=== PATIENT | female | born 1940 | race American Indian/Alaskan Native ===

== ENCOUNTER 2016-11-28 09:32 | Emergency (ER) | payer MEDICAID ==
[2016-11-28 09:58] VITALS: BP 155/63
--- NOTE | 2016-11-28 12:36 | Emergency Department Report ---
ED Recheck HPI - General Chief Complaint: Recheck/Abnormal Lab/Rx Stated Complaint: MED REFILL Time Seen by Provider: 11/28/16 12:18 Source: patient, family Mode of arrival: Ambulatory Limitations: Altered Mental Status - History of Present Illness Initial Comments: Family brought patient emergency room report that patient has a history of dementia and she hasn't brought patient to the [facility] doctor in a while. She said that patient had a attack a couple weeks ago and she had to before somebody else's machine because her nebulizer machine is not working. She says she went to her machine tender this morning but because patient [place] ID is they sent her to the emergency room she said that she is requesting albuterol inhaler and nebulizer along with the nebulizer machine. I discussed with patient that the machine will need to be prescribed by her primary care physician or lung specialist. I instructed her I can refill her medication and she will need to go to [place] [facility] [employer] to get ID updated today and go back to machine tender office for refill on nebulizer machine. Patient denies any shortness of breath or chest pain at present. He has a history of COPD. MD Complaint: medication refill request Returns Today for: other (need medication refill) Context: ran out of medication Associated Symptoms: none Treatments Prior to Arrival: other (none) - Related Data Previous Rx's Medication Instructions Recorded Last Taken Type ALBUTEROL Inhaler [ProAir HFA 2 puff IH QID PRN #1 inhalation 11/28/16 Unknown Rx Inhaler] Albuterol Sulfate [Albuterol 0.63% 0.63 mg IH TID PRN #1 box 11/28/16 Unknown Rx NEBS] Allergies Allergy/AdvReac Type Severity Reaction Status Date / Time No Known Allergies Allergy Unverified 11/28/16 09:50 ED Review of Systems ROS: Stated complaint: SOB Other details as noted in HPI Patient with dementia but able to answer review of system questions. Comment: All other systems reviewed and negative Constitutional: denies: chills, fever Respiratory: no symptoms reported Cardiovascular: denies: chest pain, palpitations Gastrointestinal: denies: abdominal pain, nausea, vomiting, diarrhea Musculoskeletal: denies: back pain, arthralgia Skin: denies: rash Neurological: denies: headache, weakness, numbness, paresthesias ED Past Medical Hx - Past Medical History Previous Medical History?: Yes Hx Diabetes: Yes Hx COPD: Yes Hx Dementia: Yes - Surgical History Past Surgical History?: No - Family History Family history: diabetes, hypertension - Social History Smoking Status: Current Every Day Smoker Substance Use Type: None - Medications Home Medications: Home Medications Medication Instructions Recorded Confirmed Last Taken Type ALBUTEROL Inhaler [ProAir HFA 2 puff IH QID PRN #1 inhalation 11/28/16 Unknown Rx Inhaler] Albuterol Sulfate [Albuterol 0.63% 0.63 mg IH TID PRN #1 box 11/28/16 Unknown Rx NEBS] ED Physical Exam - General Limitations: No Limitations General appearance: alert, in no apparent distress - Head Head exam: Present: atraumatic, normocephalic, normal inspection - Eye Eye exam: Present: normal appearance, PERRL, EOMI Pupils: Present: normal accommodation - ENT ENT exam: Present: normal exam, normal orophraynx, mucous membranes moist, TM's normal bilaterally, normal external ear exam - Neck Neck exam: Present: normal inspection, full ROM. Absent: tenderness, meningismus, lymphadenopathy - Respiratory Respiratory exam: Present: decreased breath sounds. Absent: respiratory distress, wheezes, rales, rhonchi, stridor, chest wall tenderness, accessory muscle use, prolonged expiratory - Cardiovascular Cardiovascular Exam: Present: regular rate, normal rhythm, normal heart sounds - Extremities Exam Extremities exam: Present: normal inspection, full ROM, normal capillary refill. Absent: tenderness, pedal edema, joint swelling, calf tenderness - Neurological Exam Neurological exam: Present: alert, other (oriented to person) - Psychiatric Psychiatric exam: Present: normal affect, normal mood - Skin Skin exam: Present: warm, dry, intact, normal color. Absent: rash ED Course Vital Signs 11/28/16 09:50 Temperature 98.2 F Pulse Rate 78 Respiratory 20 Rate Blood Pressure 155/63 - Reevaluation(s) Reevaluation #1: 11/28/16 12:41 ED course uneventful ED Recheck MDM - Differential Diagnosis Prescription Refill(s) - Medical Decision Making ED course: Patient here with family who is requesting refill on albuterol nebulizer and inhaler. They're also prescription in for replacement of nebulizer m Machine. Patient does have a machine tender but she went this morning and because she does not have a valid [place] ID they sent her to the emergency room. I Discussed with family that They will need to update her IV at the [facility] [employer] [facility] and return to machine tender office for prescription for nebulizer machine in the meantime I'll give prescription for albuterol inhaler and nebulizer. Patient assessment of the lungs was normal. Patient discharged home with family prescription for albuterol nebulizer and inhaler. Critical care attestation.: If time is entered above; I have spent that time in minutes in the direct care of this critically ill patient, excluding procedure time. ED Disposition Clinical Impression: Encounter for medication refill Disposition: DISCHARGED TO HOME OR SELFCARE Is pt being admited?: No Does the pt Need Aspirin: No Condition: Stable Instructions: Chronic Obstructive Pulmonary Disease (ED) Additional Instructions: Please go to the [facility] to get patient [place] ID updated today. return to your machine tender office to get prescription for nebulizer machine today. Prescriptions: Albuterol Sulfate [Albuterol 0.63% NEBS] 0.63 mg IH TID PRN #1 box PRN Reason: Wheezing ALBUTEROL Inhaler [ProAir HFA Inhaler] 2 puff IH QID PRN #1 inhalation PRN Reason: Wheezing Referrals: MICHAEL FERNANDEZ MD [Staff Physician] - 11/29/16 PRIMARY CAREMD [Primary Care Provider] - 11/29/16 Forms: Accompanied Note
== END 2016-11-28 12:57 | disposition home or self-care (01) ==
LOC: ED 09:32
DX: Z76.1 Encounter for health supervision and care of foundling (principal); E11.9 Type 2 diabetes mellitus without complications; J44.9 Chronic obstructive pulmonary disease, unspecified; F03.90 Unspecified dementia, unspecified severity, without behavioral disturbance, psychotic disturbance, mood disturbance, and anxiety; F17.200 Nicotine dependence, unspecified, uncomplicated
CPT/HCPCS: 99282

== ENCOUNTER 2016-12-01 15:52 | Emergency (ER) | payer MEDICARE ==
--- NOTE | 2016-12-01 17:01 | Emergency Department Report ---
Chief Complaint: Fall Stated Complaint: FALL/HEAD LAC Time Seen by Provider: 12/01/16 16:55 - HPI History of Present Illness: 75 y/o female slipped and fell had a laceration to top of head .pt state she was walking to mail box and slip on ice .pt denies any LOC .pt denies any pain at present .daughter state she do give mother any medication even though she was told had diabetes and suppose to take insulin . - ROS Review of Systems: per HPI - Exam Vital Signs: Vital Signs 12/01/16 16:35 Temperature 98.5 F Pulse Rate 108 H Respiratory 16 Rate Blood Pressure 201/84 O2 Sat by Pulse 100 Oximetry Physical Exam: GENERAL: The patient is well-developed and well-nourished. Patient is in NAD. HENT: Normocephalic. Atraumatic. Patient has moist mucous membranes. Throat: No erythema, swelling or exudates. EYES: Extraocular motions are intact, PERRL NECK: Supple. No meningitic signs are noted. There is no adenopathy noted. CHEST/LUNGS: Clear to auscultation bilaterally. No wheezing, rales or rhonchi noted. There is no respiratory distress noted. HEART/CARDIOVASCULAR: Regular rate and rhythm. Normal S1 S2. No murmurs, rubs , clicks, or gallops. ABDOMEN: Abdomen is soft, nontender.. Bowel sounds normoactive. There is no abdominal distention. Negative rebound tenderness. Negative Rovsing. Negative [place] testing. Negative obturator and psoas signs. Negative CVA tenderness B/ L. : Deferred. SKIN: There is no rash. There is no edema. There is no diaphoresis.laceration back of head scalp .abrasion to left hand and left elbow NEURO: The patient is A&Ox3. The patient has no focal neurologic deficits. MUSCULOSKELETAL: There is no tenderness or deformity. There is no limitation range of motion. PSYCH: Pt has appropriate mood and affect. MSE screening note: Focused history and physical exam performed. Due to findings the following was ordered: ED Disposition for MSE Condition: Stable
[2016-12-01 17:52] LABS: Basophils % (Auto) 0.4 % (0.0-1.8); Hematocrit 36.4 % (30.3-42.9); Hemoglobin 11.5 gm/dl (10.1-14.3); Mean Corpuscular HGB Conc 32 % (30-34); Mean Corpuscular Volume 82 fl (79-97); Platelet Count 275 K/mm3 (140-440); Red Blood Count 4.44 M/mm3 (3.65-5.03); Red Cell Distribution Width 15.4 % (13.2-15.2); White Blood Count 13.1 K/mm3 (4.5-11.0)
[2016-12-01 17:57] LABS: Mean Corpuscular Hemoglobin 26 pg (28-32)
[2016-12-01 18:07] LABS: INR 0.95 (0.87-1.13)
[2016-12-01 18:08] LABS: Partial Thromboplastin Time 34.3 Sec. (24.2-36.6)
[2016-12-01 18:18] LABS: Blood Urea Nitrogen 15 mg/dL (7-17); Calcium 10.1 mg/dL (8.4-10.2); Carbon Dioxide 25 mmol/L (22-30); Glucose 196 mg/dL (65-100); Potassium 4.5 mmol/L (3.6-5.0); Sodium 139 mmol/L (137-145)
[2016-12-01 18:20] LABS: Anion Gap 15 mmol/L
[2016-12-01 18:34] LABS: Creatine Kinase MB 3.8 ng/mL (0.0-4.0)
[2016-12-01 18:36] LABS: Creatine Kinase 136 units/L (30-135)
--- NOTE | 2016-12-02 00:22 | Emergency Department Report ---
HPI - General Chief Complaint: Fall Time Seen by Provider: 12/02/16 00:07 - HPI HPI: 75-year-old female with history of dementia presents today with laceration to the back of her head and abrasions on right arm post fall. Daughter states patient fell while walking to the mailbox backwards. Loss of consciousness unknown. Patient denies visual changes, dizziness, confusion, fever, chills, nausea, vomiting, chest pain, shortness of breath, abdominal pain. Denies neck and back pain. Denies numbness, weakness, paresthesias. She rates her pain as a 4 out of 10. Daughter denies change in behavior. ED Past Medical Hx - Past Medical History Hx Diabetes: Yes Hx COPD: Yes Hx Dementia: Yes - Social History Smoking Status: Current Every Day Smoker Substance Use Type: None - Medications Home Medications: Home Medications Medication Instructions Recorded Confirmed Last Taken Type ALBUTEROL Inhaler [ProAir HFA 2 puff IH QID PRN #1 inhalation 11/28/16 Unknown Rx Inhaler] Albuterol Sulfate [Albuterol 0.63% 0.63 mg IH TID PRN #1 box 11/28/16 Unknown Rx NEBS] ED Review of Systems ROS: Stated complaint: FALL/HEAD LAC Other details as noted in HPI Constitutional: denies: chills, fever, malaise Eyes: denies: eye pain, vision change ENT: denies: ear pain, throat pain, congestion Respiratory: denies: cough, shortness of breath, wheezing Cardiovascular: denies: chest pain, palpitations Endocrine: no symptoms reported Gastrointestinal: denies: abdominal pain, nausea, vomiting Musculoskeletal: denies: back pain Neurological: headache. denies: weakness, numbness, paresthesias Physical Exam - Physical Exam Vital Signs: Vital Signs 12/01/16 12/01/16 16:35 22:58 Temperature 98.5 F 99.5 F Pulse Rate 108 H 104 H Respiratory 16 18 Rate Blood Pressure 201/84 Blood Pressure 156/80 [Right] O2 Sat by Pulse 100 96 Oximetry Physical Exam: GENERAL: The patient is well-developed and well-nourished. Patient is in NAD. HEAD: Normocephalic. A 2.5 cm irregular shaped superficial laceration noted over the right temporal region. No active bleeding. EYES: Extraocular motions are intact, PERRL. EARS: External auditory canals and tympanic membranes clear; hearing grossly intact. NOSE: Normal nasal mucosa with no nasal discharge. THROAT: No erythema, swelling or exudates. NECK: No midline or paraspinal tenderness to palpation. BACK: Full ROM. No midline or paraspinal tenderness to palpation. Negative straight leg raise bilaterally. CHEST/LUNGS: Clear to auscultation throughout. HEART/CARDIOVASCULAR: Regular rate and rhythm. No murmurs, rubs or gallops. ABDOMEN: Abdomen is soft, nontender. Bowel sounds normoactive. No guarding or rebound tenderness. RIGHT UPPER EXTREMITY: Full range of motion. Abrasions noted over right elbow and ulnar aspect of right hand. No active bleeding. Normal sensation. 2 point discrimination intact. Peripheral pulses intact. Capillary refill less than 2 seconds. NEURO: Alert and oriented x 3. Normal gait. Symmetrical strength and sensation. No focal neurological deficits noted. GCS score of 15. ED Course Vital Signs 12/01/16 12/01/16 16:35 22:58 Temperature 98.5 F 99.5 F Pulse Rate 108 H 104 H Respiratory 16 18 Rate Blood Pressure 201/84 Blood Pressure 156/80 [Right] O2 Sat by Pulse 100 96 Oximetry ED Medical Decision Making - Lab Data Result diagrams: 12/01/16 17:41 12/01/16 17:41 Vital Signs 12/01/16 12/01/16 12/02/16 16:35 22:58 01:30 Temperature 98.5 F 99.5 F 99.6 F Pulse Rate 108 H 104 H 105 H Respiratory 16 18 22 Rate Blood Pressure 201/84 Blood Pressure 156/80 130/67 [Right] O2 Sat by Pulse 100 96 100 Oximetry Lab Results 12/01/16 12/01/16 12/01/16 Range/Units 17:41 17:41 17:41 WBC 13.1 H (4.5-11.0) K/mm3 RBC 4.44 (3.65-5.03) M/mm3 Hgb 11.5 (10.1-14.3) gm/dl Hct 36.4 (30.3-42.9) % MCV 82 (79-97) fl MCH 26 L (28-32) pg MCHC 32 (30-34) % RDW 15.4 H (13.2-15.2) % Plt Count 275 (140-440) K/mm3 Lymph % (Auto) 10.2 L (13.4-35.0) % Wilkin % (Auto) 3.7 (0.0-7.3) % Eos % (Auto) 1.0 (0.0-4.3) % Baso % (Auto) 0.4 (0.0-1.8) % Lymph # 1.3 (1.2-5.4) K/mm3 Wilkin # 0.5 (0.0-0.8) K/mm3 Eos # 0.1 (0.0-0.4) K/mm3 Baso # 0.1 (0.0-0.1) K/mm3 Seg Neutrophils % 84.7 H (40.0-70.0) % Seg Neutrophils # 11.0 H (1.8-7.7) K/mm3 PT 12.6 (12.2-14.9) Sec. INR 0.95 (0.87-1.13) APTT 34.3 (24.2-36.6) Sec. Sodium 139 (137-145) mmol/L Potassium 4.5 (3.6-5.0) mmol/L Chloride 104.0 (98-107) mmol/L Carbon Dioxide 25 (22-30) mmol/L Anion Gap 15 mmol/L BUN 15 (7-17) mg/dL Creatinine 1.0 (0.7-1.2) mg/dL Estimated GFR > 60 ml/min BUN/Creatinine Ratio 15.00 % Glucose 196 H (65-100) mg/dL Calcium 10.1 (8.4-10.2) mg/dL Total Creatine Kinase (30-135) units/L CK-MB (CK-2) (0.0-4.0) ng/mL CK-MB (CK-2) Rel Index (0-4) Troponin T (0.00-0.029) ng/mL 12/01/16 Range/Units 17:41 WBC (4.5-11.0) K/mm3 RBC (3.65-5.03) M/mm3 Hgb (10.1-14.3) gm/dl Hct (30.3-42.9) % MCV (79-97) fl MCH (28-32) pg MCHC (30-34) % RDW (13.2-15.2) % Plt Count (140-440) K/mm3 Lymph % (Auto) (13.4-35.0) % Wilkin % (Auto) (0.0-7.3) % Eos % (Auto) (0.0-4.3) % Baso % (Auto) (0.0-1.8) % Lymph # (1.2-5.4) K/mm3 Wilkin # (0.0-0.8) K/mm3 Eos # (0.0-0.4) K/mm3 Baso # (0.0-0.1) K/mm3 Seg Neutrophils % (40.0-70.0) % Seg Neutrophils # (1.8-7.7) K/mm3 PT (12.2-14.9) Sec. INR (0.87-1.13) APTT (24.2-36.6) Sec. Sodium (137-145) mmol/L Potassium (3.6-5.0) mmol/L Chloride (98-107) mmol/L Carbon Dioxide (22-30) mmol/L Anion Gap mmol/L BUN (7-17) mg/dL Creatinine (0.7-1.2) mg/dL Estimated GFR ml/min BUN/Creatinine Ratio % Glucose (65-100) mg/dL Calcium (8.4-10.2) mg/dL Total Creatine Kinase 136 H (30-135) units/L CK-MB (CK-2) 3.8 (0.0-4.0) ng/mL CK-MB (CK-2) Rel Index 2.7 (0-4) Troponin T < 0.010 (0.00-0.029) ng/mL - Radiology Data Radiology results: report reviewed PROCEDURE: CT HEAD/BRAIN WO CON TECHNIQUE: Computerized tomography of the head was performed without contrast material. HISTORY: Fall - head injury COMPARISON: No prior studies are available for comparison. FINDINGS: Skull and scalp: There is posterior scalp swelling on the right. There is no skull fracture.. Paranasal sinuses: Normal. Ventricles and subarachnoid spaces: There is mild central and cortical atrophy. There is no hydrocephalus or asymmetry.. Cerebrum: No evidence of hemorrhage, acute infarction or mass . Cerebellum and brainstem: No evidence of hemorrhage, acute infarction or mass. Vasculature: Normal. Comments: There is chronic deep white matter ischemic gliosis.. IMPRESSION: There is right posterior scalp swelling. There is no skull fracture. There is no hemorrhage. - Medical Decision Making 75-year-old female presents today with a laceration to her right temporal scalp region post fall. Her CT of head and brain reveals right posterior scalp swelling. There is no skull fracture or hemorrhage. The wound was copiously irrigated and closed using 5 kristen. Patient tolerated the procedure. Wound care instructions are provided. Patient is in no acute distress at this time. She will be discharged home and is encouraged to follow up with a primary care provider. She will be sent home on naproxen and is encouraged to return to the emergency room for any worsening symptoms. Critical care attestation.: If time is entered above; I have spent that time in minutes in the direct care of this critically ill patient, excluding procedure time. ED Disposition Clinical Impression: Minor head injury Qualifiers: Encounter type: initial encounter Qualified Code(s): S00.90XA - Unspecified superficial injury of unspecified part of head, initial encounter Laceration of head Qualifiers: Encounter type: initial encounter Location of open wound of head: scalp Foreign body presence: without foreign body Qualified Code(s): S01.01XA - Laceration without foreign body of scalp, initial encounter Disposition: LEFT AGAINST MEDICAL ADVICE Is pt being admited?: No Condition: Stable Referrals: PRIMARY CARE, [Primary Care Provider] - 3-5 Days
--- NOTE | 2016-12-02 00:53 | Cat Scan Report ---
FINAL REPORT PROCEDURE: CT HEAD/BRAIN WO CON TECHNIQUE: Computerized tomography of the head was performed without contrast material. HISTORY: Fall - head injury COMPARISON: No prior studies are available for comparison. FINDINGS: Skull and scalp: There is posterior scalp swelling on the right. There is no skull fracture.. Paranasal sinuses: Normal. Ventricles and subarachnoid spaces: There is mild central and cortical atrophy. There is no hydrocephalus or asymmetry.. Cerebrum: No evidence of hemorrhage, acute infarction or mass . Cerebellum and brainstem: No evidence of hemorrhage, acute infarction or mass. Vasculature: Normal. Comments: There is chronic deep white matter ischemic gliosis.. IMPRESSION: There is right posterior scalp swelling. There is no skull fracture. There is no hemorrhage.
[2016-12-02 01:30] VITALS: BP 130/67
[2016-12-02] MEDS ORDERED: TRIPLE ANTIBIOTIC TP ONE ×2 (01:34→02:03)
== END 2016-12-02 01:45 | disposition left against medical advice (07) ==
LOC: ED 15:52
DX: S01.01XA Laceration without foreign body of scalp, initial encounter (principal); S00.90XA Unspecified superficial injury of unspecified part of head, initial encounter; E11.9 Type 2 diabetes mellitus without complications; J44.9 Chronic obstructive pulmonary disease, unspecified; F17.200 Nicotine dependence, unspecified, uncomplicated; W19.XXXA Unspecified fall, initial encounter; Y93.01 Activity, walking, marching and hiking; Y99.9 Unspecified external cause status; Y92.89 Other specified places as the place of occurrence of the external cause
CPT/HCPCS: 36415; 70450; 80048; 82550; 82553; 84484; 85025; 85610; 85730; A6250

== ENCOUNTER 2017-01-02 07:55 | Emergency (ER) | payer MEDICARE ==
[2017-01-02 08:05] VITALS: BP 157/79
--- NOTE | 2017-01-02 09:06 | Emergency Department Report ---
Suture/Staple Removal - [facility] Chief Complaint: Laceration/Recheck/Suture Stated Complaint: SOB/BRISSA REMOVED/MED REFILL Time Seen by Provider: 01/02/17 09:02 When Sutures or [place] Placed: >14 Days Ago (76-year-old female presents brought in by her daughter for staple removal back of scalp occipital region. Patient has no complaints, was supposed, last week but could not. Denies any pus drainage and no bleeding. Is here with her daughter who is her balance clerk. Daughter is requesting refills on her albuterol medications. Patient is awake and alert not in acute distress) ED Review of Systems ROS: Stated complaint: SOB/BRISSA REMOVED/MED REFILL Other details as noted in HPI Constitutional: denies: chills, fever Eyes: denies: eye pain, eye discharge, vision change ENT: denies: ear pain, throat pain Respiratory: denies: cough, shortness of breath, wheezing Cardiovascular: denies: chest pain, palpitations Endocrine: no symptoms reported Gastrointestinal: denies: abdominal pain, nausea, diarrhea Genitourinary: denies: urgency, dysuria, discharge Musculoskeletal: denies: back pain, joint swelling, arthralgia Skin: as per HPI (5 Brissa to back of scalp). denies: rash, lesions Neurological: denies: headache, weakness, paresthesias Psychiatric: denies: anxiety, depression Hematological/Lymphatic: denies: easy bleeding, easy bruising ED Past Medical Hx - Past Medical History Previous Medical History?: Yes Hx Diabetes: Yes Hx COPD: Yes Hx Dementia: Yes - Surgical History Past Surgical History?: No - Social History Smoking Status: Current Every Day Smoker Substance Use Type: Prescribed - Medications Home Medications: Home Medications Medication Instructions Recorded Confirmed Last Taken Type ALBUTEROL Inhaler [ProAir HFA 2 puff IH QID PRN #1 inhalation 01/02/17 Unknown Rx Inhaler] Albuterol Sulfate [Albuterol 0.63% 0.63 mg IH TID PRN #1 box 01/02/17 Unknown Rx NEBS] Suture Removal Exam - Exam General: Vital signs noted. No distress. Alert and acting appropriately. Wound: No Pathologic Erythema, No Tenderness, No Drainage, No Pus, No Wound Dehiscence Other Systems: All other systems reviewed and are unremarkable. ED Course Vital Signs 02/08/17 08:01 Temperature 98 F Pulse Rate 67 Respiratory 18 Rate Blood Pressure 157/79 O2 Sat by Pulse 100 Oximetry ED Recheck MDM - Differential Diagnosis Suture/Staple Removal - Medical Decision Making A/P: Staple removal 1-5 brissa removed with ease from back of scalp, no wound dehiscence no signs of cellulitis or purulence 2-refill on albuterol inhaler and albuterol nebulizers 3-follow-up with primary care doctor Critical care attestation.: If time is entered above; I have spent that time in minutes in the direct care of this critically ill patient, excluding procedure time. ED Disposition Clinical Impression: Encounter for staple removal Disposition: DISCHARGED TO HOME OR SELFCARE Is pt being admited?: No Does the pt Need Aspirin: No Condition: Stable Instructions: Suture Removal (ED) Prescriptions: ALBUTEROL Inhaler [ProAir HFA Inhaler] 2 puff IH QID PRN #1 inhalation PRN Reason: Wheezing Albuterol Sulfate [Albuterol 0.63% NEBS] 0.63 mg IH TID PRN #1 box PRN Reason: Wheezing Referrals: PRIMARY MD LUDIVINA [Primary Care Provider] - 3-5 Days KYLAH PABLO MD [Staff Physician] - 3-[address] [facility] [Outside] - 3-5 Days Forms: Accompanied Note Time of Disposition: 09:05
== END 2017-01-02 09:17 | disposition home or self-care (01) ==
LOC: ED 07:55
DX: S01.01XD Laceration without foreign body of scalp, subsequent encounter (principal); Z48.02 Encounter for removal of sutures; E11.9 Type 2 diabetes mellitus without complications; J44.9 Chronic obstructive pulmonary disease, unspecified; F03.90 Unspecified dementia, unspecified severity, without behavioral disturbance, psychotic disturbance, mood disturbance, and anxiety; F17.200 Nicotine dependence, unspecified, uncomplicated

== ENCOUNTER 2017-02-18 08:50 | Emergency (ER) | payer MEDICARE ==
[2017-02-18 09:12] VITALS: BP 151/65
--- NOTE | 2017-02-18 11:56 | Emergency Department Report ---
ED General Adult HPI - General Chief complaint: Dyspnea/Respdistress Stated complaint: SOB Time Seen by Provider: 02/18/17 10:42 Source: patient Mode of arrival: Ambulatory Limitations: No Limitations - History of Present Illness Initial comments: Patient has no chief complaint. Patient denies chest pain, shortness of breath , dyspnea on exertion, nausea vomiting, or swelling of lower extremities. Patient's daughter who is her caregiver states they're here for medication refills alone. Severity scale (0 -10): 0 - Related Data Previous Rx's Medication Instructions Recorded Last Taken Type ALBUTEROL NEB's [Proventil 0.083% 2.5 mg IH QID PRN #25 neb 01/30/17 Unknown Rx NEBS] Albuterol Sulfate [Ventolin HFA] 2 puff IH Q4H PRN #1 [email or web address] 01/30/17 Unknown Rx ALBUTEROL Inhaler [ProAir HFA 2 puff IH QID PRN #1 inhalation 02/18/17 Unknown Rx Inhaler] Allergies Allergy/AdvReac Type Severity Reaction Status Date / Time No Known Allergies Allergy Verified 01/30/17 08:52 ED Review of Systems ROS: Stated complaint: SOB Other details as noted in HPI Constitutional: denies: chills, fever Eyes: denies: eye pain, eye discharge, vision change ENT: denies: ear pain, throat pain Cardiovascular: denies: chest pain, palpitations Gastrointestinal: denies: abdominal pain, nausea, vomiting, diarrhea Musculoskeletal: denies: back pain, joint swelling, arthralgia Skin: denies: rash, lesions Neurological: denies: headache, weakness, paresthesias ED Past Medical Hx - Past Medical History Previous Medical History?: Yes Hx Diabetes: Yes Hx COPD: Yes Hx Dementia: Yes - Surgical History Past Surgical History?: No - Social History Smoking Status: Current Every Day Smoker Substance Use Type: Prescribed - Medications Home Medications: Home Medications Medication Instructions Recorded Confirmed Last Taken Type ALBUTEROL NEB's [Proventil 0.083% 2.5 mg IH QID PRN #25 neb 01/30/17 Unknown Rx NEBS] Albuterol Sulfate [Ventolin HFA] 2 puff IH Q4H PRN #1 [email or web address] 01/30/17 Unknown Rx ALBUTEROL Inhaler [ProAir HFA 2 puff IH QID PRN #1 inhalation 02/18/17 Unknown Rx Inhaler] ED Physical Exam - General Limitations: No Limitations General appearance: alert, in no apparent distress - Head Head exam: Present: atraumatic, normocephalic - Eye Eye exam: Present: normal appearance - ENT ENT exam: Present: mucous membranes moist - Neck Neck exam: Present: normal inspection - Respiratory Respiratory exam: Present: normal lung sounds bilaterally. Absent: respiratory distress, wheezes, rales, rhonchi, stridor, chest wall tenderness, accessory muscle use, decreased breath sounds, prolonged expiratory - Cardiovascular Cardiovascular Exam: Present: regular rate - GI/Abdominal GI/Abdominal exam: Present: soft. Absent: distended, tenderness - Extremities Exam Extremities exam: Absent: pedal edema, calf tenderness - Neurological Exam Neurological exam: Present: alert ED Course Vital Signs 02/18/17 09:06 Temperature 98.4 F Pulse Rate 71 Respiratory 20 Rate Blood Pressure 151/65 O2 Sat by Pulse 100 Oximetry Critical care attestation.: If time is entered above; I have spent that time in minutes in the direct care of this critically ill patient, excluding procedure time. ED Disposition Clinical Impression: Medication refill Disposition: DISCHARGED TO HOME OR SELFCARE Is pt being admited?: No Does the pt Need Aspirin: No Condition: Stable Prescriptions: ALBUTEROL Inhaler [ProAir HFA Inhaler] 2 puff IH QID PRN #1 inhalation PRN Reason: Shortness Of Breath Referrals: PRIMARY CARE, [Primary Care Provider] - 3-5 Days
== END 2017-02-18 12:12 | disposition home or self-care (01) ==
LOC: ED 08:50
DX: Z76.0 Encounter for issue of repeat prescription (principal); R06.02 Shortness of breath; E11.9 Type 2 diabetes mellitus without complications; J44.9 Chronic obstructive pulmonary disease, unspecified; F17.200 Nicotine dependence, unspecified, uncomplicated
CPT/HCPCS: 99282

== ENCOUNTER 2018-07-01 09:58 | Outpatient (CLI) | payer MEDICARE ==
[2018-07-01 10:56] LABS: Hematocrit 34.9 % (30.3-42.9); Hemoglobin 11.1 gm/dl (10.1-14.3); Mean Corpuscular HGB Conc 32 % (30-34); Mean Corpuscular Hemoglobin 26 pg (28-32); Mean Corpuscular Volume 83 fl (79-97); Platelet Count 289 K/mm3 (140-440); Red Blood Count 4.23 M/mm3 (3.65-5.03); Red Cell Distribution Width 16.4 % (13.2-15.2)
[2018-07-01 11:17] LABS: Alanine Aminotransferase 15 units/L (7-56); Albumin 3.7 g/dL (3.9-5); BUN/Creatinine Ratio 23; Blood Urea Nitrogen 18 mg/dL (7-17); Hemolysis Index 2
== END 2018-07-01 09:59 | disposition home or self-care (01) ==
LOC: LAB 09:58
DX: I10 Essential (primary) hypertension (principal); E11.9 Type 2 diabetes mellitus without complications; G30.9 Alzheimer's disease, unspecified; J44.9 Chronic obstructive pulmonary disease, unspecified; M62.81 Muscle weakness (generalized)
CPT/HCPCS: 36415; 80053; 82306; 82607; 83036; 84443; 85027

== ENCOUNTER 2019-10-02 16:24 | Emergency (ER) | payer MEDICARE ==
[2019-10-02 16:51] VITALS: BP 160/58
--- NOTE | 2019-10-02 16:52 | Event Note ---
ED Screening Note Date of service: 10/02/19 Time: 16:48 ED Screening Note: This is a 78 y.o. F. that presents to the ER with bruising and pain to right shoulder and right upper arm. Patient daughter states she fell 2 days ago while coming up 2 steps on front porch at home. This initial assessment/diagnostic orders/clinical plan/treatment(s) is/are subject to change based on patients health status, clinical progression and re- assessment by fellow clinical providers in the ED. Further treatment and workup at subsequent clinical providers discretion. Patient/guardian urged not to elope from the ED as their condition may be serious if not clinically assessed and managed. Initial orders include: XR of right shoulder and humerus
--- NOTE | 2019-10-02 17:41 | XRay Report ---
XR humerus 2+V RT INDICATION / CLINICAL INFORMATION: pain and ecchymosis. COMPARISON: None available. FINDINGS: BONES/JOINT(S): No acute fracture or subluxation. Mild diffuse subjective osteopenia. Mild DJD in the glenohumeral joint and acromioclavicular joint in the right shoulder. No aggressive appearing bone l esions. SOFT TISSUES: No significant abnormality. ADDITIONAL FINDINGS: None. Signer Name: Darshan Pineda MD Signed: 10/02/2019 5:37 PM Workstation Name: [id number]
--- NOTE | 2019-10-02 17:43 | XRay Report ---
XR shoulder 2+V RT INDICATION / CLINICAL INFORMATION: ac joint pain, r/o fx. COMPARISON: None available. FINDINGS: BONES/JOINT(S): Nondisplaced lucency in the base of the greater tuberosity suggesting a nondisplaced fracture (flores image saved in PACS). Mild diffuse subjective osteopenia. Mild DJD in the glenohumeral joint and acromioclavicular joint in the right shoulder. No aggressive appearing bone lesions. Chronic healed mid right clavicular fractu re. SOFT TISSUES: No significant abnormality. ADDITIONAL FINDINGS: None. Signer Name: Darshan Pineda MD Signed: 10/02/2019 5:38 PM Workstation Name: [id number]
== END 2019-10-02 20:00 | disposition left against medical advice (07) ==
LOC: ED 16:24
DX: M79.601 Pain in right arm (principal); Z53.21 Procedure and treatment not carried out due to patient leaving prior to being seen by health care provider

== ENCOUNTER 2019-10-03 11:04 | Emergency (ER) | payer MEDICARE ==
--- NOTE | 2019-10-03 12:08 | Emergency Department Report ---
ED Fall HPI - General Chief Complaint: Fall Stated Complaint: FALL Time Seen by Provider: 10/03/19 11:55 Source: patient Mode of arrival: Ambulatory - History of Present Illness Initial Comments: 78-year-old Afro-Iranian female presents to the emergency department with her daughter for evaluation of a right arm bruising which was sustained secondary to a trip and fall about 3 days ago. While walking up the [employer] she had had a mechanical fall resulting in pain to her right arm and shoulder. She reported no chest pain or presyncope that preceded the fall no change in vision. No numbness or tingling. But does continue to have a dull throbbing pain. MD Complaint: fall - Related Data Previous Rx's Medication Instructions Recorded Last Taken Type ALBUTEROL NEB's [Proventil 0.083% 2.5 mg IH QID PRN #25 neb 01/30/17 Unknown Rx NEBS] Albuterol Sulfate [Ventolin HFA] 2 puff IH Q4H PRN #1 hfa.aer.ad 01/30/17 Unknown Rx ALBUTEROL Inhaler (OR & NICU) 2 puff IH QID PRN #1 inhalation 02/18/17 Unknown Rx [ProAir HFA Inhaler] Acetaminophen/Codeine [Tylenol #3] 1 tab PO Q6H PRN #10 tab 10/03/19 Unknown Rx Allergies Allergy/AdvReac Type Severity Reaction Status Date / Time No Known Allergies Allergy Verified 01/30/17 08:52 ED Review of Systems ROS: Stated complaint: FALL Other details as noted in HPI Comment: All other systems reviewed and negative ED Past Medical Hx - Past Medical History Hx Diabetes: Yes Hx COPD: Yes Hx Dementia: Yes - Surgical History Past Surgical History?: No - Social History Smoking Status: Current Every Day Smoker Substance Use Type: None - Medications Home Medications: Home Medications Medication Instructions Recorded Confirmed Last Taken Type ALBUTEROL NEB's [Proventil 0.083% 2.5 mg IH QID PRN #25 neb 01/30/17 Unknown Rx NEBS] Albuterol Sulfate [Ventolin HFA] 2 puff IH Q4H PRN #1 hfa.aer.ad 01/30/17 Unknown Rx ALBUTEROL Inhaler (OR & NICU) 2 puff IH QID PRN #1 inhalation 02/18/17 Unknown Rx [ProAir HFA Inhaler] Acetaminophen/Codeine [Tylenol #3] 1 tab PO Q6H PRN #10 tab 10/03/19 Unknown Rx ED Physical Exam - General Limitations: No Limitations General appearance: alert, in no apparent distress - Head Head exam: Present: atraumatic, normocephalic - Eye Eye exam: Present: normal appearance, PERRL, EOMI Pupils: Present: normal accommodation - ENT ENT exam: Present: normal exam, mucous membranes moist - Neck Neck exam: Present: normal inspection - Respiratory Respiratory exam: Present: normal lung sounds bilaterally. Absent: respiratory distress - Cardiovascular Cardiovascular Exam: Present: regular rate, normal rhythm. Absent: systolic murmur, diastolic murmur, rubs, gallop - GI/Abdominal GI/Abdominal exam: Present: soft, normal bowel sounds - Extremities Exam Extremities exam: Present: normal inspection, tenderness (disposition and is noted to the right humerus with palpation and some bruising noted as well appears to be starting the healing phase. Minimal swelling. Pain with range of motion noted. No sulcus sign. Pulses are 2+ capillary refills are brisk.) - Back Exam Back exam: Present: normal inspection - Neurological Exam Neurological exam: Present: alert, oriented X3 - Psychiatric Psychiatric exam: Present: normal affect, normal mood - Skin Skin exam: Present: warm, dry, intact, normal color. Absent: rash ED Course Vital Signs 10/03/19 11:17 Temperature 97.7 F Pulse Rate 93 H Respiratory 16 Rate Blood Pressure 136/66 O2 Sat by Pulse 100 Oximetry - Procedure Description Procedures done: Right arm placed in a sling and swath for comfort. Neurovascularly intact ED Medical Decision Making - Radiology Data Radiology results: report reviewed [address] [address] XRay Report Signed Patient: GRGE RIVAS MR#: [id number] : 1940 Acct:[id number] Age/Sex: 78 / F ADM Date: 10/02/19 Loc: ED Attending Dr: Ordering Physician: JULISA BARBER Date of Service: 10/02/19 Procedure(s): XR humerus 2+V RT Accession Number(s): [id number] cc: JULISA BARBER Fluoro Time In Minutes: XR humerus 2+V RT INDICATION / CLINICAL INFORMATION: pain and ecchymosis. COMPARISON: None available. FINDINGS: BONES/JOINT(S): No acute fracture or subluxation. Mild diffuse subjective osteopenia. Mild DJD in the glenohumeral joint and acromioclavicular joint in the right shoulder. No aggressive appearing bone lesions. SOFT TISSUES: No significant abnormality. ADDITIONAL FINDINGS: None. Signer Name: Darshan Pineda MD Signed: 10/02/2019 5:37 PM Workstation Name: [email or web address] Transcribed By: RHETT Dictated By: Darshan Pineda MD Electronically Authenticated By: Darshan Pineda MD Signed Date/Time: 10/02/191736 DD/ 35 TD/TT: - Medical Decision Making 78-year-old Iranian female 3 days status post trip and fall was here on yesterday received an x-ray of the shoulder was dislocated right greater tuberosity fracture suspicion. She left the emergency department with her daughter due to the wait time. Today for reevaluation of the same shoulder. Pain is present in mild to moderate in nature was placed in a sling for comfort and she is instructed to follow-up with her orthopedic physician - Differential Diagnosis contusion, fracture, sprain, Critical care attestation.: If time is entered above; I have spent that time in minutes in the direct care of this critically ill patient, excluding procedure time. ED Disposition Clinical Impression: Fracture of greater tuberosity of humerus Disposition: DC-01 TO HOME OR SELFCARE Is pt being admited?: No Does the pt Need Aspirin: No Condition: Stable Instructions: Arm Fracture in Adults (ED) Additional Instructions: Please keep arm in sling and swath until cleared by the orthopedic physician for removal. He can manage the pain with anti-inflammatories and ice minimal movement. Referrals: DANIEL STRICKLAND MD [Staff Physician] - 2-3 Days
[2019-10-03 12:12] VITALS: BP 153/60
== END 2019-10-03 12:45 | disposition home or self-care (01) ==
LOC: ED 11:04
DX: S42.251A Displaced fracture of greater tuberosity of right humerus, initial encounter for closed fracture (principal); E11.9 Type 2 diabetes mellitus without complications; J44.9 Chronic obstructive pulmonary disease, unspecified; F03.90 Unspecified dementia, unspecified severity, without behavioral disturbance, psychotic disturbance, mood disturbance, and anxiety; F17.200 Nicotine dependence, unspecified, uncomplicated; W19.XXXA Unspecified fall, initial encounter; Y93.89 Activity, other specified; Y92.89 Other specified places as the place of occurrence of the external cause; Y99.8 Other external cause status

== ENCOUNTER 2021-06-21 19:49 | Inpatient (IN) | payer MEDICARE, MEDICAID ==
[2021-06-21] MEDS ORDERED: PIPERACILLIN/TAZOBACTAM 3.375 3.375 GM/50 ML BAG IV ONE (20:25)
[2021-06-21] MEDS ORDERED: ACETAMINOPHEN 650 MG RECT SUPP PR ONE (20:25)
[2021-06-21] MEDS ORDERED: SODIUM CHLORIDE 0.9% 1000 ML 1,000 ML IV ONE ×2 (20:25→23:14)
--- NOTE | 2021-06-21 20:32 | Emergency Department Report ---
ED General Adult HPI - General Stated complaint: SEPSIS Time Seen by Provider: 06/21/21 20:23 Source: EMS - History of Present Illness Initial comments: Patient is 80 years old female with history of dementia, COPD and diabetes. Patient brought to the emergency room via EMS from home for evaluation of decreased responsiveness and decreased p.o. intake for the last few days. Patient also found to be febrile with a temperature of 101.2, tachycardic with a pulse of 133 and a blood pressure of 100/60. Sepsis protocol immediately initiated and patient started on IV fluids, Zosyn and given Tylenol. EMS stated that several members of the house tested positive for COVID-19 few days ago. - Related Data Previous Rx's Medication Instructions Recorded Last Taken Type ALBUTEROL NEB's [Proventil 0.083% 2.5 mg IH QID PRN #25 neb 01/30/17 Unknown Rx NEBS] Albuterol Sulfate [Ventolin HFA] 2 puff IH Q4H PRN #1 hfa.aer.ad 01/30/17 Unknown Rx Albuterol Mdi (or & Nicu Only) 2 puff IH QID PRN #1 inhalation 02/18/17 Unknown Rx [ProAir HFA Inhaler] Acetaminophen/Codeine [Tylenol #3] 1 tab PO Q6H PRN #10 tab 10/03/19 Unknown Rx Allergies Allergy/AdvReac Type Severity Reaction Status Date / Time No Known Allergies Allergy Verified 01/30/17 08:52 ED Review of Systems ROS: Stated complaint: SEPSIS Other details as noted in HPI Constitutional: chills, fever Respiratory: cough Gastrointestinal: nausea Neurological: weakness ED Past Medical Hx - Past Medical History Hx Diabetes: Yes Hx COPD: Yes Hx Dementia: Yes - Social History Smoking Status: Current Every Day Smoker Substance Use Type: None - Medications Home Medications: Home Medications Medication Instructions Recorded Confirmed Last Taken Type ALBUTEROL NEB's [Proventil 0.083% 2.5 mg IH QID PRN #25 neb 01/30/17 Unknown Rx NEBS] Albuterol Sulfate [Ventolin HFA] 2 puff IH Q4H PRN #1 hfa.aer.ad 01/30/17 Unknown Rx Albuterol Mdi (or & Nicu Only) 2 puff IH QID PRN #1 inhalation 02/18/17 Unknown Rx [ProAir HFA Inhaler] Acetaminophen/Codeine [Tylenol #3] 1 tab PO Q6H PRN #10 tab 10/03/19 Unknown Rx ED Physical Exam - General General appearance: obtunded - Head Head exam: Present: atraumatic, normocephalic, normal inspection - Eye Eye exam: Present: normal appearance - ENT ENT exam: Present: mucous membranes dry - Neck Neck exam: Present: normal inspection, full ROM. Absent: tenderness, meningismus - Respiratory Respiratory exam: Present: rales, decreased breath sounds. Absent: wheezes - Cardiovascular Cardiovascular Exam: Present: tachycardia - GI/Abdominal GI/Abdominal exam: Present: soft, normal bowel sounds. Absent: distended, tenderness, guarding - Extremities Exam Extremities exam: Present: normal inspection - Neurological Exam Neurological exam: Present: altered - Skin Skin exam: Present: warm, dry ED Course Vital Signs 06/21/21 06/21/21 06/21/21 21:32 21:40 23:23 Temperature 100.2 F H 98.6 F Pulse Rate 114 H 94 H Respiratory 37 H 24 Rate Blood Pressure 145/76 168/87 [Left] O2 Sat by Pulse 100 98 Oximetry - Consultations Consultation #1: 06/22/21 00:21 I discussed the patient with Dr. Melchor, head automatic sawyer on-call, he stated that he will follow up with the patient. ED Medical Decision Making - Lab Data Result diagrams: 06/21/21 20:39 06/21/21 20:39 - Radiology Data Radiology results: report reviewed - Medical Decision Making Patient is 80 years old female with history of dementia, COPD and diabetes. Patient brought to the emergency room via EMS from home for evaluation of decreased responsiveness and decreased p.o. intake for the last few days. Patient also found to be febrile with a temperature of 101.2, tachycardic with a pulse of 133 and a blood pressure of 100/60. Sepsis protocol immediately initiated and patient started on IV fluids, Zosyn and given Tylenol. EMS stated that several members of the house tested positive for COVID-19 few days ago. Labs showed leukocytosis. Chest x-ray is negative however CT abdomen and pelvis showed bilateral lower lobe infiltrate. This is suggesting for pneumonia. Patient also has an acute renal failure with a creatinine of 2.2 patient baseline is 0.8. Lactic acid is 4. I discussed the patient with Dr. Malik, he agreed to admit the patient to medical service for further management. Critical Care Time: Yes Critical care time in (mins) excluding proc time.: 30 Critical care attestation.: If time is entered above; I have spent that time in minutes in the direct care of this critically ill patient, excluding procedure time. ED Disposition Clinical Impression: Sepsis, Pneumonia of both lower lobes, Acute renal failure Disposition: OP ADMIT IP TO THIS HOSP Is pt being admited?: Yes Condition: Stable Instructions: Bacterial Pneumonia (ED) Referrals: PRIMARY CARE, [Primary Care Provider] - 3-5 Days
[2021-06-21 21:17] LABS: Bilirubin,Direct 0.7 mg/dL (0-0.2); Calcium 10.4 mg/dL (8.4-10.2)
[2021-06-21 21:40] LABS: Basophils % (Auto) 0.2 % (0.0-1.8); Eosinophils % (Auto) 0.3 % (0.0-4.3); Hematocrit 42.4 % (30.3-42.9); Hemoglobin 13.3 gm/dl (10.1-14.3); Lymphocytes # (Auto) 0.6 K/mm3 (1.2-5.4); Lymphocytes % (Auto) 3.5 % (13.4-35.0); Mean Corpuscular HGB Conc 31 % (30-34); Mean Corpuscular Volume 84 fl (79-97); Monocytes # (Auto) 1.1 K/mm3 (0.0-0.8); Platelet Count 219 K/mm3 (140-440); Red Blood Count 5.03 M/mm3 (3.65-5.03); Red Cell Distribution Width 16.1 % (13.2-15.2)
[2021-06-21 21:41] LABS: Eosinophils # (Auto) 0.1 K/mm3 (0.0-0.4)
--- NOTE | 2021-06-21 22:23 | XRay Report ---
CHEST 1 VIEW 06/21/2021 9:15 PM INDICATION / CLINICAL INFORMATION: sepsis,cough. COMPARISON: None available. FINDINGS: SUPPORT DEVICES: None. HEART / MEDIASTINUM: No significant abnormality. LUNGS / PLEURA: No significant pulmonary or pleural abnormality. No pneumothorax. ADDITIONAL FINDINGS: No significant additional findings. IMPRESSION: 1. No acute findings. Signer Name: Ramiro Mcclain MD Signed: 06/21/2021 10:19 PM Workstation Name: [id number]
--- NOTE | 2021-06-21 23:29 | Cat Scan Report ---
CT HEAD WITHOUT CONTRAST INDICATION : AMS. TECHNIQUE: Axial, coronal and sagittal CT imaging was performed from the skull apex through the skul l base without contrast. All CT scans at this location are performed using CT dose reduction for ALA RA by means of automated exposure control. COMPARISON: CT head without contrast from 12/02/2016 FINDINGS: PARENCHYMA: No mass, midline shift, hemorrhage, extraaxial collection or acute territorial infarctio n. Generalized atrophy is noted with areas of encephalomalacia noted along the superior left parieta l lobe and the paramedian left occipital lobe. VENTRICLES: Enlarged secondary to atrophy. No acute abnormality. SOFT TISSUES: No significant abnormality of the included soft tissues/orbits. BONES: No acute osseous abnormality. SINUSES: A small air-fluid level is seen along the left maxillary sinus. No other significant abnorma lity. ADDITIONAL FINDINGS: None. IMPRESSION: 1. No acute intracranial abnormality. 2. Additional findings as above. Signer Name: Eusebio Purcell MD Signed: 06/21/2021 11:25 PM Workstation Name: [id number]
--- NOTE | 2021-06-21 23:35 | Cat Scan Report ---
CT ABDOMEN AND PELVIS WITHOUT CONTRAST INDICATION / CLINICAL INFORMATION: Unspecified abdominal pain, altered mental status, COVID 19. TECHNIQUE: Axial CT images were obtained through the abdomen and pelvis without IV contrast. All CT scans at [facility] location are performed using CT dose reduction for ALARA by means of automated exposure control. COMPARISON: One view of the chest performed today. FINDINGS: LOWER CHEST: Generalized bibasilar opacities are noted with mild emphysema. There is severe generaliz ed coronary atherosclerosis and moderate thoracic aortic atherosclerosis. No other significant abnorm ality. LIVER: No significant abnormality. GALLBLADDER: Cholelithiasis without evidence of acute cholecystitis. BILE DUCTS: No significant abnormality. PANCREAS: Generalized atrophy without other significant abnormalities. SPLEEN: No significant abnormality. ADRENALS: No significant abnormality of the right adrenal gland. A left adrenal myelolipoma measures 2.4 x 1.9 cm on image 54 of series 2. RIGHT KIDNEY / URETER: There is marked right renal atrophy without other significant abnormalities. LEFT KIDNEY / URETER: A mid pole left renal cyst measures up to 1.6 cm on image 62 of series 2. No ot her significant abnormality. STOMACH / SMALL BOWEL: No significant abnormality. COLON: There is generalized diverticulosis without evidence of diverticulitis or other acute findings . APPENDIX: No significant abnormality. PERITONEUM: No free fluid. No free air. No fluid collection. LYMPH NODES: No significant adenopathy. AORTA / ARTERIES: The aorta is normal in caliber with diffuse atherosclerosis. IVC / VEINS: No significant abnormality. URINARY BLADDER: No significant abnormality. REPRODUCTIVE ORGANS: A tube is seen along the vagina without identification of significant abnormalit ies. ADDITIONAL FINDINGS: None. SKELETAL SYSTEM: No acute findings. The bones are demineralized with severe degenerative changes note d along the spine and pelvis. IMPRESSION: 1. No acute abnormality of the abdomen or pelvis. 2. Partially visualized bibasilar opacities are favored to represent atelectasis/other chronic change s given the lack of a concerning acute radiographic abnormality on the chest radiograph performed ear lier today. Close clinical and imaging follow-up is recommended. Signer Name: Eusebio Purcell MD Signed: 06/21/2021 11:31 PM Workstation Name: [id number]
[2021-06-22] MEDS ORDERED: ALBUTEROL 2.5 MG/3 ML NEBU IH PRN ×2 (01:32→01:37)
[2021-06-22] MEDS ORDERED: ACETAMINOPHEN 325 MG TAB PO PRN ×2 (01:32)
[2021-06-22] MEDS ORDERED: HYDROmorphone 1 MG/1 ML INJ IV PRN ×2 (01:32)
[2021-06-22] MEDS ORDERED: ONDANSETRON 4 MG/2 ML INJ IV PRN (01:32)
[2021-06-22] MEDS ORDERED: oxyCODONE /ACETAMINOPHEN 5-325MG TAB PO PRN (01:32)
[2021-06-22] MEDS ORDERED: ALBUTEROL 8.5 GM MDI INHALATION IH PRN ×2 (01:37)
--- NOTE | 2021-06-22 01:43 | History and Physical Report ---
History of Present Illness Date of examination: 06/22/21 Date of admission: 06/22/21 00:05 Chief complaint: Decreased responsiveness Sepsis History of present illness: 80 years old female with history of dementia, COPD and diabetes was brought to the emergency room because of decreased responsiveness and decreased p.o. intake for the last few days. Patient also found to be febrile with a temperature of 101.2, tachycardic with a pulse of 133 and a blood pressure of 100/60. Sepsis protocol immediately initiated and patient started on IV fluids, Zosyn and given Tylenol. EMS stated that several members of the house tested positive for COVID-19 few days ago. In the emergency room patient is found to have WBC of 17.7 lactic acid of 4.00, BUN is 48 creatinine 2.2, chest x-ray compatible with pneumonia as per the ER physician Past History Past Medical History: COPD, diabetes, other (Dementia) Medications and Allergies Allergies Allergy/AdvReac Type Severity Reaction Status Date / Time No Known Allergies Allergy Verified 01/30/17 08:52 Home Medications Medication Instructions Recorded Confirmed Last Taken Type ALBUTEROL NEB's [Proventil 0.083% 2.5 mg IH QID PRN #25 neb 01/30/17 Unknown Rx NEBS] Albuterol Sulfate [Ventolin HFA] 2 puff IH Q4H PRN #1 hfa.aer.ad 01/30/17 Unknown Rx Albuterol Mdi (or & Nicu Only) 2 puff IH QID PRN #1 inhalation 02/18/17 Unknown Rx [ProAir HFA Inhaler] Acetaminophen/Codeine [Tylenol #3] 1 tab PO Q6H PRN #10 tab 10/03/19 Unknown Rx Active Meds: Active Medications Acetaminophen (Acetaminophen 325 Mg Tab) 650 mg PO Q4H PRN PRN Reason: Pain MILD(1-3)/Fever >100.5/MCGRAW Acetaminophen (Acetaminophen 325 Mg Tab) 650 mg PO Q6H PRN PRN Reason: Pain, Mild (1-3) Albuterol (Albuterol 2.5 Mg/3 Ml Nebu) 2.5 mg IH Q4HRT PRN PRN Reason: Shortness Of Breath Albuterol (Albuterol 8.5 Gm Mdi Inhalation) 2 puff IH QID PRN PRN Reason: Shortness Of Breath Albuterol (Albuterol 2.5 Mg/3 Ml Nebu) 2.5 mg IH QID PRN PRN Reason: Wheezing Albuterol (Albuterol 8.5 Gm Mdi Inhalation) 2 puff IH Q4H PRN PRN Reason: Shortness Of Breath Albuterol/Ipratropium (Ipratropium/Albuterol Sulfate 3 Ml Ampul.Neb) 1 ampul IH Q6HRT [place] Famotidine (Famotidine 20 Mg/2 Ml Inj) 20 mg IV BID [place] Heparin Sodium (Porcine) (Heparin 5,000 Unit/1 Ml Vial) 5,000 unit SUB-Q Q12HR [place] Hydromorphone HCl (Hydromorphone 1 Mg/1 Ml Inj) 0.25 mg IV Q4H PRN PRN Reason: Pain, Moderate (4-6) Hydromorphone HCl (Hydromorphone 1 Mg/1 Ml Inj) 0.5 mg IV Q3H PRN PRN Reason: Pain , Severe (7-10) Sodium Chloride (Nacl 0.9% 1000 Ml) 1,000 mls @ 100 mls/hr IV DIRECT [facility] Ceftriaxone Sodium (Rocephin/Ns 2 Gm/100 Ml) 2 gm in 100 mls @ 200 mls/hr IV Q24H [facility]; Protocol Azithromycin (Zithromax/Ns) 500 mg in 250 mls @ 250 mls/hr IV Q24H [facility]; Protocol Ondansetron HCl (Ondansetron 4 Mg/2 Ml Inj) 4 mg IV Q8H PRN PRN Reason: Nausea And Vomiting Oxycodone/Acetaminophen (Oxycodone /Acetaminophen 5-325mg Tab) 1 tab PO Q6H PRN PRN Reason: Pain, Moderate (4-6) Sodium Chloride (Sodium Chloride 0.9% 10 Ml Flush Syringe) 10 ml IV BID [facility] Sodium Chloride (Sodium Chloride 0.9% 10 Ml Flush Syringe) 10 ml IV PRN PRN PRN Reason: LINE FLUSH Review of Systems Constitutional: lethargy, other (Decreased responsiveness, decreased p.o. int brittanie) Exam - Constitutional Vitals: Temp Pulse Resp BP Pulse Ox 98.6 F 94 H 24 168/87 98 06/21/21 23:23 06/21/21 23:23 06/21/21 23:23 06/21/21 23:23 06/21/21 23:23 General appearance: Present: mild distress, well-nourished - EENT Eyes: Present: PERRL ENT: hearing intact, clear oral mucosa - Neck Neck: Present: supple, normal ROM - Respiratory Respiratory effort: normal Respiratory: bilateral: CTA - Cardiovascular Heart Sounds: Present: S1 & S2. Absent: rub, click - Extremities Extremities: pulses symmetrical, No edema Peripheral Pulses: within normal limits - Abdominal General gastrointestinal: Present: soft, non-tender, non-distended, normal bowel sounds Female genitourinary: Present: normal - Integumentary Integumentary: Present: clear, warm, dry - Musculoskeletal Musculoskeletal: gait normal, strength equal bilaterally - Psychiatric Psychiatric: intact judgment & insight, other (Altered) - Neurologic Neurologic: CNII-XII intact, other (Altered mental status) Results - Labs CBC & Chem 7: 06/21/21 20:39 06/21/21 20:39 Labs: Laboratory Last Values WBC 17.7 K/mm3 (4.5-11.0) H 06/21/21 20:39 RBC 5.03 M/mm3 (3.65-5.03) 06/21/21 20:39 Hgb 13.3 gm/dl (10.1-14.3) 06/21/21 20:39 Hct 42.4 % (30.3-42.9) 06/21/21 20:39 MCV 84 fl (79-97) 06/21/21 20:39 MCH 26 pg (28-32) L 06/21/21 20:39 MCHC 31 % (30-34) 06/21/21 20:39 RDW 16.1 % (13.2-15.2) H 06/21/21 20:39 Plt Count 219 K/mm3 (140-440) 06/21/21 20:39 Lymph % (Auto) 3.5 % (13.4-35.0) L 06/21/21 20:39 [place] % (Auto) 6.0 % (0.0-7.3) 06/21/21 20:39 Eos % (Auto) 0.3 % (0.0-4.3) 06/21/21 20:39 Baso % (Auto) 0.2 % (0.0-1.8) 06/21/21 20:39 Lymph # (Auto) 0.6 K/mm3 (1.2-5.4) L 06/21/21 20:39 [place] # (Auto) 1.1 K/mm3 (0.0-0.8) H 06/21/21 20:39 Eos # (Auto) 0.1 K/mm3 (0.0-0.4) 06/21/21 20:39 Baso # (Auto) 0.0 K/mm3 (0.0-0.1) 06/21/21 20:39 Add Manual Diff Complete 06/21/21 20:39 Seg Neutrophils % 90.0 % (40.0-70.0) H 06/21/21 20:39 Seg Neutrophils # 15.9 K/mm3 (1.8-7.7) H 06/21/21 20:39 Sodium 141 mmol/L (137-145) 06/21/21 20:39 Potassium 4.5 mmol/L (3.6-5.0) 06/21/21 20:39 Chloride 107.3 mmol/L (98-107) H 06/21/21 20:39 Carbon Dioxide 15 mmol/L (22-30) L 06/21/21 20:39 Anion Gap 23 mmol/L 06/21/21 20:39 BUN 48 mg/dL (7-17) H 06/21/21 20:39 Creatinine 2.2 mg/dL (0.6-1.2) H 06/21/21 20:39 Estimated GFR 26 ml/min 06/21/21 20:39 BUN/Creatinine Ratio 22 % 06/21/21 20:39 Glucose 242 mg/dL (65-100) H 06/21/21 20:39 Lactic Acid 2.90 mmol/L (0.7-2.0) H* 06/22/21 00:07 Calcium 10.4 mg/dL (8.4-10.2) H 06/21/21 20:39 Total Bilirubin 1.00 mg/dL (0.1-1.2) 06/21/21 20:39 Direct Bilirubin 0.7 mg/dL (0-0.2) H 06/21/21 20:39 Indirect Bilirubin 0.3 mg/dL 06/21/21 20:39 AST 68 units/L (5-40) H 06/21/21 20:39 ALT 32 units/L (7-56) 06/21/21 20:39 Alkaline Phosphatase 92 units/L (35-129) 06/21/21 20:39 Total Protein 7.5 g/dL (6.3-8.2) 06/21/21 20:39 Albumin 3.0 g/dL (3.9-5) L 06/21/21 20:39 Albumin/Globulin Ratio 0.7 % 06/21/21 20:39 Microbiology: Microbiology 06/21/21 20:55 Peripheral/Venous Blood Culture - Preliminary Culture in Progress 06/21/21 20:39 Peripheral/Venous Blood Culture - Preliminary Culture in Progress - Imaging and Cardiology Chest x-ray: report reviewed CT scan - abdomen: report reviewed CT Scan - head: report reviewed Assessment and Plan VTE prophylaxis?: Chemical Plan of care discussed with patient/family: Yes - Patient Problems (1) Sepsis Current Visit: Yes Status: Acute Plan to address problem: Admit the patient to the medical telemetry. Put the patient on sepsis pathway. Normal saline at the rate of 100 cc/h. Rocephin 2 g IV daily. Zithromax 500 mg IV daily. We do the blood cultures and urine culture. Will consult infectious disease for evaluation for PUI. Recheck CBC BMP in the morning. Follow Covid PCR (2) Acute metabolic encephalopathy Current Visit: Yes Status: Acute Plan to address problem: Most likely secondary to sepsis and IRINA. We will continue the IV antibiotic and IV fluid. We will monitor the patient closely (3) Acute renal failure Current Visit: Yes Status: Acute Plan to address problem: Normal saline at the rate of 100 cc/h. Avoid nephrotoxic drug. Renally dose medication. Reconsult and notified psychiatric np for evaluation. Recheck BMP in the morning (4) Diabetes Current Visit: Yes Status: Acute Plan to address problem: We put the patient on 1800 kcal ADA diet. Humalog sliding scale with Accu-Chek before meals and at bedtime with moderate dose coverage. Diabetic education (5) COPD (chronic obstructive pulmonary disease) Current Visit: Yes Status: Acute Plan to address problem: Oxygen via nasal cannula 3 L/min. DuoNeb by nebulizer every 4 hours. Albuterol via nebulizer every 4 hours as needed (6) Pneumonia of both lower lobes Current Visit: Yes Status: Acute Plan to address problem: Oxygen by nasal cannula 3 L/min DuoNeb by nebulizer every 4 hours. Rocephin 2 g IV daily. Zithromax 500 mg IV daily. We do the blood culture urine culture. Will consult infectious disease for evaluation (7) DVT prophylaxis Current Visit: Yes Status: Acute Plan to address problem: Heparin 5000 units subcu every 8 hours for DVT prophylaxis. Pepcid 20 mg p.o. twice daily for GI prophylaxis. Patient is a full code
[2021-06-22] MEDS ORDERED: DEXTROSE 50% IN WATER (25GM) 50 ML SYRINGE IV PRN ×2 (01:49→17:15)
[2021-06-22] MEDS: IPRATROPIUM/ALBUTEROL SULFATE 3 ML AMPUL.NEB IH SCH ×4 (02:00→21:04)
[2021-06-22] MEDS: AZITHROMYCIN/NS 500 MG/250 ML 500 MG/250 ML BAG IV SCH ×2 (02:42→10:47)
[2021-06-22] MEDS: SODIUM CHLORIDE 0.9% 1000 ML 1,000 ML IV SCH ×3 (05:16→23:04)
[2021-06-22 05:20] LABS: Bacteria,Urine 4+ /HPF (Negative); Bilirubin,Urine NEG (Negative); Blood,Urine LG (Negative); Color,Urine Yellow (Yellow); Mucus,Urine FEW /HPF; Urobilinogen,Urine < 2.0 mg/dL (<2.0)
[2021-06-22] MEDS: INSULIN LISPRO 100 UNIT/ML SUB-Q SCH ×4 (08:47→21:02)
--- NOTE | 2021-06-22 09:40 | Consultation ---
History of Present Illness - Reason for Consult Consult date: 06/22/21 acute renal failure - History of Present Illness patient was admitted last night for worsening mental status and decreased UOP, on admission she was found febrile, tachycardic with elevated WBC and was admitted for sepsis and started on IVF and abx. she was also found to have elevated Cr and renal consult was requested. CT head was negative for acute intracranial abnormalities. CT AP did not show obstructive uropathy. CXR was normal. Past History Past Medical History: COPD, diabetes, other (Dementia) Medications and Allergies Allergies Allergy/AdvReac Type Severity Reaction Status Date / Time No Known Allergies Allergy Verified 01/30/17 08:52 Home Medications Medication Instructions Recorded Confirmed Last Taken Type ALBUTEROL NEB's [Proventil 0.083% 2.5 mg IH QID PRN #25 neb 01/30/17 Unknown Rx NEBS] Albuterol Sulfate [Ventolin HFA] 2 puff IH Q4H PRN #1 hfa.aer.ad 01/30/17 Unknown Rx Albuterol Mdi (or & Nicu Only) 2 puff IH QID PRN #1 inhalation 02/18/17 Unknown Rx [ProAir HFA Inhaler] Acetaminophen/Codeine [Tylenol #3] 1 tab PO Q6H PRN #10 tab 10/03/19 Unknown Rx Active Meds: Active Medications Acetaminophen (Acetaminophen 325 Mg Tab) 650 mg PO Q4H PRN PRN Reason: Pain MILD(1-3)/Fever >100.5/MCGRAW Albuterol (Albuterol 2.5 Mg/3 Ml Nebu) 2.5 mg IH Q4HRT PRN PRN Reason: Shortness Of Breath Albuterol/Ipratropium (Ipratropium/Albuterol Sulfate 3 Ml Ampul.Neb) 1 ampul IH Q6HRT [place] Last Admin: 06/22/21 07:52 Dose: 1 ampul Documented by: Dextrose (Dextrose 50% In Water (25gm) 50 Ml Syringe) 0 ml IV Q30MIN PRN; Protocol PRN Reason: Hypoglycemia Famotidine (Famotidine 20 Mg/2 Ml Inj) 20 mg IV QAM [place] Heparin Sodium (Porcine) (Heparin 5,000 Unit/1 Ml Vial) 5,000 unit SUB-Q Q12HR [place] Hydromorphone HCl (Hydromorphone 1 Mg/1 Ml Inj) 0.25 mg IV Q4H PRN PRN Reason: Pain, Moderate (4-6) Hydromorphone HCl (Hydromorphone 1 Mg/1 Ml Inj) 0.5 mg IV Q3H PRN PRN Reason: Pain , Severe (7-10) Sodium Chloride (Nacl 0.9% 1000 Ml) 1,000 mls @ 100 mls/hr IV DIRECT [place] Last Admin: 06/22/21 05:16 Dose: 100 mls/hr Documented by: Ceftriaxone Sodium (Rocephin/Ns 2 Gm/100 Ml) 2 gm in 100 mls @ 200 mls/hr IV Q24HR [place]; Protocol Azithromycin (Zithromax/Ns) 500 mg in 250 mls @ 250 mls/hr IV Q24HR [facility]; Protocol Last Admin: 06/22/21 02:42 Dose: 250 mls/hr Documented by: Insulin Human Lispro (Insulin Lispro 100 Unit/Ml) 0 unit SUB-Q ACHS [place]; Protocol Last Admin: 06/22/21 08:47 Dose: Not Given Documented by: Ondansetron HCl (Ondansetron 4 Mg/2 Ml Inj) 4 mg IV Q8H PRN PRN Reason: Nausea And Vomiting Oxycodone/Acetaminophen (Oxycodone /Acetaminophen 5-325mg Tab) 1 tab PO Q6H PRN PRN Reason: Pain, Moderate (4-6) Pneumococcal Polyvalent Vaccine (Pneumococcal 23 Valent 0.5 Ml Vial) 0.5 ml IM .ONCE ONE Stop: 06/22/21 12:01 Sodium Chloride (Sodium Chloride 0.9% 10 Ml Flush Syringe) 10 ml IV BID [place] Sodium Chloride (Sodium Chloride 0.9% 10 Ml Flush Syringe) 10 ml IV PRN PRN PRN Reason: LINE FLUSH Review of Systems ROS unobtainable: due to mental status Exam - Vital Signs Vital signs: Vital Signs Pulse Resp Pulse Ox 114 H 37 H 100 06/21/21 21:32 06/21/21 21:32 06/21/21 21:32 - General Appearance General appearance: well-developed, well-nourished EENT: ATNC, PERRL, mucous membranes dry Neck: Present: neck supple Respiratory: Decreased Breath Sounds Heart: tachycardia Gastrointestinal: Present: normoactive bowel sounds. Absent: absent bowel sounds, tenderness, distended Integumentary: no rash, warm and dry Neurologic: no focal deficit Musculoskeletal: Present: other (no edema in BLE) Results - Lab Results 06/21/21 20:39 06/21/21 20:39 Most recent lab results Calcium 10.4 mg/dL (8.4-10.2) H 06/21/21 20:39 Assessment and Plan (1) Sepsis (2) Acute metabolic encephalopathy (3) Acute renal failure (4) Diabetes (5) COPD (chronic obstructive pulmonary disease) (6) Pneumonia of both lower lobes Cr baseline was normal,IRINA likely prerenal azoetmia bs. ischemic ATN from sepsis CT AP -ve for hydro will check urine lytes cont NS 100 cc/h no indication for ICT [employer] renally dose meds strict I&O daily weight David anderson MD [phone]
[2021-06-22] MEDS: HEPARIN 5,000 UNIT/1 ML VIAL SUB-Q SCH ×2 (10:47→22:21)
[2021-06-22] MEDS: FAMOTIDINE 20 MG/2 ML INJ IV SCH (10:48)
[2021-06-22] MEDS: cefTRIAXone/NS 2 GM/100 ML 2 GM/100 ML BAG IV SCH (10:51)
--- NOTE | 2021-06-22 11:44 | Consultation ---
History of Present Illness - Reason for Consult Consult date: 06/22/21 COVID PUI Requesting physician: SAMM BOGGS - History of Present Illness The patient is a 80-year-old female with dementia, COPD, diabetes admitted to the hospital due to altered mental status and reduced oral intake for the last few days. She was found to be febrile and tachycardic and hence brought to the ER. Reportedly, several members of the family are positive for COVID-19. T-max was 100.2 F on admission, patient not hypoxic. Labs revealed WBC 17.7, creatinine 2.2, lactic acid 4.0, AST 68, ALT 32, total CK 1212. CT abdomen and pelvis without any acute abnormality but showed bibasilar opacities suggestive of atelectasis. Chest x-ray did not reveal any obvious pneumonia. Review of Systems: reviewed in the chart, unable to obtain, minimize risk of transmission Past History Past Medical History: COPD, diabetes, other (Dementia) Medications and Allergies Allergies Allergy/AdvReac Type Severity Reaction Status Date / Time No Known Allergies Allergy Verified 01/30/17 08:52 Home Medications Medication Instructions Recorded Confirmed Last Taken Type ALBUTEROL NEB's [Proventil 0.083% 2.5 mg IH QID PRN #25 neb 01/30/17 Unknown Rx NEBS] Albuterol Sulfate [Ventolin HFA] 2 puff IH Q4H PRN #1 hfa.aer.ad 01/30/17 Unknown Rx Albuterol Mdi (or & Nicu Only) 2 puff IH QID PRN #1 inhalation 02/18/17 Unknown Rx [ProAir HFA Inhaler] Acetaminophen/Codeine [Tylenol #3] 1 tab PO Q6H PRN #10 tab 10/03/19 Unknown Rx Active Meds: Active Medications Acetaminophen (Acetaminophen 325 Mg Tab) 650 mg PO Q4H PRN PRN Reason: Pain MILD(1-3)/Fever >100.5/MCGRAW Albuterol (Albuterol 2.5 Mg/3 Ml Nebu) 2.5 mg IH Q4HRT PRN PRN Reason: Shortness Of Breath Albuterol/Ipratropium (Ipratropium/Albuterol Sulfate 3 Ml Ampul.Neb) 1 ampul IH Q6HRT [facility] Last Admin: 06/22/21 07:52 Dose: 1 ampul Documented by: Dextrose (Dextrose 50% In Water (25gm) 50 Ml Syringe) 0 ml IV Q30MIN PRN; Protocol PRN Reason: Hypoglycemia Famotidine (Famotidine 20 Mg/2 Ml Inj) 20 mg IV QAM [facility] Last Admin: 06/22/21 10:48 Dose: 20 mg Documented by: Heparin Sodium (Porcine) (Heparin 5,000 Unit/1 Ml Vial) 5,000 unit SUB-Q Q12HR [facility] Last Admin: 06/22/21 10:47 Dose: 5,000 unit Documented by: Hydromorphone HCl (Hydromorphone 1 Mg/1 Ml Inj) 0.25 mg IV Q4H PRN PRN Reason: Pain, Moderate (4-6) Hydromorphone HCl (Hydromorphone 1 Mg/1 Ml Inj) 0.5 mg IV Q3H PRN PRN Reason: Pain , Severe (7-10) Sodium Chloride (Nacl 0.9% 1000 Ml) 1,000 mls @ 100 mls/hr IV DIRECT [facility] Last Admin: 06/22/21 05:16 Dose: 100 mls/hr Documented by: Ceftriaxone Sodium (Rocephin/Ns 2 Gm/100 Ml) 2 gm in 100 mls @ 200 mls/hr IV Q24HR [facility]; Protocol Last Admin: 06/22/21 10:51 Dose: 200 mls/hr Documented by: Azithromycin (Zithromax/Ns) 500 mg in 250 mls @ 250 mls/hr IV Q24HR [facility]; Protocol Last Admin: 06/22/21 10:47 Dose: 250 mls/hr Documented by: Insulin Human Lispro (Insulin Lispro 100 Unit/Ml) 0 unit SUB-Q ACHS [facility]; Protocol Last Admin: 06/22/21 08:47 Dose: Not Given Documented by: Ondansetron HCl (Ondansetron 4 Mg/2 Ml Inj) 4 mg IV Q8H PRN PRN Reason: Nausea And Vomiting Oxycodone/Acetaminophen (Oxycodone /Acetaminophen 5-325mg Tab) 1 tab PO Q6H PRN PRN Reason: Pain, Moderate (4-6) Pneumococcal Polyvalent Vaccine (Pneumococcal 23 Valent 0.5 Ml Vial) 0.5 ml IM .ONCE ONE Stop: 06/22/21 12:01 Sodium Chloride (Sodium Chloride 0.9% 10 Ml Flush Syringe) 10 ml IV BID [place] Last Admin: 06/22/21 10:48 Dose: 10 ml Documented by: Sodium Chloride (Sodium Chloride 0.9% 10 Ml Flush Syringe) 10 ml IV PRN PRN PRN Reason: LINE FLUSH Physical Examination - Physical Exam Narrative exam: Physical Exam (reviewed in chart to minimize risk of transmission) Constitutional: deferred Head, Ears, Nose: deferred Eyes: deferred Neck: deferred Oral: deferred Cardiovascular: deferred Respiratory: deferred GI: deferred Musculoskeletal: deferred Skin: deferred Hem/Lymphatic: deferred Psych: deferred Neurological: deferred - Constitutional Vitals: Vital Signs Temp Pulse Resp BP Pulse Ox 98.3 F 119 H 28 H 155/66 100 06/22/21 08:00 06/22/21 10:40 06/22/21 10:40 06/22/21 10:40 06/22/21 10:40 Temperature -Last 24 Hours Temperature 98.3 F Temperature 97.2 F Temperature 98.6 F Temperature 100.2 F Results - Labs CBC & Chem 7: 06/21/21 20:39 06/21/21 20:39 Labs: Abnormal lab results 06/21/21 06/21/21 06/21/21 Range/Units 20:39 20:39 20:39 WBC 17.7 H (4.5-11.0) K/mm3 MCH 26 L (28-32) pg RDW 16.1 H (13.2-15.2) % Lymph % (Auto) 3.5 L (13.4-35.0) % Lymph # (Auto) 0.6 L (1.2-5.4) K/mm3 [place] # (Auto) 1.1 H (0.0-0.8) K/mm3 Seg Neutrophils % 90.0 H (40.0-70.0) % Seg Neutrophils # 15.9 H (1.8-7.7) K/mm3 Chloride 107.3 H (98-107) mmol/L Carbon Dioxide 15 L (22-30) mmol/L BUN 48 H (7-17) mg/dL Creatinine 2.2 H (0.6-1.2) mg/dL Glucose 242 H (65-100) mg/dL POC Glucose (70-105) mg/dL Lactic Acid 4.00 H* (0.7-2.0) mmol/L Calcium 10.4 H (8.4-10.2) mg/dL Direct Bilirubin 0.7 H (0-0.2) mg/dL AST 68 H (5-40) units/L Total Creatine Kinase (30-135) units/L Albumin 3.0 L (3.9-5) g/dL 06/22/21 06/22/21 06/22/21 Range/Units 00:07 08:41 10:10 WBC (4.5-11.0) K/mm3 MCH (28-32) pg RDW (13.2-15.2) % Lymph % (Auto) (13.4-35.0) % Lymph # (Auto) (1.2-5.4) K/mm3 [place] # (Auto) (0.0-0.8) K/mm3 Seg Neutrophils % (40.0-70.0) % Seg Neutrophils # (1.8-7.7) K/mm3 Chloride (98-107) mmol/L Carbon Dioxide (22-30) mmol/L BUN (7-17) mg/dL Creatinine (0.6-1.2) mg/dL Glucose (65-100) mg/dL POC Glucose 142 H (70-105) mg/dL Lactic Acid 2.90 H* (0.7-2.0) mmol/L Calcium (8.4-10.2) mg/dL Direct Bilirubin (0-0.2) mg/dL AST (5-40) units/L Total Creatine Kinase 1212 H (30-135) units/L Albumin (3.9-5) g/dL - Imaging and Cardiology Chest x-ray: report reviewed, image reviewed (no pneumonia seen) Assessment and Plan Cultures: SARS CoV2 PCR: Pending 06/21/2021 blood culture: In process A/P: 80-year-old female with dementia, COPD, diabetes admitted to the hospital due to altered mental status and reduced oral intake for the last few days: #COVID-19 PUI: No pneumonia seen on chest x-ray, not hypoxic. Follow-up PCR. #Sepsis: Source is unclear. No clear evidence of pneumonia, UA without significant pyuria. #Lactic acidosis #Acute kidney injury #Dementia Recs: -Follow-up cultures, COVID-19 PCR -Continue empiric ceftriaxone for now -Azithromycin discontinued Dali Canela MD, FACP [facility] ([facility] O: [phone] F: [phone]
[2021-06-22] MEDS ORDERED: PNEUMOCOCCAL 23 Valent 0.5 ML VIAL IM ONE (12:00)
[2021-06-22 14:23] LABS: Bacteria,Urine 3+ /HPF (Negative); Bilirubin,Urine NEG (Negative); Blood,Urine LG (Negative); Color,Urine Yellow (Yellow); Mucus,Urine FEW /HPF; Urobilinogen,Urine < 2.0 mg/dL (<2.0)
[2021-06-22 15:17] LABS: Creatinine,Urine 52.2 mg/dL (0.1-20.0)
[2021-06-22 15:22] LABS: Creatinine,Urine 52.9 mg/dL (0.1-20.0); Protein/Creatinine Ratio,Urine 1.15
--- NOTE | 2021-06-22 16:56 | Progress Note ---
Assessment and Plan #1 severe sepsis secondary to bilateral [id number] pneumonia. Multiple sick contacts in the home environment. Seems to have improved with IV volume therapy. Patient stable with 3 L of O2. Resting comfortably. No longer tachypneic hypotensive or tachycardic. Will place patient on steroids dexamethasone. Questionable remdesivir until renal function has improved. Continue empiric antibiotics. ID consult. Follow inflammatory markers. Contact Ana Rosa Arizmendi [phone] #2 acute renal failure. Secondary to prerenal azotemia not eating not drinking dehydration. Follow-up chemistry #3 acute respiratory failure secondary to sepsis bilateral pneumonia Treat underlying etiology with antibiotics, supportive care. Steroids #4 diabetes mellitus will be more difficult control with addition of steroids placed patient sliding scale insulin advance as tolerated. #5 rhabdomyolysis should respond to IV volume replacement. Would not be too aggressive since patient has Covid and would like to keep a little on dry side #6 hypertensive urgency. Will need to address patient's hypertension and tachycardia. Overall patient remains dry as evidenced by increased BUN/creatinine prerenal azotemia increase CPK. At present we will not increase fluids above 100 to 125 cc an hour in order not to worsen acute respiratory failure. Will be a very difficult balance but the risk outweigh the benefits of increasing fluids at this time. This can be fixed slowly. We will add Lopressor IV patient remains lethargic. #7 acute metabolic encephalopathy-patient not eating or drinking. Highly suspect Covid encephalopathy. Spoke with nurse not comfortable with patient eating at this particular time because she has been so lethargic. CT scan head unremarkable. #8 Covid pneumonia. ID following. Add dexamethasone. Subjective Date of service: 06/22/21 Principal diagnosis: Sepsis Interval history: Patient 80 years old with a history of dementia COPD presented to the ED with decreased responsiveness decreased p.o. intake x2 days fever 102. Patient also presented with tachycardia, tachypnea, hypoxemia. Patient had contact with [facility] with COVID-19. Patient presentation on radiograph consistent with bilateral pneumonia. Today subsequently patient positive for COVID-19. Currently stable with only 3 L nasal cannula. Patient encephalopathy has not improved much since baseline. Objective - Constitutional Vitals: Vital Signs - 12hr 06/22/21 06/22/21 06/22/21 05:00 05:05 06:00 Temperature 97.2 F L Pulse Rate 93 H 87 93 H Pulse Rate [ Anterior Bilateral Throughout] Respiratory 24 26 H Rate Respiratory Rate [Anterior Bilateral Throughout] Blood Pressure 163/69 179/77 O2 Sat by Pulse 100 100 Oximetry 06/22/21 06/22/21 06/22/21 07:00 07:20 07:30 Temperature Pulse Rate 90 87 94 H Pulse Rate [ Anterior Bilateral Throughout] Respiratory 20 20 22 Rate Respiratory Rate [Anterior Bilateral Throughout] Blood Pressure 137/49 137/49 O2 Sat by Pulse 100 100 100 Oximetry 06/22/21 06/22/21 06/22/21 07:40 07:50 07:52 Temperature Pulse Rate 82 86 Pulse Rate [ Anterior Bilateral Throughout] Respiratory 20 19 Rate Respiratory Rate [Anterior Bilateral Throughout] Blood Pressure 137/49 137/49 O2 Sat by Pulse 100 100 100 Oximetry 06/22/21 06/22/21 06/22/21 08:00 08:02 08:05 Temperature 98.3 F Pulse Rate 94 H Pulse Rate [ 98 H Anterior Bilateral Throughout] Respiratory 26 H 22 Rate Respiratory 20 Rate [Anterior Bilateral Throughout] Blood Pressure 152/68 O2 Sat by Pulse 100 100 Oximetry 06/22/21 06/22/21 06/22/21 08:10 08:20 08:30 Temperature Pulse Rate 96 H 96 H 88 Pulse Rate [ Anterior Bilateral Throughout] Respiratory 25 H 20 21 Rate Respiratory Rate [Anterior Bilateral Throughout] Blood Pressure 152/68 152/68 152/68 O2 Sat by Pulse 100 100 100 Oximetry 06/22/21 06/22/21 06/22/21 08:40 08:50 09:00 Temperature Pulse Rate 99 H 94 H 93 H Pulse Rate [ Anterior Bilateral Throughout] Respiratory 26 H 20 22 Rate Respiratory Rate [Anterior Bilateral Throughout] Blood Pressure 152/68 152/68 152/69 O2 Sat by Pulse 100 100 100 Oximetry 06/22/21 06/22/21 06/22/21 09:10 09:20 09:30 Temperature Pulse Rate 92 H 95 H 93 H Pulse Rate [ Anterior Bilateral Throughout] Respiratory 23 23 21 Rate Respiratory Rate [Anterior Bilateral Throughout] Blood Pressure 152/69 152/69 152/69 O2 Sat by Pulse 100 100 100 Oximetry 06/22/21 06/22/21 06/22/21 09:40 09:50 10:00 Temperature Pulse Rate 94 H 89 95 H Pulse Rate [ Anterior Bilateral Throughout] Respiratory 19 25 H 26 H Rate Respiratory Rate [Anterior Bilateral Throughout] Blood Pressure 152/69 152/69 155/66 O2 Sat by Pulse 100 100 100 Oximetry 06/22/21 06/22/21 06/22/21 10:10 10:20 10:30 Temperature Pulse Rate 95 H 99 H 99 H Pulse Rate [ Anterior Bilateral Throughout] Respiratory 24 26 H 26 H Rate Respiratory Rate [Anterior Bilateral Throughout] Blood Pressure 152/69 152/69 152/69 O2 Sat by Pulse 100 100 100 Oximetry 06/22/21 06/22/21 06/22/21 10:40 10:50 11:00 Temperature Pulse Rate 119 H 98 H 99 H Pulse Rate [ Anterior Bilateral Throughout] Respiratory 28 H 24 24 Rate Respiratory Rate [Anterior Bilateral Throughout] Blood Pressure 155/66 155/66 157/58 O2 Sat by Pulse 100 100 100 Oximetry 06/22/21 06/22/21 06/22/21 11:10 11:20 11:30 Temperature Pulse Rate 98 H 103 H 106 H Pulse Rate [ Anterior Bilateral Throughout] Respiratory 28 H 30 H 27 H Rate Respiratory Rate [Anterior Bilateral Throughout] Blood Pressure 157/58 157/58 157/58 O2 Sat by Pulse 100 100 100 Oximetry 06/22/21 06/22/21 06/22/21 11:40 11:50 12:00 Temperature 98.8 F Pulse Rate 102 H 100 H 101 H Pulse Rate [ Anterior Bilateral Throughout] Respiratory 26 H 18 30 H Rate Respiratory Rate [Anterior Bilateral Throughout] Blood Pressure 157/58 157/58 160/81 O2 Sat by Pulse 100 100 100 Oximetry 06/22/21 06/22/21 06/22/21 12:10 12:20 12:30 Temperature Pulse Rate 103 H 101 H 100 H Pulse Rate [ Anterior Bilateral Throughout] Respiratory 29 H 13 18 Rate Respiratory Rate [Anterior Bilateral Throughout] Blood Pressure 160/81 160/81 160/81 O2 Sat by Pulse 100 100 100 Oximetry 06/22/21 06/22/21 06/22/21 12:40 12:50 13:00 Temperature Pulse Rate 102 H 104 H 102 H Pulse Rate [ Anterior Bilateral Throughout] Respiratory 24 25 H 24 Rate Respiratory Rate [Anterior Bilateral Throughout] Blood Pressure 160/81 160/81 170/80 O2 Sat by Pulse 100 100 100 Oximetry 06/22/21 06/22/21 06/22/21 13:10 13:20 13:30 Temperature Pulse Rate 107 H 106 H 104 H Pulse Rate [ Anterior Bilateral Throughout] Respiratory 28 H 19 20 Rate Respiratory Rate [Anterior Bilateral Throughout] Blood Pressure 160/81 160/81 160/81 O2 Sat by Pulse 100 100 100 Oximetry 06/22/21 06/22/21 06/22/21 13:40 13:50 14:00 Temperature Pulse Rate 108 H 107 H 109 H Pulse Rate [ Anterior Bilateral Throughout] Respiratory 25 H 31 H 30 H Rate Respiratory Rate [Anterior Bilateral Throughout] Blood Pressure 160/81 160/81 162/84 O2 Sat by Pulse 100 100 100 Oximetry 06/22/21 06/22/21 06/22/21 14:10 14:14 14:20 Temperature Pulse Rate 112 H 111 H Pulse Rate [ 113 H Anterior Bilateral Throughout] Respiratory 22 31 H Rate Respiratory 20 Rate [Anterior Bilateral Throughout] Blood Pressure 162/84 170/80 O2 Sat by Pulse 98 100 Oximetry 06/22/21 06/22/21 06/22/21 14:30 14:40 14:50 Temperature Pulse Rate 113 H 114 H 116 H Pulse Rate [ Anterior Bilateral Throughout] Respiratory 23 22 25 H Rate Respiratory Rate [Anterior Bilateral Throughout] Blood Pressure 170/80 170/80 170/80 O2 Sat by Pulse 100 100 100 Oximetry 06/22/21 06/22/21 06/22/21 15:00 15:10 15:20 Temperature Pulse Rate 117 H 118 H 121 H Pulse Rate [ Anterior Bilateral Throughout] Respiratory 26 H 19 32 H Rate Respiratory Rate [Anterior Bilateral Throughout] Blood Pressure 170/78 170/78 162/84 O2 Sat by Pulse 100 100 97 Oximetry 06/22/21 06/22/21 06/22/21 15:30 15:40 15:50 Temperature Pulse Rate 115 H 115 H 116 H Pulse Rate [ Anterior Bilateral Throughout] Respiratory 19 27 H 24 Rate Respiratory Rate [Anterior Bilateral Throughout] Blood Pressure 162/84 162/84 170/78 O2 Sat by Pulse 100 100 98 Oximetry 06/22/21 06/22/21 06/22/21 16:00 16:10 16:20 Temperature Pulse Rate 123 H 115 H 115 H Pulse Rate [ Anterior Bilateral Throughout] Respiratory 28 H 30 H 28 H Rate Respiratory Rate [Anterior Bilateral Throughout] Blood Pressure 183/75 183/75 183/75 O2 Sat by Pulse 100 100 100 Oximetry 06/22/21 06/22/21 06/22/21 16:30 16:40 16:50 Temperature Pulse Rate 115 H 124 H 116 H Pulse Rate [ Anterior Bilateral Throughout] Respiratory 27 H 29 H 28 H Rate Respiratory Rate [Anterior Bilateral Throughout] Blood Pressure 183/75 183/75 183/75 O2 Sat by Pulse 100 100 100 Oximetry General appearance: Present: no acute distress, well-nourished, other (Encephalopathic lethargic) - EENT Eyes: PERRL, EOM intact ENT: hearing intact, clear oral mucosa Ears: bilateral: normal - Neck Neck: supple, normal ROM - Respiratory Respiratory effort: normal Respiratory: bilateral: CTA - Breasts Breasts: normal - Cardiovascular Rhythm: other (Tachycardia) Heart Sounds: Present: S1 & S2. Absent: gallop, rub Extremities: pulses intact, No edema, normal color, Full ROM - Gastrointestinal General gastrointestinal: Present: soft, non-tender, non-distended, normal bowel sounds - Genitourinary Female genitourinary: normal - Integumentary Integumentary: clear, warm, dry - Musculoskeletal Musculoskeletal: 1, strength equal bilaterally - Neurologic Neurologic: moves all extremities - Psychiatric Psychiatric: memory intact, appropriate mood/affect, intact judgment & insight - Labs CBC & Chem 7: 06/21/21 20:39 06/21/21 20:39 Labs: Abnormal lab results 06/21/21 06/21/21 06/21/21 Range/Units 20:39 20:39 20:39 WBC 17.7 H (4.5-11.0) K/mm3 MCH 26 L (28-32) pg RDW 16.1 H (13.2-15.2) % Lymph % (Auto) 3.5 L (13.4-35.0) % Lymph # (Auto) 0.6 L (1.2-5.4) K/mm3 [place] # (Auto) 1.1 H (0.0-0.8) K/mm3 Seg Neutrophils % 90.0 H (40.0-70.0) % Seg Neutrophils # 15.9 H (1.8-7.7) K/mm3 Chloride 107.3 H (98-107) mmol/L Carbon Dioxide 15 L (22-30) mmol/L BUN 48 H (7-17) mg/dL Creatinine 2.2 H (0.6-1.2) mg/dL Glucose 242 H (65-100) mg/dL POC Glucose (70-105) mg/dL Lactic Acid 4.00 H* (0.7-2.0) mmol/L Calcium 10.4 H (8.4-10.2) mg/dL Direct Bilirubin 0.7 H (0-0.2) mg/dL AST 68 H (5-40) units/L Total Creatine Kinase (30-135) units/L Albumin 3.0 L (3.9-5) g/dL Urine Creatinine (0.1-20.0) mg/dL Urine Total Protein (5-11.8) mg/dL Coronavirus (PCR) (Negative) 06/22/21 06/22/21 06/22/21 Range/Units 00:07 08:41 10:10 WBC (4.5-11.0) K/mm3 MCH (28-32) pg RDW (13.2-15.2) % Lymph % (Auto) (13.4-35.0) % Lymph # (Auto) (1.2-5.4) K/mm3 [place] # (Auto) (0.0-0.8) K/mm3 Seg Neutrophils % (40.0-70.0) % Seg Neutrophils # (1.8-7.7) K/mm3 Chloride (98-107) mmol/L Carbon Dioxide (22-30) mmol/L BUN (7-17) mg/dL Creatinine (0.6-1.2) mg/dL Glucose (65-100) mg/dL POC Glucose 142 H (70-105) mg/dL Lactic Acid 2.90 H* (0.7-2.0) mmol/L Calcium (8.4-10.2) mg/dL Direct Bilirubin (0-0.2) mg/dL AST (5-40) units/L Total Creatine Kinase 1212 H (30-135) units/L Albumin (3.9-5) g/dL Urine Creatinine (0.1-20.0) mg/dL Urine Total Protein (5-11.8) mg/dL Coronavirus (PCR) (Negative) 06/22/21 06/22/21 06/22/21 Range/Units 11:35 13:45 13:45 WBC (4.5-11.0) K/mm3 MCH (28-32) pg RDW (13.2-15.2) % Lymph % (Auto) (13.4-35.0) % Lymph # (Auto) (1.2-5.4) K/mm3 [place] # (Auto) (0.0-0.8) K/mm3 Seg Neutrophils % (40.0-70.0) % Seg Neutrophils # (1.8-7.7) K/mm3 Chloride (98-107) mmol/L Carbon Dioxide (22-30) mmol/L BUN (7-17) mg/dL Creatinine (0.6-1.2) mg/dL Glucose (65-100) mg/dL POC Glucose 136 H (70-105) mg/dL Lactic Acid (0.7-2.0) mmol/L Calcium (8.4-10.2) mg/dL Direct Bilirubin (0-0.2) mg/dL AST (5-40) units/L Total Creatine Kinase (30-135) units/L Albumin (3.9-5) g/dL Urine Creatinine 52.2 H 52.9 H (0.1-20.0) mg/dL Urine Total Protein 61 H (5-11.8) mg/dL Coronavirus (PCR) (Negative) 06/22/21 06/22/21 Range/Units 16:05 Unknown WBC (4.5-11.0) K/mm3 MCH (28-32) pg RDW (13.2-15.2) % Lymph % (Auto) (13.4-35.0) % Lymph # (Auto) (1.2-5.4) K/mm3 [place] # (Auto) (0.0-0.8) K/mm3 Seg Neutrophils % (40.0-70.0) % Seg Neutrophils # (1.8-7.7) K/mm3 Chloride (98-107) mmol/L Carbon Dioxide (22-30) mmol/L BUN (7-17) mg/dL Creatinine (0.6-1.2) mg/dL Glucose (65-100) mg/dL POC Glucose 115 H (70-105) mg/dL Lactic Acid (0.7-2.0) mmol/L Calcium (8.4-10.2) mg/dL Direct Bilirubin (0-0.2) mg/dL AST (5-40) units/L Total Creatine Kinase (30-135) units/L Albumin (3.9-5) g/dL Urine Creatinine (0.1-20.0) mg/dL Urine Total Protein (5-11.8) mg/dL Coronavirus (PCR) Positive A (Negative) - Imaging and cardiology Chest x-ray: report reviewed, image reviewed CT scan - abdomen: report reviewed, image reviewed CT scan - chest: report reviewed, image reviewed
[2021-06-22] MEDS ORDERED: ADENOSINE 6 MG/2 ML INJ ONE (16:57)
[2021-06-22] MEDS ORDERED: ADENOSINE 6 MG/2 ML INJ IV ONE (17:00)
[2021-06-22] MEDS ORDERED: METOPROLOL TARTRATE 5 MG/5 ML INJ IV ONE (17:05)
[2021-06-22] MEDS ORDERED: hydrALAZINE 20 MG/1 ML INJ IV ONE (17:16)
[2021-06-22] MEDS ORDERED: SODIUM CHLORIDE 0.9% 1000 ML 1,000 ML IV ONE (17:20)
[2021-06-22] MEDS ORDERED: dexAMETHasone 4 MG/ML VIAL IV ONE (17:30)
[2021-06-22] MEDS: METOPROLOL TARTRATE 5 MG/5 ML INJ IV SCH ×3 (17:37→23:07)
[2021-06-22] MEDS ORDERED: dilTIAZem 25 MG/5 ML INJ IV ONE (21:49)
[2021-06-23] MEDS: IPRATROPIUM/ALBUTEROL SULFATE 3 ML AMPUL.NEB IH SCH ×4 (04:31→21:26)
[2021-06-23] MEDS: METOPROLOL TARTRATE 5 MG/5 ML INJ IV SCH ×3 (06:34→18:42)
[2021-06-23] MEDS: INSULIN LISPRO 100 UNIT/ML SUB-Q SCH ×4 (06:35→18:42)
[2021-06-23] MEDS: cefTRIAXone/NS 2 GM/100 ML 2 GM/100 ML BAG IV SCH (10:22)
[2021-06-23] MEDS: FAMOTIDINE 20 MG/2 ML INJ IV SCH (10:22)
[2021-06-23] MEDS: HEPARIN 5,000 UNIT/1 ML VIAL SUB-Q SCH ×2 (10:22→21:50)
[2021-06-23] MEDS: SODIUM CHLORIDE 0.9% 1000 ML 1,000 ML IV SCH ×2 (10:24→21:49)
--- NOTE | 2021-06-23 11:25 | Progress Note ---
Assessment and Plan (1) Sepsis (2) Acute metabolic encephalopathy (3) Acute renal failure (4) Diabetes (5) COPD (chronic obstructive pulmonary disease) (6) Pneumonia of both lower lobes Cr baseline was normal,IRINA likely prerenal azoetmia bs. ischemic ATN from sepsis no labs today, STAT BMP ordered CT AP -ve for hydro will check urine lytes cont NS 100 cc/h no indication for [employer] renally dose meds strict I&O daily weight David anderson MD [phone] Subjective Date of service: 06/23/21 Principal diagnosis: Sepsis Interval history: patient is currently on isolation for COVID, had tachycardia episode last night Objective - Vital Signs Vital signs: Vital Signs - 12hr 06/22/21 06/22/21 06/23/21 23:26 23:30 00:00 Temperature 101.8 F H Pulse Rate 99 H 97 H 97 H Respiratory 36 H 37 H 36 H Rate Respiratory Rate [ Generalized] Blood Pressure 103/53 99/56 116/57 O2 Sat by Pulse 100 100 100 Oximetry 06/23/21 06/23/21 06/23/21 00:30 01:00 01:30 Temperature Pulse Rate 89 90 87 Respiratory 30 H 32 H 28 H Rate Respiratory Rate [ Generalized] Blood Pressure 121/57 111/60 113/59 O2 Sat by Pulse 100 100 100 Oximetry 06/23/21 06/23/21 06/23/21 02:00 02:30 03:00 Temperature Pulse Rate 79 77 76 Respiratory 23 22 21 Rate Respiratory 23 Rate [ Generalized] Blood Pressure 117/56 116/54 99/54 O2 Sat by Pulse 100 100 100 Oximetry 06/23/21 06/23/21 06/23/21 03:30 04:00 04:25 Temperature 99.2 F Pulse Rate 77 76 90 Respiratory 21 21 Rate Respiratory Rate [ Generalized] Blood Pressure 105/47 126/57 O2 Sat by Pulse 100 100 Oximetry 06/23/21 06/23/21 06/23/21 04:30 05:00 05:30 Temperature Pulse Rate 88 85 86 Respiratory 23 20 21 Rate Respiratory Rate [ Generalized] Blood Pressure 128/66 139/60 145/70 O2 Sat by Pulse 100 100 100 Oximetry 06/23/21 06/23/21 06/23/21 06:00 06:30 06:34 Temperature Pulse Rate 81 86 84 Respiratory 21 23 Rate Respiratory 21 Rate [ Generalized] Blood Pressure 155/65 127/68 127/68 O2 Sat by Pulse 100 100 Oximetry 06/23/21 06/23/21 07:00 07:30 Temperature 99.1 F Pulse Rate 62 62 Respiratory 19 20 Rate Respiratory Rate [ Generalized] Blood Pressure 131/59 131/60 O2 Sat by Pulse 100 100 Oximetry - Lab 06/23/21 11:02 06/21/21 20:39 Most recent lab results Calcium 10.4 mg/dL (8.4-10.2) H 06/21/21 20:39 Urine Creatinine 52.2 mg/dL (0.1-20.0) H 06/22/21 13:45 Urine Creatinine 52.9 mg/dL (0.1-20.0) H 06/22/21 13:45 Urine Sodium 122 mmol/L 06/22/21 13:45 Urine Total Protein 61 mg/dL (5-11.8) H 06/22/21 13:45 Medications & Allergies - Medications Allergies/Adverse Reactions: Allergies No Known Allergies Allergy (Verified 01/30/17 08:52) Home Medications: Home Medications Medication Instructions Recorded Confirmed Last Taken Type Albuterol Sulfate [Ventolin HFA] 2 puff IH Q4H PRN #1 hfa.aer.[email or web address] 01/30/17 06/22/21 Unknown Rx Active Medications: Generic Name Dose Route Start Last Admin Trade Name Freq PRN Reason Stop Dose Admin Acetaminophen 650 mg 06/22/21 01:32 Acetaminophen 325 Mg Tab PO Q4H PRN Pain MILD(1-3)/Fever >100.5/MCGRAW Albuterol 2.5 mg 06/22/21 01:32 Albuterol 2.5 Mg/3 Ml Nebu IH Q4HRT PRN Shortness Of Breath Albuterol/Ipratropium 1 ampul 06/22/21 02:00 06/23/21 04:31 Ipratropium/Albuterol Sulfate 3 Ml Ampul.Neb IH Not Given Q6HRT FEDER[place] Dextrose 0 ml 06/22/21 01:49 Dextrose 50% In Water (25gm) 50 Ml Syringe IV Q30MIN PRN Hypoglycemia Protocol Dextrose 50 ml 06/22/21 17:15 Dextrose 50% In Water (25gm) 50 Ml Syringe IV Q30MIN PRN Hypoglycemia Protocol Famotidine 20 mg 06/22/21 10:00 06/23/21 10:22 Famotidine 20 Mg/2 Ml Inj IV 20 mg QAM FEDERICO Administration Heparin Sodium (Porcine) 5,000 unit 06/22/21 10:00 06/23/21 10:22 Heparin 5,000 Unit/1 Ml Vial SUB-Q 5,000 unit Q12HR [place] Administration Hydromorphone HCl 0.25 mg 06/22/21 01:32 Hydromorphone 1 Mg/1 Ml Inj IV Q4H PRN Pain, Moderate (4-6) Hydromorphone HCl 0.5 mg 06/22/21 01:32 Hydromorphone 1 Mg/1 Ml Inj IV Q3H PRN Pain , Severe (7-10) Sodium Chloride 1,000 mls @ 100 mls/hr 06/22/21 01:45 06/23/21 10:24 Nacl 0.9% 1000 Ml IV 100 mls/hr DIRECT [place] Administration Ceftriaxone Sodium 2 gm in 100 mls @ 200 mls/hr 06/22/21 10:00 06/23/21 10:22 Rocephin/Ns 2 Gm/100 Ml IV 200 mls/hr Q24HR [place] Administration Protocol Insulin Human Lispro 0 unit 06/22/21 18:00 06/23/21 06:35 Insulin Lispro 100 Unit/Ml SUB-Q 3 unit Q6HR [place] Administration Protocol Metoprolol Tartrate 5 mg 06/22/21 18:00 06/23/21 06:34 Metoprolol Tartrate 5 Mg/5 Ml Inj IV 5 mg Q6HR [place] Administration Ondansetron HCl 4 mg 06/22/21 01:32 Ondansetron 4 Mg/2 Ml Inj IV Q8H PRN Nausea And Vomiting Oxycodone/Acetaminophen 1 tab 06/22/21 01:32 Oxycodone /Acetaminophen 5-325mg Tab PO Q6H PRN Pain, Moderate (4-6) Sodium Chloride 10 ml 06/22/21 10:00 06/23/21 10:22 Sodium Chloride 0.9% 10 Ml Flush Syringe IV 10 ml BID [place] Administration Sodium Chloride 10 ml 06/22/21 01:32 Sodium Chloride 0.9% 10 Ml Flush Syringe IV PRN PRN LINE FLUSH
[2021-06-23 11:38] LABS: Hematocrit 33.5 % (30.3-42.9); Hemoglobin 10.8 gm/dl (10.1-14.3); Mean Corpuscular HGB Conc 32 % (30-34); Mean Corpuscular Volume 82 fl (79-97); Platelet Count 248 K/mm3 (140-440); Red Blood Count 4.09 M/mm3 (3.65-5.03); Red Cell Distribution Width 15.6 % (13.2-15.2)
--- NOTE | 2021-06-23 12:16 | Progress Note ---
Assessment and Plan Cultures: SARS CoV2 PCR: Positive 06/21/2021 blood culture: no growth MRSA nasal PCR: Negative 06/22/2021 urine culture: Mixed ferny A/P: 80-year-old female with dementia, COPD, diabetes admitted to the hospital due to altered mental status and reduced oral intake for the last few days: #COVID-19 pneumonia: No pneumonia seen on chest x-ray, mild hypoxia. #Sepsis: Source is unclear. No clear evidence of pneumonia, UA without significant pyuria. #Lactic acidosis #Acute kidney injury #Elevated CK #Dementia Recs: -Remdesivir not ordered due to elevated creatinine -Decadron 6 mg daily for 10 days -Continue empiric ceftriaxone for now -procalcitonin, CRP, d-dimer in AM Dali Canela MD, FACP [facility] ([facility] O: [phone] F: [phone] Subjective Date of service: 06/23/21 Principal diagnosis: Sepsis Interval history: Fever of 101.8 F. COVID-19 came back positive. Labs showed persistent leukoc ytosis of 17.0. Patient is on nasal cannula. Objective - Exam Narrative Exam: Physical Exam (reviewed in chart to minimize risk of transmission) Constitutional: deferred Head, Ears, Nose: deferred Eyes: deferred Neck: deferred Oral: deferred Cardiovascular: deferred Respiratory: deferred GI: deferred Musculoskeletal: deferred Skin: deferred Hem/Lymphatic: deferred Psych: deferred Neurological: deferred - Constitutional Vitals: Vital Signs Temp Pulse Resp BP Pulse Ox 99.1 F 62 20 131/60 100 06/23/21 07:00 06/23/21 07:30 06/23/21 07:30 06/23/21 07:30 06/23/21 07:30 Temperature -Last 24 Hours Temperature 99.1 F Temperature 99.2 F Temperature 101.8 F Temperature 98.2 F - Labs CBC & Chem 7: 06/23/21 11:02 06/21/21 20:39 Labs: Abnormal lab results 06/22/21 06/22/21 06/22/21 Range/Units 13:45 13:45 16:05 WBC (4.5-11.0) K/mm3 MCH (28-32) pg RDW (13.2-15.2) % POC Glucose 115 H (70-105) mg/dL Urine Creatinine 52.2 H 52.9 H (0.1-20.0) mg/dL Urine Total Protein 61 H (5-11.8) mg/dL Coronavirus (PCR) (Negative) 06/22/21 06/22/21 06/23/21 Range/Units 22:09 Unknown 05:50 WBC (4.5-11.0) K/mm3 MCH (28-32) pg RDW (13.2-15.2) % POC Glucose 182 H 245 H (70-105) mg/dL Urine Creatinine (0.1-20.0) mg/dL Urine Total Protein (5-11.8) mg/dL Coronavirus (PCR) Positive A (Negative) 06/23/21 Range/Units 11:02 WBC 17.0 H (4.5-11.0) K/mm3 MCH 26 L (28-32) pg RDW 15.6 H (13.2-15.2) % POC Glucose (70-105) mg/dL Urine Creatinine (0.1-20.0) mg/dL Urine Total Protein (5-11.8) mg/dL Coronavirus (PCR) (Negative)
[2021-06-23] MEDS: dexAMETHasone 4 MG/ML VIAL IV SCH (12:45)
--- NOTE | 2021-06-23 14:45 | Progress Note ---
Assessment and Plan #1 severe sepsis secondary to bilateral [id number] pneumonia. Multiple sick contacts in the home environment. Seems to have improved with IV volume therapy. Patient stable with 3 L of O2. Resting comfortably. No longer tachypneic hypotensive or tachycardic. Will place patient on steroids dexamethasone. Questionable remdesivir until renal function has improved. Continue empiric antibiotics. ID consult. Follow inflammatory markers. No remdesivir secondary to renal function. Continue dexamethasone Contact Ana Rosa Arizmendi [phone] #2 acute renal failure. Secondary to prerenal azotemia not eating not drinking dehydration. Improving with follow-up chemistry obtain BMP a.m. #3 acute respiratory failure secondary to sepsis bilateral pneumonia Patient still maintained well with 3 L of oxygen. No change in O2. This is a good sign. Treat underlying etiology with antibiotics, supportive care. Steroids #4 diabetes mellitus will be more difficult control with addition of steroids placed patient sliding scale insulin advance as tolerated. We will add long-acting insulin. Especially since patient on steroids. #5 rhabdomyolysis should respond to IV volume replacement. Would not be too aggressive since patient has Covid and would like to keep a little on dry side #6 hypertensive urgency. Will need to address patient's hypertension and tachycardia. Overall patient remains dry as evidenced by increased BU N/creatinine prerenal azotemia increase CPK. Much better since the addition of Lopressor. At present we will not increase fluids above 100 to 125 cc an hour in order not to worsen acute respiratory failure. Will be a very difficult balance but the risk outweigh the benefits of increasing fluids at this time. This can be fixed slowly. We will add Lopressor IV patient remains lethargic. #7 acute metabolic encephalopathy-patient not eating or drinking. Highly suspect Covid encephalopathy. Spoke with nurse not comfortable with patient eating at this particular time because she has been so lethargic. CT scan head unremarkable. #8 Covid pneumonia. ID following. Add dexamethasone. Subjective Date of service: 06/23/21 Principal diagnosis: Sepsis Interval history: Patient 80 years old with a history of dementia COPD presented to the ED with decreased responsiveness decreased p.o. intake x2 days fever 102. Patient also presented with tachycardia, tachypnea, hypoxemia. Patient had contact with family members with COVID-19. Patient presentation on radiograph consistent with bilateral pneumonia. Today subsequently patient positive for COVID-19. Currently stable with only 3 L nasal cannula. Patient encephalopathy has not improved much since baseline. 06/23/2021 patient remains altered today. A little more alert however remains encephalopathic. Patient SVT much improved since yesterday since suggesting gentle IV hydration plus amiodarone in addition to AV j carlos blocking agent. Objective - Constitutional Vitals: Vital Signs - 12hr 06/23/21 06/23/21 06/23/21 03:00 03:30 04:00 Temperature 99.2 F Pulse Rate 76 77 76 Pulse Rate [ Anterior Bilateral Throughout] Respiratory 21 Rate Respiratory Rate [Anterior Bilateral Throughout] Respiratory Rate [ Generalized] Blood Pressure 99/54 105/47 126/57 O2 Sat by Pulse 100 100 100 Oximetry 06/23/21 06/23/21 06/23/21 04:25 04:30 05:00 Temperature Pulse Rate 90 88 85 Pulse Rate [ Anterior Bilateral Throughout] Respiratory 23 20 Rate Respiratory Rate [Anterior Bilateral Throughout] Respiratory Rate [ Generalized] Blood Pressure 128/66 139/60 O2 Sat by Pulse 100 100 Oximetry 06/23/21 06/23/21 06/23/21 05:30 06:00 06:30 Temperature Pulse Rate 86 81 86 Pulse Rate [ Anterior Bilateral Throughout] Respiratory 21 21 23 Rate Respiratory Rate [Anterior Bilateral Throughout] Respiratory 21 Rate [ Generalized] Blood Pressure 145/70 155/65 127/68 O2 Sat by Pulse 100 100 100 Oximetry 06/23/21 06/23/21 06/23/21 06:34 07:00 07:30 Temperature 99.1 F Pulse Rate 84 62 62 Pulse Rate [ Anterior Bilateral Throughout] Respiratory 19 20 Rate Respiratory Rate [Anterior Bilateral Throughout] Respiratory Rate [ Generalized] Blood Pressure 127/68 131/59 131/60 O2 Sat by Pulse 100 100 Oximetry 06/23/21 06/23/21 06/23/21 09:00 12:46 14:17 Temperature Pulse Rate 92 H Pulse Rate [ 71 69 Anterior Bilateral Throughout] Respiratory Rate Respiratory 20 20 Rate [Anterior Bilateral Throughout] Respiratory Rate [ Generalized] Blood Pressure 165/72 O2 Sat by Pulse 100 Oximetry General appearance: Present: no acute distress, well-nourished - EENT Eyes: PERRL, EOM intact ENT: hearing intact, clear oral mucosa Ears: bilateral: normal - Neck Neck: supple, normal ROM - Respiratory Respiratory effort: normal Respiratory: bilateral: CTA - Breasts Breasts: normal - Cardiovascular Rhythm: regular Heart Sounds: Present: S1 & S2. Absent: gallop, rub Extremities: pulses intact, No edema, normal color, Full ROM - Gastrointestinal General gastrointestinal: Present: soft, non-tender, non-distended, normal bowel sounds - Genitourinary Female genitourinary: normal - Integumentary Integumentary: clear, warm, dry - Musculoskeletal Musculoskeletal: 1, strength equal bilaterally - Neurologic Neurologic: moves all extremities - Psychiatric Psychiatric: memory intact, appropriate mood/affect, intact judgment & insight - Labs CBC & Chem 7: 06/23/21 11:02 06/21/21 20:39 Labs: Abnormal lab results 06/22/21 06/22/21 06/22/21 Range/Units 13:45 13:45 16:05 WBC (4.5-11.0) K/mm3 MCH (28-32) pg RDW (13.2-15.2) % POC Glucose 115 H (70-105) mg/dL Phosphorus (2.5-4.5) mg/dL Urine Creatinine 52.2 H 52.9 H (0.1-20.0) mg/dL Urine Total Protein 61 H (5-11.8) mg/dL Coronavirus (PCR) (Negative) 06/22/21 06/22/21 06/23/21 Range/Units 22:09 Unknown 05:50 WBC (4.5-11.0) K/mm3 MCH (28-32) pg RDW (13.2-15.2) % POC Glucose 182 H 245 H (70-105) mg/dL Phosphorus (2.5-4.5) mg/dL Urine Creatinine (0.1-20.0) mg/dL Urine Total Protein (5-11.8) mg/dL Coronavirus (PCR) Positive A (Negative) 06/23/21 06/23/21 06/23/21 Range/Units 11:02 11:02 12:44 WBC 17.0 H (4.5-11.0) K/mm3 MCH 26 L (28-32) pg RDW 15.6 H (13.2-15.2) % POC Glucose 216 H (70-105) mg/dL Phosphorus 2.30 L (2.5-4.5) mg/dL Urine Creatinine (0.1-20.0) mg/dL Urine Total Protein (5-11.8) mg/dL Coronavirus (PCR) (Negative)
[2021-06-23 14:58] LABS: Band Neutrophils # (Manual) 0.2 K/mm3; Burr Cells 3+; Ovalocytes 1+; Promyelocytes # (Manual) 56.4 K/mm3; Total Cells Counted 100
[2021-06-23 14:59] LABS: Platelet Estimate Consistent w Auto
[2021-06-23 19:12] LABS: Alanine Aminotransferase 32 units/L (7-56); Albumin 2.4 g/dL (3.9-5); BUN/Creatinine Ratio 30; Blood Urea Nitrogen 30 mg/dL (7-17); Calcium 9.7 mg/dL (8.4-10.2); Hemolysis Index 242
[2021-06-23] MEDS ORDERED: INSULIN GLARGINE 100 UNITS/ML SUB-Q SCH (22:00)
[2021-06-24] MEDS: INSULIN LISPRO 100 UNIT/ML SUB-Q SCH ×4 (00:09→17:39)
[2021-06-24] MEDS: METOPROLOL TARTRATE 5 MG/5 ML INJ IV SCH ×4 (00:14→17:39)
[2021-06-24] MEDS ORDERED: ALBUTEROL 8.5 GM MDI INHALATION IH PRN (02:07)
[2021-06-24] MEDS: IPRATROPIUM/ALBUTEROL SULFATE 3 ML AMPUL.NEB IH SCH ×4 (05:24→21:31)
[2021-06-24] MEDS: SODIUM CHLORIDE 0.9% 1000 ML 1,000 ML IV SCH (07:10)
[2021-06-24 08:26] LABS: Hemoglobin 9.5 gm/dl (10.1-14.3); Mean Corpuscular HGB Conc 32 % (30-34); Mean Corpuscular Volume 82 fl (79-97); Platelet Count 261 K/mm3 (140-440); Red Blood Count 3.68 M/mm3 (3.65-5.03); Red Cell Distribution Width 15.4 % (13.2-15.2)
[2021-06-24 08:42] LABS: BUN/Creatinine Ratio 27; Blood Urea Nitrogen 24 mg/dL (7-17); Calcium 9.6 mg/dL (8.4-10.2); Hemolysis Index 1
--- NOTE | 2021-06-24 08:49 | Progress Note ---
Assessment and Plan (1) Sepsis (2) Acute metabolic encephalopathy (3) Acute renal failure (4) Diabetes (5) COPD (chronic obstructive pulmonary disease) (6) Pneumonia of both lower lobes Cr is trending down, BMP is pending from today switching IVF to D5W with sodium bicarb 75 meq for hypernatremia and metabolic acidosis CT AP -ve for hydro renally dose meds strict I&O daily weight David anderson MD [phone] Subjective Date of service: 06/24/21 Principal diagnosis: Sepsis Interval history: patient is currently on isolation for COVID, no overnight events Objective - Vital Signs Vital signs: Vital Signs - 12hr 06/23/21 06/23/21 06/23/21 21:00 21:26 21:27 Temperature Pulse Rate 81 Pulse Rate [ 88 Anterior Bilateral Throughout] Pulse Rate [ From Monitor] Respiratory 18 Rate Respiratory 18 Rate [Anterior Bilateral Throughout] Blood Pressure 165/59 O2 Sat by Pulse 99 100 Oximetry 06/23/21 06/23/21 06/23/21 21:30 21:44 22:00 Temperature Pulse Rate 93 H 94 H 100 H Pulse Rate [ Anterior Bilateral Throughout] Pulse Rate [ 81 From Monitor] Respiratory 19 22 25 H Rate Respiratory Rate [Anterior Bilateral Throughout] Blood Pressure 144/85 144/85 140/73 O2 Sat by Pulse 100 100 100 Oximetry 06/23/21 06/23/21 06/23/21 22:30 23:00 23:30 Temperature Pulse Rate 96 H 98 H 97 H Pulse Rate [ Anterior Bilateral Throughout] Pulse Rate [ From Monitor] Respiratory 25 H 25 H 22 Rate Respiratory Rate [Anterior Bilateral Throughout] Blood Pressure 154/79 153/71 152/67 O2 Sat by Pulse 100 100 100 Oximetry 06/23/21 06/24/21 06/24/21 23:41 00:00 00:14 Temperature 99.1 F Pulse Rate 93 H 97 H Pulse Rate [ Anterior Bilateral Throughout] Pulse Rate [ From Monitor] Respiratory 25 H Rate Respiratory Rate [Anterior Bilateral Throughout] Blood Pressure 161/73 161/73 O2 Sat by Pulse 100 Oximetry 06/24/21 06/24/21 06/24/21 00:30 01:00 01:30 Temperature Pulse Rate 76 77 83 Pulse Rate [ Anterior Bilateral Throughout] Pulse Rate [ From Monitor] Respiratory 26 H 20 28 H Rate Respiratory Rate [Anterior Bilateral Throughout] Blood Pressure 171/72 152/70 157/77 O2 Sat by Pulse 100 100 100 Oximetry 06/24/21 06/24/21 06/24/21 02:00 02:30 03:00 Temperature Pulse Rate 86 86 91 H Pulse Rate [ 92 H Anterior Bilateral Throughout] Pulse Rate [ 96 H From Monitor] Respiratory 27 H 27 H 25 H Rate Respiratory 16 Rate [Anterior Bilateral Throughout] Blood Pressure 154/72 147/72 153/66 O2 Sat by Pulse 100 100 100 Oximetry 06/24/21 06/24/21 06/24/21 03:30 03:47 04:00 Temperature 100.3 F H Pulse Rate 91 H 90 Pulse Rate [ Anterior Bilateral Throughout] Pulse Rate [ From Monitor] Respiratory 27 H 23 Rate Respiratory Rate [Anterior Bilateral Throughout] Blood Pressure 142/63 150/61 O2 Sat by Pulse 100 100 Oximetry 06/24/21 06/24/21 06/24/21 04:30 05:00 05:30 Temperature Pulse Rate 92 H 92 H 92 H Pulse Rate [ Anterior Bilateral Throughout] Pulse Rate [ From Monitor] Respiratory 24 19 27 H Rate Respiratory Rate [Anterior Bilateral Throughout] Blood Pressure 143/69 141/73 151/66 O2 Sat by Pulse 100 100 100 Oximetry 06/24/21 06/24/21 06/24/21 06:00 06:30 07:00 Temperature Pulse Rate 105 H 101 H 102 H Pulse Rate [ Anterior Bilateral Throughout] Pulse Rate [ 91 H From Monitor] Respiratory 29 H 26 H 19 Rate Respiratory Rate [Anterior Bilateral Throughout] Blood Pressure 135/64 135/65 154/90 O2 Sat by Pulse 100 100 98 Oximetry 06/24/21 06/24/21 06/24/21 07:05 07:30 08:32 Temperature Pulse Rate 102 H 78 Pulse Rate [ Anterior Bilateral Throughout] Pulse Rate [ From Monitor] Respiratory 25 H Rate Respiratory Rate [Anterior Bilateral Throughout] Blood Pressure 154/90 147/82 O2 Sat by Pulse 100 985 H Oximetry - Lab 06/24/21 07:58 06/24/21 07:58 Most recent lab results Calcium 9.6 mg/dL (8.4-10.2) 06/24/21 07:58 Phosphorus 2.30 mg/dL (2.5-4.5) L 06/23/21 11:02 Urine Creatinine 52.2 mg/dL (0.1-20.0) H 06/22/21 13:45 Urine Creatinine 52.9 mg/dL (0.1-20.0) H 06/22/21 13:45 Urine Sodium 122 mmol/L 06/22/21 13:45 Urine Total Protein 61 mg/dL (5-11.8) H 06/22/21 13:45 Medications & Allergies - Medications Allergies/Adverse Reactions: Allergies No Known Allergies Allergy (Verified 01/30/17 08:52) Home Medications: Home Medications Medication Instructions Recorded Confirmed Last Taken Type Albuterol Sulfate [Ventolin HFA] 2 puff IH Q4H PRN #1 hfa.aer.[email or web address] 01/30/17 06/22/21 Unknown Rx Active Medications: Generic Name Dose Route Start Last Admin Trade Name Freq PRN Reason Stop Dose Admin Acetaminophen 650 mg 06/22/21 01:32 Acetaminophen 325 Mg Tab PO Q4H PRN Pain MILD(1-3)/Fever >100.5/MCGRAW Albuterol 2 puff 06/24/21 02:07 Albuterol 8.5 Gm Mdi Inhalation IH Q4HRT PRN Shortness Of Breath Albuterol/Ipratropium 1 ampul 06/22/21 02:00 06/24/21 08:29 Ipratropium/Albuterol Sulfate 3 Ml Ampul.Neb IH 1 ampul Q6HRT FEDERICO Administration Dexamethasone 6 mg 06/23/21 13:00 06/23/21 12:45 Dexamethasone 4 Mg/Ml Vial IV 07/03/21 12:59 6 mg DAILY FEDERICO Administration Dextrose 0 ml 06/22/21 01:49 Dextrose 50% In Water (25gm) 50 Ml Syringe IV Q30MIN PRN Hypoglycemia Protocol Dextrose 50 ml 06/22/21 17:15 Dextrose 50% In Water (25gm) 50 Ml Syringe IV Q30MIN PRN Hypoglycemia Protocol Famotidine 20 mg 06/22/21 10:00 06/23/21 10:22 Famotidine 20 Mg/2 Ml Inj IV 20 mg QAM FEDERICO Administration Heparin Sodium (Porcine) 5,000 unit 06/22/21 10:00 06/23/21 21:50 Heparin 5,000 Unit/1 Ml Vial SUB-Q 5,000 unit Q12HR FEDERICO Administration Hydromorphone HCl 0.25 mg 06/22/21 01:32 Hydromorphone 1 Mg/1 Ml Inj IV Q4H PRN Pain, Moderate (4-6) Hydromorphone HCl 0.5 mg 06/22/21 01:32 Hydromorphone 1 Mg/1 Ml Inj IV Q3H PRN Pain , Severe (7-10) Sodium Chloride 1,000 mls @ 100 mls/hr 06/22/21 01:45 06/24/21 07:10 Nacl 0.9% 1000 Ml IV 100 mls/hr DIRECT FEDERICO Administration Ceftriaxone Sodium 2 gm in 100 mls @ 200 mls/hr 06/22/21 10:00 06/23/21 10:22 Rocephin/Ns 2 Gm/100 Ml IV 200 mls/hr Q24HR FEDERICO Administration Protocol Insulin Human Lispro 0 unit 06/22/21 18:00 06/24/21 07:03 Insulin Lispro 100 Unit/Ml SUB-Q 4 unit Q6HR FEDERICO Administration Protocol Metoprolol Tartrate 5 mg 06/22/21 18:00 06/24/21 07:05 Metoprolol Tartrate 5 Mg/5 Ml Inj IV 5 mg Q6HR FEDERICO Administration Ondansetron HCl 4 mg 06/22/21 01:32 Ondansetron 4 Mg/2 Ml Inj IV Q8H PRN Nausea And Vomiting Oxycodone/Acetaminophen 1 tab 06/22/21 01:32 Oxycodone /Acetaminophen 5-325mg Tab PO Q6H PRN Pain, Moderate (4-6) Sodium Chloride 10 ml 06/22/21 10:00 06/23/21 21:51 Sodium Chloride 0.9% 10 Ml Flush Syringe IV 10 ml BID FEDERICO Administration Sodium Chloride 10 ml 06/22/21 01:32 Sodium Chloride 0.9% 10 Ml Flush Syringe IV PRN PRN LINE FLUSH
[2021-06-24] MEDS: SODIUM BICARBONATE 75 MEQ in DEXTROSE 5% IN WATER 1,000 ML IV SCH (10:13)
[2021-06-24] MEDS: cefTRIAXone/NS 2 GM/100 ML 2 GM/100 ML BAG IV SCH (10:13)
[2021-06-24] MEDS: FAMOTIDINE 20 MG/2 ML INJ IV SCH (10:14)
[2021-06-24] MEDS: HEPARIN 5,000 UNIT/1 ML VIAL SUB-Q SCH ×2 (10:14→22:25)
[2021-06-24] MEDS: dexAMETHasone 4 MG/ML VIAL IV SCH (10:14)
--- NOTE | 2021-06-24 10:38 | Progress Note ---
Assessment and Plan Cultures: SARS CoV2 PCR: Positive 06/21/2021 blood culture: no growth MRSA nasal PCR: Negative 06/22/2021 urine culture: Mixed ferny A/P: 80-year-old female with dementia, COPD, diabetes admitted to the hospital due to altered mental status and reduced oral intake for the last few days: #COVID-19 pneumonia: No pneumonia seen on chest x-ray, mild hypoxia. #Sepsis: Source is unclear. No clear evidence of pneumonia, UA without significant pyuria. #Lactic acidosis #Acute kidney injury: improved #Elevated CK #Dementia Recs: -Renal function has improved, remdesivir ordered -D-dimer is elevated, consider VTE evaluation, anticoagulation per protocol -ceftriaxone discontinued -Decadron 6 mg daily for 10 days -monitor procalcitonin, CRP Dali Canela MD, FACP [facility] ([facility]) O: [phone] F: [phone] Subjective Date of service: 06/24/21 Principal diagnosis: Sepsis Interval history: Low-grade fever. Remains stable on nasal cannula by 2 L. Discussed with RN. Objective - Exam Narrative Exam: Physical Exam (reviewed in chart to minimize risk of transmission) Constitutional: deferred Head, Ears, Nose: deferred Eyes: deferred Neck: deferred Oral: deferred Cardiovascular: deferred Respiratory: deferred GI: deferred Musculoskeletal: deferred Skin: deferred Hem/Lymphatic: deferred Psych: deferred Neurological: deferred - Constitutional Vitals: Vital Signs Temp Pulse Resp BP Pulse Ox 100.0 F H 103 H 26 H 166/80 94 06/24/21 08:00 06/24/21 10:00 06/24/21 10:00 06/24/21 10:00 06/24/21 10:00 Temperature -Last 24 Hours Temperature 100.0 F Temperature 100.3 F Temperature 99.1 F Temperature 98.1 F Temperature 97.9 F - Labs CBC & Chem 7: 06/24/21 07:58 06/24/21 07:58 Labs: Abnormal lab results 06/23/21 06/23/21 06/23/21 Range/Units 11:02 11:02 12:44 WBC 17.0 H (4.5-11.0) K/mm3 Hgb (10.1-14.3) gm/dl Hct (30.3-42.9) % MCH 26 L (28-32) pg RDW 15.6 H (13.2-15.2) % Seg Neuts % (Manual) 93.0 H (40.0-70.0) % Lymphocytes % (Manual) 6.0 L (13.4-35.0) % Seg Neutrophils # Man 15.8 H (1.8-7.7) K/mm3 Lymphocytes # (Manual) 1.0 L (1.2-5.4) K/mm3 D-Dimer (0-234) ng/mlDDU Sodium (137-145) mmol/L Chloride (98-107) mmol/L Carbon Dioxide (22-30) mmol/L BUN (7-17) mg/dL Glucose (65-100) mg/dL POC Glucose 216 H (70-105) mg/dL Phosphorus 2.30 L (2.5-4.5) mg/dL Ferritin (10.0-200.0) ng/mL AST (5-40) units/L Total Creatine Kinase (30-135) units/L C-Reactive Protein (0.00-1.30) mg/dL Albumin (3.9-5) g/dL 06/23/21 06/23/21 06/23/21 Range/Units 17:57 18:05 23:27 WBC (4.5-11.0) K/mm3 Hgb (10.1-14.3) gm/dl Hct (30.3-42.9) % MCH (28-32) pg RDW (13.2-15.2) % Seg Neuts % (Manual) (40.0-70.0) % Lymphocytes % (Manual) (13.4-35.0) % Seg Neutrophils # Man (1.8-7.7) K/mm3 Lymphocytes # (Manual) (1.2-5.4) K/mm3 D-Dimer (0-234) ng/mlDDU Sodium 148 H (137-145) mmol/L Chloride 120.2 H (98-107) mmol/L Carbon Dioxide 16 L (22-30) mmol/L BUN 30 H (7-17) mg/dL Glucose 302 H (65-100) mg/dL POC Glucose 297 H 330 H (70-105) mg/dL Phosphorus (2.5-4.5) mg/dL Ferritin (10.0-200.0) ng/mL AST 60 H (5-40) units/L Total Creatine Kinase 1066 H (30-135) units/L C-Reactive Protein (0.00-1.30) mg/dL Albumin 2.4 L (3.9-5) g/dL 06/24/21 06/24/21 06/24/21 Range/Units 05:32 07:58 07:58 WBC 19.5 H (4.5-11.0) K/mm3 Hgb 9.5 L (10.1-14.3) gm/dl Hct 30.0 L (30.3-42.9) % MCH 26 L (28-32) pg RDW 15.4 H (13.2-15.2) % Seg Neuts % (Manual) (40.0-70.0) % Lymphocytes % (Manual) (13.4-35.0) % Seg Neutrophils # Man (1.8-7.7) K/mm3 Lymphocytes # (Manual) (1.2-5.4) K/mm3 D-Dimer (0-234) ng/mlDDU Sodium 154 H (137-145) mmol/L Chloride 125.3 H (98-107) mmol/L Carbon Dioxide 20 L (22-30) mmol/L BUN 24 H (7-17) mg/dL Glucose 267 H (65-100) mg/dL POC Glucose 265 H (70-105) mg/dL Phosphorus (2.5-4.5) mg/dL Ferritin (10.0-200.0) ng/mL AST (5-40) units/L Total Creatine Kinase (30-135) units/L C-Reactive Protein (0.00-1.30) mg/dL Albumin (3.9-5) g/dL 06/24/21 06/24/21 06/24/21 Range/Units 07:58 07:58 07:58 WBC (4.5-11.0) K/mm3 Hgb (10.1-14.3) gm/dl Hct (30.3-42.9) % MCH (28-32) pg RDW (13.2-15.2) % Seg Neuts % (Manual) (40.0-70.0) % Lymphocytes % (Manual) (13.4-35.0) % Seg Neutrophils # Man (1.8-7.7) K/mm3 Lymphocytes # (Manual) (1.2-5.4) K/mm3 D-Dimer 5629.75 H (0-234) ng/mlDDU Sodium (137-145) mmol/L Chloride (98-107) mmol/L Carbon Dioxide (22-30) mmol/L BUN (7-17) mg/dL Glucose (65-100) mg/dL POC Glucose (70-105) mg/dL Phosphorus (2.5-4.5) mg/dL Ferritin 239.0 H (10.0-200.0) ng/mL AST (5-40) units/L Total Creatine Kinase (30-135) units/L C-Reactive Protein 5.30 H (0.00-1.30) mg/dL Albumin (3.9-5) g/dL
[2021-06-24] MEDS ORDERED: REMDESIVIR 200 MG in SODIUM CHLORIDE 0.9% 250ML 250 ML IV ONE (12:30)
--- NOTE | 2021-06-24 12:32 | Progress Note ---
Assessment and Plan #1 severe sepsis secondary to bilateral [id number] pneumonia. Multiple sick contacts in the home environment. Seems to have improved with IV volume therapy. Patient stable with 3 L of O2. Resting comfortably. No longer tachypneic hypotensive or tachycardic. Will place patient on steroids dexamethasone. Questionable remdesivir until renal function has improved. Continue empiric antibiotics. ID consult. Follow inflammatory markers. No remdesivir secondary to renal function. Continue dexamethasone for 10 days. Contact Ana Rosa Arizmendi [phone] #2 acute renal failure. Secondary to prerenal azotemia not eating not drinking dehydration. Improving with follow-up chemistry obtain BMP a.m. #3 acute respiratory failure secondary to sepsis bilateral pneumonia Patient still maintained well with 3 L of oxygen. No change in O2. This is a good sign. Treat underlying etiology with antibiotics, supportive care. Steroids #4 diabetes mellitus will be more difficult control with addition of steroids placed patient sliding scale insulin advance as tolerated. We will add long-acting insulin. Especially since patient on steroids. Will increase long-acting insulin today. #5 rhabdomyolysis should respond to IV volume replacement. Would not be too aggressive since patient has Covid and would like to keep a little on dry side #6 hypertensive urgency. Will need to address patient's hypertension and tachycardia. Overall patient remains dry as evidenced by increased BUN/creatinine prerenal azotemia increase CPK. Much better since the addition of Lopressor. At present we will not increase fluids above 100 to 125 cc an hour in order not to worsen acute respiratory failure. Will be a very difficult balance but the risk outweigh the benefits of increasing fluids at this time. This can be fixed slowly. We will add Lopressor IV patient remains lethargic. #7 acute metabolic encephalopathy-patient not eating or drinking. Highly suspect Covid encephalopathy. Which would have caused underlying dementia to g et worse. Patient should be able to eat today. CT scan head unremarkable. #8 hyponatremia patient started on D5 water. #8 Covid pneumonia. ID following. Add dexamethasone. Subjective Date of service: 06/24/21 Principal diagnosis: Sepsis Interval history: Patient 80 years old with a history of dementia COPD presented to the ED with decreased responsiveness decreased p.o. intake x2 days fever 102. Patient also presented with tachycardia, tachypnea, hypoxemia. Patient had contact with family members with COVID-19. Patient presentation on radiograph consistent with bilateral pneumonia. Today subsequently patient positive for COVID-19. Currently stable with only 3 L nasal cannula. Patient encephalopathy has not improved much since baseline. 06/23/2021 patient remains altered today. A little more alert however remains encephalopathic. Patient SVT much improved since yesterday since suggesting gentle IV hydration plus amiodarone in addition to AV j carlos blocking agent. 06/24/2021. This is the first day patient much more responsive today. Will attempt to talk to you we will follow you with gaze. This is better than the previous 2 days. Tachycardia is also resolved. Requiring less oxygen wean as tolerated. Objective - Constitutional Vitals: Vital Signs - 12hr 06/24/21 06/24/21 06/24/21 00:30 01:00 01:30 Temperature Pulse Rate 76 77 83 Pulse Rate [ Anterior Bilateral Throughout] Pulse Rate [ From Monitor] Respiratory 26 H 20 28 H Rate Respiratory Rate [Anterior Bilateral Throughout] Blood Pressure 171/72 152/70 157/77 O2 Sat by Pulse 100 100 100 Oximetry 06/24/21 06/24/21 06/24/21 02:00 02:30 03:00 Temperature Pulse Rate 86 86 91 H Pulse Rate [ 92 H Anterior Bilateral Throughout] Pulse Rate [ 96 H From Monitor] Respiratory 27 H 27 H 25 H Rate Respiratory 16 Rate [Anterior Bilateral Throughout] Blood Pressure 154/72 147/72 153/66 O2 Sat by Pulse 100 100 100 Oximetry 06/24/21 06/24/21 06/24/21 03:30 03:47 04:00 Temperature 100.3 F H Pulse Rate 91 H 90 Pulse Rate [ Anterior Bilateral Throughout] Pulse Rate [ From Monitor] Respiratory 27 H 23 Rate Respiratory Rate [Anterior Bilateral Throughout] Blood Pressure 142/63 150/61 O2 Sat by Pulse 100 100 Oximetry 06/24/21 06/24/21 06/24/21 04:30 05:00 05:30 Temperature Pulse Rate 92 H 92 H 92 H Pulse Rate [ Anterior Bilateral Throughout] Pulse Rate [ From Monitor] Respiratory 24 19 27 H Rate Respiratory Rate [Anterior Bilateral Throughout] Blood Pressure 143/69 141/73 151/66 O2 Sat by Pulse 100 100 100 Oximetry 06/24/21 06/24/21 06/24/21 06:00 06:30 07:00 Temperature Pulse Rate 105 H 101 H 102 H Pulse Rate [ Anterior Bilateral Throughout] Pulse Rate [ 91 H From Monitor] Respiratory 29 H 26 H 19 Rate Respiratory Rate [Anterior Bilateral Throughout] Blood Pressure 135/64 135/65 154/90 O2 Sat by Pulse 100 100 98 Oximetry 06/24/21 06/24/21 06/24/21 07:05 07:30 08:00 Temperature 100.0 F H Pulse Rate 102 H 78 85 Pulse Rate [ Anterior Bilateral Throughout] Pulse Rate [ From Monitor] Respiratory 25 H 21 Rate Respiratory Rate [Anterior Bilateral Throughout] Blood Pressure 154/90 147/82 155/72 O2 Sat by Pulse 100 Oximetry 06/24/21 06/24/21 06/24/21 08:30 08:32 09:00 Temperature Pulse Rate 91 H 102 H Pulse Rate [ Anterior Bilateral Throughout] Pulse Rate [ From Monitor] Respiratory 19 28 H Rate Respiratory Rate [Anterior Bilateral Throughout] Blood Pressure 188/86 170/84 O2 Sat by Pulse 985 H 96 Oximetry 06/24/21 06/24/21 06/24/21 09:30 10:00 10:30 Temperature Pulse Rate 101 H 103 H 106 H Pulse Rate [ Anterior Bilateral Throughout] Pulse Rate [ From Monitor] Respiratory 28 H 26 H 21 Rate Respiratory Rate [Anterior Bilateral Throughout] Blood Pressure 173/83 166/80 150/83 O2 Sat by Pulse 94 94 93 Oximetry 06/24/21 06/24/21 11:00 11:30 Temperature Pulse Rate 110 H 101 H Pulse Rate [ Anterior Bilateral Throughout] Pulse Rate [ From Monitor] Respiratory 22 35 H Rate Respiratory Rate [Anterior Bilateral Throughout] Blood Pressure 168/76 164/77 O2 Sat by Pulse 93 97 Oximetry General appearance: Present: no acute distress, well-nourished - EENT Eyes: PERRL, EOM intact ENT: hearing intact, clear oral mucosa Ears: bilateral: normal - Neck Neck: supple, normal ROM - Respiratory Respiratory effort: normal Respiratory: bilateral: diminished, rhonchi - Breasts Breasts: normal - Cardiovascular Rhythm: regular Heart Sounds: Present: S1 & S2. Absent: gallop, rub Extremities: pulses intact, No edema, normal color, Full ROM - Gastrointestinal General gastrointestinal: Present: soft, non-tender, non-distended, normal bowel sounds - Genitourinary Female genitourinary: normal - Integumentary Integumentary: clear, warm, dry - Musculoskeletal Musculoskeletal: 1, strength equal bilaterally - Neurologic Neurologic: moves all extremities - Psychiatric Psychiatric: other (Much more alert) - Labs CBC & Chem 7: 06/24/21 07:58 06/24/21 07:58 Labs: Abnormal lab results 06/23/21 06/23/21 06/23/21 Range/Units 11:02 11:02 12:44 WBC (4.5-11.0) K/mm3 Hgb (10.1-14.3) gm/dl Hct (30.3-42.9) % MCH (28-32) pg RDW (13.2-15.2) % Seg Neuts % (Manual) 93.0 H (40.0-70.0) % Lymphocytes % (Manual) 6.0 L (13.4-35.0) % Seg Neutrophils # Man 15.8 H (1.8-7.7) K/mm3 Lymphocytes # (Manual) 1.0 L (1.2-5.4) K/mm3 D-Dimer (0-234) ng/mlDDU Sodium (137-145) mmol/L Chloride (98-107) mmol/L Carbon Dioxide (22-30) mmol/L BUN (7-17) mg/dL Glucose (65-100) mg/dL POC Glucose 216 H (70-105) mg/dL Phosphorus 2.30 L (2.5-4.5) mg/dL Ferritin (10.0-200.0) ng/mL AST (5-40) units/L Total Creatine Kinase (30-135) units/L C-Reactive Protein (0.00-1.30) mg/dL Albumin (3.9-5) g/dL 06/23/21 06/23/21 06/23/21 Range/Units 17:57 18:05 23:27 WBC (4.5-11.0) K/mm3 Hgb (10.1-14.3) gm/dl Hct (30.3-42.9) % MCH (28-32) pg RDW (13.2-15.2) % Seg Neuts % (Manual) (40.0-70.0) % Lymphocytes % (Manual) (13.4-35.0) % Seg Neutrophils # Man (1.8-7.7) K/mm3 Lymphocytes # (Manual) (1.2-5.4) K/mm3 D-Dimer (0-234) ng/mlDDU Sodium 148 H (137-145) mmol/L Chloride 120.2 H (98-107) mmol/L Carbon Dioxide 16 L (22-30) mmol/L BUN 30 H (7-17) mg/dL Glucose 302 H (65-100) mg/dL POC Glucose 297 H 330 H (70-105) mg/dL Phosphorus (2.5-4.5) mg/dL Ferritin (10.0-200.0) ng/mL AST 60 H (5-40) units/L Total Creatine Kinase 1066 H (30-135) units/L C-Reactive Protein (0.00-1.30) mg/dL Albumin 2.4 L (3.9-5) g/dL 06/24/21 06/24/21 06/24/21 Range/Units 05:32 07:58 07:58 WBC 19.5 H (4.5-11.0) K/mm3 Hgb 9.5 L (10.1-14.3) gm/dl Hct 30.0 L (30.3-42.9) % MCH 26 L (28-32) pg RDW 15.4 H (13.2-15.2) % Seg Neuts % (Manual) (40.0-70.0) % Lymphocytes % (Manual) (13.4-35.0) % Seg Neutrophils # Man (1.8-7.7) K/mm3 Lymphocytes # (Manual) (1.2-5.4) K/mm3 D-Dimer (0-234) ng/mlDDU Sodium 154 H (137-145) mmol/L Chloride 125.3 H (98-107) mmol/L Carbon Dioxide 20 L (22-30) mmol/L BUN 24 H (7-17) mg/dL Glucose 267 H (65-100) mg/dL POC Glucose 265 H (70-105) mg/dL Phosphorus (2.5-4.5) mg/dL Ferritin (10.0-200.0) ng/mL AST (5-40) units/L Total Creatine Kinase (30-135) units/L C-Reactive Protein (0.00-1.30) mg/dL Albumin (3.9-5) g/dL 06/24/21 06/24/21 06/24/21 Range/Units 07:58 07:58 07:58 WBC (4.5-11.0) K/mm3 Hgb (10.1-14.3) gm/dl Hct (30.3-42.9) % MCH (28-32) pg RDW (13.2-15.2) % Seg Neuts % (Manual) (40.0-70.0) % Lymphocytes % (Manual) (13.4-35.0) % Seg Neutrophils # Man (1.8-7.7) K/mm3 Lymphocytes # (Manual) (1.2-5.4) K/mm3 D-Dimer 5629.75 H (0-234) ng/mlDDU Sodium (137-145) mmol/L Chloride (98-107) mmol/L Carbon Dioxide (22-30) mmol/L BUN (7-17) mg/dL Glucose (65-100) mg/dL POC Glucose (70-105) mg/dL Phosphorus (2.5-4.5) mg/dL Ferritin 239.0 H (10.0-200.0) ng/mL AST (5-40) units/L Total Creatine Kinase (30-135) units/L C-Reactive Protein 5.30 H (0.00-1.30) mg/dL Albumin (3.9-5) g/dL 06/24/21 Range/Units 11:13 WBC (4.5-11.0) K/mm3 Hgb (10.1-14.3) gm/dl Hct (30.3-42.9) % MCH (28-32) pg RDW (13.2-15.2) % Seg Neuts % (Manual) (40.0-70.0) % Lymphocytes % (Manual) (13.4-35.0) % Seg Neutrophils # Man (1.8-7.7) K/mm3 Lymphocytes # (Manual) (1.2-5.4) K/mm3 D-Dimer (0-234) ng/mlDDU Sodium (137-145) mmol/L Chloride (98-107) mmol/L Carbon Dioxide (22-30) mmol/L BUN (7-17) mg/dL Glucose (65-100) mg/dL POC Glucose 233 H (70-105) mg/dL Phosphorus (2.5-4.5) mg/dL Ferritin (10.0-200.0) ng/mL AST (5-40) units/L Total Creatine Kinase (30-135) units/L C-Reactive Protein (0.00-1.30) mg/dL Albumin (3.9-5) g/dL
[2021-06-24 13:53] LABS: Hypochromasia 1+; Myelocytes # (Manual) 0.2 K/mm3; Schistocytes Few; Total Cells Counted 100
[2021-06-24 13:54] LABS: Burr Cells 1+; Platelet Estimate Consistent w Auto
[2021-06-24] MEDS ORDERED: INSULIN GLARGINE 100 UNITS/ML SUB-Q SCH (22:00)
[2021-06-24] MEDS: SODIUM CHLORIDE 0.9% 50 ML IVPB IV SCH (22:24)
[2021-06-24] MEDS: INSULIN GLARGINE 100 UNITS/ML SUB-Q SCH (22:25)
[2021-06-25] MEDS: METOPROLOL TARTRATE 5 MG/5 ML INJ IV SCH ×5 (00:11→23:41)
[2021-06-25] MEDS: INSULIN LISPRO 100 UNIT/ML SUB-Q SCH ×4 (00:11→17:49)
[2021-06-25] MEDS: SODIUM BICARBONATE 75 MEQ in DEXTROSE 5% IN WATER 1,000 ML IV SCH ×2 (00:14→06:20)
[2021-06-25 00:45] LABS: Alanine Aminotransferase 166 units/L (7-56); Albumin 2.6 g/dL (3.9-5); BUN/Creatinine Ratio 20; Blood Urea Nitrogen 20 mg/dL (7-17); Calcium 9.4 mg/dL (8.4-10.2); Hemolysis Index 5
[2021-06-25] MEDS: hydrALAZINE 20 MG/1 ML INJ IV PRN (03:01)
[2021-06-25] MEDS: IPRATROPIUM/ALBUTEROL SULFATE 3 ML AMPUL.NEB IH SCH ×4 (03:11→20:46)
[2021-06-25 05:57] LABS: Hematocrit 32.6 % (30.3-42.9); Hemoglobin 10.4 gm/dl (10.1-14.3); Mean Corpuscular HGB Conc 32 % (30-34); Mean Corpuscular Volume 81 fl (79-97); Platelet Count 279 K/mm3 (140-440); Red Blood Count 4.03 M/mm3 (3.65-5.03); Red Cell Distribution Width 15.5 % (13.2-15.2)
[2021-06-25 06:15] LABS: Alanine Aminotransferase 170 units/L (7-56); Albumin 2.8 g/dL (3.9-5); BUN/Creatinine Ratio 24; Blood Urea Nitrogen 19 mg/dL (7-17); Calcium 9.7 mg/dL (8.4-10.2); Calcium 9.8 mg/dL (8.4-10.2); Hemolysis Index 0
--- NOTE | 2021-06-25 08:13 | Progress Note ---
Assessment and Plan (1) Sepsis (2) Acute metabolic encephalopathy (3) Acute renal failure (4) Diabetes (5) COPD (chronic obstructive pulmonary disease) (6) Pneumonia of both lower lobes IRINA resolved will change IVF to D5W 75 cc/h for rising sodium CT AP -ve for hydro renally dose meds strict I&O daily weight David anderson MD [phone] Subjective Date of service: 06/25/21 Principal diagnosis: Sepsis Interval history: patient is currently on isolation for COVID, on oxygen Objective - Vital Signs Vital signs: Vital Signs - 12hr 06/24/21 06/24/21 06/24/21 20:30 21:00 21:30 Temperature Pulse Rate 99 H 97 H 102 H Pulse Rate [ Anterior Bilateral Throughout] Respiratory 22 21 18 Rate Respiratory Rate [Anterior Bilateral Throughout] Blood Pressure 175/95 168/84 175/86 O2 Sat by Pulse 98 96 95 Oximetry 06/24/21 06/24/21 06/24/21 21:32 21:38 21:44 Temperature Pulse Rate 99 H Pulse Rate [ 103 H Anterior Bilateral Throughout] Respiratory 29 H Rate Respiratory 18 Rate [Anterior Bilateral Throughout] Blood Pressure 175/86 O2 Sat by Pulse 98 98 Oximetry 06/24/21 06/24/21 06/24/21 21:45 22:00 22:15 Temperature Pulse Rate 103 H 106 H 106 H Pulse Rate [ Anterior Bilateral Throughout] Respiratory 21 20 29 H Rate Respiratory Rate [Anterior Bilateral Throughout] Blood Pressure 157/83 146/91 163/88 O2 Sat by Pulse 96 96 92 Oximetry 06/24/21 06/24/21 06/24/21 22:30 22:45 23:00 Temperature Pulse Rate 108 H 104 H 99 H Pulse Rate [ Anterior Bilateral Throughout] Respiratory 31 H 18 19 Rate Respiratory Rate [Anterior Bilateral Throughout] Blood Pressure 163/88 171/85 163/86 O2 Sat by Pulse 97 97 99 Oximetry 06/24/21 06/24/21 06/24/21 23:15 23:30 23:46 Temperature Pulse Rate 100 H 99 H 102 H Pulse Rate [ Anterior Bilateral Throughout] Respiratory 22 20 13 Rate Respiratory Rate [Anterior Bilateral Throughout] Blood Pressure 162/66 169/85 169/85 O2 Sat by Pulse 95 97 100 Oximetry 06/25/21 06/25/21 06/25/21 00:00 00:11 00:15 Temperature 99.3 F Pulse Rate 102 H 106 H 101 H Pulse Rate [ Anterior Bilateral Throughout] Respiratory 17 24 Rate Respiratory Rate [Anterior Bilateral Throughout] Blood Pressure 178/89 178/89 182/134 O2 Sat by Pulse 96 98 Oximetry 06/25/21 06/25/21 06/25/21 00:25 00:30 00:46 Temperature Pulse Rate 84 78 79 Pulse Rate [ Anterior Bilateral Throughout] Respiratory 18 20 Rate Respiratory Rate [Anterior Bilateral Throughout] Blood Pressure 178/122 155/83 O2 Sat by Pulse 98 100 Oximetry 06/25/21 06/25/21 06/25/21 01:00 01:16 01:30 Temperature Pulse Rate 83 84 88 Pulse Rate [ Anterior Bilateral Throughout] Respiratory 24 20 19 Rate Respiratory Rate [Anterior Bilateral Throughout] Blood Pressure 189/112 155/83 192/84 O2 Sat by Pulse 99 100 99 Oximetry 06/25/21 06/25/21 06/25/21 01:46 02:16 02:30 Temperature Pulse Rate 84 84 86 Pulse Rate [ Anterior Bilateral Throughout] Respiratory 21 25 H 16 Rate Respiratory Rate [Anterior Bilateral Throughout] Blood Pressure 176/86 186/75 177/78 O2 Sat by Pulse 99 100 99 Oximetry 06/25/21 06/25/21 06/25/21 03:00 03:01 03:14 Temperature Pulse Rate 77 84 Pulse Rate [ 93 H Anterior Bilateral Throughout] Respiratory 17 Rate Respiratory 18 Rate [Anterior Bilateral Throughout] Blood Pressure 177/78 171/73 O2 Sat by Pulse 100 Oximetry 06/25/21 06/25/21 06/25/21 03:30 04:00 04:15 Temperature 98.5 F Pulse Rate 103 H 109 H 102 H Pulse Rate [ Anterior Bilateral Throughout] Respiratory 20 21 Rate Respiratory Rate [Anterior Bilateral Throughout] Blood Pressure 117/58 119/62 O2 Sat by Pulse 97 96 Oximetry 06/25/21 06/25/21 06/25/21 04:30 05:00 05:30 Temperature Pulse Rate 98 H 116 H 113 H Pulse Rate [ Anterior Bilateral Throughout] Respiratory 20 17 23 Rate Respiratory Rate [Anterior Bilateral Throughout] Blood Pressure 128/49 128/49 130/57 O2 Sat by Pulse 98 96 97 Oximetry 06/25/21 06/25/21 06/25/21 06:00 06:20 06:30 Temperature Pulse Rate 117 H 100 H 95 H Pulse Rate [ Anterior Bilateral Throughout] Respiratory 30 H 24 Rate Respiratory Rate [Anterior Bilateral Throughout] Blood Pressure 126/69 126/69 129/74 O2 Sat by Pulse 88 95 Oximetry 06/25/21 07:00 Temperature Pulse Rate 74 Pulse Rate [ Anterior Bilateral Throughout] Respiratory 21 Rate Respiratory Rate [Anterior Bilateral Throughout] Blood Pressure 141/63 O2 Sat by Pulse 97 Oximetry - Lab 06/25/21 05:10 06/25/21 05:10 Most recent lab results Calcium 9.7 mg/dL (8.4-10.2) 06/25/21 05:10 Calcium 9.8 mg/dL (8.4-10.2) 06/25/21 05:10 Phosphorus 1.20 mg/dL (2.5-4.5) L 06/25/21 05:10 Urine Creatinine 52.2 mg/dL (0.1-20.0) H 06/22/21 13:45 Urine Creatinine 52.9 mg/dL (0.1-20.0) H 06/22/21 13:45 Urine Sodium 122 mmol/L 06/22/21 13:45 Urine Total Protein 61 mg/dL (5-11.8) H 06/22/21 13:45 Medications & Allergies - Medications Allergies/Adverse Reactions: Allergies No Known Allergies Allergy (Verified 01/30/17 08:52) Home Medications: Home Medications Medication Instructions Recorded Confirmed Last Taken Type Albuterol Sulfate [Ventolin HFA] 2 puff IH Q4H PRN #1 [email or web address] 01/30/17 06/22/21 Unknown Rx Active Medications: Generic Name Dose Route Start Last Admin Trade Name Freq PRN Reason Stop Dose Admin Acetaminophen 650 mg 06/22/21 01:32 Acetaminophen 325 Mg Tab PO Q4H PRN Pain MILD(1-3)/Fever >100.5/MCGRAW Albuterol 2 puff 06/24/21 02:07 Albuterol 8.5 Gm Mdi Inhalation IH Q4HRT PRN Shortness Of Breath Albuterol/Ipratropium 1 ampul 06/22/21 02:00 06/25/21 03:11 Ipratropium/Albuterol Sulfate 3 Ml Ampul.Neb IH 1 ampul Q6HRT FEDERICO Administration Dexamethasone 6 mg 06/23/21 13:00 06/24/21 10:14 Dexamethasone 4 Mg/Ml Vial IV 07/03/21 12:59 6 mg DAILY FEDERICO Administration Dextrose 50 ml 06/22/21 17:15 Dextrose 50% In Water (25gm) 50 Ml Syringe IV Q30MIN PRN Hypoglycemia Protocol Famotidine 20 mg 06/22/21 10:00 06/24/21 10:14 Famotidine 20 Mg/2 Ml Inj IV 20 mg QAM FEDERICO Administration Heparin Sodium (Porcine) 5,000 unit 06/22/21 10:00 06/24/21 22:25 Heparin 5,000 Unit/1 Ml Vial SUB-Q 5,000 unit Q12HR FEDER[place] Administration Hydralazine HCl 10 mg 06/25/21 02:16 06/25/21 03:01 Hydralazine 20 Mg/1 Ml Inj IV 10 mg Q6HR PRN Administration Hypertension Hydromorphone HCl 0.25 mg 06/22/21 01:32 Hydromorphone 1 Mg/1 Ml Inj IV Q4H PRN Pain, Moderate (4-6) Hydromorphone HCl 0.5 mg 06/22/21 01:32 Hydromorphone 1 Mg/1 Ml Inj IV Q3H PRN Pain , Severe (7-10) REMDESIVIR 100 mg/ Sodium 250 mls @ 500 mls/hr 06/25/21 21:00 Chloride IV 06/28/21 21:29 Q24HR@2100 FEDERICO Dextrose 1,000 mls @ 75 mls/hr 06/25/21 09:00 D5w IV DIRECT FEDERICO Insulin Glargine 30 units 06/24/21 22:00 06/24/21 22:25 Insulin Glargine 100 Units/Ml SUB-Q 30 units QHS FEDERICO Administration Insulin Human Lispro 0 unit 06/22/21 18:00 06/25/21 06:21 Insulin Lispro 100 Unit/Ml SUB-Q 4 unit Q6HR FEDERICO Administration Protocol Metoprolol Tartrate 5 mg 06/22/21 18:00 06/25/21 06:20 Metoprolol Tartrate 5 Mg/5 Ml Inj IV 5 mg Q6HR FEDER[place] Administration Ondansetron HCl 4 mg 06/22/21 01:32 Ondansetron 4 Mg/2 Ml Inj IV Q8H PRN Nausea And Vomiting Oxycodone/Acetaminophen 1 tab 06/22/21 01:32 Oxycodone /Acetaminophen 5-325mg Tab PO Q6H PRN Pain, Moderate (4-6) Sodium Chloride 10 ml 06/22/21 10:00 06/24/21 22:25 Sodium Chloride 0.9% 10 Ml Flush Syringe IV 10 ml BID FEDER[place] Administration Sodium Chloride 10 ml 06/22/21 01:32 Sodium Chloride 0.9% 10 Ml Flush Syringe IV PRN PRN LINE FLUSH Sodium Chloride 50 ml 06/24/21 21:00 06/24/21 22:24 Sodium Chloride 0.9% 50 Ml Ivpb IV 06/28/21 21:01 Not Given Q24HR@2100 FEDER[place]
[2021-06-25 08:58] LABS: Band Neutrophils # (Manual) 0.2 K/mm3; Total Cells Counted 100
[2021-06-25 08:59] LABS: Giant Platelets Few; Platelet Estimate Consistent w Auto
[2021-06-25] MEDS ORDERED: POTASSIUM PHOSPHATE 30 MMOL in SODIUM CHLORIDE 0.9% 500 ML 500 ML IV ONE (10:00)
[2021-06-25] MEDS: DEXTROSE 5% IN WATER 1,000 ML IV SCH ×2 (10:08→23:43)
[2021-06-25] MEDS: dexAMETHasone 4 MG/ML VIAL IV SCH (10:08)
[2021-06-25] MEDS: HEPARIN 5,000 UNIT/1 ML VIAL SUB-Q SCH ×2 (10:08→22:53)
[2021-06-25] MEDS: FAMOTIDINE 20 MG/2 ML INJ IV SCH (10:09)
--- NOTE | 2021-06-25 12:32 | Progress Note ---
Assessment and Plan Assessment and plan: #1 severe sepsis secondary to bilateral [id number] pneumonia. Multiple sick contacts in the home environment. Seems to have improved with IV volume therapy. Patient stable with 3 L of O2. Resting comfortably. No longer tachypneic hypotensive or tachycardic. Will place patient on steroids de xamethasone. Questionable remdesivir until renal function has improved. Continue empiric antibiotics. ID consult. Follow inflammatory markers. No remdesivir secondary to renal function. Continue dexamethasone for 10 days. Contact Ana Rosa Arizmendi [phone] #2 acute renal failure. Secondary to prerenal azotemia not eating not drinking dehydration. Improving with follow-up chemistry obtain BMP a.m. #3 acute respiratory failure secondary to sepsis bilateral pneumonia Patient still maintained well with 3 L of oxygen. No change in O2. This is a good sign. Treat underlying etiology with antibiotics, supportive care. Steroids #4 diabetes mellitus will be more difficult control with addition of steroids placed patient sliding scale insulin advance as tolerated. We will add long-acting insulin. Especially since patient on steroids. Will increase long-acting insulin today. #5 rhabdomyolysis should respond to IV volume replacement. Would not be too aggressive since patient has Covid and would like to keep a little on dry side #6 hypertensive urgency. Will need to address patient's hypertension and tachycardia. Overall patient remains dry as evidenced by increased BUN/creatinine prerenal azotemia increase CPK. Much better since the addition of Lopressor. At present we will not increase fluids above 100 to 125 cc an hour in order not to worsen acute respiratory failure. Will be a very difficult balance but the risk outweigh the benefits of increasing fluids at this time. This can be fixed slowly. We will add Lopressor IV patient remains lethargic. #7 acute metabolic encephalopathy-patient not eating or drinking. Highly suspect Covid encephalopathy. Which would have caused underlying dementia to get worse. Patient should be able to eat today. CT scan head unremarkable. #8 hyponatremia patient started on D5 water. #8 Covid pneumonia. ID following. Add dexamethasone. Subjective Date of service: 06/24/21 Principal diagnosis: Sepsis Interval history: Patient 80 years old with a history of dementia COPD presented to the ED with decreased responsiveness decreased p.o. intake x2 days fever 102. Patient also presented with tachycardia, tachypnea, hypoxemia. Patient had contact with family members with COVID-19. Patient presentation on radiograph consistent wit h bilateral pneumonia. Today subsequently patient positive for COVID-19. Currently stable with only 3 L nasal cannula. Patient encephalopathy has not improved much since baseline. 06/23/2021 patient remains altered today. A little more alert however remains encephalopathic. Patient SVT much improved since yesterday since suggesting gentle IV hydration plus amiodarone in addition to AV j carlos blocking agent. 06/24/2021. This is the first day patient much more responsive today. Will attempt to talk to you we will follow you with gaze. This is better than the previous 2 days.Tachycardia is also resolved. Requiring less oxygen wean as tolerated. 06/25: Patient seen and examined appears to be clinically improving. Discussed with nursing staff will obtain PT OT and home O2 evaluation. Anticipate discharge in a.m. if continues to improve will likely need home O2. Transfer to [facility] downgrade. History Interval history: Patient seen and examined resting comfortably currently on 2 L of oxygen satting around 95% discussed with nurse. Hospitalist Physical - Physical exam Narrative exam: General appearance: Present: no acute distress, well-nourished - EENT Eyes: PERRL, EOM intact ENT: hearing intact, clear oral mucosa Ears: bilateral: normal - Neck Neck: supple, normal ROM - Respiratory Respiratory effort: normal Respiratory: bilateral: diminished, rhonchi - Breasts Breasts: normal - Cardiovascular Rhythm: regular Heart Sounds: Present: S1 & S2. Absent: gallop, rub Extremities: pulses intact, No edema, normal color, Full ROM - Gastrointestinal General gastrointestinal: Present: soft, non-tender, non-distended, normal bowel sounds - Genitourinary Female genitourinary: normal - Integumentary Integumentary: clear, warm, dry - Musculoskeletal Musculoskeletal: 1, strength equal bilaterally, gait status unsure - Neurologic Neurologic: moves all extremities - Psychiatric Psychiatric: other (Much more alert) - Constitutional Vitals: Temp Pulse Resp BP Pulse Ox 98.5 F 88 18 141/63 96 06/25/21 04:00 06/25/21 09:39 06/25/21 09:39 06/25/21 08:30 06/25/21 09:26 General appearance: Present: no acute distress, well-nourished Results - Labs CBC & Chem 7: 06/25/21 05:10 06/25/21 05:10 Labs: Laboratory Last Values WBC 17.4 K/mm3 (4.5-11.0) H 06/25/21 05:10 RBC 4.03 M/mm3 (3.65-5.03) 06/25/21 05:10 Hgb 10.4 gm/dl (10.1-14.3) 06/25/21 05:10 Hct 32.6 % (30.3-42.9) 06/25/21 05:10 MCV 81 fl (79-97) 06/25/21 05:10 MCH 26 pg (28-32) L 06/25/21 05:10 MCHC 32 % (30-34) 06/25/21 05:10 RDW 15.5 % (13.2-15.2) H 06/25/21 05:10 Plt Count 279 K/mm3 (140-440) 06/25/21 05:10 Lymph % (Auto) 3.5 % (13.4-35.0) L 06/21/21 20:39 [place] % (Auto) 6.0 % (0.0-7.3) 06/21/21 20:39 Eos % (Auto) 0.3 % (0.0-4.3) 06/21/21 20:39 Baso % (Auto) 0.2 % (0.0-1.8) 06/21/21 20:39 Lymph # (Auto) 0.6 K/mm3 (1.2-5.4) L 06/21/21 20:39 [place] # (Auto) 1.1 K/mm3 (0.0-0.8) H 06/21/21 20:39 Eos # (Auto) 0.1 K/mm3 (0.0-0.4) 06/21/21 20:39 Baso # (Auto) 0.0 K/mm3 (0.0-0.1) 06/21/21 20:39 Add Manual Diff Complete 06/25/21 05:10 Total Counted 100 06/25/21 05:10 Seg Neutrophils % Service Captain 06/25/21 05:10 Seg Neuts % (Manual) 95.0 % (40.0-70.0) H 06/25/21 05:10 Band Neutrophils % 1.0 % 06/25/21 05:10 Lymphocytes % (Manual) 2.0 % (13.4-35.0) L 06/25/21 05:10 Monocytes % (Manual) 2.0 % (0.0-7.3) 06/25/21 05:10 Myelocytes % 1.0 % 06/24/21 07:58 Nucleated RBC % 1.0 % (0.0-0.9) H 06/25/21 05:10 Seg Neutrophils # 15.9 K/mm3 (1.8-7.7) H 06/21/21 20:39 Seg Neutrophils # Man 16.5 K/mm3 (1.8-7.7) H 06/25/21 05:10 Band Neutrophils # 0.2 K/mm3 06/25/21 05:10 Lymphocytes # (Manual) 0.3 K/mm3 (1.2-5.4) L 06/25/21 05:10 Abs React Lymphs (Man) 0.0 K/mm3 06/25/21 05:10 Monocytes # (Manual) 0.3 K/mm3 (0.0-0.8) 06/25/21 05:10 Eosinophils # (Manual) 0.0 K/mm3 (0.0-0.4) 06/25/21 05:10 Basophils # (Manual) 0.0 K/mm3 (0.0-0.1) 06/25/21 05:10 Metamyelocytes # 0.0 K/mm3 06/25/21 05:10 Myelocytes # 0.0 K/mm3 06/25/21 05:10 Promyelocytes # 0.0 K/mm3 06/25/21 05:10 Blast Cells # 0.0 K/mm3 06/25/21 05:10 WBC Morphology Not Reportable 06/25/21 05:10 Hypersegmented Neuts Not Reportable 06/25/21 05:10 Hyposegmented Neuts Not Reportable 06/25/21 05:10 Hypogranular Neuts Not Reportable 06/25/21 05:10 Smudge Cells Not Reportable 06/25/21 05:10 Toxic Granulation Not Reportable 06/25/21 05:10 Toxic Vacuolation Not Reportable 06/25/21 05:10 Dohle Bodies Not Reportable 06/25/21 05:10 Pelger-Huet Anomaly Not Reportable 06/25/21 05:10 Helen Rods Not Reportable 06/25/21 05:10 Platelet Estimate Consistent w auto 06/25/21 05:10 Clumped Platelets Not Reportable 06/25/21 05:10 Plt Clumps, EDTA Not Reportable 06/25/21 05:10 Large Platelets Not Reportable 06/25/21 05:10 Giant Platelets Few 06/25/21 05:10 Platelet Satelliting Not Reportable 06/25/21 05:10 Plt Morphology Comment Not Reportable 06/25/21 05:10 RBC Morphology Not Reportable 06/25/21 05:10 Dimorphic RBCs Not Reportable 06/25/21 05:10 Polychromasia Not Reportable 06/25/21 05:10 Hypochromasia Not Reportable 06/25/21 05:10 Poikilocytosis Not Reportable 06/25/21 05:10 Anisocytosis Not Reportable 06/25/21 05:10 Microcytosis Not Reportable 06/25/21 05:10 Macrocytosis Not Reportable 06/25/21 05:10 Spherocytes Not Reportable 06/25/21 05:10 Pappenheimer Bodies Not Reportable 06/25/21 05:10 Sickle Cells Not Reportable 06/25/21 05:10 Target Cells Not Reportable 06/25/21 05:10 Tear Drop Cells Not Reportable 06/25/21 05:10 Ovalocytes Not Reportable 06/25/21 05:10 Helmet Cells Not Reportable 06/25/21 05:10 [place] Bodies Not Reportable 06/25/21 05:10 [place] Rings Not Reportable 06/25/21 05:10 Ni Cells Not Reportable 06/25/21 05:10 Bite Cells Not Reportable 06/25/21 05:10 Crenated Cell Not Reportable 06/25/21 05:10 Elliptocytes Few 06/25/21 05:10 Acanthocytes (Spur) Not Reportable 06/25/21 05:10 Rouleaux Not Reportable 06/25/21 05:10 Hemoglobin C Crystals Not Reportable 06/25/21 05:10 Schistocytes Not Reportable 06/25/21 05:10 Malaria parasites Not Reportable 06/25/21 05:10 [place] Bodies Not Reportable 06/25/21 05:10 Hem Pathologist Commnt No 06/25/21 05:10 D-Dimer 5629.75 ng/mlDDU (0-234) H 06/24/21 07:58 Sodium 150 mmol/L (137-145) H 06/25/21 05:10 Sodium 150 mmol/L (137-145) H 06/25/21 05:10 Potassium 3.2 mmol/L (3.6-5.0) L 06/25/21 05:10 Potassium 3.2 mmol/L (3.6-5.0) L 06/25/21 05:10 Chloride 110.8 mmol/L (98-107) H 06/25/21 05:10 Chloride 111.2 mmol/L (98-107) H 06/25/21 05:10 Carbon Dioxide 27 mmol/L (22-30) 06/25/21 05:10 Carbon Dioxide 27 mmol/L (22-30) 06/25/21 05:10 Anion Gap 15 mmol/L 06/25/21 05:10 Anion Gap 15 mmol/L 06/25/21 05:10 BUN 19 mg/dL (7-17) H 06/25/21 05:10 BUN 19 mg/dL (7-17) H 06/25/21 05:10 Creatinine 0.8 mg/dL (0.6-1.2) 06/25/21 05:10 Creatinine 0.8 mg/dL (0.6-1.2) 06/25/21 05:10 Estimated GFR > 60 ml/min 06/25/21 05:10 Estimated GFR > 60 ml/min 06/25/21 05:10 BUN/Creatinine Ratio 24 % 06/25/21 05:10 BUN/Creatinine Ratio 24 % 06/25/21 05:10 Glucose 258 mg/dL (65-100) H 06/25/21 05:10 Glucose 260 mg/dL (65-100) H 06/25/21 05:10 POC Glucose 210 mg/dL (70-105) H 06/25/21 11:49 Lactic Acid 1.20 mmol/L (0.7-2.0) 06/22/21 05:06 Calcium 9.7 mg/dL (8.4-10.2) 06/25/21 05:10 Calcium 9.8 mg/dL (8.4-10.2) 06/25/21 05:10 Phosphorus 1.20 mg/dL (2.5-4.5) L 06/25/21 05:10 Ferritin 239.0 ng/mL (10.0-200.0) H 06/24/21 07:58 Total Bilirubin 0.50 mg/dL (0.1-1.2) 06/25/21 05:10 Direct Bilirubin 0.7 mg/dL (0-0.2) H 06/21/21 20:39 Indirect Bilirubin 0.3 mg/dL 06/21/21 20:39 AST 304 units/L (5-40) H 06/25/21 05:10 ALT 170 units/L (7-56) H 06/25/21 05:10 Alkaline Phosphatase 119 units/L (35-129) 06/25/21 05:10 Total Creatine Kinase 1066 units/L (30-135) H 06/23/21 17:57 C-Reactive Protein 3.10 mg/dL (0.00-1.30) H 06/25/21 05:10 Total Protein 6.1 g/dL (6.3-8.2) L 06/25/21 05:10 Albumin 2.8 g/dL (3.9-5) L 06/25/21 05:10 Albumin/Globulin Ratio 0.8 % 06/25/21 05:10 Procalcitonin 1.12 ng/mL (<0.15) 06/24/21 07:58 Urine Color Yellow (Yellow) 06/22/21 13:45 Urine Turbidity Clear (Clear) 06/22/21 13:45 Urine pH 5.0 (5.0-7.0) 06/22/21 13:45 Ur Specific [place] 1.013 (1.003-1.030) 06/22/21 13:45 Urine Protein 100 mg/dl mg/dL (Negative) 06/22/21 13:45 Urine Glucose (UA) Neg mg/dL (Negative) 06/22/21 13:45 Urine Ketones Neg mg/dL (Negative) 06/22/21 13:45 Urine Blood Lg (Negative) 06/22/21 13:45 Urine Nitrite Pos (Negative) 06/22/21 13:45 Urine Bilirubin Neg (Negative) 06/22/21 13:45 Urine Urobilinogen < 2.0 mg/dL (<2.0) 06/22/21 13:45 Ur Leukocyte Esterase Neg (Negative) 06/22/21 13:45 Urine WBC (Auto) 1.0 /HPF (0.0-6.0) 06/22/21 13:45 Urine RBC (Auto) 5.0 /HPF (0.0-6.0) 06/22/21 13:45 U Epithel Cells (Auto) < 1.0 /HPF (0-13.0) 06/22/21 13:45 Urine Bacteria (Auto) 3+ /HPF (Negative) 06/22/21 13:45 Urine Mucus Few /HPF 06/22/21 13:45 Urine Creatinine 52.2 mg/dL (0.1-20.0) H 06/22/21 13:45 Urine Creatinine 52.9 mg/dL (0.1-20.0) H 06/22/21 13:45 Protein/Creatinin Ratio 1.15 06/22/21 13:45 Urine Sodium 122 mmol/L 06/22/21 13:45 Urine Total Protein 61 mg/dL (5-11.8) H 06/22/21 13:45 Nasal Screen MRSA (PCR) Negative (Negative) 06/22/21 04:45 Coronavirus (PCR) Positive (Negative) A 06/22/21 Unknown Blood Type O POSITIVE 06/22/21 05:06 Antibody Screen Negative 06/22/21 05:06 Microbiology: Microbiology 06/21/21 20:55 Peripheral/Venous Blood Culture - Preliminary NO GROWTH AFTER 72 HOURS 06/21/21 20:39 Peripheral/Venous Blood Culture - Preliminary NO GROWTH AFTER 72 HOURS 06/22/21 04:45 Urine,Clean Catch Urine Culture - Final Robbins/IV: Voiding Method External Female Catheter Active Medications - Current Medications Current Medications: Generic Name Dose Route Start Last Admin Trade Name Freq PRN Reason Stop Dose Admin Acetaminophen 650 mg 06/22/21 01:32 Acetaminophen 325 Mg Tab PO Q4H PRN Pain MILD(1-3)/Fever >100.5/MCGRAW Albuterol 2 puff 06/24/21 02:07 Albuterol 8.5 Gm Mdi Inhalation IH Q4HRT PRN Shortness Of Breath Albuterol/Ipratropium 1 ampul 06/22/21 02:00 06/25/21 09:24 Ipratropium/Albuterol Sulfate 3 Ml Ampul.Neb IH 1 ampul Q6HRT FEDERICO Administration Dexamethasone 6 mg 06/23/21 13:00 06/25/21 10:08 Dexamethasone 4 Mg/Ml Vial IV 07/03/21 12:59 6 mg DAILY FEDERICO Administration Dextrose 50 ml 06/22/21 17:15 Dextrose 50% In Water (25gm) 50 Ml Syringe IV Q30MIN PRN Hypoglycemia Protocol Famotidine 20 mg 06/22/21 10:00 06/25/21 10:09 Famotidine 20 Mg/2 Ml Inj IV 20 mg QAM FEDERICO Administration Heparin Sodium (Porcine) 5,000 unit 06/22/21 10:00 06/25/21 10:08 Heparin 5,000 Unit/1 Ml Vial SUB-Q 5,000 unit Q12HR FEDERICO Administration Hydralazine HCl 10 mg 06/25/21 02:16 06/25/21 03:01 Hydralazine 20 Mg/1 Ml Inj IV 10 mg Q6HR PRN Administration Hypertension Hydromorphone HCl 0.25 mg 06/22/21 01:32 Hydromorphone 1 Mg/1 Ml Inj IV Q4H PRN Pain, Moderate (4-6) Hydromorphone HCl 0.5 mg 06/22/21 01:32 Hydromorphone 1 Mg/1 Ml Inj IV Q3H PRN Pain , Severe (7-10) REMDESIVIR 100 mg/ Sodium 250 mls @ 500 mls/hr 06/25/21 21:00 Chloride IV 06/28/21 21:29 Q24HR@2100 FEDERICO Dextrose 1,000 mls @ 75 mls/hr 06/25/21 09:00 06/25/21 10:08 D5w IV 75 mls/hr DIRECT FEDERICO Administration Potassium Phosphate 30 mmol/ 510 mls @ 83 mls/hr 06/25/21 10:00 06/25/21 10:07 Sodium Chloride IV 06/25/21 16:08 83 mls/hr ONCE ONE Administration Insulin Glargine 30 units 06/24/21 22:00 06/24/21 22:25 Insulin Glargine 100 Units/Ml SUB-Q 30 units QHS FEDERICO Administration Insulin Human Lispro 0 unit 06/22/21 18:00 06/25/21 06:21 Insulin Lispro 100 Unit/Ml SUB-Q 4 unit Q6HR FEDERICO Administration Protocol Metoprolol Tartrate 5 mg 06/22/21 18:00 06/25/21 06:20 Metoprolol Tartrate 5 Mg/5 Ml Inj IV 5 mg Q6HR FEDERICO Administration Ondansetron HCl 4 mg 06/22/21 01:32 Ondansetron 4 Mg/2 Ml Inj IV Q8H PRN Nausea And Vomiting Oxycodone/Acetaminophen 1 tab 06/22/21 01:32 Oxycodone /Acetaminophen 5-325mg Tab PO Q6H PRN Pain, Moderate (4-6) Sodium Chloride 10 ml 06/22/21 10:00 06/25/21 10:09 Sodium Chloride 0.9% 10 Ml Flush Syringe IV 10 ml BID FEDERICO Administration Sodium Chloride 10 ml 06/22/21 01:32 Sodium Chloride 0.9% 10 Ml Flush Syringe IV PRN PRN LINE FLUSH Sodium Chloride 50 ml 06/24/21 21:00 06/24/21 22:24 Sodium Chloride 0.9% 50 Ml Ivpb IV 06/28/21 21:01 Not Given Q24HR@2100 [facility] Nutrition/Malnutrition Assess - Dietary Evaluation Nutrition/Malnutrition Findings: Nutrition Notes Start: 06/22/21 12:10 Freq: Status: Active Protocol: Document 06/22/21 12:11 (Rec: 06/22/21 12:16 [id number]) Nutrition Notes Need for Assessment generated from: MD Order,sawdust drier,MST Initial or Follow up Assessment Current Diagnosis Acute Kidney Injury,COPD, Sepsis Other Pertinent Diagnosis dementia, pneu, COVID-19 PUI Current Diet Cardiac, consistent CHO Labs/Tests Reviewed Pertinent Medications NS at 100ml/hr Height 5 ft 4 in Weight 57.9 kg [place] Body Weight (kg) 54.54 BMI 21.9 Weight Status Appropriate Subjective/Other Information MD consult for diet edu and ONS. Pt not appropriate for diet education due to dementia and advanced age. RN screen for skin risk and MST. Pt with multiple abrasions and pressure ulcer on sacrum. Unable to speak with pt. RN unsure of intakes. Burn Absent Trauma Absent #1 Nutrition Diagnosis Increased nutrient needs ( specify in comment below) Comments: protein Etiology wound healing As Evidenced by Signs and Symptoms pressure ulcer on scarum Is patient on ventilator? No Is Patient Ambulatory and/or Out of Bed No REE-([facility]-confined to bed) 1241.880 Calculation Used for Recommendations [facility] Additional Notes Protein: (1.25-1.5g/kg) 73-87g Fluid: 1 ml/kcal Nutrition Intervention Change Diet Order: continue Add Supplement/Snack (indicate name/kcal Glucerna BID /protein ) Provides kCal: 440 Provides Protein (gm) 20 Goal #1 Meet at least 75% of energy and protein needs via PO and ONS Anticipated Discharge Needs: cardiac, consistent CHO Follow-Up By: 06/26/21 Additional Comments FU for intakes and ONS tolerance
--- NOTE | 2021-06-25 13:56 | Progress Note ---
Assessment and Plan Cultures: SARS CoV2 PCR: Positive 06/21/2021 blood culture: no growth MRSA nasal PCR: Negative 06/22/2021 urine culture: Mixed ferny A/P: 80-year-old female with dementia, COPD, diabetes admitted to the hospital due to altered mental status and reduced oral intake for the last few days: #COVID-19 pneumonia: mild hypoxia. Procalcitonin decreased to 0.6, CRP down to 3.1. On steroids. S/P Ceftriaxone. #Sepsis: Source is unclear, likely COVID related. Procalcitonin decreased to 0.6. UA without significant pyuria. #New transaminitis: likely from Remdesivir. #Lactic acidosis #Acute kidney injury: improved #Elevated CK #Dementia Recs: -AST, ALT have worsened, hence remdesivir discontinued -D-dimer is elevated, consider VTE evaluation, anticoagulation per protocol -continue Decadron 6 mg daily for 10 days -rechecking markers and d-dimer in AM Dali Canela MD, FACP [facility] ([facility] O: [phone] F: [phone] Subjective Date of service: 06/25/21 Principal diagnosis: Sepsis Interval history: Afebrile. Remains stable on supplemental oxygen by nasal cannula. LFTs worse. Objective - Exam Narrative Exam: Physical Exam (reviewed in chart to minimize risk of transmission) Constitutional: deferred Head, Ears, Nose: deferred Eyes: deferred Neck: deferred Oral: deferred Cardiovascular: deferred Respiratory: deferred GI: deferred Musculoskeletal: deferred Skin: deferred Hem/Lymphatic: deferred Psych: deferred Neurological: deferred - Constitutional Vitals: Vital Signs Temp Pulse Resp BP Pulse Ox 98.5 F 88 18 156/69 96 06/25/21 04:00 06/25/21 12:52 06/25/21 09:39 06/25/21 12:52 06/25/21 09:26 Temperature -Last 24 Hours Temperature 98.5 F Temperature 99.3 F Temperature 99.3 F Temperature 98.9 F - Labs CBC & Chem 7: 06/25/21 05:10 06/25/21 05:10 Labs: Abnormal lab results 06/24/21 06/24/21 06/24/21 Range/Units 07:58 16:48 23:33 WBC (4.5-11.0) K/mm3 MCH (28-32) pg RDW (13.2-15.2) % Seg Neuts % (Manual) 99.0 H (40.0-70.0) % Lymphocytes % (Manual) (13.4-35.0) % Nucleated RBC % (0.0-0.9) % Seg Neutrophils # Man 19.3 H (1.8-7.7) K/mm3 Lymphocytes # (Manual) 0.0 L (1.2-5.4) K/mm3 Sodium (137-145) mmol/L Potassium (3.6-5.0) mmol/L Chloride (98-107) mmol/L BUN (7-17) mg/dL Glucose (65-100) mg/dL POC Glucose 376 H 374 H (70-105) mg/dL Phosphorus (2.5-4.5) mg/dL AST (5-40) units/L ALT (7-56) units/L C-Reactive Protein (0.00-1.30) mg/dL Total Protein (6.3-8.2) g/dL Albumin (3.9-5) g/dL 06/25/21 06/25/21 06/25/21 Range/Units 00:09 05:10 05:10 WBC 17.4 H (4.5-11.0) K/mm3 MCH 26 L (28-32) pg RDW 15.5 H (13.2-15.2) % Seg Neuts % (Manual) 95.0 H (40.0-70.0) % Lymphocytes % (Manual) 2.0 L (13.4-35.0) % Nucleated RBC % 1.0 H (0.0-0.9) % Seg Neutrophils # Man 16.5 H (1.8-7.7) K/mm3 Lymphocytes # (Manual) 0.3 L (1.2-5.4) K/mm3 Sodium 147 H 150 H (137-145) mmol/L Potassium 3.5 L 3.2 L (3.6-5.0) mmol/L Chloride 112.2 H 110.8 H (98-107) mmol/L BUN 20 H 19 H (7-17) mg/dL Glucose 414 H 258 H (65-100) mg/dL POC Glucose (70-105) mg/dL Phosphorus 1.20 L (2.5-4.5) mg/dL AST 381 H (5-40) units/L ALT 166 H (7-56) units/L C-Reactive Protein (0.00-1.30) mg/dL Total Protein (6.3-8.2) g/dL Albumin 2.6 L (3.9-5) g/dL 06/25/21 06/25/21 06/25/21 Range/Units 05:10 05:10 05:14 WBC (4.5-11.0) K/mm3 MCH (28-32) pg RDW (13.2-15.2) % Seg Neuts % (Manual) (40.0-70.0) % Lymphocytes % (Manual) (13.4-35.0) % Nucleated RBC % (0.0-0.9) % Seg Neutrophils # Man (1.8-7.7) K/mm3 Lymphocytes # (Manual) (1.2-5.4) K/mm3 Sodium 150 H (137-145) mmol/L Potassium 3.2 L (3.6-5.0) mmol/L Chloride 111.2 H (98-107) mmol/L BUN 19 H (7-17) mg/dL Glucose 260 H (65-100) mg/dL POC Glucose 261 H (70-105) mg/dL Phosphorus (2.5-4.5) mg/dL AST 304 H (5-40) units/L ALT 170 H (7-56) units/L C-Reactive Protein 3.10 H (0.00-1.30) mg/dL Total Protein 6.1 L (6.3-8.2) g/dL Albumin 2.8 L (3.9-5) g/dL 06/25/21 Range/Units 11:49 WBC (4.5-11.0) K/mm3 MCH (28-32) pg RDW (13.2-15.2) % Seg Neuts % (Manual) (40.0-70.0) % Lymphocytes % (Manual) (13.4-35.0) % Nucleated RBC % (0.0-0.9) % Seg Neutrophils # Man (1.8-7.7) K/mm3 Lymphocytes # (Manual) (1.2-5.4) K/mm3 Sodium (137-145) mmol/L Potassium (3.6-5.0) mmol/L Chloride (98-107) mmol/L BUN (7-17) mg/dL Glucose (65-100) mg/dL POC Glucose 210 H (70-105) mg/dL Phosphorus (2.5-4.5) mg/dL AST (5-40) units/L ALT (7-56) units/L C-Reactive Protein (0.00-1.30) mg/dL Total Protein (6.3-8.2) g/dL Albumin (3.9-5) g/dL
[2021-06-25] MEDS ORDERED: REMDESIVIR 100 MG in SODIUM CHLORIDE 0.9% 250ML 250 ML IV SCH (21:00)
[2021-06-25] MEDS: INSULIN GLARGINE 100 UNITS/ML SUB-Q SCH (22:53)
[2021-06-25] MEDS: SODIUM CHLORIDE 0.9% 50 ML IVPB IV SCH ×2 (22:55→23:06)
[2021-06-26] MEDS: INSULIN LISPRO 100 UNIT/ML SUB-Q SCH ×4 (01:45→17:36)
[2021-06-26] MEDS: IPRATROPIUM/ALBUTEROL SULFATE 3 ML AMPUL.NEB IH SCH ×4 (06:12→20:14)
[2021-06-26 06:45] LABS: Hematocrit 32.5 % (30.3-42.9); Hemoglobin 10.1 gm/dl (10.1-14.3); Mean Corpuscular HGB Conc 31 % (30-34); Mean Corpuscular Volume 80 fl (79-97); Platelet Count 292 K/mm3 (140-440); Red Blood Count 4.06 M/mm3 (3.65-5.03); Red Cell Distribution Width 15.5 % (13.2-15.2)
[2021-06-26] MEDS: METOPROLOL TARTRATE 5 MG/5 ML INJ IV SCH ×3 (07:17→17:35)
[2021-06-26 07:19] LABS: Alanine Aminotransferase 114 units/L (7-56); Albumin 2.7 g/dL (3.9-5); BUN/Creatinine Ratio 24; Blood Urea Nitrogen 19 mg/dL (7-17); Hemolysis Index 0
--- NOTE | 2021-06-26 08:24 | Discharge Summary ---
Providers - Providers Date of Admission: 06/22/21 00:05 Attending physician: ROSANNA RIDLEY MD 06/22/21 00:21 Consult to Physician [CONS] Stat Comment: dr. amato has seen the patient/ cade Consulting Provider: OLAMIDE AMATO Physician Instructions: Reason For Exam: Acute renal failure 06/22/21 01:38 Consult to Physician [CONS] Routine Comment: Consulting Provider: ROLY ARGUELLO Physician Instructions: Reason For Exam: pui 06/22/21 01:49 Consult to Dietitian/Nutrition [CONS] Routine Physician Instructions: Reason For Exam: Reason for Consult: Diet education Primary care physician: JOB COMPOSITOR Hospitalization Reason for admission: Sepsis Condition: Stable Hospital course: Patient 80 years old with a history of dementia COPD presented to the ED with decreased responsiveness decreased p.o. intake x2 days fever 102. Patient also presented with tachycardia, tachypnea, hypoxemia. Patient had contact with family members with COVID-19. Patient presentation on radiograph consistent with bilateral pneumonia. Today subsequently patient positive for COVID-19. Currently stable with only 3 L nasal cannula. Patient encephalopathy has not improved much since baseline. 06/23/2021 patient remains altered today. A little more alert however remains encephalopathic. Patient SVT much improved since yesterday since suggesting gentle IV hydration plus amiodarone in addition to AV j carlos blocking agent. 06/24/2021. This is the first day patient much more responsive today. Will attempt to talk to you we will follow you with gaze. This is better than the previous 2 days.Tachycardia is also resolved. Requiring less oxygen wean as tolerated. 06/25: Patient seen and examined appears to be clinically improving. Discussed with nursing staff will obtain PT OT and home O2 evaluation. Anticipate discharge in a.m. if continues to improve will likely need home O2. Transfer to [facility] downgrade. 06/26: Patient clinically stable anticipate discharge home or to SNF today. Awaiting home O2 evaluation Case management is following. CTA angio and Doppler of lower extremity for VTE work-up done. Will recommend short-term low-dose anticoagulation even if negative of VTE at this time considering patient's elevated D-dimer levels and the Covid diagnosis. PT OT evaluation as fall precaution is imperative considering low-dose anticoagulation. Attempted to reach family unable. 06/27: Patient remains lethargic this morning. We will get a swallow evaluation done. Patient remains on 2 L of oxygen. Discussed with physical therapist she was not able to be participatory in any activity except sitting up at the bedside. Also discussed with her granddaughter today who tells me that the patient's daughter is currently in the ICU at [place] with Covid and a CVA. And that the patient has rapidly declined in the last 2+ weeks. She is agreeable with the recommendation of physical therapist for SNF at this time. Case management will be working on this. 06/28: Leukocytosis persist ?steroid induced, no new fever. will monitor. Awaiting placement. Discussed with case management today in rounds. 06/29: Patient continues to have poor p.o. intake. Repeated hypoglycemia. Discussed with family they are okay with patient getting a PEG tube to help with nutrition. Consult placed to tanbark laborer to assist with this. Patient is still pending placement. 06/30: Discussed with GI was able to get a hold of family will be proceeding with PEG placement today. Patient still pending placement. Following my examination discussed with nursing staff blood pressure was significantly elevated this morning not sure why there is no evidence of anxiety she did improve. Will monitor closely may need an additional blood pressure control medication. 07/01: Continue supportive care awaiting bed placement continue evaluation of: Take. Mild decrease in blood pressure today will monitor closely. May need to hold blood pressure medications if continues to worsen. Leukocytosis secondary to steroids per ID. 07/02: Patient seen and examined, she is doing well and stable, tolerating diet with assistance, may not need PEG, still awaiting placement. Continue support care. 07/03: Patient seen and examined today doing very well nurse assisted with meal again demonstrated ability to eat 75% of her meal. She is clinically improved from the COVID-19 with complications of acute hypoxic respiratory failure. She is down to 2 L of oxygen. She has completed her dexamethasone and remdesivir treatment. Stable for rehab at this time #1 severe sepsis secondary to bilateral [id number] pneumonia. Multiple sick contacts in the home environment. Seems to have improved with IV volume therapy. Patient stable with 3 L of O2. Resting comfortably. No longer tachypneic hypotensive or tachycardic. Will place patient on steroids dexamethasone. Questionable remdesivir until renal function has improved. Continue empiric antibiotics. ID consult. Follow inflammatory markers. No remdesivir secondary to renal function. Continue. For 10 days. Contact Ana Rosa Arizmendi [phone] #2 acute renal failure. Secondary to prerenal azotemia not eating not drinking dehydration. Improving with follow-up chemistry obtain BMP a.m. #3 acute respiratory failure secondary to sepsis bilateral pneumonia Patient still maintained well with 3 L of oxygen. No change in O2. This is a good sign. Treat underlying etiology with antibiotics, supportive care. Steroids #4 diabetes mellitus will be more difficult control with addition of steroids placed patient sliding scale insulin advance as tolerated. We will add long-acting insulin. Especially since patient on steroids. Will increase long-acting insulin today. #5 rhabdomyolysis should respond to IV volume replacement. Would not be too aggressive since patient has Covid and would like to keep a little on dry side #6 hypertensive urgency. Will need to address patient's hypertension and tachycardia. Overall patient remains dry as evidenced by increased BUN/creatinine prerenal azotemia increase CPK. Much better since the addition of Lopressor. At present we will not increase fluids above 100 to 125 cc an hour in order not to worsen acute respiratory failure. Will be a very difficult balance but the risk outweigh the benefits of increasing fluids at this time. This can be fixed slowly. We will add Lopressor IV patient remains lethargic. #7 acute metabolic encephalopathy-patient not eating or drinking. Highly suspect Covid encephalopathy. Which would have caused underlying dementia to get worse. Patient should be able to eat today. CT scan head unremarkable. #8 hyponatremia patient started on D5 water. # 9: Failure to thrive #10 Covid pneumonia. ID following. Add dexamethasone. Disposition: [id number]/[place]-03 SNF W [facility] CERT Final Discharge Diagnosis (Prints w/discharge instructions): Sepsis secondary to COVID-19 with hypoxic respiratory failure complication Time spent for discharge: 35 minutes Core Measure Documentation - Palliative Care Palliative Care/ Comfort Measures: Not Applicable - Core Measures Any of the following diagnoses?: none Exam - Physical Exam Narrative exam: General appearance: Present: no acute distress, mild temporal wasting. Baseline dementia, much more awake today speaking. - EENT Eyes: PERRL, EOM intact ENT: hearing intact, clear oral mucosa Ears: bilateral: normal - Neck Neck: supple, normal ROM - Respiratory Respiratory effort: normal Respiratory: bilateral: diminished, rhonchi - Breasts Breasts: normal - Cardiovascular Rhythm: regular Heart Sounds: Present: S1 & S2. Absent: gallop, rub Extremities: pulses intact, No edema, normal color, Full ROM - Gastrointestinal General gastrointestinal: Present: soft, non-tender, non-distended, normal bowel sounds - Genitourinary Female genitourinary: normal - Integumentary Integumentary: clear, warm, dry - Musculoskeletal Musculoskeletal: 1, strength equal bilaterally, gait status unsure - Neurologic Neurologic: moves all extremities - Psychiatric Psychiatric: other (Much more alert) - Constitutional Vitals: Temp Pulse Resp BP Pulse Ox 98.2 F 80 20 145/68 100 06/26/21 04:00 06/26/21 07:17 06/26/21 05:00 06/26/21 07:17 06/26/21 05:00 Plan Activity: advance as tolerated, fall precautions Diet: low fat, diabetic Special Instructions: record daily weights, record daily BP diary, record blood sugar diary Plan of Treatment: continue mask and social isolation Follow up with: PRIMARY CARE, [Primary Care Provider] - 3-5 Days ROLY ARGUELLO MD [Staff Physician] - 7 Days Prescriptions: dexAMETHasone [Dexamethasone] 6 mg PO DAILY #6 tablet Ipratropium/Albuterol Sulfate [DUONEB *Not for PRN Use*] 1 ampul IH Q6HRT #90 ampul.neb Apixaban [Eliquis] 2.5 mg PO BID #20 tablet Ascorbic Acid [Vitamin C] 1,000 mg PO DAILY #30 tablet Cholecalciferol (Vitamin D3) [Vitamin D3] 5,000 unit PO DAILY #30 tablet Zinc Sulfate 220 mg PO DAILY #30 capsule
[2021-06-26] MEDS: dexAMETHasone 4 MG/ML VIAL IV SCH (09:16)
[2021-06-26] MEDS: FAMOTIDINE 20 MG/2 ML INJ IV SCH (09:17)
[2021-06-26] MEDS: HEPARIN 5,000 UNIT/1 ML VIAL SUB-Q SCH ×2 (09:17→23:35)
--- NOTE | 2021-06-26 10:56 | Electrocardiograph Report ---
[facility] Test Date: 2021-06-22 Test Time: 17:12:17 Pat Name: GREG RIVAS Department: Room: A267 1 Gender: F Body Fitter: RESPIRATOR : 1940 Requested By: LALO LAZAR Order Number: [id number] Reading MD: Flynn Nayak Measurements Intervals [place] Rate: 130 P: 37 WV: 120 QRS: -30 QRSD: 75 T: 32 QT: 319 QTc: 470 Interpretive Statements Sinus tachycardia Probable left atrial enlargement Left axis deviation No previous ECG available for comparison Electronically Signed On 06-26-2021 10:55:36 EDT by Flynn Nayak
--- NOTE | 2021-06-26 10:58 | Progress Note ---
Assessment and Plan (1) Sepsis (2) Acute metabolic encephalopathy (3) Acute renal failure (4) Diabetes (5) COPD (chronic obstructive pulmonary disease) (6) Pneumonia of both lower lobes IRINA resolved and hypernatremia resolved CT AP -ve for hydro renally dose meds strict I&O daily weight David anderson MD [phone] Subjective Date of service: 06/26/21 Principal diagnosis: Sepsis Interval history: patient is currently on isolation for COVID, chart reviewed Objective - Vital Signs Vital signs: Vital Signs - 12hr 06/25/21 06/25/21 06/25/21 23:00 23:30 23:41 Temperature Pulse Rate 87 83 86 Pulse Rate [ Anterior Bilateral Throughout] Respiratory 17 17 Rate Respiratory Rate [Anterior Bilateral Throughout] Blood Pressure 153/74 148/81 148/81 O2 Sat by Pulse 98 100 Oximetry 06/26/21 06/26/21 06/26/21 00:00 00:30 01:00 Temperature 98.4 F Pulse Rate 76 74 72 Pulse Rate [ Anterior Bilateral Throughout] Respiratory 23 15 15 Rate Respiratory Rate [Anterior Bilateral Throughout] Blood Pressure 146/78 161/81 157/68 O2 Sat by Pulse 100 100 99 Oximetry 06/26/21 06/26/21 06/26/21 01:30 02:00 02:30 Temperature Pulse Rate 68 77 78 Pulse Rate [ Anterior Bilateral Throughout] Respiratory 17 14 17 Rate Respiratory Rate [Anterior Bilateral Throughout] Blood Pressure 164/74 164/74 164/74 O2 Sat by Pulse 100 97 Oximetry 06/26/21 06/26/21 06/26/21 03:00 03:30 04:00 Temperature 98.2 F Pulse Rate 78 80 74 Pulse Rate [ Anterior Bilateral Throughout] Respiratory 20 26 H 18 Rate Respiratory Rate [Anterior Bilateral Throughout] Blood Pressure 145/68 135/66 140/69 O2 Sat by Pulse 93 95 86 Oximetry 06/26/21 06/26/21 06/26/21 04:30 05:00 05:30 Temperature Pulse Rate 76 74 77 Pulse Rate [ Anterior Bilateral Throughout] Respiratory 20 20 19 Rate Respiratory Rate [Anterior Bilateral Throughout] Blood Pressure 122/65 140/67 130/61 O2 Sat by Pulse 100 100 99 Oximetry 06/26/21 06/26/21 06/26/21 06:00 06:30 07:00 Temperature Pulse Rate 85 77 82 Pulse Rate [ Anterior Bilateral Throughout] Respiratory 20 20 15 Rate Respiratory Rate [Anterior Bilateral Throughout] Blood Pressure 137/77 137/77 143/53 O2 Sat by Pulse 97 98 100 Oximetry 06/26/21 06/26/21 06/26/21 07:17 07:30 08:00 Temperature 97.8 F Pulse Rate 80 70 70 Pulse Rate [ 73 Anterior Bilateral Throughout] Respiratory 22 14 Rate Respiratory 21 Rate [Anterior Bilateral Throughout] Blood Pressure 145/68 145/68 153/101 O2 Sat by Pulse 99 100 Oximetry 06/26/21 06/26/21 08:30 08:34 Temperature Pulse Rate 76 Pulse Rate [ Anterior Bilateral Throughout] Respiratory 23 Rate Respiratory Rate [Anterior Bilateral Throughout] Blood Pressure 154/71 O2 Sat by Pulse 97 100 Oximetry - Lab 06/26/21 05:48 06/26/21 05:48 Most recent lab results Calcium 9.0 mg/dL (8.4-10.2) 06/26/21 05:48 Phosphorus 1.20 mg/dL (2.5-4.5) L 06/25/21 05:10 Urine Creatinine 52.2 mg/dL (0.1-20.0) H 06/22/21 13:45 Urine Creatinine 52.9 mg/dL (0.1-20.0) H 06/22/21 13:45 Urine Sodium 122 mmol/L 06/22/21 13:45 Urine Total Protein 61 mg/dL (5-11.8) H 06/22/21 13:45 Medications & Allergies - Medications Allergies/Adverse Reactions: Allergies No Known Allergies Allergy (Verified 01/30/17 08:52) Home Medications: Home Medications Medication Instructions Recorded Confirmed Last Taken Type Albuterol Sulfate [Ventolin HFA] 2 puff IH Q4H PRN #1 hfa.aer.ad 01/30/17 06/22/21 Unknown Rx Apixaban [Eliquis] 2.5 mg PO BID #20 tablet 06/26/21 Unknown Rx Ascorbic Acid [Vitamin C] 1,000 mg PO DAILY #30 tablet 06/26/21 Unknown Rx Cholecalciferol (Vitamin D3) 5,000 unit PO DAILY #30 tablet 06/26/21 Unknown Rx [Vitamin D3] Ipratropium/Albuterol Sulfate 1 ampul IH Q6HRT #90 ampul.neb 06/26/21 Unknown Rx [DUONEB *Not for PRN Use*] Zinc Sulfate 220 mg PO DAILY #30 capsule 06/26/21 Unknown Rx dexAMETHasone [Dexamethasone] 6 mg PO DAILY #6 tablet 06/26/21 Unknown Rx Active Medications: Generic Name Dose Route Start Last Admin Trade Name Freq PRN Reason Stop Dose Admin Acetaminophen 650 mg 06/22/21 01:32 Acetaminophen 325 Mg Tab PO Q4H PRN Pain MILD(1-3)/Fever >100.5/MCGRAW Albuterol 2 puff 06/24/21 02:07 Albuterol 8.5 Gm Mdi Inhalation IH Q4HRT PRN Shortness Of Breath Albuterol/Ipratropium 1 ampul 06/22/21 02:00 06/26/21 08:33 Ipratropium/Albuterol Sulfate 3 Ml Ampul.Neb IH 1 ampul Q6HRT FEDERICO Administration Dexamethasone 6 mg 06/23/21 13:00 06/26/21 09:16 Dexamethasone 4 Mg/Ml Vial IV 07/03/21 12:59 6 mg DAILY FEDERICO Administration Dextrose 50 ml 06/22/21 17:15 Dextrose 50% In Water (25gm) 50 Ml Syringe IV Q30MIN PRN Hypoglycemia Protocol Famotidine 20 mg 06/22/21 10:00 06/26/21 09:17 Famotidine 20 Mg/2 Ml Inj IV 20 mg QAM FEDERICO Administration Heparin Sodium (Porcine) 5,000 unit 06/22/21 10:00 06/26/21 09:17 Heparin 5,000 Unit/1 Ml Vial SUB-Q 5,000 unit Q12HR FEDERICO Administration Hydralazine HCl 10 mg 06/25/21 02:16 06/25/21 03:01 Hydralazine 20 Mg/1 Ml Inj IV 10 mg Q6HR PRN Administration Hypertension Hydromorphone HCl 0.25 mg 06/22/21 01:32 Hydromorphone 1 Mg/1 Ml Inj IV Q4H PRN Pain, Moderate (4-6) Hydromorphone HCl 0.5 mg 06/22/21 01:32 Hydromorphone 1 Mg/1 Ml Inj IV Q3H PRN Pain , Severe (7-10) Dextrose 1,000 mls @ 75 mls/hr 06/25/21 09:00 06/25/21 23:43 D5w IV 75 mls/hr DIRECT FEDERICO Administration Insulin Glargine 30 units 06/24/21 22:00 06/25/21 22:53 Insulin Glargine 100 Units/Ml SUB-Q 30 units QHS FEDERICO Administration Insulin Human Lispro 0 unit 06/22/21 18:00 06/26/21 07:17 Insulin Lispro 100 Unit/Ml SUB-Q 2 unit Q6HR FEDERICO Administration Protocol Metoprolol Tartrate 5 mg 06/22/21 18:00 06/26/21 07:17 Metoprolol Tartrate 5 Mg/5 Ml Inj IV 5 mg Q6HR FEDERICO Administration Ondansetron HCl 4 mg 06/22/21 01:32 Ondansetron 4 Mg/2 Ml Inj IV Q8H PRN Nausea And Vomiting Oxycodone/Acetaminophen 1 tab 06/22/21 01:32 Oxycodone /Acetaminophen 5-325mg Tab PO Q6H PRN Pain, Moderate (4-6) Sodium Chloride 10 ml 06/22/21 10:00 06/26/21 09:17 Sodium Chloride 0.9% 10 Ml Flush Syringe IV 10 ml BID FEDERICO Administration Sodium Chloride 10 ml 06/22/21 01:32 Sodium Chloride 0.9% 10 Ml Flush Syringe IV PRN PRN LINE FLUSH Sodium Chloride 50 ml 06/24/21 21:00 06/25/21 23:06 Sodium Chloride 0.9% 50 Ml Ivpb IV 06/28/21 21:01 Not Given Q24HR@2100 [facility]
[2021-06-26 11:07] LABS: Band Neutrophils # (Manual) 0.2 K/mm3; Myelocytes # (Manual) 0.2 K/mm3; Total Cells Counted 100
[2021-06-26 11:09] LABS: Platelet Estimate Consistent w Auto; RBC Morphology Normal
--- NOTE | 2021-06-26 13:07 | Progress Note ---
Assessment and Plan Cultures: SARS CoV2 PCR: Positive 06/21/2021 blood culture: no growth MRSA nasal PCR: Negative 06/22/2021 urine culture: Mixed ferny A/P: 80-year-old female with dementia, COPD, diabetes admitted to the hospital due to altered mental status and reduced oral intake for the last few days: #COVID-19 pneumonia: mild hypoxia. Procalcitonin decreased to 0.6, CRP down to 3.1. On steroids. S/P Ceftriaxone. #Sepsis: Source is unclear, likely COVID related. Procalcitonin decreased to 0.6. UA without significant pyuria. #New transaminitis: likely from Remdesivir. #Lactic acidosis #Acute kidney injury: improved #Elevated CK #Dementia Recs: -Improving hepatic function -anticoagulation per protocol -continue Decadron 6 mg daily for 10 days Silviano Bonilla MD [facility] O: [phone] F: [phone] Subjective Date of service: 06/26/21 Principal diagnosis: Sepsis Interval history: Afebrile, white count 19.2. Improving hepatic function. Currently on 2 L nasal cannula. Objective - Exam Narrative Exam: Physical exam deferred to reduce risk of transmission of COVID-19. Please refer to primary team's note. - Constitutional Vitals: Vital Signs Temp Pulse Resp BP Pulse Ox 97.8 F 93 H 19 132/69 96 06/26/21 08:00 06/26/21 12:00 06/26/21 12:00 06/26/21 12:00 06/26/21 12:00 Temperature -Last 24 Hours Temperature 97.8 F Temperature 98.2 F Temperature 98.4 F Temperature 98.0 F Temperature 99.5 F - Labs CBC & Chem 7: 06/26/21 05:48 06/26/21 05:48 Labs: Abnormal lab results 06/25/21 06/25/21 06/26/21 Range/Units 16:59 23:39 05:15 WBC (4.5-11.0) K/mm3 MCH (28-32) pg RDW (13.2-15.2) % Seg Neuts % (Manual) (40.0-70.0) % Lymphocytes % (Manual) (13.4-35.0) % Monocytes % (Manual) (0.0-7.3) % Seg Neutrophils # Man (1.8-7.7) K/mm3 Lymphocytes # (Manual) (1.2-5.4) K/mm3 Monocytes # (Manual) (0.0-0.8) K/mm3 D-Dimer (0-234) ng/mlDDU Carbon Dioxide (22-30) mmol/L BUN (7-17) mg/dL Glucose (65-100) mg/dL POC Glucose 271 H 219 H 174 H (70-105) mg/dL Ferritin (10.0-200.0) ng/mL AST (5-40) units/L ALT (7-56) units/L C-Reactive Protein (0.00-1.30) mg/dL Total Protein (6.3-8.2) g/dL Albumin (3.9-5) g/dL 06/26/21 06/26/21 06/26/21 Range/Units 05:48 05:48 05:48 WBC 19.2 H (4.5-11.0) K/mm3 MCH 25 L (28-32) pg RDW 15.5 H (13.2-15.2) % Seg Neuts % (Manual) 85.0 H (40.0-70.0) % Lymphocytes % (Manual) 3.0 L (13.4-35.0) % Monocytes % (Manual) 8.0 H (0.0-7.3) % Seg Neutrophils # Man 16.3 H (1.8-7.7) K/mm3 Lymphocytes # (Manual) 0.6 L (1.2-5.4) K/mm3 Monocytes # (Manual) 1.5 H (0.0-0.8) K/mm3 D-Dimer 4489.63 H (0-234) ng/mlDDU Carbon Dioxide 31 H (22-30) mmol/L BUN 19 H (7-17) mg/dL Glucose 157 H (65-100) mg/dL POC Glucose (70-105) mg/dL Ferritin (10.0-200.0) ng/mL AST 78 H (5-40) units/L ALT 114 H (7-56) units/L C-Reactive Protein (0.00-1.30) mg/dL Total Protein 5.6 L (6.3-8.2) g/dL Albumin 2.7 L (3.9-5) g/dL 06/26/21 06/26/21 Range/Units 05:48 05:48 WBC (4.5-11.0) K/mm3 MCH (28-32) pg RDW (13.2-15.2) % Seg Neuts % (Manual) (40.0-70.0) % Lymphocytes % (Manual) (13.4-35.0) % Monocytes % (Manual) (0.0-7.3) % Seg Neutrophils # Man (1.8-7.7) K/mm3 Lymphocytes # (Manual) (1.2-5.4) K/mm3 Monocytes # (Manual) (0.0-0.8) K/mm3 D-Dimer (0-234) ng/mlDDU Carbon Dioxide (22-30) mmol/L BUN (7-17) mg/dL Glucose (65-100) mg/dL POC Glucose (70-105) mg/dL Ferritin 281.5 H (10.0-200.0) ng/mL AST (5-40) units/L ALT (7-56) units/L C-Reactive Protein 1.40 H (0.00-1.30) mg/dL Total Protein (6.3-8.2) g/dL Albumin (3.9-5) g/dL
--- NOTE | 2021-06-26 14:59 | Progress Note ---
Assessment and Plan Assessment and plan: #1 severe sepsis secondary to bilateral [id number] pneumonia. Multiple sick contacts in the home environment. Seems to have improved with IV volume therapy. Patient stable with 3 L of O2. Resting comfortably. No longer tachypneic hypotensive or tachycardic. Will place patient on steroids de xamethasone. Questionable remdesivir until renal function has improved. Continue empiric antibiotics. ID consult. Follow inflammatory markers. No remdesivir secondary to renal function. Continue dexamethasone for 10 days. Contact Ana Rosa Arizmendi [phone] #2 acute renal failure. Secondary to prerenal azotemia not eating not drinking dehydration. Improving with follow-up chemistry obtain BMP a.m. #3 acute respiratory failure secondary to sepsis bilateral pneumonia Patient still maintained well with 3 L of oxygen. No change in O2. This is a good sign. Treat underlying etiology with antibiotics, supportive care. Steroids #4 diabetes mellitus will be more difficult control with addition of steroids placed patient sliding scale insulin advance as tolerated. We will add long-acting insulin. Especially since patient on steroids. Will increase long-acting insulin today. #5 rhabdomyolysis should respond to IV volume replacement. Would not be too aggressive since patient has Covid and would like to keep a little on dry side #6 hypertensive urgency. Will need to address patient's hypertension and tachycardia. Overall patient remains dry as evidenced by increased BUN/creatinine prerenal azotemia increase CPK. Much better since the addition of Lopressor. At present we will not increase fluids above 100 to 125 cc an hour in order not to worsen acute respiratory failure. Will be a very difficult balance but the risk outweigh the benefits of increasing fluids at this time. This can be fixed slowly. We will add Lopressor IV patient remains lethargic. #7 acute metabolic encephalopathy-patient not eating or drinking. Highly suspect Covid encephalopathy. Which would have caused underlying dementia to get worse. Patient should be able to eat today. CT scan head unremarkable. #8 hyponatremia patient started on D5 water. #8 Covid pneumonia. ID following. Add dexamethasone. Subjective Date of service: 06/24/21 Principal diagnosis: Sepsis Interval history: Patient 80 years old with a history of dementia COPD presented to the ED with decreased responsiveness decreased p.o. intake x2 days fever 102. Patient also presented with tachycardia, tachypnea, hypoxemia. Patient had contact with family members with COVID-19. Patient presentation on radiograph consistent wit h bilateral pneumonia. Today subsequently patient positive for COVID-19. Currently stable with only 3 L nasal cannula. Patient encephalopathy has not improved much since baseline. 06/23/2021 patient remains altered today. A little more alert however remains encephalopathic. Patient SVT much improved since yesterday since suggesting gentle IV hydration plus amiodarone in addition to AV j carlos blocking agent. 06/24/2021. This is the first day patient much more responsive today. Will attempt to talk to you we will follow you with gaze. This is better than the previous 2 days.Tachycardia is also resolved. Requiring less oxygen wean as tolerated. 06/25: Patient seen and examined appears to be clinically improving. Discussed with nursing staff will obtain PT OT and home O2 evaluation. Anticipate discharge in a.m. if continues to improve will likely need home O2. Transfer to [facility] downgrade. 06/26: Patient clinically stable anticipate discharge home or to SNF today. Awaiting home O2 evaluation Case management is following. CTA angio and Doppler of lower extremity for VTE work-up done. Will recommend short-term low-dose anticoagulation even if negative of VTE at this time considering patient's elevated D-dimer levels and the Covid diagnosis. PT OT evaluation as fall precaution is imperative considering low-dose anticoagulation. Attempted to reach family unable. History Interval history: Patient seen and examined resting comfortably currently on 2 L of oxygen continues to show improvement. No new distress and no acute event noted o vernight Hospitalist Physical - Physical exam Narrative exam: General appearance: Present: no acute distress, well-nourished - EENT Eyes: PERRL, EOM intact ENT: hearing intact, clear oral mucosa Ears: bilateral: normal - Neck Neck: supple, normal ROM - Respiratory Respiratory effort: normal Respiratory: bilateral: diminished, rhonchi - Breasts Breasts: normal - Cardiovascular Rhythm: regular Heart Sounds: Present: S1 & S2. Absent: gallop, rub Extremities: pulses intact, No edema, normal color, Full ROM - Gastrointestinal General gastrointestinal: Present: soft, non-tender, non-distended, normal bowel sounds - Genitourinary Female genitourinary: normal - Integumentary Integumentary: clear, warm, dry - Musculoskeletal Musculoskeletal: 1, strength equal bilaterally, gait status unsure - Neurologic Neurologic: moves all extremities - Psychiatric Psychiatric: other (Much more alert) - Constitutional Vitals: Temp Pulse Resp BP Pulse Ox 98.2 F 101 H 12 126/65 97 06/26/21 12:00 06/26/21 13:00 06/26/21 13:00 06/26/21 13:00 06/26/21 13:00 General appearance: Present: no acute distress, well-nourished Results - Labs CBC & Chem 7: 06/26/21 05:48 06/26/21 05:48 Labs: Laboratory Last Values WBC 19.2 K/mm3 (4.5-11.0) H 06/26/21 05:48 RBC 4.06 M/mm3 (3.65-5.03) 06/26/21 05:48 Hgb 10.1 gm/dl (10.1-14.3) 06/26/21 05:48 Hct 32.5 % (30.3-42.9) 06/26/21 05:48 MCV 80 fl (79-97) 06/26/21 05:48 MCH 25 pg (28-32) L 06/26/21 05:48 MCHC 31 % (30-34) 06/26/21 05:48 RDW 15.5 % (13.2-15.2) H 06/26/21 05:48 Plt Count 292 K/mm3 (140-440) 06/26/21 05:48 Lymph % (Auto) 3.5 % (13.4-35.0) L 06/21/21 20:39 [place] % (Auto) 6.0 % (0.0-7.3) 06/21/21 20:39 Eos % (Auto) 0.3 % (0.0-4.3) 06/21/21 20:39 Baso % (Auto) 0.2 % (0.0-1.8) 06/21/21 20:39 Lymph # (Auto) 0.6 K/mm3 (1.2-5.4) L 06/21/21 20:39 [place] # (Auto) 1.1 K/mm3 (0.0-0.8) H 06/21/21 20:39 Eos # (Auto) 0.1 K/mm3 (0.0-0.4) 06/21/21 20:39 Baso # (Auto) 0.0 K/mm3 (0.0-0.1) 06/21/21 20:39 Add Manual Diff Complete 06/26/21 05:48 Total Counted 100 06/26/21 05:48 Seg Neutrophils % Wedding Decorator 06/25/21 05:10 Seg Neuts % (Manual) 85.0 % (40.0-70.0) H 06/26/21 05:48 Band Neutrophils % 1.0 % 06/26/21 05:48 Lymphocytes % (Manual) 3.0 % (13.4-35.0) L 06/26/21 05:48 Reactive Lymphs % (Man) 1.0 % 06/26/21 05:48 Monocytes % (Manual) 8.0 % (0.0-7.3) H 06/26/21 05:48 Metamyelocytes % 1.0 % 06/26/21 05:48 Myelocytes % 1.0 % 06/26/21 05:48 Nucleated RBC % Not Reportable 06/26/21 05:48 Seg Neutrophils # 15.9 K/mm3 (1.8-7.7) H 06/21/21 20:39 Seg Neutrophils # Man 16.3 K/mm3 (1.8-7.7) H 06/26/21 05:48 Band Neutrophils # 0.2 K/mm3 06/26/21 05:48 Lymphocytes # (Manual) 0.6 K/mm3 (1.2-5.4) L 06/26/21 05:48 Abs React Lymphs (Man) 0.2 K/mm3 06/26/21 05:48 Monocytes # (Manual) 1.5 K/mm3 (0.0-0.8) H 06/26/21 05:48 Eosinophils # (Manual) 0.0 K/mm3 (0.0-0.4) 06/26/21 05:48 Basophils # (Manual) 0.0 K/mm3 (0.0-0.1) 06/26/21 05:48 Metamyelocytes # 0.2 K/mm3 06/26/21 05:48 Myelocytes # 0.2 K/mm3 06/26/21 05:48 Promyelocytes # 0.0 K/mm3 06/26/21 05:48 Blast Cells # 0.0 K/mm3 06/26/21 05:48 WBC Morphology Not Reportable 06/26/21 05:48 Hypersegmented Neuts Not Reportable 06/26/21 05:48 Hyposegmented Neuts Not Reportable 06/26/21 05:48 Hypogranular Neuts Not Reportable 06/26/21 05:48 Smudge Cells Not Reportable 06/26/21 05:48 Toxic Granulation Not Reportable 06/26/21 05:48 Toxic Vacuolation Not Reportable 06/26/21 05:48 Dohle Bodies Not Reportable 06/26/21 05:48 Pelger-Huet Anomaly Not Reportable 06/26/21 05:48 Helen Rods Not Reportable 06/26/21 05:48 Platelet Estimate Consistent w auto 06/26/21 05:48 Clumped Platelets Not Reportable 06/26/21 05:48 Plt Clumps, EDTA Not Reportable 06/26/21 05:48 Large Platelets Not Reportable 06/26/21 05:48 Giant Platelets Not Reportable 06/26/21 05:48 Platelet Satelliting Not Reportable 06/26/21 05:48 Plt Morphology Comment Not Reportable 06/26/21 05:48 RBC Morphology Normal 06/26/21 05:48 Dimorphic RBCs Not Reportable 06/26/21 05:48 Polychromasia Not Reportable 06/26/21 05:48 Hypochromasia Not Reportable 06/26/21 05:48 Poikilocytosis Not Reportable 06/26/21 05:48 Anisocytosis Not Reportable 06/26/21 05:48 Microcytosis Not Reportable 06/26/21 05:48 Macrocytosis Not Reportable 06/26/21 05:48 Spherocytes Not Reportable 06/26/21 05:48 Pappenheimer Bodies Not Reportable 06/26/21 05:48 Sickle Cells Not Reportable 06/26/21 05:48 Target Cells Not Reportable 06/26/21 05:48 Tear Drop Cells Not Reportable 06/26/21 05:48 Ovalocytes Not Reportable 06/26/21 05:48 Helmet Cells Not Reportable 06/26/21 05:48 [place] Bodies Not Reportable 06/26/21 05:48 Zillah Rings Not Reportable 06/26/21 05:48 Larue Cells Not Reportable 06/26/21 05:48 Bite Cells Not Reportable 06/26/21 05:48 Crenated Cell Not Reportable 06/26/21 05:48 Elliptocytes Not Reportable 06/26/21 05:48 Acanthocytes (Spur) Not Reportable 06/26/21 05:48 Rouleaux Not Reportable 06/26/21 05:48 Hemoglobin C Crystals Not Reportable 06/26/21 05:48 Schistocytes Not Reportable 06/26/21 05:48 Malaria parasites Not Reportable 06/26/21 05:48 Blayne Bodies Not Reportable 06/26/21 05:48 Hem Pathologist Commnt No 06/26/21 05:48 D-Dimer 4489.63 ng/mlDDU (0-234) H 06/26/21 05:48 Sodium 143 mmol/L (137-145) 06/26/21 05:48 Potassium 3.7 mmol/L (3.6-5.0) 06/26/21 05:48 Chloride 104.1 mmol/L (98-107) 06/26/21 05:48 Carbon Dioxide 31 mmol/L (22-30) H 06/26/21 05:48 Anion Gap 12 mmol/L 06/26/21 05:48 BUN 19 mg/dL (7-17) H 06/26/21 05:48 Creatinine 0.8 mg/dL (0.6-1.2) 06/26/21 05:48 Estimated GFR > 60 ml/min 06/26/21 05:48 BUN/Creatinine Ratio 24 % 06/26/21 05:48 Glucose 157 mg/dL (65-100) H 06/26/21 05:48 POC Glucose 182 mg/dL (70-105) H 06/26/21 13:41 Lactic Acid 1.20 mmol/L (0.7-2.0) 06/22/21 05:06 Calcium 9.0 mg/dL (8.4-10.2) 06/26/21 05:48 Phosphorus 1.20 mg/dL (2.5-4.5) L 06/25/21 05:10 Ferritin 281.5 ng/mL (10.0-200.0) H 06/26/21 05:48 Total Bilirubin 0.50 mg/dL (0.1-1.2) 06/26/21 05:48 Direct Bilirubin 0.7 mg/dL (0-0.2) H 06/21/21 20:39 Indirect Bilirubin 0.3 mg/dL 06/21/21 20:39 AST 78 units/L (5-40) H 06/26/21 05:48 ALT 114 units/L (7-56) H 06/26/21 05:48 Alkaline Phosphatase 92 units/L (35-129) 06/26/21 05:48 Total Creatine Kinase 1066 units/L (30-135) H 06/23/21 17:57 C-Reactive Protein 1.40 mg/dL (0.00-1.30) H 06/26/21 05:48 Total Protein 5.6 g/dL (6.3-8.2) L 06/26/21 05:48 Albumin 2.7 g/dL (3.9-5) L 06/26/21 05:48 Albumin/Globulin Ratio 0.9 % 06/26/21 05:48 Procalcitonin 0.60 ng/mL (<0.15) 06/25/21 05:10 Urine Color Yellow (Yellow) 06/22/21 13:45 Urine Turbidity Clear (Clear) 06/22/21 13:45 Urine pH 5.0 (5.0-7.0) 06/22/21 13:45 Ur Specific [place] 1.013 (1.003-1.030) 06/22/21 13:45 Urine Protein 100 mg/dl mg/dL (Negative) 06/22/21 13:45 Urine Glucose (UA) Neg mg/dL (Negative) 06/22/21 13:45 Urine Ketones Neg mg/dL (Negative) 06/22/21 13:45 Urine Blood Lg (Negative) 06/22/21 13:45 Urine Nitrite Pos (Negative) 06/22/21 13:45 Urine Bilirubin Neg (Negative) 06/22/21 13:45 Urine Urobilinogen < 2.0 mg/dL (<2.0) 06/22/21 13:45 Ur Leukocyte Esterase Neg (Negative) 06/22/21 13:45 Urine WBC (Auto) 1.0 /HPF (0.0-6.0) 06/22/21 13:45 Urine RBC (Auto) 5.0 /HPF (0.0-6.0) 06/22/21 13:45 U Epithel Cells (Auto) < 1.0 /HPF (0-13.0) 06/22/21 13:45 Urine Bacteria (Auto) 3+ /HPF (Negative) 06/22/21 13:45 Urine Mucus Few /HPF 06/22/21 13:45 Urine Creatinine 52.2 mg/dL (0.1-20.0) H 06/22/21 13:45 Urine Creatinine 52.9 mg/dL (0.1-20.0) H 06/22/21 13:45 Protein/Creatinin Ratio 1.15 06/22/21 13:45 Urine Sodium 122 mmol/L 06/22/21 13:45 Urine Total Protein 61 mg/dL (5-11.8) H 06/22/21 13:45 Nasal Screen MRSA (PCR) Negative (Negative) 06/22/21 04:45 Coronavirus (PCR) Positive (Negative) A 06/22/21 Unknown Blood Type O POSITIVE 06/22/21 05:06 Antibody Screen Negative 06/22/21 05:06 Microbiology: Microbiology 06/21/21 20:55 Peripheral/Venous Blood Culture - Preliminary NO GROWTH AFTER 4 DAYS 06/21/21 20:39 Peripheral/Venous Blood Culture - Preliminary NO GROWTH AFTER 4 DAYS Robbins/IV: Voiding Method Incontinent Active Medications - Current Medications Current Medications: Generic Name Dose Route Start Last Admin Trade Name Freq PRN Reason Stop Dose Admin Acetaminophen 650 mg 06/22/21 01:32 Acetaminophen 325 Mg Tab PO Q4H PRN Pain MILD(1-3)/Fever >100.5/MCGRAW Albuterol 2 puff 06/24/21 02:07 Albuterol 8.5 Gm Mdi Inhalation IH Q4HRT PRN Shortness Of Breath Albuterol/Ipratropium 1 ampul 06/22/21 02:00 06/26/21 08:33 Ipratropium/Albuterol Sulfate 3 Ml Ampul.Neb IH 1 ampul Q6HRT FEDERICO Administration Dexamethasone 6 mg 06/23/21 13:00 06/26/21 09:16 Dexamethasone 4 Mg/Ml Vial IV 07/03/21 12:59 6 mg DAILY FEDERICO Administration Dextrose 50 ml 06/22/21 17:15 Dextrose 50% In Water (25gm) 50 Ml Syringe IV Q30MIN PRN Hypoglycemia Protocol Famotidine 20 mg 06/22/21 10:00 06/26/21 09:17 Famotidine 20 Mg/2 Ml Inj IV 20 mg QAM FEDERICO Administration Heparin Sodium (Porcine) 5,000 unit 06/22/21 10:00 06/26/21 09:17 Heparin 5,000 Unit/1 Ml Vial SUB-Q 5,000 unit Q12HR FEDERICO Administration Hydralazine HCl 10 mg 06/25/21 02:16 06/25/21 03:01 Hydralazine 20 Mg/1 Ml Inj IV 10 mg Q6HR PRN Administration Hypertension Hydromorphone HCl 0.25 mg 06/22/21 01:32 Hydromorphone 1 Mg/1 Ml Inj IV Q4H PRN Pain, Moderate (4-6) Hydromorphone HCl 0.5 mg 06/22/21 01:32 Hydromorphone 1 Mg/1 Ml Inj IV Q3H PRN Pain , Severe (7-10) Dextrose 1,000 mls @ 75 mls/hr 06/25/21 09:00 06/25/21 23:43 D5w IV 75 mls/hr DIRECT FEDERICO Administration Insulin Glargine 30 units 06/24/21 22:00 06/25/21 22:53 Insulin Glargine 100 Units/Ml SUB-Q 30 units QHS FEDERICO Administration Insulin Human Lispro 0 unit 06/22/21 18:00 06/26/21 13:42 Insulin Lispro 100 Unit/Ml SUB-Q 2 unit Q6HR FEDERICO Administration Protocol Metoprolol Tartrate 5 mg 06/22/21 18:00 06/26/21 13:42 Metoprolol Tartrate 5 Mg/5 Ml Inj IV 5 mg Q6HR FEDERICO Administration Ondansetron HCl 4 mg 06/22/21 01:32 Ondansetron 4 Mg/2 Ml Inj IV Q8H PRN Nausea And Vomiting Oxycodone/Acetaminophen 1 tab 06/22/21 01:32 Oxycodone /Acetaminophen 5-325mg Tab PO Q6H PRN Pain, Moderate (4-6) Sodium Chloride 10 ml 06/22/21 10:00 06/26/21 09:17 Sodium Chloride 0.9% 10 Ml Flush Syringe IV 10 ml BID FEDERICO Administration Sodium Chloride 10 ml 06/22/21 01:32 Sodium Chloride 0.9% 10 Ml Flush Syringe IV PRN PRN LINE FLUSH Sodium Chloride 50 ml 06/24/21 21:00 06/25/21 23:06 Sodium Chloride 0.9% 50 Ml Ivpb IV 06/28/21 21:01 Not Given Q24HR@2100 [facility] Nutrition/Malnutrition Assess - Dietary Evaluation Nutrition/Malnutrition Findings: Nutrition Notes Start: 06/22/21 12:10 Freq: Status: Active Protocol: Document 06/26/21 12:42 (Rec: 06/26/21 12:46 [id number]) Nutrition Notes Initial or Follow up Reassessment Current Diagnosis Acute Kidney Injury,COPD, Sepsis Other Pertinent Diagnosis dementia, pneu, COVID-19(+) Current Diet Cardiac, consistent CHO Labs/Tests AST 78 ALT 114 Pertinent Medications Decadron Height 5 ft 4 in Weight 57.9 kg [place] Body Weight (kg) 54.54 BMI 21.9 Weight Status Appropriate Subjective/Other Information RN states pt ate 25% of breakfast and sips of ONS. Percent of energy/protein needs met: 40%/30% Burn Absent Trauma Absent Current % PO Poor (25-49%) Minimum of two criteria No physical signs of malnutrition #2 Nutrition Diagnosis Inadequate oral intake Etiology advanced age As Evidenced by Signs and Symptoms pt eating 25% of meals #1 Nutrition Diagnosis Increased nutrient needs ( specify in comment below) Diagnosis Progress(for reassessment Continues documentation) Is patient on ventilator? No Is Patient Ambulatory and/or Out of Bed No REE-([facility]-confined to bed) 1241.880 Calculation Used for Recommendations [facility] Additional Notes Protein: (1.25-1.5g/kg) 73-87g Fluid: 1 ml/kcal Nutrition Intervention Change Diet Order: continue Add Supplement/Snack (indicate name/kcal Glucerna BID /protein ) Provides kCal: 440 Provides Protein (gm) 20 Goal #1 Meet at least 75% of energy and protein needs via PO and ONS Anticipated Discharge Needs: cardiac, consistent CHO Follow-Up By: 06/28/21 Additional Comments FU for intakes and ONS tolerance
--- NOTE | 2021-06-26 15:00 | Cat Scan Report ---
CTA CHEST WITH CONTRAST INDICATION : SHORTNESS OF BREATH 100 ML OMNI 350 . TECHNIQUE: Axial imaging performed through the chest, with contrast bolus timing set to maximize opa cification of the pulmonary arteries. Sagittal and coronal reformatted images. 3-plane MIP reformatte d images were obtained. All CT scans at this location are performed using CT dose reduction for ALAR A by means of automated exposure control. 100 mL of intravenous contrast administered. COMPARISON: None FINDINGS: Bolus: Contrast bolus timing is adequate. PTE: No filling defect is present to suggest PTE. Mediastinum: Heart size is normal. Moderate atherosclerotic disease is present throughout the thorac ic aorta without acute abnormality. No pathologic mediastinal adenopathy. Lungs: Small bilateral layering pleural effusions are identified, left greater than right. Mild atel ectatic changes are noted in both lungs. No evidence for pneumonia, suspicious lesion or pneumothorax . Bones: Degenerative changes in the spine with nothing acute. Osteopenia. Upper abdomen: Limited imaging of the upper abdomen shows nothing acute. IMPRESSION: No pulmonary embolus is identified. Small bilateral pleural effusions. Signer Name: Blue Escamilla Jr, MD Signed: 06/26/2021 2:56 PM Workstation Name: [id number]
[2021-06-26] MEDS: DEXTROSE 5% IN WATER 1,000 ML IV SCH (17:38)
--- NOTE | 2021-06-26 18:43 | Vascular Lab Report ---
DUPLEX DOPPLER LOWER EXTREMITY VEINS, BILATERAL INDICATION / CLINICAL INFORMATION: COVID positive and high d-dimer. TECHNIQUE: Duplex doppler imaging was performed through the veins of both lower extremities using venous jovana ruel and other maneuvers. COMPARISON: None available. FINDINGS: RIGHT COMMON FEMORAL VEIN: Negative. RIGHT FEMORAL VEIN: Negative. RIGHT POPLITEAL VEIN: Negative. RIGHT CALF VEINS: Negative. LEFT COMMON FEMORAL VEIN: Negative. LEFT FEMORAL VEIN: Negative. LEFT POPLITEAL VEIN: Negative. LEFT CALF VEINS: Negative. ADDITIONAL FINDINGS: No abnormal mass or fluid collection is seen. IMPRESSION: No sonographic evidence for DVT in either lower extremity. Signer Name: Mark Littlejohn MD Signed: 06/26/2021 6:39 PM Workstation Name: [id number]
[2021-06-26] MEDS: SODIUM CHLORIDE 0.9% 50 ML IVPB IV SCH (23:34)
[2021-06-27] MEDS: INSULIN LISPRO 100 UNIT/ML SUB-Q SCH ×4 (00:17→18:57)
[2021-06-27] MEDS: METOPROLOL TARTRATE 5 MG/5 ML INJ IV SCH ×3 (00:23→16:28)
[2021-06-27] MEDS: INSULIN GLARGINE 100 UNITS/ML SUB-Q SCH ×2 (01:16→22:19)
--- NOTE | 2021-06-27 07:50 | Progress Note ---
Assessment and Plan (1) Sepsis (2) Acute metabolic encephalopathy (3) Acute renal failure (4) Diabetes (5) COPD (chronic obstructive pulmonary disease) (6) Pneumonia of both lower lobes IRINA resolved and hypernatremia resolved patient to be followed as an outpatient with labs CT AP -ve for hydro renally dose meds strict I&O daily weight David anderson MD [phone] Subjective Date of service: 06/27/21 Principal diagnosis: Sepsis Interval history: patient is currently on isolation for COVID, chart reviewed Objective - Vital Signs Vital signs: Vital Signs - 12hr 06/26/21 06/26/21 06/26/21 20:00 20:06 20:15 Temperature 98.7 F Pulse Rate 85 80 Pulse Rate [ 88 Anterior Bilateral Throughout] Pulse Rate [ 84 From Monitor] Respiratory 24 19 Rate Respiratory 19 Rate [Anterior Bilateral Throughout] Blood Pressure 144/67 147/54 Blood Pressure [Left] O2 Sat by Pulse 98 98 Oximetry 06/26/21 06/27/21 06/27/21 20:17 00:00 00:23 Temperature 98.0 F Pulse Rate 81 Pulse Rate [ Anterior Bilateral Throughout] Pulse Rate [ From Monitor] Respiratory 16 Rate Respiratory Rate [Anterior Bilateral Throughout] Blood Pressure 116/60 119/60 Blood Pressure [Left] O2 Sat by Pulse 99 81 L Oximetry 06/27/21 06/27/21 06/27/21 00:24 00:33 06:29 Temperature 98.6 F Pulse Rate 81 84 Pulse Rate [ Anterior Bilateral Throughout] Pulse Rate [ From Monitor] Respiratory 18 Rate Respiratory Rate [Anterior Bilateral Throughout] Blood Pressure 126/69 Blood Pressure 119/60 [Left] O2 Sat by Pulse 98 99 Oximetry - Lab 06/26/21 05:48 06/26/21 05:48 Most recent lab results Calcium 9.0 mg/dL (8.4-10.2) 06/26/21 05:48 Phosphorus 1.20 mg/dL (2.5-4.5) L 06/25/21 05:10 Urine Creatinine 52.2 mg/dL (0.1-20.0) H 06/22/21 13:45 Urine Creatinine 52.9 mg/dL (0.1-20.0) H 06/22/21 13:45 Urine Sodium 122 mmol/L 06/22/21 13:45 Urine Total Protein 61 mg/dL (5-11.8) H 06/22/21 13:45 Medications & Allergies - Medications Allergies/Adverse Reactions: Allergies No Known Allergies Allergy (Verified 01/30/17 08:52) Home Medications: Home Medications Medication Instructions Recorded Confirmed Last Taken Type Albuterol Sulfate [Ventolin HFA] 2 puff IH Q4H PRN #1 hfa.aer.ad 01/30/17 06/22/21 Unknown Rx Apixaban [Eliquis] 2.5 mg PO BID #20 tablet 06/26/21 Unknown Rx Ascorbic Acid [Vitamin C] 1,000 mg PO DAILY #30 tablet 06/26/21 Unknown Rx Cholecalciferol (Vitamin D3) 5,000 unit PO DAILY #30 tablet 06/26/21 Unknown Rx [Vitamin D3] Ipratropium/Albuterol Sulfate 1 ampul IH Q6HRT #90 ampul.neb 06/26/21 Unknown Rx [DUONEB *Not for PRN Use*] Zinc Sulfate 220 mg PO DAILY #30 capsule 06/26/21 Unknown Rx dexAMETHasone [Dexamethasone] 6 mg PO DAILY #6 tablet 06/26/21 Unknown Rx Active Medications: Generic Name Dose Route Start Last Admin Trade Name Freq PRN Reason Stop Dose Admin Acetaminophen 650 mg 06/22/21 01:32 Acetaminophen 325 Mg Tab PO Q4H PRN Pain MILD(1-3)/Fever >100.5/MCGRAW Albuterol 2 puff 06/24/21 02:07 Albuterol 8.5 Gm Mdi Inhalation IH Q4HRT PRN Shortness Of Breath Albuterol/Ipratropium 1 ampul 06/27/21 08:00 Ipratropium/Albuterol Sulfate 3 Ml Ampul.Neb IH TIDRT FEDERICO Dexamethasone 6 mg 06/23/21 13:00 06/26/21 09:16 Dexamethasone 4 Mg/Ml Vial IV 07/03/21 12:59 6 mg DAILY FEDERICO Administration Dextrose 50 ml 06/22/21 17:15 Dextrose 50% In Water (25gm) 50 Ml Syringe IV Q30MIN PRN Hypoglycemia Protocol Famotidine 20 mg 06/22/21 10:00 06/26/21 09:17 Famotidine 20 Mg/2 Ml Inj IV 20 mg QAM FEDERICO Administration Heparin Sodium (Porcine) 5,000 unit 06/22/21 10:00 06/26/21 23:35 Heparin 5,000 Unit/1 Ml Vial SUB-Q 5,000 unit Q12HR FEDERICO Administration Hydralazine HCl 10 mg 06/25/21 02:16 06/25/21 03:01 Hydralazine 20 Mg/1 Ml Inj IV 10 mg Q6HR PRN Administration Hypertension Hydromorphone HCl 0.25 mg 06/22/21 01:32 Hydromorphone 1 Mg/1 Ml Inj IV Q4H PRN Pain, Moderate (4-6) Hydromorphone HCl 0.5 mg 06/22/21 01:32 Hydromorphone 1 Mg/1 Ml Inj IV Q3H PRN Pain , Severe (7-10) Insulin Glargine 30 units 06/24/21 22:00 06/27/21 01:16 Insulin Glargine 100 Units/Ml SUB-Q 30 units QHS FEDERICO Administration Insulin Human Lispro 0 unit 06/22/21 18:00 06/27/21 06:27 Insulin Lispro 100 Unit/Ml SUB-Q Not Given Q6HR [facility] Protocol Metoprolol Tartrate 5 mg 06/22/21 18:00 06/27/21 06:29 Metoprolol Tartrate 5 Mg/5 Ml Inj IV 5 mg Q6HR FEDERICO Administration Ondansetron HCl 4 mg 06/22/21 01:32 Ondansetron 4 Mg/2 Ml Inj IV Q8H PRN Nausea And Vomiting Oxycodone/Acetaminophen 1 tab 06/22/21 01:32 Oxycodone /Acetaminophen 5-325mg Tab PO Q6H PRN Pain, Moderate (4-6) Sodium Chloride 10 ml 06/22/21 10:00 06/26/21 23:35 Sodium Chloride 0.9% 10 Ml Flush Syringe IV 10 ml BID FEDERICO Administration Sodium Chloride 10 ml 06/22/21 01:32 Sodium Chloride 0.9% 10 Ml Flush Syringe IV PRN PRN LINE FLUSH Sodium Chloride 50 ml 06/24/21 21:00 06/26/21 23:34 Sodium Chloride 0.9% 50 Ml Ivpb IV 06/28/21 21:01 50 ml Q24HR@2100 FEDERICO Administration
[2021-06-27 07:53] LABS: Hematocrit 30.5 % (30.3-42.9); Hemoglobin 9.9 gm/dl (10.1-14.3); Mean Corpuscular HGB Conc 32 % (30-34); Mean Corpuscular Volume 81 fl (79-97); Platelet Count 262 K/mm3 (140-440); Red Blood Count 3.77 M/mm3 (3.65-5.03); Red Cell Distribution Width 15.5 % (13.2-15.2)
[2021-06-27 08:22] LABS: Alanine Aminotransferase 85 units/L (7-56); Albumin 2.4 g/dL (3.9-5); BUN/Creatinine Ratio 26; Blood Urea Nitrogen 21 mg/dL (7-17); Calcium 8.8 mg/dL (8.4-10.2); Hemolysis Index 2
[2021-06-27] MEDS: IPRATROPIUM/ALBUTEROL SULFATE 3 ML AMPUL.NEB IH SCH ×3 (08:25→20:53)
[2021-06-27] MEDS: dexAMETHasone 4 MG/ML VIAL IV SCH (09:02)
[2021-06-27] MEDS: FAMOTIDINE 20 MG/2 ML INJ IV SCH (09:03)
[2021-06-27] MEDS: HEPARIN 5,000 UNIT/1 ML VIAL SUB-Q SCH ×2 (09:03→22:20)
--- NOTE | 2021-06-27 11:35 | Progress Note ---
Assessment and Plan Cultures: SARS CoV2 PCR: Positive 06/21/2021 blood culture: no growth MRSA nasal PCR: Negative 06/22/2021 urine culture: Mixed ferny A/P: 80-year-old female with dementia, COPD, diabetes admitted to the hospital due to altered mental status and reduced oral intake for the last few days: #COVID-19 pneumonia: mild hypoxia. Procalcitonin decreased to 0.6, CRP down to 3.1. On steroids. S/P Ceftriaxone. #Sepsis: Source is unclear, likely COVID related. Procalcitonin decreased to 0.6. UA without significant pyuria. #New transaminitis: likely from Remdesivir. #Lactic acidosis #Acute kidney injury: improved #Elevated CK #Dementia Recs: -Improving hepatic function -anticoagulation per protocol -continue Decadron 6 mg daily for 10 days Silviano Bonilla MD [facility] O: [phone] F: [phone] Subjective Date of service: 06/27/21 Principal diagnosis: Sepsis Interval history: Afebrile, White count 21.7. On 2 L nasal cannula Objective - Exam Narrative Exam: Physical exam deferred to reduce risk of transmission of COVID-19. Please refer to primary team's note. - Constitutional Vitals: Vital Signs Temp Pulse Resp BP Pulse Ox 98.6 F 83 18 126/69 98 06/27/21 00:24 06/27/21 08:36 06/27/21 08:36 06/27/21 06:29 06/27/21 08:37 Temperature -Last 24 Hours Temperature 98.6 F Temperature 98.0 F Temperature 98.7 F Temperature 98.7 F Temperature 97.6 F Temperature 98.2 F - Labs CBC & Chem 7: 06/27/21 07:23 06/27/21 07:23 Labs: Abnormal lab results 06/26/21 06/26/21 06/27/21 Range/Units 13:41 16:08 00:02 WBC (4.5-11.0) K/mm3 Hgb (10.1-14.3) gm/dl MCH (28-32) pg RDW (13.2-15.2) % Carbon Dioxide (22-30) mmol/L BUN (7-17) mg/dL Glucose (65-100) mg/dL POC Glucose 182 H 211 H 221 H (70-105) mg/dL AST (5-40) units/L ALT (7-56) units/L Total Protein (6.3-8.2) g/dL Albumin (3.9-5) g/dL 06/27/21 06/27/21 06/27/21 Range/Units 05:56 07:23 07:23 WBC 21.7 H (4.5-11.0) K/mm3 Hgb 9.9 L (10.1-14.3) gm/dl MCH 26 L (28-32) pg RDW 15.5 H (13.2-15.2) % Carbon Dioxide 31 H (22-30) mmol/L BUN 21 H (7-17) mg/dL Glucose 141 H (65-100) mg/dL POC Glucose 128 H (70-105) mg/dL AST 67 H (5-40) units/L ALT 85 H (7-56) units/L Total Protein 5.1 L (6.3-8.2) g/dL Albumin 2.4 L (3.9-5) g/dL
--- NOTE | 2021-06-27 11:58 | Progress Note ---
Assessment and Plan Assessment and plan: #1 severe sepsis secondary to bilateral [id number] pneumonia. Multiple sick contacts in the home environment. Seems to have improved with IV volume therapy. Patient stable with 3 L of O2. Resting comfortably. No longer tachypneic hypotensive or tachycardic. Will place patient on steroids de xamethasone. Questionable remdesivir until renal function has improved. Continue empiric antibiotics. ID consult. Follow inflammatory markers. No remdesivir secondary to renal function. Continue dexamethasone for 10 days. Contact Ana Rosa Arizmendi [phone] #2 acute renal failure. Secondary to prerenal azotemia not eating not drinking dehydration. Improving with follow-up chemistry obtain BMP a.m. #3 acute respiratory failure secondary to sepsis bilateral pneumonia Patient still maintained well with 3 L of oxygen. No change in O2. This is a good sign. Treat underlying etiology with antibiotics, supportive care. Steroids #4 diabetes mellitus will be more difficult control with addition of steroids placed patient sliding scale insulin advance as tolerated. We will add long-acting insulin. Especially since patient on steroids. Will increase long-acting insulin today. #5 rhabdomyolysis should respond to IV volume replacement. Would not be too aggressive since patient has Covid and would like to keep a little on dry side #6 hypertensive urgency. Will need to address patient's hypertension and tachycardia. Overall patient remains dry as evidenced by increased BUN/creatinine prerenal azotemia increase CPK. Much better since the addition of Lopressor. At present we will not increase fluids above 100 to 125 cc an hour in order not to worsen acute respiratory failure. Will be a very difficult balance but the risk outweigh the benefits of increasing fluids at this time. This can be fixed slowly. We will add Lopressor IV patient remains lethargic. #7 acute metabolic encephalopathy-patient not eating or drinking. Highly suspect Covid encephalopathy. Which would have caused underlying dementia to get worse. Patient should be able to eat today. CT scan head unremarkable. #8 hyponatremia patient started on D5 water. #8 Covid pneumonia. ID following. Add dexamethasone. Subjective Date of service: 06/24/21 Principal diagnosis: Sepsis Interval history: Patient 80 years old with a history of dementia COPD presented to the ED with decreased responsiveness decreased p.o. intake x2 days fever 102. Patient also presented with tachycardia, tachypnea, hypoxemia. Patient had contact with family members with COVID-19. Patient presentation on radiograph consistent wit h bilateral pneumonia. Today subsequently patient positive for COVID-19. Currently stable with only 3 L nasal cannula. Patient encephalopathy has not improved much since baseline. 06/23/2021 patient remains altered today. A little more alert however remains encephalopathic. Patient SVT much improved since yesterday since suggesting gentle IV hydration plus amiodarone in addition to AV j carlos blocking agent. 06/24/2021. This is the first day patient much more responsive today. Will attempt to talk to you we will follow you with gaze. This is better than the previous 2 days.Tachycardia is also resolved. Requiring less oxygen wean as tolerated. 06/25: Patient seen and examined appears to be clinically improving. Discussed with nursing staff will obtain PT OT and home O2 evaluation. Anticipate discharge in a.m. if continues to improve will likely need home O2. Transfer to [facility] downgrade. 06/26: Patient clinically stable anticipate discharge home or to SNF today. Awaiting home O2 evaluation Case management is following. CTA angio and Doppler of lower extremity for VTE work-up done. Will recommend short-term low-dose anticoagulation even if negative of VTE at this time considering patient's elevated D-dimer levels and the Covid diagnosis. PT OT evaluation as fall precaution is imperative considering low-dose anticoagulation. Attempted to reach family unable. 06/27: Patient remains lethargic this morning. We will get a swallow evaluation done. Patient remains on 2 L of oxygen. Discussed with physical therapist she was not able to be participatory in any activity except sitting up at the bedside. Also discussed with her granddaughter today who tells me that the fidel mahmood's daughter is currently in the ICU at [place] with Covid and a CVA. And that the patient has rapidly declined in the last 2+ weeks. She is agreeable with the recommendation of physical therapist for SNF at this time. Case management will be working on this. History Interval history: Patient seen and examined resting comfortably currently on 2 L of oxygen continues to show improvement. Lethargic, per nursing staff, some coughing noted with p.o. intake this morning per the nursing staff.. No new distress and no acute event noted overnight Hospitalist Physical - Physical exam Narrative exam: General appearance: Present: no acute distress, mild temporal wasting. Lethargic - EENT Eyes: PERRL, EOM intact ENT: hearing intact, clear oral mucosa Ears: bilateral: normal - Neck Neck: supple, normal ROM - Respiratory Respiratory effort: normal Respiratory: bilateral: diminished, rhonchi - Breasts Breasts: normal - Cardiovascular Rhythm: regular Heart Sounds: Present: S1 & S2. Absent: gallop, rub Extremities: pulses intact, No edema, normal color, Full ROM - Gastrointestinal General gastrointestinal: Present: soft, non-tender, non-distended, normal bowel sounds - Genitourinary Female genitourinary: normal - Integumentary Integumentary: clear, warm, dry - Musculoskeletal Musculoskeletal: 1, strength equal bilaterally, gait status unsure - Neurologic Neurologic: moves all extremities - Psychiatric Psychiatric: other (Much more alert) - Constitutional Vitals: Temp Pulse Resp BP Pulse Ox 98.6 F 83 18 126/69 98 06/27/21 00:24 06/27/21 08:36 06/27/21 08:36 06/27/21 06:29 06/27/21 08:37 General appearance: Present: no acute distress, well-nourished Results - Labs CBC & Chem 7: 06/27/21 07:23 06/27/21 07:23 Labs: Laboratory Last Values WBC 21.7 K/mm3 (4.5-11.0) H 06/27/21 07:23 RBC 3.77 M/mm3 (3.65-5.03) 06/27/21 07:23 Hgb 9.9 gm/dl (10.1-14.3) L 06/27/21 07:23 Hct 30.5 % (30.3-42.9) 06/27/21 07:23 MCV 81 fl (79-97) 06/27/21 07:23 MCH 26 pg (28-32) L 06/27/21 07:23 MCHC 32 % (30-34) 06/27/21 07:23 RDW 15.5 % (13.2-15.2) H 06/27/21 07:23 Plt Count 262 K/mm3 (140-440) 06/27/21 07:23 Lymph % (Auto) 3.5 % (13.4-35.0) L 06/21/21 20:39 [place] % (Auto) 6.0 % (0.0-7.3) 06/21/21 20:39 Eos % (Auto) 0.3 % (0.0-4.3) 06/21/21 20:39 Baso % (Auto) 0.2 % (0.0-1.8) 06/21/21 20:39 Lymph # (Auto) 0.6 K/mm3 (1.2-5.4) L 06/21/21 20:39 [place] # (Auto) 1.1 K/mm3 (0.0-0.8) H 06/21/21 20:39 Eos # (Auto) 0.1 K/mm3 (0.0-0.4) 06/21/21 20:39 Baso # (Auto) 0.0 K/mm3 (0.0-0.1) 06/21/21 20:39 Add Manual Diff Complete 06/26/21 05:48 Total Counted 100 06/26/21 05:48 Seg Neutrophils % Manager Floral 06/25/21 05:10 Seg Neuts % (Manual) 85.0 % (40.0-70.0) H 06/26/21 05:48 Band Neutrophils % 1.0 % 06/26/21 05:48 Lymphocytes % (Manual) 3.0 % (13.4-35.0) L 06/26/21 05:48 Reactive Lymphs % (Man) 1.0 % 06/26/21 05:48 Monocytes % (Manual) 8.0 % (0.0-7.3) H 06/26/21 05:48 Metamyelocytes % 1.0 % 06/26/21 05:48 Myelocytes % 1.0 % 06/26/21 05:48 Nucleated RBC % Not Reportable 06/26/21 05:48 Seg Neutrophils # 15.9 K/mm3 (1.8-7.7) H 06/21/21 20:39 Seg Neutrophils # Man 16.3 K/mm3 (1.8-7.7) H 06/26/21 05:48 Band Neutrophils # 0.2 K/mm3 06/26/21 05:48 Lymphocytes # (Manual) 0.6 K/mm3 (1.2-5.4) L 06/26/21 05:48 Abs React Lymphs (Man) 0.2 K/mm3 06/26/21 05:48 Monocytes # (Manual) 1.5 K/mm3 (0.0-0.8) H 06/26/21 05:48 Eosinophils # (Manual) 0.0 K/mm3 (0.0-0.4) 06/26/21 05:48 Basophils # (Manual) 0.0 K/mm3 (0.0-0.1) 06/26/21 05:48 Metamyelocytes # 0.2 K/mm3 06/26/21 05:48 Myelocytes # 0.2 K/mm3 06/26/21 05:48 Promyelocytes # 0.0 K/mm3 06/26/21 05:48 Blast Cells # 0.0 K/mm3 06/26/21 05:48 WBC Morphology Not Reportable 06/26/21 05:48 Hypersegmented Neuts Not Reportable 06/26/21 05:48 Hyposegmented Neuts Not Reportable 06/26/21 05:48 Hypogranular Neuts Not Reportable 06/26/21 05:48 Smudge Cells Not Reportable 06/26/21 05:48 Toxic Granulation Not Reportable 06/26/21 05:48 Toxic Vacuolation Not Reportable 06/26/21 05:48 Dohle Bodies Not Reportable 06/26/21 05:48 Pelger-Huet Anomaly Not Reportable 06/26/21 05:48 Helen Rods Not Reportable 06/26/21 05:48 Platelet Estimate Consistent w auto 06/26/21 05:48 Clumped Platelets Not Reportable 06/26/21 05:48 Plt Clumps, EDTA Not Reportable 06/26/21 05:48 Large Platelets Not Reportable 06/26/21 05:48 Giant Platelets Not Reportable 06/26/21 05:48 Platelet Satelliting Not Reportable 06/26/21 05:48 Plt Morphology Comment Not Reportable 06/26/21 05:48 RBC Morphology Normal 06/26/21 05:48 Dimorphic RBCs Not Reportable 06/26/21 05:48 Polychromasia Not Reportable 06/26/21 05:48 Hypochromasia Not Reportable 06/26/21 05:48 Poikilocytosis Not Reportable 06/26/21 05:48 Anisocytosis Not Reportable 06/26/21 05:48 Microcytosis Not Reportable 06/26/21 05:48 Macrocytosis Not Reportable 06/26/21 05:48 Spherocytes Not Reportable 06/26/21 05:48 Pappenheimer Bodies Not Reportable 06/26/21 05:48 Sickle Cells Not Reportable 06/26/21 05:48 Target Cells Not Reportable 06/26/21 05:48 Tear Drop Cells Not Reportable 06/26/21 05:48 Ovalocytes Not Reportable 06/26/21 05:48 Helmet Cells Not Reportable 06/26/21 05:48 [place] Bodies Not Reportable 06/26/21 05:48 [place] Rings Not Reportable 06/26/21 05:48 [place] Cells Not Reportable 06/26/21 05:48 Bite Cells Not Reportable 06/26/21 05:48 Crenated Cell Not Reportable 06/26/21 05:48 Elliptocytes Not Reportable 06/26/21 05:48 Acanthocytes (Spur) Not Reportable 06/26/21 05:48 Rouleaux Not Reportable 06/26/21 05:48 Hemoglobin C Crystals Not Reportable 06/26/21 05:48 Schistocytes Not Reportable 06/26/21 05:48 Malaria parasites Not Reportable 06/26/21 05:48 [place] Bodies Not Reportable 06/26/21 05:48 Hem Pathologist Commnt No 06/26/21 05:48 D-Dimer 4489.63 ng/mlDDU (0-234) H 06/26/21 05:48 Sodium 143 mmol/L (137-145) 06/27/21 07:23 Sodium Cancelled 06/27/21 07:23 Potassium 3.6 mmol/L (3.6-5.0) 06/27/21 07:23 Potassium Cancelled 06/27/21 07:23 Chloride 105.6 mmol/L (98-107) 06/27/21 07:23 Chloride Cancelled 06/27/21 07:23 Carbon Dioxide 31 mmol/L (22-30) H 06/27/21 07:23 Carbon Dioxide Cancelled 06/27/21 07:23 Anion Gap 10 mmol/L 06/27/21 07:23 Anion Gap Cancelled 06/27/21 07:23 BUN 21 mg/dL (7-17) H 06/27/21 07:23 BUN Cancelled 06/27/21 07:23 Creatinine 0.8 mg/dL (0.6-1.2) 06/27/21 07:23 Creatinine Cancelled 06/27/21 07:23 Estimated GFR > 60 ml/min 06/27/21 07:23 Estimated GFR Cancelled 06/27/21 07:23 BUN/Creatinine Ratio 26 % 06/27/21 07:23 BUN/Creatinine Ratio Cancelled 06/27/21 07:23 Glucose 141 mg/dL (65-100) H 06/27/21 07:23 Glucose Cancelled 06/27/21 07:23 POC Glucose 186 mg/dL (70-105) H 06/27/21 11:47 Lactic Acid 1.20 mmol/L (0.7-2.0) 06/22/21 05:06 Calcium 8.8 mg/dL (8.4-10.2) 06/27/21 07:23 Calcium Cancelled 06/27/21 07:23 Phosphorus 3.00 mg/dL (2.5-4.5) 06/27/21 07:23 Ferritin 281.5 ng/mL (10.0-200.0) H 06/26/21 05:48 Total Bilirubin 0.50 mg/dL (0.1-1.2) 06/27/21 07:23 Direct Bilirubin 0.7 mg/dL (0-0.2) H 06/21/21 20:39 Indirect Bilirubin 0.3 mg/dL 06/21/21 20:39 AST 67 units/L (5-40) H 06/27/21 07:23 ALT 85 units/L (7-56) H 06/27/21 07:23 Alkaline Phosphatase 91 units/L (35-129) 06/27/21 07:23 Total Creatine Kinase 1066 units/L (30-135) H 06/23/21 17:57 C-Reactive Protein 1.40 mg/dL (0.00-1.30) H 06/26/21 05:48 Total Protein 5.1 g/dL (6.3-8.2) L 06/27/21 07:23 Albumin 2.4 g/dL (3.9-5) L 06/27/21 07:23 Albumin/Globulin Ratio 0.9 % 06/27/21 07:23 Procalcitonin 0.60 ng/mL (<0.15) 06/25/21 05:10 Urine Color Yellow (Yellow) 06/22/21 13:45 Urine Turbidity Clear (Clear) 06/22/21 13:45 Urine pH 5.0 (5.0-7.0) 06/22/21 13:45 Ur Specific [place] 1.013 (1.003-1.030) 06/22/21 13:45 Urine Protein 100 mg/dl mg/dL (Negative) 06/22/21 13:45 Urine Glucose (UA) Neg mg/dL (Negative) 06/22/21 13:45 Urine Ketones Neg mg/dL (Negative) 06/22/21 13:45 Urine Blood Lg (Negative) 06/22/21 13:45 Urine Nitrite Pos (Negative) 06/22/21 13:45 Urine Bilirubin Neg (Negative) 06/22/21 13:45 Urine Urobilinogen < 2.0 mg/dL (<2.0) 06/22/21 13:45 Ur Leukocyte Esterase Neg (Negative) 06/22/21 13:45 Urine WBC (Auto) 1.0 /HPF (0.0-6.0) 06/22/21 13:45 Urine RBC (Auto) 5.0 /HPF (0.0-6.0) 06/22/21 13:45 U Epithel Cells (Auto) < 1.0 /HPF (0-13.0) 06/22/21 13:45 Urine Bacteria (Auto) 3+ /HPF (Negative) 06/22/21 13:45 Urine Mucus Few /HPF 06/22/21 13:45 Urine Creatinine 52.2 mg/dL (0.1-20.0) H 06/22/21 13:45 Urine Creatinine 52.9 mg/dL (0.1-20.0) H 06/22/21 13:45 Protein/Creatinin Ratio 1.15 06/22/21 13:45 Urine Sodium 122 mmol/L 06/22/21 13:45 Urine Total Protein 61 mg/dL (5-11.8) H 06/22/21 13:45 Nasal Screen MRSA (PCR) Negative (Negative) 06/22/21 04:45 Coronavirus (PCR) Positive (Negative) A 06/22/21 Unknown Blood Type O POSITIVE 06/22/21 05:06 Antibody Screen Negative 06/22/21 05:06 Microbiology: Microbiology 06/21/21 20:55 Peripheral/Venous Blood Culture - Final NO GROWTH AFTER 5 DAYS 06/21/21 20:39 Peripheral/Venous Blood Culture - Final NO GROWTH AFTER 5 DAYS Robbins/IV: Voiding Method Incontinent Active Medications - Current Medications Current Medications: Generic Name Dose Route Start Last Admin Trade Name Freq PRN Reason Stop Dose Admin Acetaminophen 650 mg 06/22/21 01:32 Acetaminophen 325 Mg Tab PO Q4H PRN Pain MILD(1-3)/Fever >100.5/MCGRAW Albuterol 2 puff 06/24/21 02:07 Albuterol 8.5 Gm Mdi Inhalation IH Q4HRT PRN Shortness Of Breath Albuterol/Ipratropium 1 ampul 06/27/21 08:00 06/27/21 08:25 Ipratropium/Albuterol Sulfate 3 Ml Ampul.Neb IH 1 ampul TIDRT FEDERICO Administration Dexamethasone 6 mg 06/23/21 13:00 06/27/21 09:02 Dexamethasone 4 Mg/Ml Vial IV 07/03/21 12:59 6 mg DAILY FEDERICO Administration Dextrose 50 ml 06/22/21 17:15 Dextrose 50% In Water (25gm) 50 Ml Syringe IV Q30MIN PRN Hypoglycemia Protocol Famotidine 20 mg 06/22/21 10:00 06/27/21 09:03 Famotidine 20 Mg/2 Ml Inj IV 20 mg QAM FEDERICO Administration Heparin Sodium (Porcine) 5,000 unit 06/22/21 10:00 06/27/21 09:03 Heparin 5,000 Unit/1 Ml Vial SUB-Q 5,000 unit Q12HR FEDERICO Administration Hydralazine HCl 10 mg 06/25/21 02:16 06/25/21 03:01 Hydralazine 20 Mg/1 Ml Inj IV 10 mg Q6HR PRN Administration Hypertension Hydromorphone HCl 0.25 mg 06/22/21 01:32 Hydromorphone 1 Mg/1 Ml Inj IV Q4H PRN Pain, Moderate (4-6) Hydromorphone HCl 0.5 mg 06/22/21 01:32 Hydromorphone 1 Mg/1 Ml Inj IV Q3H PRN Pain , Severe (7-10) Insulin Glargine 30 units 06/24/21 22:00 06/27/21 01:16 Insulin Glargine 100 Units/Ml SUB-Q 30 units QHS FEDERICO Administration Insulin Human Lispro 0 unit 06/22/21 18:00 06/27/21 06:27 Insulin Lispro 100 Unit/Ml SUB-Q Not Given Q6HR [facility] Protocol Metoprolol Tartrate 5 mg 06/22/21 18:00 06/27/21 06:29 Metoprolol Tartrate 5 Mg/5 Ml Inj IV 5 mg Q6HR FEDERICO Administration Ondansetron HCl 4 mg 06/22/21 01:32 Ondansetron 4 Mg/2 Ml Inj IV Q8H PRN Nausea And Vomiting Oxycodone/Acetaminophen 1 tab 06/22/21 01:32 Oxycodone /Acetaminophen 5-325mg Tab PO Q6H PRN Pain, Moderate (4-6) Sodium Chloride 10 ml 06/22/21 10:00 06/27/21 09:03 Sodium Chloride 0.9% 10 Ml Flush Syringe IV 10 ml BID FEDERICO Administration Sodium Chloride 10 ml 06/22/21 01:32 Sodium Chloride 0.9% 10 Ml Flush Syringe IV PRN PRN LINE FLUSH Sodium Chloride 50 ml 06/24/21 21:00 06/26/21 23:34 Sodium Chloride 0.9% 50 Ml Ivpb IV 06/28/21 21:01 50 ml Q24HR@2100 FEDERICO Administration Nutrition/Malnutrition Assess - Dietary Evaluation Nutrition/Malnutrition Findings: Nutrition Notes Start: 06/22/21 12:10 Freq: Status: Active Protocol: Document 06/26/21 12:42 (Rec: 06/26/21 12:46 [id number]) Nutrition Notes Initial or Follow up Reassessment Current Diagnosis Acute Kidney Injury,COPD, Sepsis Other Pertinent Diagnosis dementia, pneu, COVID-19(+) Current Diet Cardiac, consistent CHO Labs/Tests AST 78 ALT 114 Pertinent Medications Decadron Height 5 ft 4 in Weight 57.9 kg [place] Body Weight (kg) 54.54 BMI 21.9 Weight Status Appropriate Subjective/Other Information RN states pt ate 25% of breakfast and sips of ONS. Percent of energy/protein needs met: 40%/30% Burn Absent Trauma Absent Current % PO Poor (25-49%) Minimum of two criteria No physical signs of malnutrition #2 Nutrition Diagnosis Inadequate oral intake Etiology advanced age As Evidenced by Signs and Symptoms pt eating 25% of meals #1 Nutrition Diagnosis Increased nutrient needs ( specify in comment below) Diagnosis Progress(for reassessment Continues documentation) Is patient on ventilator? No Is Patient Ambulatory and/or Out of Bed No REE-([facility] Jeky-confined to bed) [phone] Calculation Used for Recommendations [facility] Additional Notes Protein: (1.25-1.5g/kg) 73-87g Fluid: 1 ml/kcal Nutrition Intervention Change Diet Order: continue Add Supplement/Snack (indicate name/kcal Glucerna BID /protein ) Provides kCal: 440 Provides Protein (gm) 20 Goal #1 Meet at least 75% of energy and protein needs via PO and ONS Anticipated Discharge Needs: cardiac, consistent CHO Follow-Up By: 06/28/21 Additional Comments FU for intakes and ONS tolerance
[2021-06-27 15:00] LABS: Myelocytes # (Manual) 0.2 K/mm3; Total Cells Counted 100
[2021-06-27 15:02] LABS: Hypersegmented Neutrophils Few; Large Platelets Few; Platelet Estimate Cons; RBC Morphology Normal; Toxic Granulation Few
[2021-06-27] MEDS: SODIUM CHLORIDE 0.9% 50 ML IVPB IV SCH (22:16)
[2021-06-27] MEDS: METOPROLOL TARTRATE 25 MG TAB PO SCH (22:23)
[2021-06-28] MEDS: INSULIN LISPRO 100 UNIT/ML SUB-Q SCH ×5 (00:44→23:29)
[2021-06-28] MEDS: IPRATROPIUM/ALBUTEROL SULFATE 3 ML AMPUL.NEB IH SCH ×3 (07:33→21:45)
[2021-06-28 08:05] LABS: Hematocrit 34.2 % (30.3-42.9); Hemoglobin 10.9 gm/dl (10.1-14.3); Mean Corpuscular HGB Conc 32 % (30-34); Mean Corpuscular Volume 82 fl (79-97); Platelet Count 250 K/mm3 (140-440); Red Blood Count 4.19 M/mm3 (3.65-5.03); Red Cell Distribution Width 15.4 % (13.2-15.2)
[2021-06-28 08:15] LABS: Blood Urea Nitrogen 21 mg/dL (7-17); Calcium 9.2 mg/dL (8.4-10.2); Hemolysis Index 26
[2021-06-28 08:20] LABS: BUN/Creatinine Ratio 30
[2021-06-28] MEDS: dexAMETHasone 4 MG/ML VIAL IV SCH (10:00)
[2021-06-28] MEDS: HEPARIN 5,000 UNIT/1 ML VIAL SUB-Q SCH ×2 (10:00→22:40)
[2021-06-28] MEDS: METOPROLOL TARTRATE 25 MG TAB PO SCH ×2 (10:00→22:38)
--- NOTE | 2021-06-28 12:04 | Progress Note ---
Assessment and Plan Assessment and plan: #1 severe sepsis secondary to bilateral [id number] pneumonia. Multiple sick contacts in the home environment. Seems to have improved with IV volume therapy. Patient stable with 3 L of O2. Resting comfortably. No longer tachypneic hypotensive or tachycardic. Will place patient on steroids de xamethasone. Questionable remdesivir until renal function has improved. Continue empiric antibiotics. ID consult. Follow inflammatory markers. No remdesivir secondary to renal function. Continue dexamethasone for 10 days. Contact Ana Rosa Arizmendi [phone] #2 acute renal failure. Secondary to prerenal azotemia not eating not drinking dehydration. Improving with follow-up chemistry obtain BMP a.m. #3 acute respiratory failure secondary to sepsis bilateral pneumonia Patient still maintained well with 3 L of oxygen. No change in O2. This is a good sign. Treat underlying etiology with antibiotics, supportive care. Steroids #4 diabetes mellitus will be more difficult control with addition of steroids placed patient sliding scale insulin advance as tolerated. We will add long-acting insulin. Especially since patient on steroids. Will increase long-acting insulin today. #5 rhabdomyolysis should respond to IV volume replacement. Would not be too aggressive since patient has Covid and would like to keep a little on dry side #6 hypertensive urgency. Will need to address patient's hypertension and tachycardia. Overall patient remains dry as evidenced by increased BUN/creatinine prerenal azotemia increase CPK. Much better since the addition of Lopressor. At present we will not increase fluids above 100 to 125 cc an hour in order not to worsen acute respiratory failure. Will be a very difficult balance but the risk outweigh the benefits of increasing fluids at this time. This can be fixed slowly. We will add Lopressor IV patient remains lethargic. #7 acute metabolic encephalopathy-patient not eating or drinking. Highly suspect Covid encephalopathy. Which would have caused underlying dementia to get worse. Patient should be able to eat today. CT scan head unremarkable. #8 hyponatremia patient started on D5 water. #8 Covid pneumonia. ID following. Add dexamethasone. Subjective Date of service: 06/24/21 Principal diagnosis: Sepsis Interval history: Patient 80 years old with a history of dementia COPD presented to the ED with decreased responsiveness decreased p.o. intake x2 days fever 102. Patient also presented with tachycardia, tachypnea, hypoxemia. Patient had contact with family members with COVID-19. Patient presentation on radiograph consistent wit h bilateral pneumonia. Today subsequently patient positive for COVID-19. Currently stable with only 3 L nasal cannula. Patient encephalopathy has not improved much since baseline. 06/23/2021 patient remains altered today. A little more alert however remains encephalopathic. Patient SVT much improved since yesterday since suggesting gentle IV hydration plus amiodarone in addition to AV j carlos blocking agent. 06/24/2021. This is the first day patient much more responsive today. Will attempt to talk to you we will follow you with gaze. This is better than the previous 2 days.Tachycardia is also resolved. Requiring less oxygen wean as tolerated. 06/25: Patient seen and examined appears to be clinically improving. Discussed with nursing staff will obtain PT OT and home O2 evaluation. Anticipate discharge in a.m. if continues to improve will likely need home O2. Transfer to [facility] downgrade. 06/26: Patient clinically stable anticipate discharge home or to SNF today. Awaiting home O2 evaluation Case management is following. CTA angio and Doppler of lower extremity for VTE work-up done. Will recommend short-term low-dose anticoagulation even if negative of VTE at this time considering patient's elevated D-dimer levels and the Covid diagnosis. PT OT evaluation as fall precaution is imperative considering low-dose anticoagulation. Attempted to reach family unable. 06/27: Patient remains lethargic this morning. We will get a swallow evaluation done. Patient remains on 2 L of oxygen. Discussed with physical therapist she was not able to be participatory in any activity except sitting up at the bedside. Also discussed with her granddaughter today who tells me that the fidel mahmood's daughter is currently in the ICU at [facility] with Covid and a CVA. And that the patient has rapidly declined in the last 2+ weeks. She is agreeable with the recommendation of physical therapist for SNF at this time. Case management will be working on this. 06/28: Leukocytosis persist ?steroid induced, no new fever. will monitor. Awaiting placement. Discussed with case management today in rounds. History Interval history: Patient seen and examined resting comfortably currently on 2 L of oxygen continues to show improvement. No new complaints Hospitalist Physical - Physical exam Narrative exam: General appearance: Present: no acute distress, mild temporal wasting. Baseline dementia, Lethargic - EENT Eyes: PERRL, EOM intact ENT: hearing intact, clear oral mucosa Ears: bilateral: normal - Neck Neck: supple, normal ROM - Respiratory Respiratory effort: normal Respiratory: bilateral: diminished, rhonchi - Breasts Breasts: normal - Cardiovascular Rhythm: regular Heart Sounds: Present: S1 & S2. Absent: gallop, rub Extremities: pulses intact, No edema, normal color, Full ROM - Gastrointestinal General gastrointestinal: Present: soft, non-tender, non-distended, normal bowel sounds - Genitourinary Female genitourinary: normal - Integumentary Integumentary: clear, warm, dry - Musculoskeletal Musculoskeletal: 1, strength equal bilaterally, gait status unsure - Neurologic Neurologic: moves all extremities - Psychiatric Psychiatric: other (Much more alert) - Constitutional Vitals: Temp Pulse Resp BP Pulse Ox 97.8 F 84 16 167/79 100 06/28/21 05:43 06/28/21 07:33 06/28/21 07:33 06/28/21 05:43 06/28/21 07:33 General appearance: Present: no acute distress, well-nourished Results - Labs CBC & Chem 7: 06/28/21 06:24 06/28/21 06:24 Labs: Laboratory Last Values WBC 21.5 K/mm3 (4.5-11.0) H 06/28/21 06:24 RBC 4.19 M/mm3 (3.65-5.03) 06/28/21 06:24 Hgb 10.9 gm/dl (10.1-14.3) 06/28/21 06:24 Hct 34.2 % (30.3-42.9) 06/28/21 06:24 MCV 82 fl (79-97) 06/28/21 06:24 MCH 26 pg (28-32) L 06/28/21 06:24 MCHC 32 % (30-34) 06/28/21 06:24 RDW 15.4 % (13.2-15.2) H 06/28/21 06:24 Plt Count 250 K/mm3 (140-440) 06/28/21 06:24 Lymph % (Auto) 3.5 % (13.4-35.0) L 06/21/21 20:39 Desha % (Auto) 6.0 % (0.0-7.3) 06/21/21 20:39 Eos % (Auto) 0.3 % (0.0-4.3) 06/21/21 20:39 Baso % (Auto) 0.2 % (0.0-1.8) 06/21/21 20:39 Lymph # (Auto) 0.6 K/mm3 (1.2-5.4) L 06/21/21 20:39 Desha # (Auto) 1.1 K/mm3 (0.0-0.8) H 06/21/21 20:39 Eos # (Auto) 0.1 K/mm3 (0.0-0.4) 06/21/21 20:39 Baso # (Auto) 0.0 K/mm3 (0.0-0.1) 06/21/21 20:39 Add Manual Diff Complete 06/27/21 07:23 Total Counted 100 06/27/21 07:23 Seg Neutrophils % Lineman 06/25/21 05:10 Seg Neuts % (Manual) 87.0 % (40.0-70.0) H 06/27/21 07:23 Band Neutrophils % 1.0 % 06/26/21 05:48 Lymphocytes % (Manual) 7.0 % (13.4-35.0) L 06/27/21 07:23 Reactive Lymphs % (Man) 1.0 % 06/26/21 05:48 Monocytes % (Manual) 4.0 % (0.0-7.3) 06/27/21 07:23 Metamyelocytes % 1.0 % 06/27/21 07:23 Myelocytes % 1.0 % 06/27/21 07:23 Nucleated RBC % Not Reportable 06/27/21 07:23 Seg Neutrophils # 15.9 K/mm3 (1.8-7.7) H 06/21/21 20:39 Seg Neutrophils # Man 18.9 K/mm3 (1.8-7.7) H 06/27/21 07:23 Band Neutrophils # 0.0 K/mm3 06/27/21 07:23 Lymphocytes # (Manual) 1.5 K/mm3 (1.2-5.4) 06/27/21 07:23 Abs React Lymphs (Man) 0.0 K/mm3 06/27/21 07:23 Monocytes # (Manual) 0.9 K/mm3 (0.0-0.8) H 06/27/21 07:23 Eosinophils # (Manual) 0.0 K/mm3 (0.0-0.4) 06/27/21 07:23 Basophils # (Manual) 0.0 K/mm3 (0.0-0.1) 06/27/21 07:23 Metamyelocytes # 0.2 K/mm3 06/27/21 07:23 Myelocytes # 0.2 K/mm3 06/27/21 07:23 Promyelocytes # 0.0 K/mm3 06/27/21 07:23 Blast Cells # 0.0 K/mm3 06/27/21 07:23 WBC Morphology Not Reportable 06/27/21 07:23 Hypersegmented Neuts Few 06/27/21 07:23 Hyposegmented Neuts Not Reportable 06/27/21 07:23 Hypogranular Neuts Not Reportable 06/27/21 07:23 Smudge Cells Not Reportable 06/27/21 07:23 Toxic Granulation Few 06/27/21 07:23 Toxic Vacuolation Not Reportable 06/27/21 07:23 Dohle Bodies Not Reportable 06/27/21 07:23 Pelger-Huet Anomaly Not Reportable 06/27/21 07:23 Helen Rods Not Reportable 06/27/21 07:23 Platelet Estimate Cons 06/27/21 07:23 Clumped Platelets Not Reportable 06/27/21 07:23 Plt Clumps, EDTA Not Reportable 06/27/21 07:23 Large Platelets Few 06/27/21 07:23 Giant Platelets Not Reportable 06/27/21 07:23 Platelet Satelliting Not Reportable 06/27/21 07:23 Plt Morphology Comment Not Reportable 06/27/21 07:23 RBC Morphology Normal 06/27/21 07:23 Dimorphic RBCs Not Reportable 06/27/21 07:23 Polychromasia Not Reportable 06/27/21 07:23 Hypochromasia Not Reportable 06/27/21 07:23 Poikilocytosis Not Reportable 06/27/21 07:23 Anisocytosis Not Reportable 06/27/21 07:23 Microcytosis Not Reportable 06/27/21 07:23 Macrocytosis Not Reportable 06/27/21 07:23 Spherocytes Not Reportable 06/27/21 07:23 Pappenheimer Bodies Not Reportable 06/27/21 07:23 Sickle Cells Not Reportable 06/27/21 07:23 Target Cells Not Reportable 06/27/21 07:23 Tear Drop Cells Not Reportable 06/27/21 07:23 Ovalocytes Not Reportable 06/27/21 07:23 Helmet Cells Not Reportable 06/27/21 07:23 [place] Bodies Not Reportable 06/27/21 07:23 Edmond Rings Not Reportable 06/27/21 07:23 Alvin Cells Not Reportable 06/27/21 07:23 Bite Cells Not Reportable 06/27/21 07:23 Crenated Cell Not Reportable 06/27/21 07:23 Elliptocytes Not Reportable 06/27/21 07:23 Acanthocytes (Spur) Not Reportable 06/27/21 07:23 Rouleaux Not Reportable 06/27/21 07:23 Hemoglobin C Crystals Not Reportable 06/27/21 07:23 Schistocytes Not Reportable 06/27/21 07:23 Malaria parasites Not Reportable 06/27/21 07:23 Blayne Bodies Not Reportable 06/27/21 07:23 Hem Pathologist Commnt No 06/27/21 07:23 D-Dimer 4489.63 ng/mlDDU (0-234) H 06/26/21 05:48 Sodium 144 mmol/L (137-145) 06/28/21 06:24 Potassium 4.1 mmol/L (3.6-5.0) 06/28/21 06:24 Chloride 106.5 mmol/L (98-107) 06/28/21 06:24 Carbon Dioxide 29 mmol/L (22-30) 06/28/21 06:24 Anion Gap 13 mmol/L 06/28/21 06:24 BUN 21 mg/dL (7-17) H 06/28/21 06:24 Creatinine 0.7 mg/dL (0.6-1.2) 06/28/21 06:24 Estimated GFR > 60 ml/min 06/28/21 06:24 BUN/Creatinine Ratio 30 % 06/28/21 06:24 Glucose 55 mg/dL (65-100) L 06/28/21 06:24 POC Glucose 59 mg/dL (70-105) L 06/28/21 05:41 Lactic Acid 1.20 mmol/L (0.7-2.0) 06/22/21 05:06 Calcium 9.2 mg/dL (8.4-10.2) 06/28/21 06:24 Phosphorus 3.00 mg/dL (2.5-4.5) 06/27/21 07:23 Ferritin 281.5 ng/mL (10.0-200.0) H 06/26/21 05:48 Total Bilirubin 0.50 mg/dL (0.1-1.2) 06/27/21 07:23 Direct Bilirubin 0.7 mg/dL (0-0.2) H 06/21/21 20:39 Indirect Bilirubin 0.3 mg/dL 06/21/21 20:39 AST 67 units/L (5-40) H 06/27/21 07:23 ALT 85 units/L (7-56) H 06/27/21 07:23 Alkaline Phosphatase 91 units/L (35-129) 06/27/21 07:23 Total Creatine Kinase 1066 units/L (30-135) H 06/23/21 17:57 C-Reactive Protein 1.40 mg/dL (0.00-1.30) H 06/26/21 05:48 Total Protein 5.1 g/dL (6.3-8.2) L 06/27/21 07:23 Albumin 2.4 g/dL (3.9-5) L 06/27/21 07:23 Albumin/Globulin Ratio 0.9 % 06/27/21 07:23 Procalcitonin 0.60 ng/mL (<0.15) 06/25/21 05:10 Urine Color Yellow (Yellow) 06/22/21 13:45 Urine Turbidity Clear (Clear) 06/22/21 13:45 Urine pH 5.0 (5.0-7.0) 06/22/21 13:45 Ur Specific Embarrass 1.013 (1.003-1.030) 06/22/21 13:45 Urine Protein 100 mg/dl mg/dL (Negative) 06/22/21 13:45 Urine Glucose (UA) Neg mg/dL (Negative) 06/22/21 13:45 Urine Ketones Neg mg/dL (Negative) 06/22/21 13:45 Urine Blood Lg (Negative) 06/22/21 13:45 Urine Nitrite Pos (Negative) 06/22/21 13:45 Urine Bilirubin Neg (Negative) 06/22/21 13:45 Urine Urobilinogen < 2.0 mg/dL (<2.0) 06/22/21 13:45 Ur Leukocyte Esterase Neg (Negative) 06/22/21 13:45 Urine WBC (Auto) 1.0 /HPF (0.0-6.0) 06/22/21 13:45 Urine RBC (Auto) 5.0 /HPF (0.0-6.0) 06/22/21 13:45 U Epithel Cells (Auto) < 1.0 /HPF (0-13.0) 06/22/21 13:45 Urine Bacteria (Auto) 3+ /HPF (Negative) 06/22/21 13:45 Urine Mucus Few /HPF 06/22/21 13:45 Urine Creatinine 52.2 mg/dL (0.1-20.0) H 06/22/21 13:45 Urine Creatinine 52.9 mg/dL (0.1-20.0) H 06/22/21 13:45 Protein/Creatinin Ratio 1.15 06/22/21 13:45 Urine Sodium 122 mmol/L 06/22/21 13:45 Urine Total Protein 61 mg/dL (5-11.8) H 06/22/21 13:45 Nasal Screen MRSA (PCR) Negative (Negative) 06/22/21 04:45 Coronavirus (PCR) Positive (Negative) A 06/22/21 Unknown Blood Type O POSITIVE 06/22/21 05:06 Antibody Screen Negative 06/22/21 05:06 Robbins/IV: Voiding Method External Female Catheter Active Medications - Current Medications Current Medications: Generic Name Dose Route Start Last Admin Trade Name Freq PRN Reason Stop Dose Admin Acetaminophen 650 mg 06/22/21 01:32 Acetaminophen 325 Mg Tab PO Q4H PRN Pain MILD(1-3)/Fever >100.5/MCGRAW Albuterol 2 puff 06/24/21 02:07 Albuterol 8.5 Gm Mdi Inhalation IH Q4HRT PRN Shortness Of Breath Albuterol/Ipratropium 1 ampul 06/27/21 08:00 06/28/21 07:33 Ipratropium/Albuterol Sulfate 3 Ml Ampul.Neb IH 1 ampul TIDRT FEDERICO Administration Dexamethasone 6 mg 06/23/21 13:00 06/28/21 10:00 Dexamethasone 4 Mg/Ml Vial IV 07/03/21 12:59 6 mg DAILY FEDERICO Administration Dextrose 50 ml 06/22/21 17:15 Dextrose 50% In Water (25gm) 50 Ml Syringe IV Q30MIN PRN Hypoglycemia Protocol Famotidine 20 mg 06/22/21 10:00 06/27/21 09:03 Famotidine 20 Mg/2 Ml Inj IV 20 mg QAM [facility] Administration Heparin Sodium (Porcine) 5,000 unit 06/22/21 10:00 06/28/21 10:00 Heparin 5,000 Unit/1 Ml Vial SUB-Q 5,000 unit Q12HR FEDERICO Administration Hydralazine HCl 10 mg 06/25/21 02:16 06/25/21 03:01 Hydralazine 20 Mg/1 Ml Inj IV 10 mg Q6HR PRN Administration Hypertension Hydromorphone HCl 0.25 mg 06/22/21 01:32 Hydromorphone 1 Mg/1 Ml Inj IV Q4H PRN Pain, Moderate (4-6) Hydromorphone HCl 0.5 mg 06/22/21 01:32 Hydromorphone 1 Mg/1 Ml Inj IV Q3H PRN Pain , Severe (7-10) Insulin Glargine 20 units 06/28/21 22:00 Insulin Glargine 100 Units/Ml SUB-Q QHS [facility] Insulin Human Lispro 0 unit 06/22/21 18:00 06/28/21 05:55 Insulin Lispro 100 Unit/Ml SUB-Q Not Given Q6HR [facility] Protocol Metoprolol Tartrate 12.5 mg 06/27/21 22:00 06/28/21 10:00 Metoprolol Tartrate 25 Mg Tab PO 12.5 mg BID [facility] Administration Ondansetron HCl 4 mg 06/22/21 01:32 Ondansetron 4 Mg/2 Ml Inj IV Q8H PRN Nausea And Vomiting Oxycodone/Acetaminophen 1 tab 06/22/21 01:32 Oxycodone /Acetaminophen 5-325mg Tab PO Q6H PRN Pain, Moderate (4-6) Sodium Chloride 10 ml 06/22/21 10:00 06/28/21 10:01 Sodium Chloride 0.9% 10 Ml Flush Syringe IV 10 ml BID FEDERICO Administration Sodium Chloride 10 ml 06/22/21 01:32 Sodium Chloride 0.9% 10 Ml Flush Syringe IV PRN PRN LINE FLUSH Sodium Chloride 50 ml 06/24/21 21:00 06/27/21 22:16 Sodium Chloride 0.9% 50 Ml Ivpb IV 06/28/21 21:01 50 ml Q24HR@2100 FEDERICO Administration Nutrition/Malnutrition Assess - Dietary Evaluation Nutrition/Malnutrition Findings: Nutrition Notes Start: 06/22/21 12:10 Freq: Status: Active Protocol: Document 06/26/21 12:42 (Rec: 06/26/21 12:46 [email or web address]) Nutrition Notes Initial or Follow up Reassessment Current Diagnosis Acute Kidney Injury,COPD, Sepsis Other Pertinent Diagnosis dementia, pneu, COVID-19(+) Current Diet Cardiac, consistent CHO Labs/Tests AST 78 ALT 114 Pertinent Medications Decadron Height 5 ft 4 in Weight 57.9 kg [place] Body Weight (kg) 54.54 BMI 21.9 Weight Status Appropriate Subjective/Other Information RN states pt ate 25% of breakfast and sips of ONS. Percent of energy/protein needs met: 40%/30% Burn Absent Trauma Absent Current % PO Poor (25-49%) Minimum of two criteria No physical signs of malnutrition #2 Nutrition Diagnosis Inadequate oral intake Etiology advanced age As Evidenced by Signs and Symptoms pt eating 25% of meals #1 Nutrition Diagnosis Increased nutrient needs ( specify in comment below) Diagnosis Progress(for reassessment Continues documentation) Is patient on ventilator? No Is Patient Ambulatory and/or Out of Bed No REE-([facility]-confined to bed) [phone] Calculation Used for Recommendations [facility] Additional Notes Protein: (1.25-1.5g/kg) 73-87g Fluid: 1 ml/kcal Nutrition Intervention Change Diet Order: continue Add Supplement/Snack (indicate name/kcal Glucerna BID /protein ) Provides kCal: 440 Provides Protein (gm) 20 Goal #1 Meet at least 75% of energy and protein needs via PO and ONS Anticipated Discharge Needs: cardiac, consistent CHO Follow-Up By: 06/28/21 Additional Comments FU for intakes and ONS tolerance
[2021-06-28 15:51] LABS: Total Cells Counted 100
[2021-06-28 15:52] LABS: Anisocytosis 1+; Burr Cells 1+; Poikilocytosis 1+
[2021-06-28 15:53] LABS: Large Platelets Few; Ovalocytes Few; Platelet Estimate Consistent w Auto; Schistocytes Rare
--- NOTE | 2021-06-28 17:09 | Progress Note ---
Assessment and Plan Cultures: SARS CoV2 PCR: Positive 06/21/2021 blood culture: no growth MRSA nasal PCR: Negative 06/22/2021 urine culture: Mixed ferny A/P: 80-year-old female with dementia, COPD, diabetes admitted to the hospital due to altered mental status and reduced oral intake for the last few days: #COVID-19 pneumonia: mild hypoxia. Procalcitonin decreased to 0.6, CRP down to 3.1. On steroids. S/P Ceftriaxone. #Sepsis: Source is unclear, likely COVID related. Procalcitonin decreased to 0.6. UA without significant pyuria. #New transaminitis: likely from Remdesivir. #Lactic acidosis #Acute kidney injury: improved #Elevated CK #Dementia Recs: -leukocytosis likely secondary to steroids. -anticoagulation per protocol -continue Decadron 6 mg daily for 10 days Silviano Bonilla MD [facility] ([facility] O: [phone] F: [phone] Subjective Date of service: 06/28/21 Principal diagnosis: Sepsis Interval history: Afebrile, white count 21.5 which is approximately stable. Currently on 2 L nasal cannula. Objective - Exam Narrative Exam: Physical exam deferred to reduce risk of transmission of COVID-19. Please refer to primary team's note. - Constitutional Vitals: Vital Signs Temp Pulse Resp BP Pulse Ox 97.8 F 84 16 167/79 95 06/28/21 05:43 06/28/21 07:33 06/28/21 07:33 06/28/21 05:43 06/28/21 13:39 Temperature -Last 24 Hours Temperature 97.8 F Temperature 98.1 F - Labs CBC & Chem 7: 06/28/21 06:24 06/28/21 06:24 Labs: Abnormal lab results 06/27/21 06/27/21 06/28/21 Range/Units 16:42 21:34 05:41 WBC (4.5-11.0) K/mm3 MCH (28-32) pg RDW (13.2-15.2) % Seg Neuts % (Manual) (40.0-70.0) % Lymphocytes % (Manual) (13.4-35.0) % Seg Neutrophils # Man (1.8-7.7) K/mm3 Lymphocytes # (Manual) (1.2-5.4) K/mm3 Monocytes # (Manual) (0.0-0.8) K/mm3 BUN (7-17) mg/dL Glucose (65-100) mg/dL POC Glucose 240 H 180 H 59 L (70-105) mg/dL Coronavirus (PCR) (Negative) 06/28/21 06/28/21 06/28/21 Range/Units 06:24 06:24 13:01 WBC 21.5 H (4.5-11.0) K/mm3 MCH 26 L (28-32) pg RDW 15.4 H (13.2-15.2) % Seg Neuts % (Manual) 89.0 H (40.0-70.0) % Lymphocytes % (Manual) 3.0 L (13.4-35.0) % Seg Neutrophils # Man 19.1 H (1.8-7.7) K/mm3 Lymphocytes # (Manual) 0.6 L (1.2-5.4) K/mm3 Monocytes # (Manual) 1.5 H (0.0-0.8) K/mm3 BUN 21 H (7-17) mg/dL Glucose 55 L (65-100) mg/dL POC Glucose 128 H (70-105) mg/dL Coronavirus (PCR) (Negative) 06/28/21 Range/Units Unknown WBC (4.5-11.0) K/mm3 MCH (28-32) pg RDW (13.2-15.2) % Seg Neuts % (Manual) (40.0-70.0) % Lymphocytes % (Manual) (13.4-35.0) % Seg Neutrophils # Man (1.8-7.7) K/mm3 Lymphocytes # (Manual) (1.2-5.4) K/mm3 Monocytes # (Manual) (0.0-0.8) K/mm3 BUN (7-17) mg/dL Glucose (65-100) mg/dL POC Glucose (70-105) mg/dL Coronavirus (PCR) Positive A (Negative)
[2021-06-28] MEDS: FAMOTIDINE 20 MG/2 ML INJ IV SCH (17:14)
[2021-06-28] MEDS: SODIUM CHLORIDE 0.9% 50 ML IVPB IV SCH (22:40)
[2021-06-28] MEDS: INSULIN GLARGINE 100 UNITS/ML SUB-Q SCH (22:46)
[2021-06-29] MEDS: hydrALAZINE 20 MG/1 ML INJ IV PRN (05:11)
[2021-06-29] MEDS: INSULIN LISPRO 100 UNIT/ML SUB-Q SCH ×3 (05:16→18:11)
[2021-06-29 08:40] LABS: Hemoglobin 10.7 gm/dl (10.1-14.3); Mean Corpuscular HGB Conc 32 % (30-34); Mean Corpuscular Volume 82 fl (79-97); Platelet Count 294 K/mm3 (140-440); Red Blood Count 4.01 M/mm3 (3.65-5.03); Red Cell Distribution Width 15.8 % (13.2-15.2)
[2021-06-29] MEDS: IPRATROPIUM/ALBUTEROL SULFATE 3 ML AMPUL.NEB IH SCH ×3 (08:48→21:18)
[2021-06-29 09:01] LABS: Blood Urea Nitrogen 21 mg/dL (7-17); Calcium 9.8 mg/dL (8.4-10.2); Hemolysis Index 4
[2021-06-29 09:04] LABS: BUN/Creatinine Ratio 35
--- NOTE | 2021-06-29 10:12 | Progress Note ---
Assessment and Plan Cultures: SARS CoV2 PCR: Positive 06/21/2021 blood culture: no growth MRSA nasal PCR: Negative 06/22/2021 urine culture: Mixed ferny A/P: 80-year-old female with dementia, COPD, diabetes admitted to the hospital due to altered mental status and reduced oral intake for the last few days: #COVID-19 pneumonia: mild hypoxia. Procalcitonin decreased to 0.6, CRP down to 3.1. On steroids. S/P Ceftriaxone. #Sepsis: Source is unclear, likely COVID related. Procalcitonin decreased to 0.6. UA without significant pyuria. #New transaminitis: likely from Remdesivir. Resolved #Lactic acidosis #Acute kidney injury: improved #Elevated CK #Dementia Recs: -leukocytosis likely secondary to steroids. No other issues or s/s of infection -anticoagulation per protocol -continue Decadron 6 mg daily for 10 days Silviano Bonilla MD [facility] ([facility]) O: [phone] F: [phone] Subjective Date of service: 06/29/21 Principal diagnosis: Sepsis Interval history: Afebrile, white count 20.4. Currently on 2 L cannula. Objective - Exam Narrative Exam: Physical exam deferred to reduce risk of transmission of COVID-19. Please refer to primary team's note. - Constitutional Vitals: Vital Signs Temp Pulse Resp BP Pulse Ox 98.7 F 75 18 185/75 98 06/29/21 05:05 06/29/21 05:11 06/29/21 05:05 06/29/21 05:11 06/29/21 08:48 Temperature -Last 24 Hours Temperature 98.7 F Temperature 98.2 F Temperature 98.3 F - Labs CBC & Chem 7: 06/29/21 08:16 06/29/21 08:16 Labs: Abnormal lab results 06/28/21 06/28/21 06/28/21 Range/Units 06:24 13:01 21:48 WBC (4.5-11.0) K/mm3 MCH (28-32) pg RDW (13.2-15.2) % Seg Neuts % (Manual) 89.0 H (40.0-70.0) % Lymphocytes % (Manual) 3.0 L (13.4-35.0) % Seg Neutrophils # Man 19.1 H (1.8-7.7) K/mm3 Lymphocytes # (Manual) 0.6 L (1.2-5.4) K/mm3 Monocytes # (Manual) 1.5 H (0.0-0.8) K/mm3 BUN (7-17) mg/dL Glucose (65-100) mg/dL POC Glucose 128 H 216 H (70-105) mg/dL Coronavirus (PCR) (Negative) 06/28/21 06/29/21 06/29/21 Range/Units Unknown 04:56 07:50 WBC (4.5-11.0) K/mm3 MCH (28-32) pg RDW (13.2-15.2) % Seg Neuts % (Manual) (40.0-70.0) % Lymphocytes % (Manual) (13.4-35.0) % Seg Neutrophils # Man (1.8-7.7) K/mm3 Lymphocytes # (Manual) (1.2-5.4) K/mm3 Monocytes # (Manual) (0.0-0.8) K/mm3 BUN (7-17) mg/dL Glucose (65-100) mg/dL POC Glucose 196 H 163 H (70-105) mg/dL Coronavirus (PCR) Positive A (Negative) 06/29/21 06/29/21 Range/Units 08:16 08:16 WBC 20.4 H (4.5-11.0) K/mm3 MCH 27 L (28-32) pg RDW 15.8 H (13.2-15.2) % Seg Neuts % (Manual) (40.0-70.0) % Lymphocytes % (Manual) (13.4-35.0) % Seg Neutrophils # Man (1.8-7.7) K/mm3 Lymphocytes # (Manual) (1.2-5.4) K/mm3 Monocytes # (Manual) (0.0-0.8) K/mm3 BUN 21 H (7-17) mg/dL Glucose 140 H (65-100) mg/dL POC Glucose (70-105) mg/dL Coronavirus (PCR) (Negative)
[2021-06-29] MEDS: dexAMETHasone 4 MG/ML VIAL IV SCH (10:17)
[2021-06-29] MEDS: FAMOTIDINE 20 MG TAB PO SCH (10:17)
[2021-06-29] MEDS: HEPARIN 5,000 UNIT/1 ML VIAL SUB-Q SCH ×2 (10:17→22:50)
[2021-06-29] MEDS: METOPROLOL TARTRATE 25 MG TAB PO SCH ×2 (10:48→22:49)
--- NOTE | 2021-06-29 11:17 | Progress Note ---
Assessment and Plan Assessment and plan: #1 severe sepsis secondary to bilateral [id number] pneumonia. Multiple sick contacts in the home environment. Seems to have improved with IV volume therapy. Patient stable with 3 L of O2. Resting comfortably. No longer tachypneic hypotensive or tachycardic. Will place patient on steroids de xamethasone. Questionable remdesivir until renal function has improved. Continue empiric antibiotics. ID consult. Follow inflammatory markers. No remdesivir secondary to renal function. Continue dexamethasone for 10 days. Contact Ana Rosa Arizmendi [phone] #2 acute renal failure. Secondary to prerenal azotemia not eating not drinking dehydration. Improving with follow-up chemistry obtain BMP a.m. #3 acute respiratory failure secondary to sepsis bilateral pneumonia Patient still maintained well with 3 L of oxygen. No change in O2. This is a good sign. Treat underlying etiology with antibiotics, supportive care. Steroids #4 diabetes mellitus will be more difficult control with addition of steroids placed patient sliding scale insulin advance as tolerated. We will add long-acting insulin. Especially since patient on steroids. Will increase long-acting insulin today. #5 rhabdomyolysis should respond to IV volume replacement. Would not be too aggressive since patient has Covid and would like to keep a little on dry side #6 hypertensive urgency. Will need to address patient's hypertension and tachycardia. Overall patient remains dry as evidenced by increased BUN/creatinine prerenal azotemia increase CPK. Much better since the addition of Lopressor. At present we will not increase fluids above 100 to 125 cc an hour in order not to worsen acute respiratory failure. Will be a very difficult balance but the risk outweigh the benefits of increasing fluids at this time. This can be fixed slowly. We will add Lopressor IV patient remains lethargic. #7 acute metabolic encephalopathy-patient not eating or drinking. Highly suspect Covid encephalopathy. Which would have caused underlying dementia to get worse. Patient should be able to eat today. CT scan head unremarkable. #8 hyponatremia patient started on D5 water. # 9: Failure to thrive #10 Covid pneumonia. ID following. Add dexamethasone. Subjective Date of service: 06/24/21 Principal diagnosis: Sepsis Interval history: Patient 80 years old with a history of dementia COPD presented to the ED with decreased responsiveness decreased p.o. intake x2 days fever 102. Patient also presented with tachycardia, tachypnea, hypoxemia. Patient had contact with family members with COVID-19. Patient presentation on radiograph consistent with bilateral pneumonia. Today subsequently patient positive for COVID-19. Currently stable with only 3 L nasal cannula. Patient encephalopathy has not improved much since baseline. 06/23/2021 patient remains altered today. A little more alert however remains encephalopathic. Patient SVT much improved since yesterday since suggesting gentle IV hydration plus amiodarone in addition to AV j carlos blocking agent. 06/24/2021. This is the first day patient much more responsive today. Will attempt to talk to you we will follow you with gaze. This is better than the previous 2 days.Tachycardia is also resolved. Requiring less oxygen wean as tolerated. 06/25: Patient seen and examined appears to be clinically improving. Discussed with nursing staff will obtain PT OT and home O2 evaluation. Anticipate discharge in a.m. if continues to improve will likely need home O2. Transfer to [facility] downgrade. 06/26: Patient clinically stable anticipate discharge home or to SNF today. Awaiting home O2 evaluation Case management is following. CTA angio and Doppler of lower extremity for VTE work-up done. Will recommend short-term low-dose anticoagulation even if negative of VTE at this time considering patient's elevated D-dimer levels and the Covid diagnosis. PT OT evaluation as fall precaution is imperative considering low-dose anticoagulation. Attempted to reach family unable. 06/27: Patient remains lethargic this morning. We will get a swallow evaluation done. Patient remains on 2 L of oxygen. Discussed with physical therapist she was not able to be participatory in any activity except sitting up at the bedside. Also discussed with her granddaughter today who tells me that the patient's daughter is currently in the ICU at [place] with Covid and a CVA. And that the patient has rapidly declined in the last 2+ weeks. She is agreeable with the recommendation of physical therapist for SNF at this time. Case management will be working on this. 06/28: Leukocytosis persist ?steroid induced, no new fever. will monitor. Awaiting placement. Discussed with case management today in rounds. 06/29: Patient continues to have poor p.o. intake. Repeated hypoglycemia. Discussed with family they are okay with patient getting a PEG tube to help with nutrition. Consult placed to beam dyer operator to assist with this. Patient is still pending placement. History Interval history: Patient seen and examined resting comfortably currently on 2 L of oxygen continues to show improvement. No new complaints, hypoglycemia Hospitalist Physical - Physical exam Narrative exam: General appearance: Present: no acute distress, mild temporal wasting. Baseline dementia, Lethargic - EENT Eyes: PERRL, EOM intact ENT: hearing intact, clear oral mucosa Ears: bilateral: normal - Neck Neck: supple, normal ROM - Respiratory Respiratory effort: normal Respiratory: bilateral: diminished, rhonchi - Breasts Breasts: normal - Cardiovascular Rhythm: regular Heart Sounds: Present: S1 & S2. Absent: gallop, rub Extremities: pulses intact, No edema, normal color, Full ROM - Gastrointestinal General gastrointestinal: Present: soft, non-tender, non-distended, normal bowel sounds - Genitourinary Female genitourinary: normal - Integumentary Integumentary: clear, warm, dry - Musculoskeletal Musculoskeletal: 1, strength equal bilaterally, gait status unsure - Neurologic Neurologic: moves all extremities - Psychiatric Psychiatric: other (Much more alert) - Constitutional Vitals: Temp Pulse Resp BP Pulse Ox 98.7 F 74 18 137/68 98 06/29/21 05:05 06/29/21 10:48 06/29/21 05:05 06/29/21 10:48 06/29/21 08:48 General appearance: Present: no acute distress, well-nourished Results - Labs CBC & Chem 7: 06/29/21 08:16 06/29/21 08:16 Labs: Laboratory Last Values WBC 20.4 K/mm3 (4.5-11.0) H 06/29/21 08:16 RBC 4.01 M/mm3 (3.65-5.03) 06/29/21 08:16 Hgb 10.7 gm/dl (10.1-14.3) 06/29/21 08:16 Hct 33.0 % (30.3-42.9) 06/29/21 08:16 MCV 82 fl (79-97) 06/29/21 08:16 MCH 27 pg (28-32) L 06/29/21 08:16 MCHC 32 % (30-34) 06/29/21 08:16 RDW 15.8 % (13.2-15.2) H 06/29/21 08:16 Plt Count 294 K/mm3 (140-440) 06/29/21 08:16 Lymph % (Auto) 3.5 % (13.4-35.0) L 06/21/21 20:39 Camp % (Auto) 6.0 % (0.0-7.3) 06/21/21 20:39 Eos % (Auto) 0.3 % (0.0-4.3) 06/21/21 20:39 Baso % (Auto) 0.2 % (0.0-1.8) 06/21/21 20:39 Lymph # (Auto) 0.6 K/mm3 (1.2-5.4) L 06/21/21 20:39 Camp # (Auto) 1.1 K/mm3 (0.0-0.8) H 06/21/21 20:39 Eos # (Auto) 0.1 K/mm3 (0.0-0.4) 06/21/21 20:39 Baso # (Auto) 0.0 K/mm3 (0.0-0.1) 06/21/21 20:39 Add Manual Diff Complete 06/28/21 06:24 Total Counted 100 06/28/21 06:24 Seg Neutrophils % Well Testing Operator 06/25/21 05:10 Seg Neuts % (Manual) 89.0 % (40.0-70.0) H 06/28/21 06:24 Band Neutrophils % 1.0 % 06/26/21 05:48 Lymphocytes % (Manual) 3.0 % (13.4-35.0) L 06/28/21 06:24 Reactive Lymphs % (Man) 1.0 % 06/26/21 05:48 Monocytes % (Manual) 7.0 % (0.0-7.3) 06/28/21 06:24 Metamyelocytes % 1.0 % 06/28/21 06:24 Myelocytes % 1.0 % 06/27/21 07:23 Nucleated RBC % Not Reportable 06/28/21 06:24 Seg Neutrophils # 15.9 K/mm3 (1.8-7.7) H 06/21/21 20:39 Seg Neutrophils # Man 19.1 K/mm3 (1.8-7.7) H 06/28/21 06:24 Band Neutrophils # 0.0 K/mm3 06/28/21 06:24 Lymphocytes # (Manual) 0.6 K/mm3 (1.2-5.4) L 06/28/21 06:24 Abs React Lymphs (Man) 0.0 K/mm3 06/28/21 06:24 Monocytes # (Manual) 1.5 K/mm3 (0.0-0.8) H 06/28/21 06:24 Eosinophils # (Manual) 0.0 K/mm3 (0.0-0.4) 06/28/21 06:24 Basophils # (Manual) 0.0 K/mm3 (0.0-0.1) 06/28/21 06:24 Metamyelocytes # 0.2 K/mm3 06/28/21 06:24 Myelocytes # 0.0 K/mm3 06/28/21 06:24 Promyelocytes # 0.0 K/mm3 06/28/21 06:24 Blast Cells # 0.0 K/mm3 06/28/21 06:24 WBC Morphology Not Reportable 06/28/21 06:24 Hypersegmented Neuts Not Reportable 06/28/21 06:24 Hyposegmented Neuts Not Reportable 06/28/21 06:24 Hypogranular Neuts Not Reportable 06/28/21 06:24 Smudge Cells Not Reportable 06/28/21 06:24 Toxic Granulation Not Reportable 06/28/21 06:24 Toxic Vacuolation Not Reportable 06/28/21 06:24 Dohle Bodies Not Reportable 06/28/21 06:24 Pelger-Huet Anomaly Not Reportable 06/28/21 06:24 Helen Rods Not Reportable 06/28/21 06:24 Platelet Estimate Consistent w auto 06/28/21 06:24 Clumped Platelets Not Reportable 06/28/21 06:24 Plt Clumps, EDTA Not Reportable 06/28/21 06:24 Large Platelets Few 06/28/21 06:24 Giant Platelets Not Reportable 06/28/21 06:24 Platelet Satelliting Not Reportable 06/28/21 06:24 Plt Morphology Comment Not Reportable 06/28/21 06:24 RBC Morphology Not Reportable 06/28/21 06:24 Dimorphic RBCs Not Reportable 06/28/21 06:24 Polychromasia Not Reportable 06/28/21 06:24 Hypochromasia Not Reportable 06/28/21 06:24 Poikilocytosis 1+ 06/28/21 06:24 Anisocytosis 1+ 06/28/21 06:24 Microcytosis Not Reportable 06/28/21 06:24 Macrocytosis Not Reportable 06/28/21 06:24 Spherocytes Not Reportable 06/28/21 06:24 Pappenheimer Bodies Not Reportable 06/28/21 06:24 Sickle Cells Not Reportable 06/28/21 06:24 Target Cells Not Reportable 06/28/21 06:24 Tear Drop Cells Not Reportable 06/28/21 06:24 Ovalocytes Few 06/28/21 06:24 Helmet Cells Not Reportable 06/28/21 06:24 [place] Bodies Not Reportable 06/28/21 06:24 [place] Rings Not Reportable 06/28/21 06:24 Ni Cells 1+ 06/28/21 06:24 Bite Cells Not Reportable 06/28/21 06:24 Crenated Cell Not Reportable 06/28/21 06:24 Elliptocytes Not Reportable 06/28/21 06:24 Acanthocytes (Spur) Not Reportable 06/28/21 06:24 Rouleaux Not Reportable 06/28/21 06:24 Hemoglobin C Crystals Not Reportable 06/28/21 06:24 Schistocytes Rare 06/28/21 06:24 Malaria parasites Not Reportable 06/28/21 06:24 Blayne Bodies Not Reportable 06/28/21 06:24 Hem Pathologist Commnt No 06/28/21 06:24 D-Dimer 4489.63 ng/mlDDU (0-234) H 06/26/21 05:48 Sodium 141 mmol/L (137-145) 06/29/21 08:16 Potassium 4.7 mmol/L (3.6-5.0) 06/29/21 08:16 Chloride 106.0 mmol/L (98-107) 06/29/21 08:16 Carbon Dioxide 29 mmol/L (22-30) 06/29/21 08:16 Anion Gap 11 mmol/L 06/29/21 08:16 BUN 21 mg/dL (7-17) H 06/29/21 08:16 Creatinine 0.6 mg/dL (0.6-1.2) 06/29/21 08:16 Estimated GFR > 60 ml/min 06/29/21 08:16 BUN/Creatinine Ratio 35 % 06/29/21 08:16 Glucose 140 mg/dL (65-100) H 06/29/21 08:16 POC Glucose 163 mg/dL (70-105) H 06/29/21 07:50 Lactic Acid 1.20 mmol/L (0.7-2.0) 06/22/21 05:06 Calcium 9.8 mg/dL (8.4-10.2) 06/29/21 08:16 Phosphorus 3.00 mg/dL (2.5-4.5) 06/27/21 07:23 Ferritin 281.5 ng/mL (10.0-200.0) H 06/26/21 05:48 Total Bilirubin 0.50 mg/dL (0.1-1.2) 06/27/21 07:23 Direct Bilirubin 0.7 mg/dL (0-0.2) H 06/21/21 20:39 Indirect Bilirubin 0.3 mg/dL 06/21/21 20:39 AST 67 units/L (5-40) H 06/27/21 07:23 ALT 85 units/L (7-56) H 06/27/21 07:23 Alkaline Phosphatase 91 units/L (35-129) 06/27/21 07:23 Total Creatine Kinase 1066 units/L (30-135) H 06/23/21 17:57 C-Reactive Protein 1.40 mg/dL (0.00-1.30) H 06/26/21 05:48 Total Protein 5.1 g/dL (6.3-8.2) L 06/27/21 07:23 Albumin 2.4 g/dL (3.9-5) L 06/27/21 07:23 Albumin/Globulin Ratio 0.9 % 06/27/21 07:23 Procalcitonin 0.60 ng/mL (<0.15) 06/25/21 05:10 Urine Color Yellow (Yellow) 06/22/21 13:45 Urine Turbidity Clear (Clear) 06/22/21 13:45 Urine pH 5.0 (5.0-7.0) 06/22/21 13:45 Ur Specific [place] 1.013 (1.003-1.030) 06/22/21 13:45 Urine Protein 100 mg/dl mg/dL (Negative) 06/22/21 13:45 Urine Glucose (UA) Neg mg/dL (Negative) 06/22/21 13:45 Urine Ketones Neg mg/dL (Negative) 06/22/21 13:45 Urine Blood Lg (Negative) 06/22/21 13:45 Urine Nitrite Pos (Negative) 06/22/21 13:45 Urine Bilirubin Neg (Negative) 06/22/21 13:45 Urine Urobilinogen < 2.0 mg/dL (<2.0) 06/22/21 13:45 Ur Leukocyte Esterase Neg (Negative) 06/22/21 13:45 Urine WBC (Auto) 1.0 /HPF (0.0-6.0) 06/22/21 13:45 Urine RBC (Auto) 5.0 /HPF (0.0-6.0) 06/22/21 13:45 U Epithel Cells (Auto) < 1.0 /HPF (0-13.0) 06/22/21 13:45 Urine Bacteria (Auto) 3+ /HPF (Negative) 06/22/21 13:45 Urine Mucus Few /HPF 06/22/21 13:45 Urine Creatinine 52.2 mg/dL (0.1-20.0) H 06/22/21 13:45 Urine Creatinine 52.9 mg/dL (0.1-20.0) H 06/22/21 13:45 Protein/Creatinin Ratio 1.15 06/22/21 13:45 Urine Sodium 122 mmol/L 06/22/21 13:45 Urine Total Protein 61 mg/dL (5-11.8) H 06/22/21 13:45 Nasal Screen MRSA (PCR) Negative (Negative) 06/22/21 04:45 Coronavirus (PCR) Positive (Negative) A 06/28/21 Unknown Blood Type O POSITIVE 06/22/21 05:06 Antibody Screen Negative 06/22/21 05:06 Robbins/IV: Voiding Method External Female Catheter Active Medications - Current Medications Current Medications: Generic Name Dose Route Start Last Admin Trade Name Freq PRN Reason Stop Dose Admin Acetaminophen 650 mg 06/22/21 01:32 Acetaminophen 325 Mg Tab PO Q4H PRN Pain MILD(1-3)/Fever >100.5/MCGRAW Albuterol 2 puff 06/24/21 02:07 Albuterol 8.5 Gm Mdi Inhalation IH Q4HRT PRN Shortness Of Breath Albuterol/Ipratropium 1 ampul 06/27/21 08:00 06/29/21 08:48 Ipratropium/Albuterol Sulfate 3 Ml Ampul.Neb IH Not Given TIDRT FEDERICO Dexamethasone 6 mg 06/23/21 13:00 06/29/21 10:17 Dexamethasone 4 Mg/Ml Vial IV 07/03/21 12:59 6 mg DAILY FEDERICO Administration Dextrose 50 ml 06/22/21 17:15 Dextrose 50% In Water (25gm) 50 Ml Syringe IV Q30MIN PRN Hypoglycemia Protocol Famotidine 20 mg 06/29/21 10:00 06/29/21 10:17 Famotidine 20 Mg Tab PO 20 mg DAILY FEDERICO Administration Heparin Sodium (Porcine) 5,000 unit 06/22/21 10:00 06/29/21 10:17 Heparin 5,000 Unit/1 Ml Vial SUB-Q 5,000 unit Q12HR FEDERICO Administration Hydralazine HCl 10 mg 06/25/21 02:16 06/29/21 05:11 Hydralazine 20 Mg/1 Ml Inj IV 10 mg Q6HR PRN Administration Hypertension Hydromorphone HCl 0.25 mg 06/22/21 01:32 Hydromorphone 1 Mg/1 Ml Inj IV Q4H PRN Pain, Moderate (4-6) Hydromorphone HCl 0.5 mg 06/22/21 01:32 Hydromorphone 1 Mg/1 Ml Inj IV Q3H PRN Pain , Severe (7-10) Insulin Glargine 20 units 06/28/21 22:00 06/28/21 22:46 Insulin Glargine 100 Units/Ml SUB-Q 20 units QHS FEDERICO Administration Insulin Human Lispro 0 unit 06/22/21 18:00 06/29/21 05:16 Insulin Lispro 100 Unit/Ml SUB-Q 1 unit Q6HR FEDERICO Administration Protocol Metoprolol Tartrate 12.5 mg 06/27/21 22:00 06/29/21 10:48 Metoprolol Tartrate 25 Mg Tab PO 12.5 mg BID FEDERICO Administration Ondansetron HCl 4 mg 06/22/21 01:32 06/29/21 11:10 Ondansetron 4 Mg/2 Ml Inj IV 4 mg Q8H PRN Administration Nausea And Vomiting Oxycodone/Acetaminophen 1 tab 06/22/21 01:32 Oxycodone /Acetaminophen 5-325mg Tab PO Q6H PRN Pain, Moderate (4-6) Sodium Chloride 10 ml 06/22/21 10:00 06/29/21 10:18 Sodium Chloride 0.9% 10 Ml Flush Syringe IV 10 ml BID FEDERICO Administration Sodium Chloride 10 ml 06/22/21 01:32 Sodium Chloride 0.9% 10 Ml Flush Syringe IV PRN PRN LINE FLUSH Nutrition/Malnutrition Assess - Dietary Evaluation Nutrition/Malnutrition Findings: Nutrition Notes Start: 06/22/21 12:10 Freq: Status: Active Protocol: Document 06/28/21 16:44 MANISHA (Rec: 06/28/21 16:47 MANISHA [id number]) Nutrition Notes Initial or Follow up Brief Note Subjective/Other Information Unable to speak to pt or her RN today. Pt awaiting placement. Nutrition Intervention Follow-Up By: 06/30/21 Additional Comments F/U: intakes (meals/ONS)
[2021-06-29 11:37] LABS: Total Cells Counted 100
[2021-06-29 11:38] LABS: Poikilocytosis 1+
[2021-06-29 11:39] LABS: Burr Cells 1+; Ovalocytes Few; Schistocytes Rare
[2021-06-29 11:40] LABS: Large Platelets Rare; Platelet Estimate Cons
[2021-06-29] MEDS ORDERED: LIPASE 10,500/PROTEASE 25,000/AMYLASE 43,750 (UNITS) DR CAP FEEDTUBE PRN (13:00)
[2021-06-29] MEDS ORDERED: SIMPLE SYRUP 15 ML FEEDTUBE PRN ×2 (13:00)
[2021-06-29] MEDS ORDERED: SODIUM BICARBONATE 325 MG TAB FEEDTUBE PRN (13:30)
--- NOTE | 2021-06-29 13:58 | Gastroenterology Consultation ---
History of Present Illness - Reason for Consult Consult date: 06/29/21 PEG Requesting physician: ROSANNA RIDLEY - History of Present Illness Patient encephalopathic not answering questions I tried calling the patient's granddaughter at [phone] and no one picked up Therefore history obtained from chart and from nurse In brief patient came in with Covid infection starting to recover however her mental status is not recovering and she is not eating nurse that she barely ate a little bit of applesauce today therefore GI is consulted for PEG tube No known surgical history abdomen without any scars to indicate prior surgeries Obtained/updated/reviewed patient's current medications Past History Past Medical History: COPD, diabetes, other (Dementia) Past Surgical History: Other (No known surgical history) Social history: other (No known social history) Family history: other (No known family history) Medications and Allergies Allergies Allergy/AdvReac Type Severity Reaction Status Date / Time No Known Allergies Allergy Verified 01/30/17 08:52 Home Medications Medication Instructions Recorded Confirmed Last Taken Type Albuterol Sulfate [Ventolin HFA] 2 puff IH Q4H PRN #1 [email or web address] 01/30/17 06/22/21 Unknown Rx Apixaban [Eliquis] 2.5 mg PO BID #20 tablet 06/26/21 Unknown Rx Ascorbic Acid [Vitamin C] 1,000 mg PO DAILY #30 tablet 06/26/21 Unknown Rx Cholecalciferol (Vitamin D3) 5,000 unit PO DAILY #30 tablet 06/26/21 Unknown Rx [Vitamin D3] Ipratropium/Albuterol Sulfate 1 ampul IH Q6HRT #90 ampul.neb 06/26/21 Unknown Rx [DUONEB *Not for PRN Use*] Zinc Sulfate 220 mg PO DAILY #30 capsule 06/26/21 Unknown Rx dexAMETHasone [Dexamethasone] 6 mg PO DAILY #6 tablet 06/26/21 Unknown Rx Active Meds: Active Medications Acetaminophen (Acetaminophen 325 Mg Tab) 650 mg PO Q4H PRN PRN Reason: Pain MILD(1-3)/Fever >100.5/MCGRAW Albuterol (Albuterol 8.5 Gm Mdi Inhalation) 2 puff IH Q4HRT PRN PRN Reason: Shortness Of Breath Albuterol/Ipratropium (Ipratropium/Albuterol Sulfate 3 Ml Ampul.Neb) 1 ampul IH TIDRT [facility] Last Admin: 06/29/21 13:42 Dose: Not Given Documented by: Lipase/Protease/Amylase (Lipase 10,500/Protease 25,000/Amylase 43,750 (Units) Dr Rouse) 1 each FEEDTUBE PRN PRN PRN Reason: For Clogged Feeding Tube Dexamethasone (Dexamethasone 4 Mg/Ml Vial) 6 mg IV DAILY [facility] Stop: 07/03/21 12:59 Last Admin: 06/29/21 10:17 Dose: 6 mg Documented by: Dextrose (Dextrose 50% In Water (25gm) 50 Ml Syringe) 50 ml IV Q30MIN PRN; Protocol PRN Reason: Hypoglycemia Famotidine (Famotidine 20 Mg Tab) 20 mg PO DAILY [facility] Last Admin: 06/29/21 10:17 Dose: 20 mg Documented by: Heparin Sodium (Porcine) (Heparin 5,000 Unit/1 Ml Vial) 5,000 unit SUB-Q Q12HR [facility] Last Admin: 06/29/21 10:17 Dose: 5,000 unit Documented by: Hydralazine HCl (Hydralazine 20 Mg/1 Ml Inj) 10 mg IV Q6HR PRN PRN Reason: Hypertension Last Admin: 06/29/21 05:11 Dose: 10 mg Documented by: Hydromorphone HCl (Hydromorphone 1 Mg/1 Ml Inj) 0.25 mg IV Q4H PRN PRN Reason: Pain, Moderate (4-6) Hydromorphone HCl (Hydromorphone 1 Mg/1 Ml Inj) 0.5 mg IV Q3H PRN PRN Reason: Pain , Severe (7-10) Insulin Glargine (Insulin Glargine 100 Units/Ml) 20 units SUB-Q QHS [facility] Last Admin: 06/28/21 22:46 Dose: 20 units Documented by: Insulin Human Lispro (Insulin Lispro 100 Unit/Ml) 0 unit SUB-Q Q6HR [facility]; Protocol Last Admin: 06/29/21 05:16 Dose: 1 unit Documented by: Metoprolol Tartrate (Metoprolol Tartrate 25 Mg Tab) 12.5 mg PO BID [facility] Last Admin: 06/29/21 10:48 Dose: 12.5 mg Documented by: Ondansetron HCl (Ondansetron 4 Mg/2 Ml Inj) 4 mg IV Q8H PRN PRN Reason: Nausea And Vomiting Last Admin: 06/29/21 11:10 Dose: 4 mg Documented by: Oxycodone/Acetaminophen (Oxycodone /Acetaminophen 5-325mg Tab) 1 tab PO Q6H PRN PRN Reason: Pain, Moderate (4-6) Simple Syrup (Simple Syrup 15 Ml) 15 ml FEEDTUBE PRN PRN PRN Reason: Hypoglycemia Simple Syrup (Simple Syrup 15 Ml) 30 ml FEEDTUBE PRN PRN PRN Reason: Hypoglycemia Sodium Bicarbonate (Sodium Bicarbonate 325 Mg Tab) 325 mg FEEDTUBE PRN PRN PRN Reason: For Clogged Feeding Tube Sodium Chloride (Sodium Chloride 0.9% 10 Ml Flush Syringe) 10 ml IV BID [place] Last Admin: 06/29/21 10:18 Dose: 10 ml Documented by: Sodium Chloride (Sodium Chloride 0.9% 10 Ml Flush Syringe) 10 ml IV PRN PRN PRN Reason: LINE FLUSH Review of Systems - Review of Systems ROS unobtainable: due to mental status Exam - Constitutional Vital Signs: Temp Pulse Resp BP Pulse Ox 98.7 F 74 18 137/68 98 06/29/21 05:05 06/29/21 10:48 06/29/21 05:05 06/29/21 10:48 06/29/21 08:48 General appearance: no acute distress - EENT Eyes: other (No scleral icterus) ENT: hearing intact - Neck Neck: supple - Respiratory Respiratory effort: normal - Cardiovascular Rhythm: regular - Gastrointestinal General gastrointestinal: Present: soft, normal bowel sounds - Integumentary Integumentary: Present: dry - Musculoskeletal Musculoskeletal: normal - Neurologic Neurological: disoriented - Psychiatric Psychiatric: depressed - Labs CBC & Chem 7: 06/29/21 08:16 06/29/21 08:16 Lab Results: Laboratory Results - last 24 hr 06/28/21 06/28/21 06/28/21 06:24 17:11 21:48 WBC RBC Hgb Hct MCV MCH MCHC RDW Plt Count Add Manual Diff Complete Total Counted 100 Seg Neuts % (Manual) 89.0 H Lymphocytes % (Manual) 3.0 L Monocytes % (Manual) 7.0 Metamyelocytes % 1.0 Nucleated RBC % Not Reportable Seg Neutrophils # Man 19.1 H Band Neutrophils # 0.0 Lymphocytes # (Manual) 0.6 L Abs React Lymphs (Man) 0.0 Monocytes # (Manual) 1.5 H Eosinophils # (Manual) 0.0 Basophils # (Manual) 0.0 Metamyelocytes # 0.2 Myelocytes # 0.0 Promyelocytes # 0.0 Blast Cells # 0.0 WBC Morphology Not Reportable Hypersegmented Neuts Not Reportable Hyposegmented Neuts Not Reportable Hypogranular Neuts Not Reportable Smudge Cells Not Reportable Toxic Granulation Not Reportable Toxic Vacuolation Not Reportable Dohle Bodies Not Reportable Pelger-Huet Anomaly Not Reportable Helen Rods Not Reportable Platelet Estimate Consistent w auto Clumped Platelets Not Reportable Plt Clumps, EDTA Not Reportable Large Platelets Few Giant Platelets Not Reportable Platelet Satelliting Not Reportable Plt Morphology Comment Not Reportable RBC Morphology Not Reportable Dimorphic RBCs Not Reportable Polychromasia Not Reportable Hypochromasia Not Reportable Poikilocytosis 1+ Anisocytosis 1+ Microcytosis Not Reportable Macrocytosis Not Reportable Spherocytes Not Reportable Pappenheimer Bodies Not Reportable Sickle Cells Not Reportable Target Cells Not Reportable Tear Drop Cells Not Reportable Ovalocytes Few Helmet Cells Not Reportable [place] Line Bodies Not Reportable [place] Rings Not Reportable [place] Cells 1+ Bite Cells Not Reportable Crenated Cell Not Reportable Elliptocytes Not Reportable Acanthocytes (Spur) Not Reportable Rouleaux Not Reportable Hemoglobin C Crystals Not Reportable Schistocytes Rare Malaria parasites Not Reportable Blayne Bodies Not Reportable Hem Pathologist Commnt No Sodium Potassium Chloride Carbon Dioxide Anion Gap BUN Creatinine Estimated GFR BUN/Creatinine Ratio Glucose POC Glucose 105 216 H Calcium Coronavirus (PCR) 06/28/21 06/29/21 06/29/21 Unknown 04:56 07:50 WBC RBC Hgb Hct MCV MCH MCHC RDW Plt Count Add Manual Diff Total Counted Seg Neuts % (Manual) Lymphocytes % (Manual) Monocytes % (Manual) Metamyelocytes % Nucleated RBC % Seg Neutrophils # Man Band Neutrophils # Lymphocytes # (Manual) Abs React Lymphs (Man) Monocytes # (Manual) Eosinophils # (Manual) Basophils # (Manual) Metamyelocytes # Myelocytes # Promyelocytes # Blast Cells # WBC Morphology Hypersegmented Neuts Hyposegmented Neuts Hypogranular Neuts Smudge Cells Toxic Granulation Toxic Vacuolation Dohle Bodies Pelger-Huet Anomaly Helen Rods Platelet Estimate Clumped Platelets Plt Clumps, EDTA Large Platelets Giant Platelets Platelet Satelliting Plt Morphology Comment RBC Morphology Dimorphic RBCs Polychromasia Hypochromasia Poikilocytosis Anisocytosis Microcytosis Macrocytosis Spherocytes Pappenheimer Bodies Sickle Cells Target Cells Tear Drop Cells Ovalocytes Helmet Cells [place] Line Bodies [place] Rings [place] Cells Bite Cells Crenated Cell Elliptocytes Acanthocytes (Spur) Rouleaux Hemoglobin C Crystals Schistocytes Malaria parasites Blayne Bodies Hem Pathologist Commnt Sodium Potassium Chloride Carbon Dioxide Anion Gap BUN Creatinine Estimated GFR BUN/Creatinine Ratio Glucose POC Glucose 196 H 163 H Calcium Coronavirus (PCR) Positive A 06/29/21 06/29/21 06/29/21 08:16 08:16 12:15 WBC 20.4 H RBC 4.01 Hgb 10.7 Hct 33.0 MCV 82 MCH 27 L MCHC 32 RDW 15.8 H Plt Count 294 Add Manual Diff Complete Total Counted 100 Seg Neuts % (Manual) 96.0 H Lymphocytes % (Manual) 4.0 L Monocytes % (Manual) Metamyelocytes % Nucleated RBC % Not Reportable Seg Neutrophils # Man 19.6 H Band Neutrophils # 0.0 Lymphocytes # (Manual) 0.8 L Abs React Lymphs (Man) 0.0 Monocytes # (Manual) 0.0 Eosinophils # (Manual) 0.0 Basophils # (Manual) 0.0 Metamyelocytes # 0.0 Myelocytes # 0.0 Promyelocytes # 0.0 Blast Cells # 0.0 WBC Morphology Not Reportable Hypersegmented Neuts Not Reportable Hyposegmented Neuts Not Reportable Hypogranular Neuts Not Reportable Smudge Cells Not Reportable Toxic Granulation Not Reportable Toxic Vacuolation Not Reportable Dohle Bodies Not Reportable Pelger-Huet Anomaly Not Reportable Helen Rods Not Reportable Platelet Estimate Cons Clumped Platelets Not Reportable Plt Clumps, EDTA Not Reportable Large Platelets Rare Giant Platelets Not Reportable Platelet Satelliting Not Reportable Plt Morphology Comment Not Reportable RBC Morphology Not Reportable Dimorphic RBCs Not Reportable Polychromasia Not Reportable Hypochromasia Not Reportable Poikilocytosis 1+ Anisocytosis Not Reportable Microcytosis Not Reportable Macrocytosis Not Reportable Spherocytes Not Reportable Pappenheimer Bodies Not Reportable Sickle Cells Not Reportable Target Cells Not Reportable Tear Drop Cells Not Reportable Ovalocytes Few Helmet Cells Not Reportable [place] Line Bodies Not Reportable [place] Rings Not Reportable [place] Cells 1+ Bite Cells Not Reportable Crenated Cell Not Reportable Elliptocytes Not Reportable Acanthocytes (Spur) Not Reportable Rouleaux Not Reportable Hemoglobin C Crystals Not Reportable Schistocytes Rare Malaria parasites Not Reportable Blayne Bodies Not Reportable Hem Pathologist Commnt No Sodium 141 Potassium 4.7 Chloride 106.0 Carbon Dioxide 29 Anion Gap 11 BUN 21 H Creatinine 0.6 Estimated GFR > 60 BUN/Creatinine Ratio 35 Glucose 140 H POC Glucose 165 H Calcium 9.8 Coronavirus (PCR) Assessment and Plan Per staffing patient is mental status not improving she is not eating therefore she requires options for long-term nutrition Tried calling granddaughter (as apparently patient's daughter is in the [facility] with Covid and just had a stroke) We can tentatively plan on placing a PEG tube tomorrow pending consent - Patient Problems (1) Failure to thrive Current Visit: Yes Status: Acute (2) Acute metabolic encephalopathy Current Visit: Yes Status: Acute
[2021-06-29] MEDS: INSULIN GLARGINE 100 UNITS/ML SUB-Q SCH (22:50)
[2021-06-30] MEDS: INSULIN LISPRO 100 UNIT/ML SUB-Q SCH ×4 (00:19→19:03)
[2021-06-30 05:42] LABS: Hemoglobin 11.7 gm/dl (10.1-14.3); Mean Corpuscular HGB Conc 32 % (30-34); Mean Corpuscular Volume 81 fl (79-97); Platelet Count 345 K/mm3 (140-440); Red Blood Count 4.55 M/mm3 (3.65-5.03); Red Cell Distribution Width 15.9 % (13.2-15.2)
[2021-06-30 05:50] LABS: Blood Urea Nitrogen 23 mg/dL (7-17); Calcium 10.3 mg/dL (8.4-10.2); Hemolysis Index 23
[2021-06-30 05:51] LABS: BUN/Creatinine Ratio 38
[2021-06-30 06:50] LABS: Band Neutrophils # (Manual) 0.4 K/mm3; Total Cells Counted 100
[2021-06-30 06:51] LABS: Anisocytosis 1+; Burr Cells 1+; Hypochromasia 1+; Poikilocytosis 1+
[2021-06-30 06:52] LABS: Platelet Estimate Consistent w Auto
[2021-06-30] MEDS: hydrALAZINE 20 MG/1 ML INJ IV PRN (07:08)
--- NOTE | 2021-06-30 08:24 | Gastroenterology Progress Note ---
Assessment and Plan Per staffing patient is mental status not improving she is not eating therefore she requires options for long-term nutrition Tried calling granddaughter multiple times without success (as apparently patient's daughter is in the hospital with Covid and just had a stroke) I can place the PEG today if I can get in touch with family for consent - Patient Problems (1) Failure to thrive Current Visit: Yes Status: Acute (2) Acute metabolic encephalopathy Current Visit: Yes Status: Acute Subjective Date of service: 06/30/21 Principal diagnosis: Sepsis Interval history: Pt not answering questions I tried multiple times to contact family yesterday for consent for PEG but have not yet been successful Objective - Constitutional Vitals: Temp Pulse Resp BP Pulse Ox 97.9 F 82 20 195/87 96 06/30/21 04:19 06/29/21 22:49 06/30/21 04:19 06/30/21 07:08 06/30/21 01:00 General appearance: no acute distress - Labs CBC & Chem 7: 06/30/21 05:04 06/30/21 05:04 Labs: Laboratory Results - last 24 hr 06/29/21 06/29/21 06/29/21 08:16 08:16 12:15 WBC 20.4 H RBC 4.01 Hgb 10.7 Hct 33.0 MCV 82 MCH 27 L MCHC 32 RDW 15.8 H Plt Count 294 Add Manual Diff Complete Total Counted 100 Seg Neuts % (Manual) 96.0 H Band Neutrophils % Lymphocytes % (Manual) 4.0 L Monocytes % (Manual) Nucleated RBC % Not Reportable Seg Neutrophils # Man 19.6 H Band Neutrophils # 0.0 Lymphocytes # (Manual) 0.8 L Abs React Lymphs (Man) 0.0 Monocytes # (Manual) 0.0 Eosinophils # (Manual) 0.0 Basophils # (Manual) 0.0 Metamyelocytes # 0.0 Myelocytes # 0.0 Promyelocytes # 0.0 Blast Cells # 0.0 WBC Morphology Not Reportable Hypersegmented Neuts Not Reportable Hyposegmented Neuts Not Reportable Hypogranular Neuts Not Reportable Smudge Cells Not Reportable Toxic Granulation Not Reportable Toxic Vacuolation Not Reportable Dohle Bodies Not Reportable Pelger-Huet Anomaly Not Reportable Helen Rods Not Reportable Platelet Estimate Cons Clumped Platelets Not Reportable Plt Clumps, EDTA Not Reportable Large Platelets Rare Giant Platelets Not Reportable Platelet Satelliting Not Reportable Plt Morphology Comment Not Reportable RBC Morphology Not Reportable Dimorphic RBCs Not Reportable Polychromasia Not Reportable Hypochromasia Not Reportable Poikilocytosis 1+ Anisocytosis Not Reportable Microcytosis Not Reportable Macrocytosis Not Reportable Spherocytes Not Reportable Pappenheimer Bodies Not Reportable Sickle Cells Not Reportable Target Cells Not Reportable Tear Drop Cells Not Reportable Ovalocytes Few Helmet Cells Not Reportable [place] Bodies Not Reportable [place] Rings Not Reportable [place] Cells 1+ Bite Cells Not Reportable Crenated Cell Not Reportable Elliptocytes Not Reportable Acanthocytes (Spur) Not Reportable Rouleaux Not Reportable Hemoglobin C Crystals Not Reportable Schistocytes Rare Malaria parasites Not Reportable Blayne Bodies Not Reportable Hem Pathologist Commnt No Heparin Anti-Xa Level Sodium 141 Potassium 4.7 Chloride 106.0 Carbon Dioxide 29 Anion Gap 11 BUN 21 H Creatinine 0.6 Estimated GFR > 60 BUN/Creatinine Ratio 35 Glucose 140 H POC Glucose 165 H Calcium 9.8 06/29/21 06/30/21 06/30/21 16:40 00:09 05:03 WBC RBC Hgb Hct MCV MCH MCHC RDW Plt Count Add Manual Diff Total Counted Seg Neuts % (Manual) Band Neutrophils % Lymphocytes % (Manual) Monocytes % (Manual) Nucleated RBC % Seg Neutrophils # Man Band Neutrophils # Lymphocytes # (Manual) Abs React Lymphs (Man) Monocytes # (Manual) Eosinophils # (Manual) Basophils # (Manual) Metamyelocytes # Myelocytes # Promyelocytes # Blast Cells # WBC Morphology Hypersegmented Neuts Hyposegmented Neuts Hypogranular Neuts Smudge Cells Toxic Granulation Toxic Vacuolation Dohle Bodies Pelger-Huet Anomaly Helen Rods Platelet Estimate Clumped Platelets Plt Clumps, EDTA Large Platelets Giant Platelets Platelet Satelliting Plt Morphology Comment RBC Morphology Dimorphic RBCs Polychromasia Hypochromasia Poikilocytosis Anisocytosis Microcytosis Macrocytosis Spherocytes Pappenheimer Bodies Sickle Cells Target Cells Tear Drop Cells Ovalocytes Helmet Cells [place] Bodies [place] Rings [place] Cells Bite Cells Crenated Cell Elliptocytes Acanthocytes (Spur) Rouleaux Hemoglobin C Crystals Schistocytes Malaria parasites Blayne Bodies Hem Pathologist Commnt Heparin Anti-Xa Level < 0.10 L Sodium Potassium Chloride Carbon Dioxide Anion Gap BUN Creatinine Estimated GFR BUN/Creatinine Ratio Glucose POC Glucose 175 H 157 H Calcium 06/30/21 06/30/21 06/30/21 05:04 05:04 05:38 WBC 19.4 H RBC 4.55 Hgb 11.7 Hct 37.0 MCV 81 MCH 26 L MCHC 32 RDW 15.9 H Plt Count 345 Add Manual Diff Complete Total Counted 100 Seg Neuts % (Manual) 90.0 H Band Neutrophils % 2.0 Lymphocytes % (Manual) 5.0 L Monocytes % (Manual) 3.0 Nucleated RBC % Not Reportable Seg Neutrophils # Man 17.5 H Band Neutrophils # 0.4 Lymphocytes # (Manual) 1.0 L Abs React Lymphs (Man) 0.0 Monocytes # (Manual) 0.6 Eosinophils # (Manual) 0.0 Basophils # (Manual) 0.0 Metamyelocytes # 0.0 Myelocytes # 0.0 Promyelocytes # 0.0 Blast Cells # 0.0 WBC Morphology Not Reportable Hypersegmented Neuts Not Reportable Hyposegmented Neuts Not Reportable Hypogranular Neuts Not Reportable Smudge Cells Not Reportable Toxic Granulation Not Reportable Toxic Vacuolation Not Reportable Dohle Bodies Not Reportable Pelger-Huet Anomaly Not Reportable Helen Rods Not Reportable Platelet Estimate Consistent w auto Clumped Platelets Not Reportable Plt Clumps, EDTA Not Reportable Large Platelets Not Reportable Giant Platelets Not Reportable Platelet Satelliting Not Reportable Plt Morphology Comment Not Reportable RBC Morphology Not Reportable Dimorphic RBCs Not Reportable Polychromasia Not Reportable Hypochromasia 1+ Poikilocytosis 1+ Anisocytosis 1+ Microcytosis Not Reportable Macrocytosis Not Reportable Spherocytes Not Reportable Pappenheimer Bodies Not Reportable Sickle Cells Not Reportable Target Cells Not Reportable Tear Drop Cells Not Reportable Ovalocytes Not Reportable Helmet Cells Not Reportable [place] Bodies Not Reportable [place] Rings Not Reportable [place] Cells 1+ Bite Cells Not Reportable Crenated Cell Not Reportable Elliptocytes Not Reportable Acanthocytes (Spur) Not Reportable Rouleaux Not Reportable Hemoglobin C Crystals Not Reportable Schistocytes Not Reportable Malaria parasites Not Reportable Blayne Bodies Not Reportable Hem Pathologist Commnt No Heparin Anti-Xa Level Sodium 142 Potassium 4.9 Chloride 103.2 Carbon Dioxide 31 H Anion Gap 13 BUN 23 H Creatinine 0.6 Estimated GFR > 60 BUN/Creatinine Ratio 38 Glucose 117 H POC Glucose 110 H Calcium 10.3 H 06/30/21 07:36 WBC RBC Hgb Hct MCV MCH MCHC RDW Plt Count Add Manual Diff Total Counted Seg Neuts % (Manual) Band Neutrophils % Lymphocytes % (Manual) Monocytes % (Manual) Nucleated RBC % Seg Neutrophils # Man Band Neutrophils # Lymphocytes # (Manual) Abs React Lymphs (Man) Monocytes # (Manual) Eosinophils # (Manual) Basophils # (Manual) Metamyelocytes # Myelocytes # Promyelocytes # Blast Cells # WBC Morphology Hypersegmented Neuts Hyposegmented Neuts Hypogranular Neuts Smudge Cells Toxic Granulation Toxic Vacuolation Dohle Bodies Pelger-Huet Anomaly Helen Rods Platelet Estimate Clumped Platelets Plt Clumps, EDTA Large Platelets Giant Platelets Platelet Satelliting Plt Morphology Comment RBC Morphology Dimorphic RBCs Polychromasia Hypochromasia Poikilocytosis Anisocytosis Microcytosis Macrocytosis Spherocytes Pappenheimer Bodies Sickle Cells Target Cells Tear Drop Cells Ovalocytes Helmet Cells [place] Bodies [place] Rings [place] Cells Bite Cells Crenated Cell Elliptocytes Acanthocytes (Spur) Rouleaux Hemoglobin C Crystals Schistocytes Malaria parasites Blayne Bodies Hem Pathologist Commnt Heparin Anti-Xa Level Sodium Potassium Chloride Carbon Dioxide Anion Gap BUN Creatinine Estimated GFR BUN/Creatinine Ratio Glucose POC Glucose 54 L Calcium
[2021-06-30] MEDS ORDERED: SODIUM CHLORIDE 0.9% 1000 ML 1,000 ML IV SCH (09:45)
[2021-06-30] MEDS ORDERED: ceFAZolin/Water 2 GM/20 ML 2 GM/20 ML SYRINGE IV NR (10:00)
[2021-06-30] MEDS: IPRATROPIUM/ALBUTEROL SULFATE 3 ML AMPUL.NEB IH SCH ×3 (12:27→20:40)
--- NOTE | 2021-06-30 13:50 | Progress Note ---
Assessment and Plan Assessment and plan: #1 severe sepsis secondary to bilateral [id number] pneumonia. Multiple sick contacts in the home environment. Seems to have improved with IV volume therapy. Patient stable with 3 L of O2. Resting comfortably. No longer tachypneic hypotensive or tachycardic. Will place patient on steroids de xamethasone. Questionable remdesivir until renal function has improved. Continue empiric antibiotics. ID consult. Follow inflammatory markers. No remdesivir secondary to renal function. Continue dexamethasone for 10 days. Contact Ana Rosa Arizmendi [phone] #2 acute renal failure. Secondary to prerenal azotemia not eating not drinking dehydration. Improving with follow-up chemistry obtain BMP a.m. #3 acute respiratory failure secondary to sepsis bilateral pneumonia Patient still maintained well with 3 L of oxygen. No change in O2. This is a good sign. Treat underlying etiology with antibiotics, supportive care. Steroids #4 diabetes mellitus will be more difficult control with addition of steroids placed patient sliding scale insulin advance as tolerated. We will add long-acting insulin. Especially since patient on steroids. Will increase long-acting insulin today. #5 rhabdomyolysis should respond to IV volume replacement. Would not be too aggressive since patient has Covid and would like to keep a little on dry side #6 hypertensive urgency. Will need to address patient's hypertension and tachycardia. Overall patient remains dry as evidenced by increased BUN/creatinine prerenal azotemia increase CPK. Much better since the addition of Lopressor. At present we will not increase fluids above 100 to 125 cc an hour in order not to worsen acute respiratory failure. Will be a very difficult balance but the risk outweigh the benefits of increasing fluids at this time. This can be fixed slowly. We will add Lopressor IV patient remains lethargic. #7 acute metabolic encephalopathy-patient not eating or drinking. Highly suspect Covid encephalopathy. Which would have caused underlying dementia to get worse. Patient should be able to eat today. CT scan head unremarkable. #8 hyponatremia patient started on D5 water. # 9: Failure to thrive #10 Covid pneumonia. ID following. Add dexamethasone. Subjective Date of service: 06/24/21 Principal diagnosis: Sepsis Interval history: Patient 80 years old with a history of dementia COPD presented to the ED with decreased responsiveness decreased p.o. intake x2 days fever 102. Patient also presented with tachycardia, tachypnea, hypoxemia. Patient had contact with family members with COVID-19. Patient presentation on radiograph consistent with bilateral pneumonia. Today subsequently patient positive for COVID-19. Currently stable with only 3 L nasal cannula. Patient encephalopathy has not improved much since baseline. 06/23/2021 patient remains altered today. A little more alert however remains encephalopathic. Patient SVT much improved since yesterday since suggesting gentle IV hydration plus amiodarone in addition to AV j carlos blocking agent. 06/24/2021. This is the first day patient much more responsive today. Will attempt to talk to you we will follow you with gaze. This is better than the previous 2 days.Tachycardia is also resolved. Requiring less oxygen wean as tolerated. 06/25: Patient seen and examined appears to be clinically improving. Discussed with nursing staff will obtain PT OT and home O2 evaluation. Anticipate discharge in a.m. if continues to improve will likely need home O2. Transfer to [facility] downgrade. 06/26: Patient clinically stable anticipate discharge home or to SNF today. Awaiting home O2 evaluation Case management is following. CTA angio and Doppler of lower extremity for VTE work-up done. Will recommend short-term low-dose anticoagulation even if negative of VTE at this time considering patient's elevated D-dimer levels and the Covid diagnosis. PT OT evaluation as fall precaution is imperative considering low-dose anticoagulation. Attempted to reach family unable. 06/27: Patient remains lethargic this morning. We will get a swallow evaluation done. Patient remains on 2 L of oxygen. Discussed with physical therapist she was not able to be participatory in any activity except sitting up at the bedside. Also discussed with her granddaughter today who tells me that the patient's daughter is currently in the ICU at [place] with Covid and a CVA. And that the patient has rapidly declined in the last 2+ weeks. She is agreeable with the recommendation of physical therapist for SNF at this time. Case management will be working on this. 06/28: Leukocytosis persist ?steroid induced, no new fever. will monitor. Awaiting placement. Discussed with case management today in rounds. 06/29: Patient continues to have poor p.o. intake. Repeated hypoglycemia. Discussed with family they are okay with patient getting a PEG tube to help with nutrition. Consult placed to boot and saddle repair person to assist with this. Patient is still pending placement. 8/6: Discussed with GI was able to get a hold of family will be proceeding with PEG placement today. Patient still pending placement. Following my examination discussed with nursing staff blood pressure was significantly elevated this morning not sure why there is no evidence of anxiety she did improve. Will monitor closely may need an additional blood pressure control medication. History Interval history: Patient seen and examined resting comfortably currently on 2 L of oxygen continues to show improvement. No new complaints, blood pressure was elevated. But denies this has improved.awaiting for documentation Hospitalist Physical - Physical exam Narrative exam: General appearance: Present: no acute distress, mild temporal wasting. Baseline dementia, much more awake today speaking. - EENT Eyes: PERRL, EOM intact ENT: hearing intact, clear oral mucosa Ears: bilateral: normal - Neck Neck: supple, normal ROM - Respiratory Respiratory effort: normal Respiratory: bilateral: diminished, rhonchi - Breasts Breasts: normal - Cardiovascular Rhythm: regular Heart Sounds: Present: S1 & S2. Absent: gallop, rub Extremities: pulses intact, No edema, normal color, Full ROM - Gastrointestinal General gastrointestinal: Present: soft, non-tender, non-distended, normal bowel sounds - Genitourinary Female genitourinary: normal - Integumentary Integumentary: clear, warm, dry - Musculoskeletal Musculoskeletal: 1, strength equal bilaterally, gait status unsure - Neurologic Neurologic: moves all extremities - Psychiatric Psychiatric: other (Much more alert) - Constitutional Vitals: Temp Pulse Resp BP Pulse Ox 97.9 F 87 20 195/87 98 06/30/21 04:19 06/30/21 12:27 06/30/21 12:27 06/30/21 07:08 06/30/21 10:00 General appearance: Present: no acute distress, well-nourished Results - Labs CBC & Chem 7: 06/30/21 05:04 06/30/21 05:04 Labs: Laboratory Last Values WBC 19.4 K/mm3 (4.5-11.0) H 06/30/21 05:04 RBC 4.55 M/mm3 (3.65-5.03) 06/30/21 05:04 Hgb 11.7 gm/dl (10.1-14.3) 06/30/21 05:04 Hct 37.0 % (30.3-42.9) 06/30/21 05:04 MCV 81 fl (79-97) 06/30/21 05:04 MCH 26 pg (28-32) L 06/30/21 05:04 MCHC 32 % (30-34) 06/30/21 05:04 RDW 15.9 % (13.2-15.2) H 06/30/21 05:04 Plt Count 345 K/mm3 (140-440) 06/30/21 05:04 Lymph % (Auto) 3.5 % (13.4-35.0) L 06/21/21 20:39 [place] % (Auto) 6.0 % (0.0-7.3) 06/21/21 20:39 Eos % (Auto) 0.3 % (0.0-4.3) 06/21/21 20:39 Baso % (Auto) 0.2 % (0.0-1.8) 06/21/21 20:39 Lymph # (Auto) 0.6 K/mm3 (1.2-5.4) L 06/21/21 20:39 [place] # (Auto) 1.1 K/mm3 (0.0-0.8) H 06/21/21 20:39 Eos # (Auto) 0.1 K/mm3 (0.0-0.4) 06/21/21 20:39 Baso # (Auto) 0.0 K/mm3 (0.0-0.1) 06/21/21 20:39 Add Manual Diff Complete 06/30/21 05:04 Total Counted 100 06/30/21 05:04 Seg Neutrophils % Textile Screen Maker 06/25/21 05:10 Seg Neuts % (Manual) 90.0 % (40.0-70.0) H 06/30/21 05:04 Band Neutrophils % 2.0 % 06/30/21 05:04 Lymphocytes % (Manual) 5.0 % (13.4-35.0) L 06/30/21 05:04 Reactive Lymphs % (Man) 1.0 % 06/26/21 05:48 Monocytes % (Manual) 3.0 % (0.0-7.3) 06/30/21 05:04 Metamyelocytes % 1.0 % 06/28/21 06:24 Myelocytes % 1.0 % 06/27/21 07:23 Nucleated RBC % Not Reportable 06/30/21 05:04 Seg Neutrophils # 15.9 K/mm3 (1.8-7.7) H 06/21/21 20:39 Seg Neutrophils # Man 17.5 K/mm3 (1.8-7.7) H 06/30/21 05:04 Band Neutrophils # 0.4 K/mm3 06/30/21 05:04 Lymphocytes # (Manual) 1.0 K/mm3 (1.2-5.4) L 06/30/21 05:04 Abs React Lymphs (Man) 0.0 K/mm3 06/30/21 05:04 Monocytes # (Manual) 0.6 K/mm3 (0.0-0.8) 06/30/21 05:04 Eosinophils # (Manual) 0.0 K/mm3 (0.0-0.4) 06/30/21 05:04 Basophils # (Manual) 0.0 K/mm3 (0.0-0.1) 06/30/21 05:04 Metamyelocytes # 0.0 K/mm3 06/30/21 05:04 Myelocytes # 0.0 K/mm3 06/30/21 05:04 Promyelocytes # 0.0 K/mm3 06/30/21 05:04 Blast Cells # 0.0 K/mm3 06/30/21 05:04 WBC Morphology Not Reportable 06/30/21 05:04 Hypersegmented Neuts Not Reportable 06/30/21 05:04 Hyposegmented Neuts Not Reportable 06/30/21 05:04 Hypogranular Neuts Not Reportable 06/30/21 05:04 Smudge Cells Not Reportable 06/30/21 05:04 Toxic Granulation Not Reportable 06/30/21 05:04 Toxic Vacuolation Not Reportable 06/30/21 05:04 Dohle Bodies Not Reportable 06/30/21 05:04 Pelger-Huet Anomaly Not Reportable 06/30/21 05:04 Helen Rods Not Reportable 06/30/21 05:04 Platelet Estimate Consistent w auto 06/30/21 05:04 Clumped Platelets Not Reportable 06/30/21 05:04 Plt Clumps, EDTA Not Reportable 06/30/21 05:04 Large Platelets Not Reportable 06/30/21 05:04 Giant Platelets Not Reportable 06/30/21 05:04 Platelet Satelliting Not Reportable 06/30/21 05:04 Plt Morphology Comment Not Reportable 06/30/21 05:04 RBC Morphology Not Reportable 06/30/21 05:04 Dimorphic RBCs Not Reportable 06/30/21 05:04 Polychromasia Not Reportable 06/30/21 05:04 Hypochromasia 1+ 06/30/21 05:04 Poikilocytosis 1+ 06/30/21 05:04 Anisocytosis 1+ 06/30/21 05:04 Microcytosis Not Reportable 06/30/21 05:04 Macrocytosis Not Reportable 06/30/21 05:04 Spherocytes Not Reportable 06/30/21 05:04 Pappenheimer Bodies Not Reportable 06/30/21 05:04 Sickle Cells Not Reportable 06/30/21 05:04 Target Cells Not Reportable 06/30/21 05:04 Tear Drop Cells Not Reportable 06/30/21 05:04 Ovalocytes Not Reportable 06/30/21 05:04 Helmet Cells Not Reportable 06/30/21 05:04 [place] Bodies Not Reportable 06/30/21 05:04 [place] Rings Not Reportable 06/30/21 05:04 [place] Cells 1+ 06/30/21 05:04 Bite Cells Not Reportable 06/30/21 05:04 Crenated Cell Not Reportable 06/30/21 05:04 Elliptocytes Not Reportable 06/30/21 05:04 Acanthocytes (Spur) Not Reportable 06/30/21 05:04 Rouleaux Not Reportable 06/30/21 05:04 Hemoglobin C Crystals Not Reportable 06/30/21 05:04 Schistocytes Not Reportable 06/30/21 05:04 Malaria parasites Not Reportable 06/30/21 05:04 [place] Bodies Not Reportable 06/30/21 05:04 Hem Pathologist Commnt No 06/30/21 05:04 D-Dimer 4489.63 ng/mlDDU (0-234) H 06/26/21 05:48 Heparin Anti-Xa Level < 0.10 U.I./ml (0.3-0.7) L 06/30/21 05:03 Sodium 142 mmol/L (137-145) 06/30/21 05:04 Potassium 4.9 mmol/L (3.6-5.0) 06/30/21 05:04 Chloride 103.2 mmol/L (98-107) 06/30/21 05:04 Carbon Dioxide 31 mmol/L (22-30) H 06/30/21 05:04 Anion Gap 13 mmol/L 06/30/21 05:04 BUN 23 mg/dL (7-17) H 06/30/21 05:04 Creatinine 0.6 mg/dL (0.6-1.2) 06/30/21 05:04 Estimated GFR > 60 ml/min 06/30/21 05:04 BUN/Creatinine Ratio 38 % 06/30/21 05:04 Glucose 117 mg/dL (65-100) H 06/30/21 05:04 POC Glucose 204 mg/dL (70-105) H 06/30/21 10:20 Lactic Acid 1.20 mmol/L (0.7-2.0) 06/22/21 05:06 Calcium 10.3 mg/dL (8.4-10.2) H 06/30/21 05:04 Phosphorus 3.00 mg/dL (2.5-4.5) 06/27/21 07:23 Ferritin 281.5 ng/mL (10.0-200.0) H 06/26/21 05:48 Total Bilirubin 0.50 mg/dL (0.1-1.2) 06/27/21 07:23 Direct Bilirubin 0.7 mg/dL (0-0.2) H 06/21/21 20:39 Indirect Bilirubin 0.3 mg/dL 06/21/21 20:39 AST 67 units/L (5-40) H 06/27/21 07:23 ALT 85 units/L (7-56) H 06/27/21 07:23 Alkaline Phosphatase 91 units/L (35-129) 06/27/21 07:23 Total Creatine Kinase 1066 units/L (30-135) H 06/23/21 17:57 C-Reactive Protein 1.40 mg/dL (0.00-1.30) H 06/26/21 05:48 Total Protein 5.1 g/dL (6.3-8.2) L 06/27/21 07:23 Albumin 2.4 g/dL (3.9-5) L 06/27/21 07:23 Albumin/Globulin Ratio 0.9 % 06/27/21 07:23 Procalcitonin 0.60 ng/mL (<0.15) 06/25/21 05:10 Urine Color Yellow (Yellow) 06/22/21 13:45 Urine Turbidity Clear (Clear) 06/22/21 13:45 Urine pH 5.0 (5.0-7.0) 06/22/21 13:45 Ur Specific [place] 1.013 (1.003-1.030) 06/22/21 13:45 Urine Protein 100 mg/dl mg/dL (Negative) 06/22/21 13:45 Urine Glucose (UA) Neg mg/dL (Negative) 06/22/21 13:45 Urine Ketones Neg mg/dL (Negative) 06/22/21 13:45 Urine Blood Lg (Negative) 06/22/21 13:45 Urine Nitrite Pos (Negative) 06/22/21 13:45 Urine Bilirubin Neg (Negative) 06/22/21 13:45 Urine Urobilinogen < 2.0 mg/dL (<2.0) 06/22/21 13:45 Ur Leukocyte Esterase Neg (Negative) 06/22/21 13:45 Urine WBC (Auto) 1.0 /HPF (0.0-6.0) 06/22/21 13:45 Urine RBC (Auto) 5.0 /HPF (0.0-6.0) 06/22/21 13:45 U Epithel Cells (Auto) < 1.0 /HPF (0-13.0) 06/22/21 13:45 Urine Bacteria (Auto) 3+ /HPF (Negative) 06/22/21 13:45 Urine Mucus Few /HPF 06/22/21 13:45 Urine Creatinine 52.2 mg/dL (0.1-20.0) H 06/22/21 13:45 Urine Creatinine 52.9 mg/dL (0.1-20.0) H 06/22/21 13:45 Protein/Creatinin Ratio 1.15 06/22/21 13:45 Urine Sodium 122 mmol/L 06/22/21 13:45 Urine Total Protein 61 mg/dL (5-11.8) H 06/22/21 13:45 Nasal Screen MRSA (PCR) Negative (Negative) 06/22/21 04:45 Coronavirus (PCR) Positive (Negative) A 06/28/21 Unknown Blood Type O POSITIVE 06/22/21 05:06 Antibody Screen Negative 06/22/21 05:06 Robbins/IV: Voiding Method External Female Catheter Active Medications - Current Medications Current Medications: Generic Name Dose Route Start Last Admin Trade Name Freq PRN Reason Stop Dose Admin Acetaminophen 650 mg 06/22/21 01:32 Acetaminophen 325 Mg Tab PO Q4H PRN Pain MILD(1-3)/Fever >100.5/MCGRAW Albuterol 2 puff 06/24/21 02:07 Albuterol 8.5 Gm Mdi Inhalation IH Q4HRT PRN Shortness Of Breath Albuterol/Ipratropium 1 ampul 06/27/21 08:00 06/30/21 12:27 Ipratropium/Albuterol Sulfate 3 Ml Ampul.Neb IH 1 ampul TIDRT FEDERICO Administration Lipase/Protease/Amylase 1 each 06/29/21 13:00 Lipase 10,500/Protease 25,000/Amylase 43,750 (Units) Dr Rouse FEEDTUBE PRN PRN For Clogged Feeding Tube Dexamethasone 6 mg 06/23/21 13:00 06/29/21 10:17 Dexamethasone 4 Mg/Ml Vial IV 07/03/21 12:59 6 mg DAILY FEDERICO Administration Dextrose 50 ml 06/22/21 17:15 06/30/21 08:41 Dextrose 50% In Water (25gm) 50 Ml Syringe IV 50 ml Q30MIN PRN Administration Hypoglycemia Protocol Famotidine 20 mg 06/29/21 10:00 06/29/21 10:17 Famotidine 20 Mg Tab PO 20 mg DAILY FEDERICO Administration Heparin Sodium (Porcine) 5,000 unit 06/22/21 10:00 06/29/21 22:50 Heparin 5,000 Unit/1 Ml Vial SUB-Q 5,000 unit Q12HR FEDERICO Administration Hydralazine HCl 10 mg 06/25/21 02:16 06/30/21 07:08 Hydralazine 20 Mg/1 Ml Inj IV 10 mg Q6HR PRN Administration Hypertension Hydromorphone HCl 0.25 mg 06/22/21 01:32 Hydromorphone 1 Mg/1 Ml Inj IV Q4H PRN Pain, Moderate (4-6) Hydromorphone HCl 0.5 mg 06/22/21 01:32 Hydromorphone 1 Mg/1 Ml Inj IV Q3H PRN Pain , Severe (7-10) Sodium Chloride 1,000 mls @ 50 mls/hr 06/30/21 09:45 Nacl 0.9% 1000 Ml IV 07/01/21 09:44 DIRECT FEDERICO Cefazolin Sodium 2 gm in 20 mls @ 80 mls/hr 06/30/21 10:00 Ancef/Sterile Water 2 Gm/20 Ml IV 06/30/21 23:00 PREOP NR Protocol Insulin Glargine 20 units 06/28/21 22:00 06/29/21 22:50 Insulin Glargine 100 Units/Ml SUB-Q Not Given QHS [facility] Insulin Human Lispro 0 unit 06/22/21 18:00 06/30/21 06:00 Insulin Lispro 100 Unit/Ml SUB-Q Not Given Q6HR [facility] Protocol Metoprolol Tartrate 12.5 mg 06/27/21 22:00 06/29/21 22:49 Metoprolol Tartrate 25 Mg Tab PO 12.5 mg BID FEDERICO Administration Ondansetron HCl 4 mg 06/22/21 01:32 06/29/21 11:10 Ondansetron 4 Mg/2 Ml Inj IV 4 mg Q8H PRN Administration Nausea And Vomiting Oxycodone/Acetaminophen 1 tab 06/22/21 01:32 Oxycodone /Acetaminophen 5-325mg Tab PO Q6H PRN Pain, Moderate (4-6) Simple Syrup 15 ml 06/29/21 13:00 Simple Syrup 15 Ml FEEDTUBE PRN PRN Hypoglycemia Simple Syrup 30 ml 06/29/21 13:00 Simple Syrup 15 Ml FEEDTUBE PRN PRN Hypoglycemia Sodium Bicarbonate 325 mg 06/29/21 13:30 Sodium Bicarbonate 325 Mg Tab FEEDTUBE PRN PRN For Clogged Feeding Tube Sodium Chloride 10 ml 06/22/21 10:00 06/29/21 22:50 Sodium Chloride 0.9% 10 Ml Flush Syringe IV 10 ml BID FEDERICO Administration Sodium Chloride 10 ml 06/22/21 01:32 Sodium Chloride 0.9% 10 Ml Flush Syringe IV PRN PRN LINE FLUSH Nutrition/Malnutrition Assess - Dietary Evaluation Nutrition/Malnutrition Findings: Nutrition Notes Start: 06/22/21 12:10 Freq: Status: Active Protocol: Document 06/29/21 12:44 SUE (Rec: 06/29/21 12:49 SUE [id number]) Nutrition Notes Need for Assessment generated from: MD Order Initial or Follow up Reassessment Current Diagnosis Acute Kidney Injury,COPD, Sepsis Other Pertinent Diagnosis dementia, pneu, COVID-19(+) Current Diet pureed Labs/Tests POC BG 240-59 Pertinent Medications Decadron Zofran Height 5 ft 4 in Weight 57.9 kg [place] Body Weight (kg) 54.54 BMI 21.9 Weight Status Appropriate Subjective/Other Information Due to continued poor intakes, MD ordered PEG. Pt currently with dobhoff orders. Burn Absent Trauma Absent Current % PO Negligible Minimum of two criteria No physical signs of malnutrition #2 Nutrition Diagnosis Inadequate oral intake Diagnosis Progress(for reassessment Continues documentation) #1 Nutrition Diagnosis Increased nutrient needs ( specify in comment below) Diagnosis Progress(for reassessment Continues documentation) Is patient on ventilator? No Is Patient Ambulatory and/or Out of Bed No REE-([facility]-confined to bed) [phone] Calculation Used for Recommendations [facility] Additional Notes Protein: (1.25-1.5g/kg) 73-87g Fluid: 1 ml/kcal Nutrition Intervention Change Diet Order: continue Nutrition Support: Glucerna 1.2 at 45 ml/hr Flush 75 ml q4h Kcal 1,296 Protein (gm) 65 Fluid (mL) 869 Add Supplement/Snack (indicate name/kcal d/c /protein ) Goal #1 Meet at least 75% of energy and protein needs via PO and TF Anticipated Discharge Needs: Unable to determine at this time Follow-Up By: 07/03/21 Additional Comments F/U: PEG placement, TF start/ tolerance, intakes of pleasure feeding
--- NOTE | 2021-06-30 15:36 | Progress Note ---
Assessment and Plan Cultures: SARS CoV2 PCR: Positive 06/21/2021 blood culture: no growth MRSA nasal PCR: Negative 06/22/2021 urine culture: Mixed ferny A/P: 80-year-old female with dementia, COPD, diabetes admitted to the hospital due to altered mental status and reduced oral intake for the last few days: #COVID-19 pneumonia: mild hypoxia. Procalcitonin decreased to 0.6, CRP down to 3.1. On steroids. S/P Ceftriaxone. #Sepsis: Source is unclear, likely COVID related. Procalcitonin decreased to 0.6. UA without significant pyuria. #New transaminitis: likely from Remdesivir. Resolved #Lactic acidosis #Acute kidney injury: improved #Elevated CK #Dementia Recs: -leukocytosis likely secondary to steroids. No other issues or s/s of infection -anticoagulation per protocol -continue Decadron 6 mg daily for 10 days Silviano Bonilla MD [facility] ([facility]) O: [phone] F: [phone] Subjective Date of service: 06/30/21 Principal diagnosis: Sepsis Interval history: Afebrile, white count 19.4. Currently on 2 L nasal cannula. Objective - Exam Narrative Exam: Physical exam deferred to reduce risk of transmission of COVID-19. Please refer to primary team's note. - Constitutional Vitals: Vital Signs Temp Pulse Resp BP Pulse Ox 97.7 F 87 20 122/65 92 06/30/21 10:32 06/30/21 12:27 06/30/21 12:27 06/30/21 10:32 06/30/21 10:32 Temperature -Last 24 Hours Temperature 97.7 F Temperature 97.9 F Temperature 98.0 F - Labs CBC & Chem 7: 06/30/21 05:04 06/30/21 05:04 Labs: Abnormal lab results 06/29/21 06/30/21 06/30/21 Range/Units 16:40 00:09 05:03 WBC (4.5-11.0) K/mm3 MCH (28-32) pg RDW (13.2-15.2) % Seg Neuts % (Manual) (40.0-70.0) % Lymphocytes % (Manual) (13.4-35.0) % Seg Neutrophils # Man (1.8-7.7) K/mm3 Lymphocytes # (Manual) (1.2-5.4) K/mm3 Heparin Anti-Xa Level < 0.10 L (0.3-0.7) U.I./ml Carbon Dioxide (22-30) mmol/L BUN (7-17) mg/dL Glucose (65-100) mg/dL POC Glucose 175 H 157 H (70-105) mg/dL Calcium (8.4-10.2) mg/dL 06/30/21 06/30/21 06/30/21 Range/Units 05:04 05:04 05:38 WBC 19.4 H (4.5-11.0) K/mm3 MCH 26 L (28-32) pg RDW 15.9 H (13.2-15.2) % Seg Neuts % (Manual) 90.0 H (40.0-70.0) % Lymphocytes % (Manual) 5.0 L (13.4-35.0) % Seg Neutrophils # Man 17.5 H (1.8-7.7) K/mm3 Lymphocytes # (Manual) 1.0 L (1.2-5.4) K/mm3 Heparin Anti-Xa Level (0.3-0.7) U.I./ml Carbon Dioxide 31 H (22-30) mmol/L BUN 23 H (7-17) mg/dL Glucose 117 H (65-100) mg/dL POC Glucose 110 H (70-105) mg/dL Calcium 10.3 H (8.4-10.2) mg/dL 06/30/21 06/30/21 Range/Units 07:36 10:20 WBC (4.5-11.0) K/mm3 MCH (28-32) pg RDW (13.2-15.2) % Seg Neuts % (Manual) (40.0-70.0) % Lymphocytes % (Manual) (13.4-35.0) % Seg Neutrophils # Man (1.8-7.7) K/mm3 Lymphocytes # (Manual) (1.2-5.4) K/mm3 Heparin Anti-Xa Level (0.3-0.7) U.I./ml Carbon Dioxide (22-30) mmol/L BUN (7-17) mg/dL Glucose (65-100) mg/dL POC Glucose 54 L 204 H (70-105) mg/dL Calcium (8.4-10.2) mg/dL
[2021-06-30] MEDS: FAMOTIDINE 20 MG TAB PO SCH (18:46)
[2021-06-30] MEDS: dexAMETHasone 4 MG/ML VIAL IV SCH (18:46)
[2021-06-30] MEDS: HEPARIN 5,000 UNIT/1 ML VIAL SUB-Q SCH ×2 (18:47→22:22)
[2021-06-30] MEDS: METOPROLOL TARTRATE 25 MG TAB PO SCH ×2 (19:02→22:24)
[2021-06-30] MEDS: INSULIN GLARGINE 100 UNITS/ML SUB-Q SCH (22:25)
[2021-07-01] MEDS: INSULIN LISPRO 100 UNIT/ML SUB-Q SCH ×4 (00:08→17:51)
[2021-07-01 06:42] LABS: Hematocrit 31.2 % (30.3-42.9); Hemoglobin 10.1 gm/dl (10.1-14.3); Mean Corpuscular HGB Conc 32 % (30-34); Mean Corpuscular Volume 83 fl (79-97); Platelet Count 301 K/mm3 (140-440); Red Blood Count 3.78 M/mm3 (3.65-5.03); Red Cell Distribution Width 15.8 % (13.2-15.2)
[2021-07-01] MEDS: IPRATROPIUM/ALBUTEROL SULFATE 3 ML AMPUL.NEB IH SCH ×3 (09:13→23:01)
[2021-07-01] MEDS: dexAMETHasone 4 MG/ML VIAL IV SCH (11:10)
--- NOTE | 2021-07-01 11:10 | Progress Note ---
Assessment and Plan Assessment and plan: #1 severe sepsis secondary to bilateral [id number] pneumonia. Multiple sick contacts in the home environment. Seems to have improved with IV volume therapy. Patient stable with 3 L of O2. Resting comfortably. No longer tachypneic hypotensive or tachycardic. Will place patient on steroids de xamethasone. Questionable remdesivir until renal function has improved. Continue empiric antibiotics. ID consult. Follow inflammatory markers. No remdesivir secondary to renal function. Continue dexamethasone for 10 days. Contact Ana Rosa Arizmendi [phone] #2 acute renal failure. Secondary to prerenal azotemia not eating not drinking dehydration. Improving with follow-up chemistry obtain BMP a.m. #3 acute respiratory failure secondary to sepsis bilateral pneumonia Patient still maintained well with 3 L of oxygen. No change in O2. This is a good sign. Treat underlying etiology with antibiotics, supportive care. Steroids #4 diabetes mellitus will be more difficult control with addition of steroids placed patient sliding scale insulin advance as tolerated. We will add long-acting insulin. Especially since patient on steroids. Will increase long-acting insulin today. #5 rhabdomyolysis should respond to IV volume replacement. Would not be too aggressive since patient has Covid and would like to keep a little on dry side #6 hypertensive urgency. Will need to address patient's hypertension and tachycardia. Overall patient remains dry as evidenced by increased BUN/creatinine prerenal azotemia increase CPK. Much better since the addition of Lopressor. At present we will not increase fluids above 100 to 125 cc an hour in order not to worsen acute respiratory failure. Will be a very difficult balance but the risk outweigh the benefits of increasing fluids at this time. This can be fixed slowly. We will add Lopressor IV patient remains lethargic. #7 acute metabolic encephalopathy-patient not eating or drinking. Highly suspect Covid encephalopathy. Which would have caused underlying dementia to get worse. Patient should be able to eat today. CT scan head unremarkable. #8 hyponatremia patient started on D5 water. # 9: Failure to thrive #10 Covid pneumonia. ID following. Add dexamethasone. Subjective Date of service: 06/24/21 Principal diagnosis: Sepsis Interval history: Patient 80 years old with a history of dementia COPD presented to the ED with decreased responsiveness decreased p.o. intake x2 days fever 102. Patient also presented with tachycardia, tachypnea, hypoxemia. Patient had contact with family members with COVID-19. Patient presentation on radiograph consistent with bilateral pneumonia. Today subsequently patient positive for COVID-19. Currently stable with only 3 L nasal cannula. Patient encephalopathy has not improved much since baseline. 06/23/2021 patient remains altered today. A little more alert however remains encephalopathic. Patient SVT much improved since yesterday since suggesting gentle IV hydration plus amiodarone in addition to AV j carlos blocking agent. 06/24/2021. This is the first day patient much more responsive today. Will attempt to talk to you we will follow you with gaze. This is better than the previous 2 days.Tachycardia is also resolved. Requiring less oxygen wean as tolerated. 06/25: Patient seen and examined appears to be clinically improving. Discussed with nursing staff will obtain PT OT and home O2 evaluation. Anticipate discharge in a.m. if continues to improve will likely need home O2. Transfer to [facility] downgrade. 06/26: Patient clinically stable anticipate discharge home or to SNF today. Awaiting home O2 evaluation Case management is following. CTA angio and Doppler of lower extremity for VTE work-up done. Will recommend short-term low-dose anticoagulation even if negative of VTE at this time considering patient's elevated D-dimer levels and the Covid diagnosis. PT OT evaluation as fall precaution is imperative considering low-dose anticoagulation. Attempted to reach family unable. 06/27: Patient remains lethargic this morning. We will get a swallow evaluation done. Patient remains on 2 L of oxygen. Discussed with physical therapist she was not able to be participatory in any activity except sitting up at the bedside. Also discussed with her granddaughter today who tells me that the patient's daughter is currently in the ICU at [facility] with Covid and a CVA. And that the patient has rapidly declined in the last 2+ weeks. She is agreeable with the recommendation of physical therapist for SNF at this time. Case management will be working on this. 06/28: Leukocytosis persist ?steroid induced, no new fever. will monitor. Awaiting placement. Discussed with case management today in rounds. 06/29: Patient continues to have poor p.o. intake. Repeated hypoglycemia. Discussed with family they are okay with patient getting a PEG tube to help with nutrition. Consult placed to manufacturing engineering intern to assist with this. Patient is still pending placement. 8/6: Discussed with GI was able to get a hold of family will be proceeding with PEG placement today. Patient still pending placement. Following my examination discussed with nursing staff blood pressure was significantly elevated this morning not sure why there is no evidence of anxiety she did improve. Will monitor closely may need an additional blood pressure control medication. 07/01: Continue supportive care awaiting bed placement continue evaluation of: Take. Mild decrease in blood pressure today will monitor closely. May need to hold blood pressure medications if continues to worsen. Leukocytosis secondary to steroids per ID. History Interval history: Patient seen and examined resting comfortably currently on 2 L of oxygen continues to show improvement. No new complaints. Still awaiting placement Hospitalist Physical - Physical exam Narrative exam: General appearance: Present: no acute distress, mild temporal wasting. Baseline dementia, much more awake today speaking. - EENT Eyes: PERRL, EOM intact ENT: hearing intact, clear oral mucosa Ears: bilateral: normal - Neck Neck: supple, normal ROM - Respiratory Respiratory effort: normal Respiratory: bilateral: diminished, rhonchi - Breasts Breasts: normal - Cardiovascular Rhythm: regular Heart Sounds: Present: S1 & S2. Absent: gallop, rub Extremities: pulses intact, No edema, normal color, Full ROM - Gastrointestinal General gastrointestinal: Present: soft, non-tender, non-distended, normal bowel sounds - Genitourinary Female genitourinary: normal - Integumentary Integumentary: clear, warm, dry - Musculoskeletal Musculoskeletal: 1, strength equal bilaterally, gait status unsure - Neurologic Neurologic: moves all extremities - Psychiatric Psychiatric: other (Much more alert) - Constitutional Vitals: Temp Pulse Resp BP Pulse Ox 98.7 F 81 18 88/60 100 07/01/21 04:16 07/01/21 09:13 07/01/21 09:13 07/01/21 04:16 07/01/21 09:13 General appearance: Present: no acute distress, well-nourished Results - Labs CBC & Chem 7: 07/01/21 05:09 06/30/21 05:04 Labs: Laboratory Last Values WBC 16.0 K/mm3 (4.5-11.0) H 07/01/21 05:09 RBC 3.78 M/mm3 (3.65-5.03) 07/01/21 05:09 Hgb 10.1 gm/dl (10.1-14.3) 07/01/21 05:09 Hct 31.2 % (30.3-42.9) 07/01/21 05:09 MCV 83 fl (79-97) 07/01/21 05:09 MCH 27 pg (28-32) L 07/01/21 05:09 MCHC 32 % (30-34) 07/01/21 05:09 RDW 15.8 % (13.2-15.2) H 07/01/21 05:09 Plt Count 301 K/mm3 (140-440) 07/01/21 05:09 Lymph % (Auto) 3.5 % (13.4-35.0) L 06/21/21 20:39 [place]anan % (Auto) 6.0 % (0.0-7.3) 06/21/21 20:39 Eos % (Auto) 0.3 % (0.0-4.3) 06/21/21 20:39 Baso % (Auto) 0.2 % (0.0-1.8) 06/21/21 20:39 Lymph # (Auto) 0.6 K/mm3 (1.2-5.4) L 06/21/21 20:39 [place] # (Auto) 1.1 K/mm3 (0.0-0.8) H 06/21/21 20:39 Eos # (Auto) 0.1 K/mm3 (0.0-0.4) 06/21/21 20:39 Baso # (Auto) 0.0 K/mm3 (0.0-0.1) 06/21/21 20:39 Add Manual Diff Complete 06/30/21 05:04 Total Counted 100 06/30/21 05:04 Seg Neutrophils % Netezza Developer 07/01/21 05:09 Seg Neuts % (Manual) 90.0 % (40.0-70.0) H 06/30/21 05:04 Band Neutrophils % 2.0 % 06/30/21 05:04 Lymphocytes % (Manual) 5.0 % (13.4-35.0) L 06/30/21 05:04 Reactive Lymphs % (Man) 1.0 % 06/26/21 05:48 Monocytes % (Manual) 3.0 % (0.0-7.3) 06/30/21 05:04 Metamyelocytes % 1.0 % 06/28/21 06:24 Myelocytes % 1.0 % 06/27/21 07:23 Nucleated RBC % Not Reportable 06/30/21 05:04 Seg Neutrophils # 15.9 K/mm3 (1.8-7.7) H 06/21/21 20:39 Seg Neutrophils # Man 17.5 K/mm3 (1.8-7.7) H 06/30/21 05:04 Band Neutrophils # 0.4 K/mm3 06/30/21 05:04 Lymphocytes # (Manual) 1.0 K/mm3 (1.2-5.4) L 06/30/21 05:04 Abs React Lymphs (Man) 0.0 K/mm3 06/30/21 05:04 Monocytes # (Manual) 0.6 K/mm3 (0.0-0.8) 06/30/21 05:04 Eosinophils # (Manual) 0.0 K/mm3 (0.0-0.4) 06/30/21 05:04 Basophils # (Manual) 0.0 K/mm3 (0.0-0.1) 06/30/21 05:04 Metamyelocytes # 0.0 K/mm3 06/30/21 05:04 Myelocytes # 0.0 K/mm3 06/30/21 05:04 Promyelocytes # 0.0 K/mm3 06/30/21 05:04 Blast Cells # 0.0 K/mm3 06/30/21 05:04 WBC Morphology Not Reportable 06/30/21 05:04 Hypersegmented Neuts Not Reportable 06/30/21 05:04 Hyposegmented Neuts Not Reportable 06/30/21 05:04 Hypogranular Neuts Not Reportable 06/30/21 05:04 Smudge Cells Not Reportable 06/30/21 05:04 Toxic Granulation Not Reportable 06/30/21 05:04 Toxic Vacuolation Not Reportable 06/30/21 05:04 Dohle Bodies Not Reportable 06/30/21 05:04 Pelger-Huet Anomaly Not Reportable 06/30/21 05:04 Helen Rods Not Reportable 06/30/21 05:04 Platelet Estimate Consistent w auto 06/30/21 05:04 Clumped Platelets Not Reportable 06/30/21 05:04 Plt Clumps, EDTA Not Reportable 06/30/21 05:04 Large Platelets Not Reportable 06/30/21 05:04 Giant Platelets Not Reportable 06/30/21 05:04 Platelet Satelliting Not Reportable 06/30/21 05:04 Plt Morphology Comment Not Reportable 06/30/21 05:04 RBC Morphology Not Reportable 06/30/21 05:04 Dimorphic RBCs Not Reportable 06/30/21 05:04 Polychromasia Not Reportable 06/30/21 05:04 Hypochromasia 1+ 06/30/21 05:04 Poikilocytosis 1+ 06/30/21 05:04 Anisocytosis 1+ 06/30/21 05:04 Microcytosis Not Reportable 06/30/21 05:04 Macrocytosis Not Reportable 06/30/21 05:04 Spherocytes Not Reportable 06/30/21 05:04 Pappenheimer Bodies Not Reportable 06/30/21 05:04 Sickle Cells Not Reportable 06/30/21 05:04 Target Cells Not Reportable 06/30/21 05:04 Tear Drop Cells Not Reportable 06/30/21 05:04 Ovalocytes Not Reportable 06/30/21 05:04 Helmet Cells Not Reportable 06/30/21 05:04 Hart-[place] Bodies Not Reportable 06/30/21 05:04 [place] Rings Not Reportable 06/30/21 05:04 [place] Cells 1+ 06/30/21 05:04 Bite Cells Not Reportable 06/30/21 05:04 Crenated Cell Not Reportable 06/30/21 05:04 Elliptocytes Not Reportable 06/30/21 05:04 Acanthocytes (Spur) Not Reportable 06/30/21 05:04 Rouleaux Not Reportable 06/30/21 05:04 Hemoglobin C Crystals Not Reportable 06/30/21 05:04 Schistocytes Not Reportable 06/30/21 05:04 Malaria parasites Not Reportable 06/30/21 05:04 Blayne Bodies Not Reportable 06/30/21 05:04 Hem Pathologist Commnt No 06/30/21 05:04 D-Dimer 4489.63 ng/mlDDU (0-234) H 06/26/21 05:48 Heparin Anti-Xa Level < 0.10 U.I./ml (0.3-0.7) L 06/30/21 05:03 Sodium 142 mmol/L (137-145) 06/30/21 05:04 Potassium 4.9 mmol/L (3.6-5.0) 06/30/21 05:04 Chloride 103.2 mmol/L (98-107) 06/30/21 05:04 Carbon Dioxide 31 mmol/L (22-30) H 06/30/21 05:04 Anion Gap 13 mmol/L 06/30/21 05:04 BUN 23 mg/dL (7-17) H 06/30/21 05:04 Creatinine 0.6 mg/dL (0.6-1.2) 06/30/21 05:04 Estimated GFR > 60 ml/min 06/30/21 05:04 BUN/Creatinine Ratio 38 % 06/30/21 05:04 Glucose 117 mg/dL (65-100) H 06/30/21 05:04 POC Glucose 220 mg/dL (70-105) H 07/01/21 07:10 Lactic Acid 1.20 mmol/L (0.7-2.0) 06/22/21 05:06 Calcium 10.3 mg/dL (8.4-10.2) H 06/30/21 05:04 Phosphorus 3.00 mg/dL (2.5-4.5) 06/27/21 07:23 Ferritin 281.5 ng/mL (10.0-200.0) H 06/26/21 05:48 Total Bilirubin 0.50 mg/dL (0.1-1.2) 06/27/21 07:23 Direct Bilirubin 0.7 mg/dL (0-0.2) H 06/21/21 20:39 Indirect Bilirubin 0.3 mg/dL 06/21/21 20:39 AST 67 units/L (5-40) H 06/27/21 07:23 ALT 85 units/L (7-56) H 06/27/21 07:23 Alkaline Phosphatase 91 units/L (35-129) 06/27/21 07:23 Total Creatine Kinase 1066 units/L (30-135) H 06/23/21 17:57 C-Reactive Protein 1.40 mg/dL (0.00-1.30) H 06/26/21 05:48 Total Protein 5.1 g/dL (6.3-8.2) L 06/27/21 07:23 Albumin 2.4 g/dL (3.9-5) L 06/27/21 07:23 Albumin/Globulin Ratio 0.9 % 06/27/21 07:23 Procalcitonin 0.60 ng/mL (<0.15) 06/25/21 05:10 Urine Color Yellow (Yellow) 06/22/21 13:45 Urine Turbidity Clear (Clear) 06/22/21 13:45 Urine pH 5.0 (5.0-7.0) 06/22/21 13:45 Ur Specific [place] 1.013 (1.003-1.030) 06/22/21 13:45 Urine Protein 100 mg/dl mg/dL (Negative) 06/22/21 13:45 Urine Glucose (UA) Neg mg/dL (Negative) 06/22/21 13:45 Urine Ketones Neg mg/dL (Negative) 06/22/21 13:45 Urine Blood Lg (Negative) 06/22/21 13:45 Urine Nitrite Pos (Negative) 06/22/21 13:45 Urine Bilirubin Neg (Negative) 06/22/21 13:45 Urine Urobilinogen < 2.0 mg/dL (<2.0) 06/22/21 13:45 Ur Leukocyte Esterase Neg (Negative) 06/22/21 13:45 Urine WBC (Auto) 1.0 /HPF (0.0-6.0) 06/22/21 13:45 Urine RBC (Auto) 5.0 /HPF (0.0-6.0) 06/22/21 13:45 U Epithel Cells (Auto) < 1.0 /HPF (0-13.0) 06/22/21 13:45 Urine Bacteria (Auto) 3+ /HPF (Negative) 06/22/21 13:45 Urine Mucus Few /HPF 06/22/21 13:45 Urine Creatinine 52.2 mg/dL (0.1-20.0) H 06/22/21 13:45 Urine Creatinine 52.9 mg/dL (0.1-20.0) H 06/22/21 13:45 Protein/Creatinin Ratio 1.15 06/22/21 13:45 Urine Sodium 122 mmol/L 06/22/21 13:45 Urine Total Protein 61 mg/dL (5-11.8) H 06/22/21 13:45 Nasal Screen MRSA (PCR) Negative (Negative) 06/22/21 04:45 Coronavirus (PCR) Positive (Negative) A 06/28/21 Unknown Blood Type O POSITIVE 06/22/21 05:06 Antibody Screen Negative 06/22/21 05:06 Robbins/IV: Voiding Method External Female Catheter Active Medications - Current Medications Current Medications: Generic Name Dose Route Start Last Admin Trade Name Freq PRN Reason Stop Dose Admin Acetaminophen 650 mg 06/22/21 01:32 Acetaminophen 325 Mg Tab PO Q4H PRN Pain MILD(1-3)/Fever >100.5/MCGRAW Albuterol 2 puff 06/24/21 02:07 Albuterol 8.5 Gm Mdi Inhalation IH Q4HRT PRN Shortness Of Breath Albuterol/Ipratropium 1 ampul 06/27/21 08:00 07/01/21 09:13 Ipratropium/Albuterol Sulfate 3 Ml Ampul.Neb IH 1 ampul TIDRT FEDERICO Administration Lipase/Protease/Amylase 1 each 06/29/21 13:00 Lipase 10,500/Protease 25,000/Amylase 43,750 (Units) Dr Rouse FEEDTUBE PRN PRN For Clogged Feeding Tube Dexamethasone 6 mg 06/23/21 13:00 06/30/21 18:46 Dexamethasone 4 Mg/Ml Vial IV 07/03/21 12:59 6 mg DAILY FEDERICO Administration Dextrose 50 ml 06/22/21 17:15 06/30/21 08:41 Dextrose 50% In Water (25gm) 50 Ml Syringe IV 50 ml Q30MIN PRN Administration Hypoglycemia Protocol Famotidine 20 mg 06/29/21 10:00 06/30/21 18:46 Famotidine 20 Mg Tab PO 20 mg DAILY FEDERICO Administration Heparin Sodium (Porcine) 5,000 unit 06/22/21 10:00 06/30/21 22:22 Heparin 5,000 Unit/1 Ml Vial SUB-Q 5,000 unit Q12HR FEDERICO Administration Hydralazine HCl 10 mg 06/25/21 02:16 06/30/21 07:08 Hydralazine 20 Mg/1 Ml Inj IV 10 mg Q6HR PRN Administration Hypertension Hydromorphone HCl 0.25 mg 06/22/21 01:32 Hydromorphone 1 Mg/1 Ml Inj IV Q4H PRN Pain, Moderate (4-6) Hydromorphone HCl 0.5 mg 06/22/21 01:32 Hydromorphone 1 Mg/1 Ml Inj IV Q3H PRN Pain , Severe (7-10) Insulin Glargine 20 units 06/28/21 22:00 06/30/21 22:25 Insulin Glargine 100 Units/Ml SUB-Q Not Given QHS [facility] Insulin Human Lispro 0 unit 06/22/21 18:00 07/01/21 07:43 Insulin Lispro 100 Unit/Ml SUB-Q 2 unit Q6HR [facility] Administration Protocol Metoprolol Tartrate 12.5 mg 06/27/21 22:00 06/30/21 22:24 Metoprolol Tartrate 25 Mg Tab PO Not Given BID [facility] Ondansetron HCl 4 mg 06/22/21 01:32 06/29/21 11:10 Ondansetron 4 Mg/2 Ml Inj IV 4 mg Q8H PRN Administration Nausea And Vomiting Oxycodone/Acetaminophen 1 tab 06/22/21 01:32 Oxycodone /Acetaminophen 5-325mg Tab PO Q6H PRN Pain, Moderate (4-6) Simple Syrup 15 ml 06/29/21 13:00 Simple Syrup 15 Ml FEEDTUBE PRN PRN Hypoglycemia Simple Syrup 30 ml 06/29/21 13:00 Simple Syrup 15 Ml FEEDTUBE PRN PRN Hypoglycemia Sodium Bicarbonate 325 mg 06/29/21 13:30 Sodium Bicarbonate 325 Mg Tab FEEDTUBE PRN PRN For Clogged Feeding Tube Sodium Chloride 10 ml 06/22/21 10:00 06/30/21 22:23 Sodium Chloride 0.9% 10 Ml Flush Syringe IV 10 ml BID FEDERICO Administration Sodium Chloride 10 ml 06/22/21 01:32 Sodium Chloride 0.9% 10 Ml Flush Syringe IV PRN PRN LINE FLUSH Nutrition/Malnutrition Assess - Dietary Evaluation Nutrition/Malnutrition Findings: Nutrition Notes Start: 06/22/21 12:10 Freq: Status: Active Protocol: Document 06/29/21 12:44 SUE (Rec: 06/29/21 12:49 SUE [id number]) Nutrition Notes Need for Assessment generated from: MD Order Initial or Follow up Reassessment Current Diagnosis Acute Kidney Injury,COPD, Sepsis Other Pertinent Diagnosis dementia, pneu, COVID-19(+) Current Diet pureed Labs/Tests POC BG 240-59 Pertinent Medications Decadron Zofran Height 5 ft 4 in Weight 57.9 kg [place] Body Weight (kg) 54.54 BMI 21.9 Weight Status Appropriate Subjective/Other Information Due to continued poor intakes, MD ordered PEG. Pt currently with dobhoff orders. Burn Absent Trauma Absent Current % PO Negligible Minimum of two criteria No physical signs of malnutrition #2 Nutrition Diagnosis Inadequate oral intake Diagnosis Progress(for reassessment Continues documentation) #1 Nutrition Diagnosis Increased nutrient needs ( specify in comment below) Diagnosis Progress(for reassessment Continues documentation) Is patient on ventilator? No Is Patient Ambulatory and/or Out of Bed No REE-(Mcclain-St. Jeor-confined to bed) [phone] Calculation Used for Recommendations [facility] Additional Notes Protein: (1.25-1.5g/kg) 73-87g Fluid: 1 ml/kcal Nutrition Intervention Change Diet Order: continue Nutrition Support: Glucerna 1.2 at 45 ml/hr Flush 75 ml q4h Kcal 1,296 Protein (gm) 65 Fluid (mL) 869 Add Supplement/Snack (indicate name/kcal d/c /protein ) Goal #1 Meet at least 75% of energy and protein needs via PO and TF Anticipated Discharge Needs: Unable to determine at this time Follow-Up By: 07/03/21 Additional Comments F/U: PEG placement, TF start/ tolerance, intakes of pleasure feeding
[2021-07-01] MEDS: METOPROLOL TARTRATE 25 MG TAB PO SCH ×3 (11:11→21:55)
[2021-07-01] MEDS: FAMOTIDINE 20 MG TAB PO SCH (11:12)
[2021-07-01] MEDS: HEPARIN 5,000 UNIT/1 ML VIAL SUB-Q SCH ×2 (11:12→21:50)
[2021-07-01 11:59] LABS: Total Cells Counted 100
[2021-07-01 12:01] LABS: Burr Cells Few; Platelet Estimate Consistent w Auto
--- NOTE | 2021-07-01 16:56 | Gastroenterology Progress Note ---
Assessment and Plan # Encephalopathy - in the setting of COVID pneumonia and sepsis and possible underlying dementia. - GI consulted for PEG tube placement, which is tentatively planned for Saturday but patient is more awake and eating better today. - monitor mental status and calorie intake. if continues to improve, may not need PEG. Subjective Date of service: 07/01/21 Principal diagnosis: Sepsis Interval history: Per nursing, patient was eating better today with pureed diet. More awake. Objective - Constitutional Vitals: Temp Pulse Resp BP Pulse Ox 98.7 F 82 18 88/60 95 07/01/21 04:16 07/01/21 13:45 07/01/21 13:45 07/01/21 04:16 07/01/21 12:44 General appearance: no acute distress - Respiratory Respiratory effort: normal - Cardiovascular Rhythm: regular - Gastrointestinal General gastrointestinal: Present: soft, non-tender, non-distended - Integumentary Integumentary: Absent: jaundice - Labs CBC & Chem 7: 07/01/21 05:09 06/30/21 05:04 Labs: Laboratory Results - last 24 hr 06/30/21 06/30/21 07/01/21 17:21 21:11 05:09 WBC 16.0 H RBC 3.78 Hgb 10.1 Hct 31.2 MCV 83 MCH 27 L MCHC 32 RDW 15.8 H Plt Count 301 Add Manual Diff Complete Total Counted 100 Seg Neutrophils % Manuscript Editor Seg Neuts % (Manual) 94.0 H Lymphocytes % (Manual) 2.0 L Monocytes % (Manual) 4.0 Nucleated RBC % Not Reportable Seg Neutrophils # Man 15.0 H Band Neutrophils # 0.0 Lymphocytes # (Manual) 0.3 L Abs React Lymphs (Man) 0.0 Monocytes # (Manual) 0.6 Eosinophils # (Manual) 0.0 Basophils # (Manual) 0.0 Metamyelocytes # 0.0 Myelocytes # 0.0 Promyelocytes # 0.0 Blast Cells # 0.0 WBC Morphology Not Reportable Hypersegmented Neuts Not Reportable Hyposegmented Neuts Not Reportable Hypogranular Neuts Not Reportable Smudge Cells Not Reportable Toxic Granulation Not Reportable Toxic Vacuolation Not Reportable Dohle Bodies Not Reportable Pelger-Huet Anomaly Not Reportable Helen Rods Not Reportable Platelet Estimate Consistent w auto Clumped Platelets Not Reportable Plt Clumps, EDTA Not Reportable Large Platelets Not Reportable Giant Platelets Not Reportable Platelet Satelliting Not Reportable Plt Morphology Comment Not Reportable RBC Morphology Not Reportable Dimorphic RBCs Not Reportable Polychromasia Not Reportable Hypochromasia Not Reportable Poikilocytosis Not Reportable Anisocytosis Not Reportable Microcytosis Not Reportable Macrocytosis Not Reportable Spherocytes Not Reportable Pappenheimer Bodies Not Reportable Sickle Cells Not Reportable Target Cells Not Reportable Tear Drop Cells Not Reportable Ovalocytes Not Reportable Helmet Cells Not Reportable Hart-[place] Bodies Not Reportable [place] Rings Not Reportable In Cells Few Bite Cells Not Reportable Crenated Cell Not Reportable Elliptocytes Few Acanthocytes (Spur) Not Reportable Rouleaux Not Reportable Hemoglobin C Crystals Not Reportable Schistocytes Not Reportable Malaria parasites Not Reportable Blayne Bodies Not Reportable Hem Pathologist Commnt No POC Glucose 114 H 166 H 07/01/21 07/01/21 07:10 11:15 WBC RBC Hgb Hct MCV MCH MCHC RDW Plt Count Add Manual Diff Total Counted Seg Neutrophils % Seg Neuts % (Manual) Lymphocytes % (Manual) Monocytes % (Manual) Nucleated RBC % Seg Neutrophils # Man Band Neutrophils # Lymphocytes # (Manual) Abs React Lymphs (Man) Monocytes # (Manual) Eosinophils # (Manual) Basophils # (Manual) Metamyelocytes # Myelocytes # Promyelocytes # Blast Cells # WBC Morphology Hypersegmented Neuts Hyposegmented Neuts Hypogranular Neuts Smudge Cells Toxic Granulation Toxic Vacuolation Dohle Bodies Pelger-Huet Anomaly Helen Rods Platelet Estimate Clumped Platelets Plt Clumps, EDTA Large Platelets Giant Platelets Platelet Satelliting Plt Morphology Comment RBC Morphology Dimorphic RBCs Polychromasia Hypochromasia Poikilocytosis Anisocytosis Microcytosis Macrocytosis Spherocytes Pappenheimer Bodies Sickle Cells Target Cells Tear Drop Cells Ovalocytes Helmet Cells [place] Bodies [place] Rings [place] Cells Bite Cells Crenated Cell Elliptocytes Acanthocytes (Spur) Rouleaux Hemoglobin C Crystals Schistocytes Malaria parasites Blayne Bodies Hem Pathologist Commnt POC Glucose 220 H 158 H
[2021-07-01] MEDS: INSULIN GLARGINE 100 UNITS/ML SUB-Q SCH (23:00)
[2021-07-02] MEDS: INSULIN LISPRO 100 UNIT/ML SUB-Q SCH ×4 (01:51→18:00)
[2021-07-02] MEDS: IPRATROPIUM/ALBUTEROL SULFATE 3 ML AMPUL.NEB IH SCH ×3 (07:59→19:47)
[2021-07-02] MEDS: dexAMETHasone 4 MG/ML VIAL IV SCH (09:33)
[2021-07-02] MEDS: METOPROLOL TARTRATE 25 MG TAB PO SCH ×2 (09:33→22:47)
[2021-07-02] MEDS: FAMOTIDINE 20 MG TAB PO SCH (09:34)
[2021-07-02] MEDS: HEPARIN 5,000 UNIT/1 ML VIAL SUB-Q SCH ×2 (09:34→22:47)
--- NOTE | 2021-07-02 10:56 | Progress Note ---
Assessment and Plan Assessment and plan: #1 severe sepsis secondary to bilateral [id number] pneumonia. Multiple sick contacts in the home environment. Seems to have improved with IV volume therapy. Patient stable with 3 L of O2. Resting comfortably. No longer tachypneic hypotensive or tachycardic. Will place patient on steroids de xamethasone. Questionable remdesivir until renal function has improved. Continue empiric antibiotics. ID consult. Follow inflammatory markers. No remdesivir secondary to renal function. Continue dexamethasone for 10 days. Contact Ana Rosa Arizmendi [phone] #2 acute renal failure. Secondary to prerenal azotemia not eating not drinking dehydration. Improving with follow-up chemistry obtain BMP a.m. #3 acute respiratory failure secondary to sepsis bilateral pneumonia Patient still maintained well with 3 L of oxygen. No change in O2. This is a good sign. Treat underlying etiology with antibiotics, supportive care. Steroids #4 diabetes mellitus will be more difficult control with addition of steroids placed patient sliding scale insulin advance as tolerated. We will add long-acting insulin. Especially since patient on steroids. Will increase long-acting insulin today. #5 rhabdomyolysis should respond to IV volume replacement. Would not be too aggressive since patient has Covid and would like to keep a little on dry side #6 hypertensive urgency. Will need to address patient's hypertension and tachycardia. Overall patient remains dry as evidenced by increased BUN/creatinine prerenal azotemia increase CPK. Much better since the addition of Lopressor. At present we will not increase fluids above 100 to 125 cc an hour in order not to worsen acute respiratory failure. Will be a very difficult balance but the risk outweigh the benefits of increasing fluids at this time. This can be fixed slowly. We will add Lopressor IV patient remains lethargic. #7 acute metabolic encephalopathy-patient not eating or drinking. Highly suspect Covid encephalopathy. Which would have caused underlying dementia to get worse. Patient should be able to eat today. CT scan head unremarkable. #8 hyponatremia patient started on D5 water. # 9: Failure to thrive #10 Covid pneumonia. ID following. Add dexamethasone. Subjective Date of service: 06/24/21 Principal diagnosis: Sepsis Interval history: Patient 80 years old with a history of dementia COPD presented to the ED with decreased responsiveness decreased p.o. intake x2 days fever 102. Patient also presented with tachycardia, tachypnea, hypoxemia. Patient had contact with family members with COVID-19. Patient presentation on radiograph consistent with bilateral pneumonia. Today subsequently patient positive for COVID-19. Currently stable with only 3 L nasal cannula. Patient encephalopathy has not improved much since baseline. 06/23/2021 patient remains altered today. A little more alert however remains encephalopathic. Patient SVT much improved since yesterday since suggesting gentle IV hydration plus amiodarone in addition to AV j carlos blocking agent. 06/24/2021. This is the first day patient much more responsive today. Will attempt to talk to you we will follow you with gaze. This is better than the previous 2 days.Tachycardia is also resolved. Requiring less oxygen wean as tolerated. 06/25: Patient seen and examined appears to be clinically improving. Discussed with nursing staff will obtain PT OT and home O2 evaluation. Anticipate discharge in a.m. if continues to improve will likely need home O2. Transfer [facility] downgrade. 06/26: Patient clinically stable anticipate discharge home or to SNF today. Awaiting home O2 evaluation Case management is following. CTA angio and Doppler of lower extremity for VTE work-up done. Will recommend short-term low-dose anticoagulation even if negative of VTE at this time considering patient's elevated D-dimer levels and the Covid diagnosis. PT OT evaluation as fall precaution is imperative considering low-dose anticoagulation. Attempted to reach family unable. 06/27: Patient remains lethargic this morning. We will get a swallow evaluation done. Patient remains on 2 L of oxygen. Discussed with physical therapist she was not able to be participatory in any activity except sitting up at the bedside. Also discussed with her granddaughter today who tells me that the patient's daughter is currently in the ICU at [facility] with Covid and a CVA. And that the patient has rapidly declined in the last 2+ weeks. She is agreeable with the recommendation of physical therapist for SNF at this time. Case management will be working on this. 06/28: Leukocytosis persist ?steroid induced, no new fever. will monitor. Awaiting placement. Discussed with case management today in rounds. 06/29: Patient continues to have poor p.o. intake. Repeated hypoglycemia. Discussed with family they are okay with patient getting a PEG tube to help with nutrition. Consult placed to utility helicopter repairer to assist with this. Patient is still pending placement. 8/6: Discussed with GI was able to get a hold of family will be proceeding with PEG placement today. Patient still pending placement. Following my examination discussed with nursing staff blood pressure was significantly elevated this morning not sure why there is no evidence of anxiety she did improve. Will monitor closely may need an additional blood pressure control medication. 07/01: Continue supportive care awaiting bed placement continue evaluation of: Take. Mild decrease in blood pressure today will monitor closely. May need to hold blood pressure medications if continues to worsen. Leukocytosis secondary to steroids per ID. 07/02: Patient seen and examined, she is doing well and stable, tolerating diet with assistance, may not need PEG, still awaiting placement. Continue support care. History Interval history: Patient seen and examined resting comfortably currently on 2 L of oxygen continues to show improvement. No new complaints. Still awaiting placement. Patient able to eat 75% of meal with assistance Hospitalist Physical - Physical exam Narrative exam: General appearance: Present: no acute distress, mild temporal wasting. Baseline dementia, much more awake today speaking. - EENT Eyes: PERRL, EOM intact ENT: hearing intact, clear oral mucosa Ears: bilateral: normal - Neck Neck: supple, normal ROM - Respiratory Respiratory effort: normal Respiratory: bilateral: diminished, rhonchi - Breasts Breasts: normal - Cardiovascular Rhythm: regular Heart Sounds: Present: S1 & S2. Absent: gallop, rub Extremities: pulses intact, No edema, normal color, Full ROM - Gastrointestinal General gastrointestinal: Present: soft, non-tender, non-distended, normal bowel sounds - Genitourinary Female genitourinary: normal - Integumentary Integumentary: clear, warm, dry - Musculoskeletal Musculoskeletal: 1, strength equal bilaterally, gait status unsure - Neurologic Neurologic: moves all extremities - Psychiatric Psychiatric: other (Much more alert) - Constitutional Vitals: Temp Pulse Resp BP Pulse Ox 98.4 F 79 18 126/68 99 07/02/21 04:33 07/02/21 09:33 07/02/21 07:59 07/02/21 04:33 07/02/21 08:00 General appearance: Present: no acute distress, well-nourished Results - Labs CBC & Chem 7: 07/01/21 05:09 06/30/21 05:04 Labs: Laboratory Last Values WBC 16.0 K/mm3 (4.5-11.0) H 07/01/21 05:09 RBC 3.78 M/mm3 (3.65-5.03) 07/01/21 05:09 Hgb 10.1 gm/dl (10.1-14.3) 07/01/21 05:09 Hct 31.2 % (30.3-42.9) 07/01/21 05:09 MCV 83 fl (79-97) 07/01/21 05:09 MCH 27 pg (28-32) L 07/01/21 05:09 MCHC 32 % (30-34) 07/01/21 05:09 RDW 15.8 % (13.2-15.2) H 07/01/21 05:09 Plt Count 301 K/mm3 (140-440) 07/01/21 05:09 Lymph % (Auto) 3.5 % (13.4-35.0) L 06/21/21 20:39 Hand % (Auto) 6.0 % (0.0-7.3) 06/21/21 20:39 Eos % (Auto) 0.3 % (0.0-4.3) 06/21/21 20:39 Baso % (Auto) 0.2 % (0.0-1.8) 06/21/21 20:39 Lymph # (Auto) 0.6 K/mm3 (1.2-5.4) L 06/21/21 20:39 Hand # (Auto) 1.1 K/mm3 (0.0-0.8) H 06/21/21 20:39 Eos # (Auto) 0.1 K/mm3 (0.0-0.4) 06/21/21 20:39 Baso # (Auto) 0.0 K/mm3 (0.0-0.1) 06/21/21 20:39 Add Manual Diff Complete 07/01/21 05:09 Total Counted 100 07/01/21 05:09 Seg Neutrophils % [employer] 07/01/21 05:09 Seg Neuts % (Manual) 94.0 % (40.0-70.0) H 07/01/21 05:09 Band Neutrophils % 2.0 % 06/30/21 05:04 Lymphocytes % (Manual) 2.0 % (13.4-35.0) L 07/01/21 05:09 Reactive Lymphs % (Man) 1.0 % 06/26/21 05:48 Monocytes % (Manual) 4.0 % (0.0-7.3) 07/01/21 05:09 Metamyelocytes % 1.0 % 06/28/21 06:24 Myelocytes % 1.0 % 06/27/21 07:23 Nucleated RBC % Not Reportable 07/01/21 05:09 Seg Neutrophils # 15.9 K/mm3 (1.8-7.7) H 06/21/21 20:39 Seg Neutrophils # Man 15.0 K/mm3 (1.8-7.7) H 07/01/21 05:09 Band Neutrophils # 0.0 K/mm3 07/01/21 05:09 Lymphocytes # (Manual) 0.3 K/mm3 (1.2-5.4) L 07/01/21 05:09 Abs React Lymphs (Man) 0.0 K/mm3 07/01/21 05:09 Monocytes # (Manual) 0.6 K/mm3 (0.0-0.8) 07/01/21 05:09 Eosinophils # (Manual) 0.0 K/mm3 (0.0-0.4) 07/01/21 05:09 Basophils # (Manual) 0.0 K/mm3 (0.0-0.1) 07/01/21 05:09 Metamyelocytes # 0.0 K/mm3 07/01/21 05:09 Myelocytes # 0.0 K/mm3 07/01/21 05:09 Promyelocytes # 0.0 K/mm3 07/01/21 05:09 Blast Cells # 0.0 K/mm3 07/01/21 05:09 WBC Morphology Not Reportable 07/01/21 05:09 Hypersegmented Neuts Not Reportable 07/01/21 05:09 Hyposegmented Neuts Not Reportable 07/01/21 05:09 Hypogranular Neuts Not Reportable 07/01/21 05:09 Smudge Cells Not Reportable 07/01/21 05:09 Toxic Granulation Not Reportable 07/01/21 05:09 Toxic Vacuolation Not Reportable 07/01/21 05:09 Dohle Bodies Not Reportable 07/01/21 05:09 Pelger-Huet Anomaly Not Reportable 07/01/21 05:09 Helen Rods Not Reportable 07/01/21 05:09 Platelet Estimate Consistent w auto 07/01/21 05:09 Clumped Platelets Not Reportable 07/01/21 05:09 Plt Clumps, EDTA Not Reportable 07/01/21 05:09 Large Platelets Not Reportable 07/01/21 05:09 Giant Platelets Not Reportable 07/01/21 05:09 Platelet Satelliting Not Reportable 07/01/21 05:09 Plt Morphology Comment Not Reportable 07/01/21 05:09 RBC Morphology Not Reportable 07/01/21 05:09 Dimorphic RBCs Not Reportable 07/01/21 05:09 Polychromasia Not Reportable 07/01/21 05:09 Hypochromasia Not Reportable 07/01/21 05:09 Poikilocytosis Not Reportable 07/01/21 05:09 Anisocytosis Not Reportable 07/01/21 05:09 Microcytosis Not Reportable 07/01/21 05:09 Macrocytosis Not Reportable 07/01/21 05:09 Spherocytes Not Reportable 07/01/21 05:09 Pappenheimer Bodies Not Reportable 07/01/21 05:09 Sickle Cells Not Reportable 07/01/21 05:09 Target Cells Not Reportable 07/01/21 05:09 Tear Drop Cells Not Reportable 07/01/21 05:09 Ovalocytes Not Reportable 07/01/21 05:09 Helmet Cells Not Reportable 07/01/21 05:09 Hart-Juda Bodies Not Reportable 07/01/21 05:09 Baldwyn Rings Not Reportable 07/01/21 05:09 Grant Cells Few 07/01/21 05:09 Bite Cells Not Reportable 07/01/21 05:09 Crenated Cell Not Reportable 07/01/21 05:09 Elliptocytes Few 07/01/21 05:09 Acanthocytes (Spur) Not Reportable 07/01/21 05:09 Rouleaux Not Reportable 07/01/21 05:09 Hemoglobin C Crystals Not Reportable 07/01/21 05:09 Schistocytes Not Reportable 07/01/21 05:09 Malaria parasites Not Reportable 07/01/21 05:09 Blayne Bodies Not Reportable 07/01/21 05:09 Hem Pathologist Commnt No 07/01/21 05:09 D-Dimer 4489.63 ng/mlDDU (0-234) H 06/26/21 05:48 Heparin Anti-Xa Level < 0.10 U.I./ml (0.3-0.7) L 06/30/21 05:03 Sodium 142 mmol/L (137-145) 06/30/21 05:04 Potassium 4.9 mmol/L (3.6-5.0) 06/30/21 05:04 Chloride 103.2 mmol/L (98-107) 06/30/21 05:04 Carbon Dioxide 31 mmol/L (22-30) H 06/30/21 05:04 Anion Gap 13 mmol/L 06/30/21 05:04 BUN 23 mg/dL (7-17) H 06/30/21 05:04 Creatinine 0.6 mg/dL (0.6-1.2) 06/30/21 05:04 Estimated GFR > 60 ml/min 06/30/21 05:04 BUN/Creatinine Ratio 38 % 06/30/21 05:04 Glucose 117 mg/dL (65-100) H 06/30/21 05:04 POC Glucose 239 mg/dL (70-105) H 07/02/21 06:02 Lactic Acid 1.20 mmol/L (0.7-2.0) 06/22/21 05:06 Calcium 10.3 mg/dL (8.4-10.2) H 06/30/21 05:04 Phosphorus 3.00 mg/dL (2.5-4.5) 06/27/21 07:23 Ferritin 281.5 ng/mL (10.0-200.0) H 06/26/21 05:48 Total Bilirubin 0.50 mg/dL (0.1-1.2) 06/27/21 07:23 Direct Bilirubin 0.7 mg/dL (0-0.2) H 06/21/21 20:39 Indirect Bilirubin 0.3 mg/dL 06/21/21 20:39 AST 67 units/L (5-40) H 06/27/21 07:23 ALT 85 units/L (7-56) H 06/27/21 07:23 Alkaline Phosphatase 91 units/L (35-129) 06/27/21 07:23 Total Creatine Kinase 1066 units/L (30-135) H 06/23/21 17:57 C-Reactive Protein 1.40 mg/dL (0.00-1.30) H 06/26/21 05:48 Total Protein 5.1 g/dL (6.3-8.2) L 06/27/21 07:23 Albumin 2.4 g/dL (3.9-5) L 06/27/21 07:23 Albumin/Globulin Ratio 0.9 % 06/27/21 07:23 Procalcitonin 0.60 ng/mL (<0.15) 06/25/21 05:10 Urine Color Yellow (Yellow) 06/22/21 13:45 Urine Turbidity Clear (Clear) 06/22/21 13:45 Urine pH 5.0 (5.0-7.0) 06/22/21 13:45 Ur Specific [place] 1.013 (1.003-1.030) 06/22/21 13:45 Urine Protein 100 mg/dl mg/dL (Negative) 06/22/21 13:45 Urine Glucose (UA) Neg mg/dL (Negative) 06/22/21 13:45 Urine Ketones Neg mg/dL (Negative) 06/22/21 13:45 Urine Blood Lg (Negative) 06/22/21 13:45 Urine Nitrite Pos (Negative) 06/22/21 13:45 Urine Bilirubin Neg (Negative) 06/22/21 13:45 Urine Urobilinogen < 2.0 mg/dL (<2.0) 06/22/21 13:45 Ur Leukocyte Esterase Neg (Negative) 06/22/21 13:45 Urine WBC (Auto) 1.0 /HPF (0.0-6.0) 06/22/21 13:45 Urine RBC (Auto) 5.0 /HPF (0.0-6.0) 06/22/21 13:45 U Epithel Cells (Auto) < 1.0 /HPF (0-13.0) 06/22/21 13:45 Urine Bacteria (Auto) 3+ /HPF (Negative) 06/22/21 13:45 Urine Mucus Few /HPF 06/22/21 13:45 Urine Creatinine 52.2 mg/dL (0.1-20.0) H 06/22/21 13:45 Urine Creatinine 52.9 mg/dL (0.1-20.0) H 06/22/21 13:45 Protein/Creatinin Ratio 1.15 06/22/21 13:45 Urine Sodium 122 mmol/L 06/22/21 13:45 Urine Total Protein 61 mg/dL (5-11.8) H 06/22/21 13:45 Nasal Screen MRSA (PCR) Negative (Negative) 06/22/21 04:45 Coronavirus (PCR) Positive (Negative) A 06/28/21 Unknown Blood Type O POSITIVE 06/22/21 05:06 Antibody Screen Negative 06/22/21 05:06 Robbins/IV: Voiding Method External Female Catheter Active Medications - Current Medications Current Medications: Generic Name Dose Route Start Last Admin Trade Name Freq PRN Reason Stop Dose Admin Acetaminophen 650 mg 06/22/21 01:32 Acetaminophen 325 Mg Tab PO Q4H PRN Pain MILD(1-3)/Fever >100.5/MCGRAW Albuterol 2 puff 06/24/21 02:07 Albuterol 8.5 Gm Mdi Inhalation IH Q4HRT PRN Shortness Of Breath Albuterol/Ipratropium 1 ampul 06/27/21 08:00 07/02/21 07:59 Ipratropium/Albuterol Sulfate 3 Ml Ampul.Neb IH 1 ampul TIDRT FEDERICO Administration Lipase/Protease/Amylase 1 each 06/29/21 13:00 Lipase 10,500/Protease 25,000/Amylase 43,750 (Units) Dr Rouse FEEDTUBE PRN PRN For Clogged Feeding Tube Dexamethasone 6 mg 06/23/21 13:00 07/02/21 09:33 Dexamethasone 4 Mg/Ml Vial IV 07/03/21 12:59 6 mg DAILY FEDERICO Administration Dextrose 50 ml 06/22/21 17:15 06/30/21 08:41 Dextrose 50% In Water (25gm) 50 Ml Syringe IV 50 ml Q30MIN PRN Administration Hypoglycemia Protocol Famotidine 20 mg 06/29/21 10:00 07/02/21 09:34 Famotidine 20 Mg Tab PO 20 mg DAILY FEDERICO Administration Heparin Sodium (Porcine) 5,000 unit 06/22/21 10:00 07/02/21 09:34 Heparin 5,000 Unit/1 Ml Vial SUB-Q 5,000 unit Q12HR FEDERICO Administration Hydralazine HCl 10 mg 06/25/21 02:16 06/30/21 07:08 Hydralazine 20 Mg/1 Ml Inj IV 10 mg Q6HR PRN Administration Hypertension Hydromorphone HCl 0.25 mg 06/22/21 01:32 Hydromorphone 1 Mg/1 Ml Inj IV Q4H PRN Pain, Moderate (4-6) Hydromorphone HCl 0.5 mg 06/22/21 01:32 Hydromorphone 1 Mg/1 Ml Inj IV Q3H PRN Pain , Severe (7-10) Insulin Glargine 20 units 06/28/21 22:00 07/01/21 23:00 Insulin Glargine 100 Units/Ml SUB-Q 20 units QHS FEDERICO Administration Insulin Human Lispro 0 unit 06/22/21 18:00 07/02/21 07:04 Insulin Lispro 100 Unit/Ml SUB-Q 2 unit Q6HR FEDERICO Administration Protocol Metoprolol Tartrate 12.5 mg 06/27/21 22:00 07/02/21 09:33 Metoprolol Tartrate 25 Mg Tab PO 12.5 mg BID FEDERICO Administration Ondansetron HCl 4 mg 06/22/21 01:32 06/29/21 11:10 Ondansetron 4 Mg/2 Ml Inj IV 4 mg Q8H PRN Administration Nausea And Vomiting Oxycodone/Acetaminophen 1 tab 06/22/21 01:32 Oxycodone /Acetaminophen 5-325mg Tab PO Q6H PRN Pain, Moderate (4-6) Simple Syrup 15 ml 06/29/21 13:00 Simple Syrup 15 Ml FEEDTUBE PRN PRN Hypoglycemia Simple Syrup 30 ml 06/29/21 13:00 Simple Syrup 15 Ml FEEDTUBE PRN PRN Hypoglycemia Sodium Bicarbonate 325 mg 06/29/21 13:30 Sodium Bicarbonate 325 Mg Tab FEEDTUBE PRN PRN For Clogged Feeding Tube Sodium Chloride 10 ml 06/22/21 10:00 07/02/21 09:34 Sodium Chloride 0.9% 10 Ml Flush Syringe IV 10 ml BID FEDERICO Administration Sodium Chloride 10 ml 06/22/21 01:32 Sodium Chloride 0.9% 10 Ml Flush Syringe IV PRN PRN LINE FLUSH Nutrition/Malnutrition Assess - Dietary Evaluation Nutrition/Malnutrition Findings: Nutrition Notes Start: 06/22/21 12:10 Freq: Status: Active Protocol: Document 06/29/21 12:44 SUE (Rec: 06/29/21 12:49 SUE [id number]) Nutrition Notes Need for Assessment generated from: MD Order Initial or Follow up Reassessment Current Diagnosis Acute Kidney Injury,COPD, Sepsis Other Pertinent Diagnosis dementia, pneu, COVID-19(+) Current Diet pureed Labs/Tests POC BG 240-59 Pertinent Medications Decadron Zofran Height 5 ft 4 in Weight 57.9 kg [place] Body Weight (kg) 54.54 BMI 21.9 Weight Status Appropriate Subjective/Other Information Due to continued poor intakes, MD ordered PEG. Pt currently with dobhoff orders. Burn Absent Trauma Absent Current % PO Negligible Minimum of two criteria No physical signs of malnutrition #2 Nutrition Diagnosis Inadequate oral intake Diagnosis Progress(for reassessment Continues documentation) #1 Nutrition Diagnosis Increased nutrient needs ( specify in comment below) Diagnosis Progress(for reassessment Continues documentation) Is patient on ventilator? No Is Patient Ambulatory and/or Out of Bed No REE-([facility]-confined to bed) [phone] Calculation Used for Recommendations [facility] Additional Notes Protein: (1.25-1.5g/kg) 73-87g Fluid: 1 ml/kcal Nutrition Intervention Change Diet Order: continue Nutrition Support: Glucerna 1.2 at 45 ml/hr Flush 75 ml q4h Kcal 1,296 Protein (gm) 65 Fluid (mL) 869 Add Supplement/Snack (indicate name/kcal d/c /protein ) Goal #1 Meet at least 75% of energy and protein needs via PO and TF Anticipated Discharge Needs: Unable to determine at this time Follow-Up By: 07/03/21 Additional Comments F/U: PEG placement, TF start/ tolerance, intakes of pleasure feeding
--- NOTE | 2021-07-02 11:59 | Event Note ---
Date: 07/02/21 GI update: Per nursing, patient is more awake and able to eat more with assistance. Given increased PO intake, will hold off PEG tube placement. Will sign off. Please call with any questions.
[2021-07-02] MEDS: INSULIN GLARGINE 100 UNITS/ML SUB-Q SCH (22:47)
[2021-07-03] MEDS: INSULIN LISPRO 100 UNIT/ML SUB-Q SCH ×4 (00:53→19:10)
[2021-07-03] MEDS: FAMOTIDINE 20 MG TAB PO SCH (09:38)
[2021-07-03] MEDS: dexAMETHasone 4 MG/ML VIAL IV SCH (09:38)
[2021-07-03] MEDS: METOPROLOL TARTRATE 25 MG TAB PO SCH ×2 (09:38→22:38)
[2021-07-03] MEDS: HEPARIN 5,000 UNIT/1 ML VIAL SUB-Q SCH ×2 (09:39→22:37)
[2021-07-03] MEDS: IPRATROPIUM/ALBUTEROL SULFATE 3 ML AMPUL.NEB IH SCH ×3 (10:10→20:40)
--- NOTE | 2021-07-03 11:34 | Progress Note ---
Assessment and Plan Cultures: SARS CoV2 PCR: Positive 06/21/2021 blood culture: no growth MRSA nasal PCR: Negative 06/22/2021 urine culture: Mixed ferny A/P: 80-year-old female with dementia, COPD, diabetes admitted to the hospital due to altered mental status and reduced oral intake for the last few days: #COVID-19 pneumonia: mild hypoxia. Procalcitonin decreased to 0.6, CRP down to 3.1. On steroids. S/P Ceftriaxone. #Sepsis: Source is unclear, likely COVID related. Procalcitonin decreased to 0.6. UA without significant pyuria. #New transaminitis: likely from Remdesivir. Resolved #Lactic acidosis #Acute kidney injury: improved #Elevated CK #Dementia Recs: -On room air, ok for DC from ID perspective ID will sign off. Please call with questions. Silviano Bonilla MD [facility], [place] O: [phone] F: [phone] Subjective Date of service: 07/03/21 Principal diagnosis: Sepsis Interval history: Afebrile, now on room air. Objective - Exam Narrative Exam: Physical exam deferred to reduce risk of transmission of COVID-19. Please refer to primary team's note. - Constitutional Vitals: Vital Signs Temp Pulse Resp BP Pulse Ox 98.3 F 104 H 18 153/61 98 07/03/21 09:34 07/03/21 10:10 07/03/21 10:10 07/03/21 09:38 07/03/21 10:00 Temperature -Last 24 Hours Temperature 98.3 F Temperature 97.5 F Temperature 98.1 F - Labs CBC & Chem 7: 07/01/21 05:09 06/30/21 05:04 Labs: Abnormal lab results 07/02/21 07/02/21 07/03/21 Range/Units 12:50 17:39 00:48 POC Glucose 233 H 307 H 307 H (70-105) mg/dL 07/03/21 07/03/21 Range/Units 05:44 11:30 POC Glucose 115 H 167 H (70-105) mg/dL
[2021-07-03] MEDS: INSULIN GLARGINE 100 UNITS/ML SUB-Q SCH (22:38)
[2021-07-04] MEDS: INSULIN LISPRO 100 UNIT/ML SUB-Q SCH ×4 (00:38→18:44)
--- NOTE | 2021-07-04 07:58 | Progress Note ---
Assessment and Plan Assessment and plan: #1 severe sepsis secondary to bilateral [id number] pneumonia. Multiple sick contacts in the home environment. Seems to have improved with IV volume therapy. Patient stable with 3 L of O2. Resting comfortably. No longer tachypneic hypotensive or tachycardic. Will place patient on steroids d examethasone. Questionable remdesivir until renal function has improved. Continue empiric antibiotics. ID consult. Follow inflammatory markers. No remdesivir secondary to renal function. Continue dexamethasone for 10 days. Contact Ana Rosa Arizmendi [phone] #2 acute renal failure. Secondary to prerenal azotemia not eating not drinking dehydration. Improving with follow-up chemistry obtain BMP a.m. #3 acute respiratory failure secondary to sepsis bilateral pneumonia Patient still maintained well with 3 L of oxygen. No change in O2. This is a good sign. Treat underlying etiology with antibiotics, supportive care. Steroids #4 diabetes mellitus will be more difficult control with addition of steroids placed patient sliding scale insulin advance as tolerated. We will add long-acting insulin. Especially since patient on steroids. Will increase long-acting insulin today. #5 rhabdomyolysis should respond to IV volume replacement. Would not be too aggressive since patient has Covid and would like to keep a little on dry side #6 hypertensive urgency. Will need to address patient's hypertension and tachycardia. Overall patient remains dry as evidenced by increased BUN/creatini ne prerenal azotemia increase CPK. Much better since the addition of Lopressor. At present we will not increase fluids above 100 to 125 cc an hour in order not to worsen acute respiratory failure. Will be a very difficult balance but the risk outweigh the benefits of increasing fluids at this time. This can be fixed slowly. We will add Lopressor IV patient remains lethargic. #7 acute metabolic encephalopathy-patient not eating or drinking. Highly suspect Covid encephalopathy. Which would have caused underlying dementia to get worse. Patient should be able to eat today. CT scan head unremarkable. #8 hyponatremia patient started on D5 water. # 9: Failure to thrive #10 Covid pneumonia. ID following. Add dexamethasone. Subjective Date of service: 06/24/21 Principal diagnosis: Sepsis Interval history: Patient 80 years old with a history of dementia COPD presented to the ED with decreased responsiveness decreased p.o. intake x2 days fever 102. Patient also presented with tachycardia, tachypnea, hypoxemia. Patient had contact with family members with COVID-19. Patient presentation on radiograph consistent with bilateral pneumonia. Today subsequently patient positive for COVID-19. Currently stable with only 3 L nasal cannula. Patient encephalopathy has not improved much since baseline. 06/23/2021 patient remains altered today. A little more alert however remains encephalopathic. Patient SVT much improved since yesterday since suggesting gentle IV hydration plus amiodarone in addition to AV j carlos blocking agent. 06/24/2021. This is the first day patient much more responsive today. Will attempt to talk to you we will follow you with gaze. This is better than the previous 2 days.Tachycardia is also resolved. Requiring less oxygen wean as tolerated. 06/25: Patient seen and examined appears to be clinically improving. Discussed with nursing staff will obtain PT OT and home O2 evaluation. Anticipate discharge in a.m. if continues to improve will likely need home O2. Transfer to [facility] downgrade. 06/26: Patient clinically stable anticipate discharge home or to SNF today. Awaiting home O2 evaluation Case management is following. CTA angio and Doppler of lower extremity for VTE work-up done. Will recommend short-term low-dose anticoagulation even if negative of VTE at this time considering patient's elevated D-dimer levels and the Covid diagnosis. PT OT evaluation as fall precaution is imperative considering low-dose anticoagulation. Attempted to reach family unable. 06/27: Patient remains lethargic this morning. We will get a swallow evaluation done. Patient remains on 2 L of oxygen. Discussed with physical therapist she was not able to be participatory in any activity except sitting up at the bedside. Also discussed with her granddaughter today who tells me that the patient's daughter is currently in the ICU at [place] with Covid and a CVA. And that the patient has rapidly declined in the last 2+ weeks. She is agreeable with the recommendation of physical therapist for SNF at this time. Case management will be working on this. 06/28: Leukocytosis persist ?steroid induced, no new fever. will monitor. Awaiting placement. Discussed with case management today in rounds. 06/29: Patient continues to have poor p.o. intake. Repeated hypoglycemia. Discussed with family they are okay with patient getting a PEG tube to help with nutrition. Consult placed to sales expert to assist with this. Patient is still pending placement. 06/30: Discussed with GI was able to get a hold of family will be proceeding with PEG placement today. Patient still pending placement. Following my examination discussed with nursing staff blood pressure was significantly elevated this morning not sure why there is no evidence of anxiety she did improve. Will monitor closely may need an additional blood pressure control medication. 07/01: Continue supportive care awaiting bed placement continue evaluation of: Take. Mild decrease in blood pressure today will monitor closely. May need to hold blood pressure medications if continues to worsen. Leukocytosis secondary to steroids per ID. 07/02: Patient seen and examined, she is doing well and stable, tolerating diet with assistance, may not need PEG, still awaiting placement. Continue support ca re. 07/04; patient was seen and examined this morning. Patient was not on oxygen. Patient does not PEG tube. Patient is pending for placement. History Interval history: Patient was seen and evaluated this morning Patient was on room air Patient was weak, does not speak much Hospitalist Physical - Physical exam Narrative exam: Not in cardiopulmonary distress. The patient appeared well nourished and normally developed. Vital signs as documented. Head exam is unremarkable. No scleral icterus . Neck is without jugular venous distension, thyromegaly, or carotid bruits. Lungs are clear to auscultation. Cardiac exam reveals regular rate and Rhythm. Abdominal exam reveals normal bowel sounds, nontender, no organomegaly. Extremities are nonedematous and both femoral and pedal pulses are normal. PYTHON PROGRAMMER: Patient not speak much. No focal weakness. - Constitutional Vitals: Temp Pulse Resp BP Pulse Ox 98.7 F 78 16 141/69 96 07/04/21 05:30 07/04/21 05:30 07/04/21 05:30 07/04/21 05:30 07/04/21 05:30 General appearance: Present: no acute distress, well-nourished Results - Labs CBC & Chem 7: 07/01/21 05:09 06/30/21 05:04 Labs: Laboratory Last Values WBC 16.0 K/mm3 (4.5-11.0) H 07/01/21 05:09 RBC 3.78 M/mm3 (3.65-5.03) 07/01/21 05:09 Hgb 10.1 gm/dl (10.1-14.3) 07/01/21 05:09 Hct 31.2 % (30.3-42.9) 07/01/21 05:09 MCV 83 fl (79-97) 07/01/21 05:09 MCH 27 pg (28-32) L 07/01/21 05:09 MCHC 32 % (30-34) 07/01/21 05:09 RDW 15.8 % (13.2-15.2) H 07/01/21 05:09 Plt Count 301 K/mm3 (140-440) 07/01/21 05:09 Lymph % (Auto) 3.5 % (13.4-35.0) L 06/21/21 20:39 Barber % (Auto) 6.0 % (0.0-7.3) 06/21/21 20:39 Eos % (Auto) 0.3 % (0.0-4.3) 06/21/21 20:39 Baso % (Auto) 0.2 % (0.0-1.8) 06/21/21 20:39 Lymph # (Auto) 0.6 K/mm3 (1.2-5.4) L 06/21/21 20:39 Barber # (Auto) 1.1 K/mm3 (0.0-0.8) H 06/21/21 20:39 Eos # (Auto) 0.1 K/mm3 (0.0-0.4) 06/21/21 20:39 Baso # (Auto) 0.0 K/mm3 (0.0-0.1) 06/21/21 20:39 Add Manual Diff Complete 07/01/21 05:09 Total Counted 100 07/01/21 05:09 Seg Neutrophils % [employer] Supervisor 07/01/21 05:09 Seg Neuts % (Manual) 94.0 % (40.0-70.0) H 07/01/21 05:09 Band Neutrophils % 2.0 % 06/30/21 05:04 Lymphocytes % (Manual) 2.0 % (13.4-35.0) L 07/01/21 05:09 Reactive Lymphs % (Man) 1.0 % 06/26/21 05:48 Monocytes % (Manual) 4.0 % (0.0-7.3) 07/01/21 05:09 Metamyelocytes % 1.0 % 06/28/21 06:24 Myelocytes % 1.0 % 06/27/21 07:23 Nucleated RBC % Not Reportable 07/01/21 05:09 Seg Neutrophils # 15.9 K/mm3 (1.8-7.7) H 06/21/21 20:39 Seg Neutrophils # Man 15.0 K/mm3 (1.8-7.7) H 07/01/21 05:09 Band Neutrophils # 0.0 K/mm3 07/01/21 05:09 Lymphocytes # (Manual) 0.3 K/mm3 (1.2-5.4) L 07/01/21 05:09 Abs React Lymphs (Man) 0.0 K/mm3 07/01/21 05:09 Monocytes # (Manual) 0.6 K/mm3 (0.0-0.8) 07/01/21 05:09 Eosinophils # (Manual) 0.0 K/mm3 (0.0-0.4) 07/01/21 05:09 Basophils # (Manual) 0.0 K/mm3 (0.0-0.1) 07/01/21 05:09 Metamyelocytes # 0.0 K/mm3 07/01/21 05:09 Myelocytes # 0.0 K/mm3 07/01/21 05:09 Promyelocytes # 0.0 K/mm3 07/01/21 05:09 Blast Cells # 0.0 K/mm3 07/01/21 05:09 WBC Morphology Not Reportable 07/01/21 05:09 Hypersegmented Neuts Not Reportable 07/01/21 05:09 Hyposegmented Neuts Not Reportable 07/01/21 05:09 Hypogranular Neuts Not Reportable 07/01/21 05:09 Smudge Cells Not Reportable 07/01/21 05:09 Toxic Granulation Not Reportable 07/01/21 05:09 Toxic Vacuolation Not Reportable 07/01/21 05:09 Dohle Bodies Not Reportable 07/01/21 05:09 Pelger-Huet Anomaly Not Reportable 07/01/21 05:09 Helen Rods Not Reportable 07/01/21 05:09 Platelet Estimate Consistent w auto 07/01/21 05:09 Clumped Platelets Not Reportable 07/01/21 05:09 Plt Clumps, EDTA Not Reportable 07/01/21 05:09 Large Platelets Not Reportable 07/01/21 05:09 Giant Platelets Not Reportable 07/01/21 05:09 Platelet Satelliting Not Reportable 07/01/21 05:09 Plt Morphology Comment Not Reportable 07/01/21 05:09 RBC Morphology Not Reportable 07/01/21 05:09 Dimorphic RBCs Not Reportable 07/01/21 05:09 Polychromasia Not Reportable 07/01/21 05:09 Hypochromasia Not Reportable 07/01/21 05:09 Poikilocytosis Not Reportable 07/01/21 05:09 Anisocytosis Not Reportable 07/01/21 05:09 Microcytosis Not Reportable 07/01/21 05:09 Macrocytosis Not Reportable 07/01/21 05:09 Spherocytes Not Reportable 07/01/21 05:09 Pappenheimer Bodies Not Reportable 07/01/21 05:09 Sickle Cells Not Reportable 07/01/21 05:09 Target Cells Not Reportable 07/01/21 05:09 Tear Drop Cells Not Reportable 07/01/21 05:09 Ovalocytes Not Reportable 07/01/21 05:09 Helmet Cells Not Reportable 07/01/21 05:09 Hart-Doon Bodies Not Reportable 07/01/21 05:09 [place] Rings Not Reportable 07/01/21 05:09 Ni Cells Few 07/01/21 05:09 Bite Cells Not Reportable 07/01/21 05:09 Crenated Cell Not Reportable 07/01/21 05:09 Elliptocytes Few 07/01/21 05:09 Acanthocytes (Spur) Not Reportable 07/01/21 05:09 Rouleaux Not Reportable 07/01/21 05:09 Hemoglobin C Crystals Not Reportable 07/01/21 05:09 Schistocytes Not Reportable 07/01/21 05:09 Malaria parasites Not Reportable 07/01/21 05:09 Blayne Bodies Not Reportable 07/01/21 05:09 Hem Pathologist Commnt No 07/01/21 05:09 D-Dimer 4489.63 ng/mlDDU (0-234) H 06/26/21 05:48 Heparin Anti-Xa Level < 0.10 U.I./ml (0.3-0.7) L 06/30/21 05:03 Sodium 142 mmol/L (137-145) 06/30/21 05:04 Potassium 4.9 mmol/L (3.6-5.0) 06/30/21 05:04 Chloride 103.2 mmol/L (98-107) 06/30/21 05:04 Carbon Dioxide 31 mmol/L (22-30) H 06/30/21 05:04 Anion Gap 13 mmol/L 06/30/21 05:04 BUN 23 mg/dL (7-17) H 06/30/21 05:04 Creatinine 0.6 mg/dL (0.6-1.2) 06/30/21 05:04 Estimated GFR > 60 ml/min 06/30/21 05:04 BUN/Creatinine Ratio 38 % 06/30/21 05:04 Glucose 117 mg/dL (65-100) H 06/30/21 05:04 POC Glucose 71 mg/dL (70-105) 07/04/21 05:59 Lactic Acid 1.20 mmol/L (0.7-2.0) 06/22/21 05:06 Calcium 10.3 mg/dL (8.4-10.2) H 06/30/21 05:04 Phosphorus 3.00 mg/dL (2.5-4.5) 06/27/21 07:23 Ferritin 281.5 ng/mL (10.0-200.0) H 06/26/21 05:48 Total Bilirubin 0.50 mg/dL (0.1-1.2) 06/27/21 07:23 Direct Bilirubin 0.7 mg/dL (0-0.2) H 06/21/21 20:39 Indirect Bilirubin 0.3 mg/dL 06/21/21 20:39 AST 67 units/L (5-40) H 06/27/21 07:23 ALT 85 units/L (7-56) H 06/27/21 07:23 Alkaline Phosphatase 91 units/L (35-129) 06/27/21 07:23 Total Creatine Kinase 1066 units/L (30-135) H 06/23/21 17:57 C-Reactive Protein 1.40 mg/dL (0.00-1.30) H 06/26/21 05:48 Total Protein 5.1 g/dL (6.3-8.2) L 06/27/21 07:23 Albumin 2.4 g/dL (3.9-5) L 06/27/21 07:23 Albumin/Globulin Ratio 0.9 % 06/27/21 07:23 Procalcitonin 0.60 ng/mL (<0.15) 06/25/21 05:10 Urine Color Yellow (Yellow) 06/22/21 13:45 Urine Turbidity Clear (Clear) 06/22/21 13:45 Urine pH 5.0 (5.0-7.0) 06/22/21 13:45 Ur Specific [place] 1.013 (1.003-1.030) 06/22/21 13:45 Urine Protein 100 mg/dl mg/dL (Negative) 06/22/21 13:45 Urine Glucose (UA) Neg mg/dL (Negative) 06/22/21 13:45 Urine Ketones Neg mg/dL (Negative) 06/22/21 13:45 Urine Blood Lg (Negative) 06/22/21 13:45 Urine Nitrite Pos (Negative) 06/22/21 13:45 Urine Bilirubin Neg (Negative) 06/22/21 13:45 Urine Urobilinogen < 2.0 mg/dL (<2.0) 06/22/21 13:45 Ur Leukocyte Esterase Neg (Negative) 06/22/21 13:45 Urine WBC (Auto) 1.0 /HPF (0.0-6.0) 06/22/21 13:45 Urine RBC (Auto) 5.0 /HPF (0.0-6.0) 06/22/21 13:45 U Epithel Cells (Auto) < 1.0 /HPF (0-13.0) 06/22/21 13:45 Urine Bacteria (Auto) 3+ /HPF (Negative) 06/22/21 13:45 Urine Mucus Few /HPF 06/22/21 13:45 Urine Creatinine 52.2 mg/dL (0.1-20.0) H 06/22/21 13:45 Urine Creatinine 52.9 mg/dL (0.1-20.0) H 06/22/21 13:45 Protein/Creatinin Ratio 1.15 06/22/21 13:45 Urine Sodium 122 mmol/L 06/22/21 13:45 Urine Total Protein 61 mg/dL (5-11.8) H 06/22/21 13:45 Nasal Screen MRSA (PCR) Negative (Negative) 06/22/21 04:45 Coronavirus (PCR) Positive (Negative) A 06/28/21 Unknown Blood Type O POSITIVE 06/22/21 05:06 Antibody Screen Negative 06/22/21 05:06 Robbins/IV: Voiding Method External Female Catheter Active Medications - Current Medications Current Medications: Generic Name Dose Route Start Last Admin Trade Name Freq PRN Reason Stop Dose Admin Acetaminophen 650 mg 06/22/21 01:32 Acetaminophen 325 Mg Tab PO Q4H PRN Pain MILD(1-3)/Fever >100.5/MCGRAW Albuterol 2 puff 06/24/21 02:07 Albuterol 8.5 Gm Mdi Inhalation IH Q4HRT PRN Shortness Of Breath Albuterol/Ipratropium 1 ampul 06/27/21 08:00 07/03/21 20:40 Ipratropium/Albuterol Sulfate 3 Ml Ampul.Neb IH 1 ampul TIDRT FEDERICO Administration Lipase/Protease/Amylase 1 each 06/29/21 13:00 Lipase 10,500/Protease 25,000/Amylase 43,750 (Units) Dr Rouse FEEDTUBE PRN PRN For Clogged Feeding Tube Dextrose 50 ml 06/22/21 17:15 06/30/21 08:41 Dextrose 50% In Water (25gm) 50 Ml Syringe IV 50 ml Q30MIN PRN Administration Hypoglycemia Protocol Famotidine 20 mg 06/29/21 10:00 07/03/21 09:38 Famotidine 20 Mg Tab PO 20 mg DAILY FEDERICO Administration Heparin Sodium (Porcine) 5,000 unit 06/22/21 10:00 07/03/21 22:37 Heparin 5,000 Unit/1 Ml Vial SUB-Q 5,000 unit Q12HR FEDERICO Administration Hydralazine HCl 10 mg 06/25/21 02:16 06/30/21 07:08 Hydralazine 20 Mg/1 Ml Inj IV 10 mg Q6HR PRN Administration Hypertension Hydromorphone HCl 0.25 mg 06/22/21 01:32 Hydromorphone 1 Mg/1 Ml Inj IV Q4H PRN Pain, Moderate (4-6) Hydromorphone HCl 0.5 mg 06/22/21 01:32 Hydromorphone 1 Mg/1 Ml Inj IV Q3H PRN Pain , Severe (7-10) Insulin Glargine 20 units 06/28/21 22:00 07/03/21 22:38 Insulin Glargine 100 Units/Ml SUB-Q 20 units QHS FEDERICO Administration Insulin Human Lispro 0 unit 06/22/21 18:00 07/04/21 06:35 Insulin Lispro 100 Unit/Ml SUB-Q Not Given Q6HR [facility] Protocol Metoprolol Tartrate 12.5 mg 06/27/21 22:00 07/03/21 22:38 Metoprolol Tartrate 25 Mg Tab PO 12.5 mg BID FEDERICO Administration Ondansetron HCl 4 mg 06/22/21 01:32 06/29/21 11:10 Ondansetron 4 Mg/2 Ml Inj IV 4 mg Q8H PRN Administration Nausea And Vomiting Oxycodone/Acetaminophen 1 tab 06/22/21 01:32 Oxycodone /Acetaminophen 5-325mg Tab PO Q6H PRN Pain, Moderate (4-6) Simple Syrup 15 ml 06/29/21 13:00 Simple Syrup 15 Ml FEEDTUBE PRN PRN Hypoglycemia Simple Syrup 30 ml 06/29/21 13:00 Simple Syrup 15 Ml FEEDTUBE PRN PRN Hypoglycemia Sodium Bicarbonate 325 mg 06/29/21 13:30 Sodium Bicarbonate 325 Mg Tab FEEDTUBE PRN PRN For Clogged Feeding Tube Sodium Chloride 10 ml 06/22/21 10:00 07/03/21 22:38 Sodium Chloride 0.9% 10 Ml Flush Syringe IV 10 ml BID FEDERICO Administration Sodium Chloride 10 ml 06/22/21 01:32 Sodium Chloride 0.9% 10 Ml Flush Syringe IV PRN PRN LINE FLUSH Nutrition/Malnutrition Assess - Dietary Evaluation Nutrition/Malnutrition Findings: Nutrition Notes Start: 06/22/21 12:10 Freq: Status: Active Protocol: Document 07/03/21 10:15 SUE (Rec: 07/03/21 10:19 SUE [id number]) Nutrition Notes Initial or Follow up Reassessment Current Diagnosis Acute Kidney Injury,COPD, Sepsis Other Pertinent Diagnosis dementia, pneu, COVID-19(+) Current Diet pureed, consistent CHO Labs/Tests POC BG 115-307 Pertinent Medications Decadron Height 5 ft 4 in Weight 57.9 kg [place] Body Weight (kg) 54.54 BMI 21.9 Weight Status Appropriate Subjective/Other Information Pt eating 65-100% of meals. Percent of energy/protein needs met: 100%/84% Burn Absent Trauma Absent Current % PO Good (75-100%) Minimum of two criteria No physical signs of malnutrition #2 Nutrition Diagnosis Inadequate oral intake As Evidenced by Signs and Symptoms pt eating an average of 80% of meals Diagnosis Progress(for reassessment Improved documentation) #1 Nutrition Diagnosis Increased nutrient needs ( specify in comment below) Diagnosis Progress(for reassessment Continues documentation) Is patient on ventilator? No Is Patient Ambulatory and/or Out of Bed No REE-([facility]-confined to bed) [phone] Calculation Used for Recommendations [facility] Additional Notes Protein: (1.25-1.5g/kg) 73-87g Fluid: 1 ml/kcal Nutrition Intervention Change Diet Order: Continue current Nutrition Support: D/c Add Supplement/Snack (indicate name/kcal Glucerna daily /protein ) Provides kCal: 220 Provides Protein (gm) 10 Goal #1 Meet at least 75% of energy and protein needs via PO and ONS Anticipated Discharge Needs: Pureed, consistent CHO Follow-Up By: 07/05/21 Additional Comments F/u: intakes and ONS tolerance
[2021-07-04] MEDS: IPRATROPIUM/ALBUTEROL SULFATE 3 ML AMPUL.NEB IH SCH ×3 (08:31→20:23)
[2021-07-04] MEDS: FAMOTIDINE 20 MG TAB PO SCH (10:44)
[2021-07-04] MEDS: HEPARIN 5,000 UNIT/1 ML VIAL SUB-Q SCH ×2 (10:44→22:33)
[2021-07-04] MEDS: METOPROLOL TARTRATE 25 MG TAB PO SCH ×2 (10:52→22:32)
[2021-07-04] MEDS: INSULIN GLARGINE 100 UNITS/ML SUB-Q SCH (22:40)
[2021-07-05] MEDS: INSULIN LISPRO 100 UNIT/ML SUB-Q SCH ×5 (06:06→23:17)
--- NOTE | 2021-07-05 07:50 | Progress Note ---
Assessment and Plan Assessment and plan: #1 severe sepsis secondary to bilateral [id number] pneumonia. Multiple sick contacts in the home environment. Seems to have improved with IV volume therapy. Patient stable with 3 L of O2. Resting comfortably. No longer tachypneic hypotensive or tachycardic. Will place patient on steroids d examethasone. Questionable remdesivir until renal function has improved. Continue empiric antibiotics. ID consult. Follow inflammatory markers. No remdesivir secondary to renal function. Continue dexamethasone for 10 days. Contact Ana Roas Arizmendi [phone] #2 acute renal failure. Secondary to prerenal azotemia not eating not drinking dehydration. Improving with follow-up chemistry obtain BMP a.m. #3 acute respiratory failure secondary to sepsis bilateral pneumonia Patient still maintained well with 3 L of oxygen. No change in O2. This is a good sign. Treat underlying etiology with antibiotics, supportive care. Steroids #4 diabetes mellitus will be more difficult control with addition of steroids placed patient sliding scale insulin advance as tolerated. We will add long-acting insulin. Especially since patient on steroids. Will increase long-acting insulin today. #5 rhabdomyolysis should respond to IV volume replacement. Would not be too aggressive since patient has Covid and would like to keep a little on dry side #6 hypertensive urgency. Will need to address patient's hypertension and tachycardia. Overall patient remains dry as evidenced by increased BUN/creatini ne prerenal azotemia increase CPK. Much better since the addition of Lopressor. At present we will not increase fluids above 100 to 125 cc an hour in order not to worsen acute respiratory failure. Will be a very difficult balance but the risk outweigh the benefits of increasing fluids at this time. This can be fixed slowly. We will add Lopressor IV patient remains lethargic. #7 acute metabolic encephalopathy-patient not eating or drinking. Highly suspect Covid encephalopathy. Which would have caused underlying dementia to get worse. Patient should be able to eat today. CT scan head unremarkable. #8 hyponatremia patient started on D5 water. # 9: Failure to thrive #10 Covid pneumonia. ID following. Add dexamethasone. Subjective Date of service: 06/24/21 Principal diagnosis: Sepsis Interval history: Patient 80 years old with a history of dementia COPD presented to the ED with decreased responsiveness decreased p.o. intake x2 days fever 102. Patient also presented with tachycardia, tachypnea, hypoxemia. Patient had contact with family members with COVID-19. Patient presentation on radiograph consistent with bilateral pneumonia. Today subsequently patient positive for COVID-19. Currently stable with only 3 L nasal cannula. Patient encephalopathy has not improved much since baseline. 06/23/2021 patient remains altered today. A little more alert however remains encephalopathic. Patient SVT much improved since yesterday since suggesting gentle IV hydration plus amiodarone in addition to AV j carlos blocking agent. 06/24/2021. This is the first day patient much more responsive today. Will attempt to talk to you we will follow you with gaze. This is better than the previous 2 days.Tachycardia is also resolved. Requiring less oxygen wean as tolerated. 06/25: Patient seen and examined appears to be clinically improving. Discussed with nursing staff will obtain PT OT and home O2 evaluation. Anticipate discharge in a.m. if continues to improve will likely need home O2. Transfer to [facility] downgrade. 06/26: Patient clinically stable anticipate discharge home or to SNF today. Awaiting home O2 evaluation Case management is following. CTA angio and Doppler of lower extremity for VTE work-up done. Will recommend short-term low-dose anticoagulation even if negative of VTE at this time considering patient's elevated D-dimer levels and the Covid diagnosis. PT OT evaluation as fall precaution is imperative considering low-dose anticoagulation. Attempted to reach family unable. 06/27: Patient remains lethargic this morning. We will get a swallow evaluation done. Patient remains on 2 L of oxygen. Discussed with physical therapist she was not able to be participatory in any activity except sitting up at the bedside. Also discussed with her granddaughter today who tells me that the patient's daughter is currently in the ICU at [facility] with Covid and a CVA. And that the patient has rapidly declined in the last 2+ weeks. She is agreeable with the recommendation of physical therapist for SNF at this time. Case management will be working on this. 06/28: Leukocytosis persist ?steroid induced, no new fever. will monitor. Awaiting placement. Discussed with case management today in rounds. 06/29: Patient continues to have poor p.o. intake. Repeated hypoglycemia. Discussed with family they are okay with patient getting a PEG tube to help with nutrition. Consult placed to tannery worker to assist with this. Patient is still pending placement. 06/30: Discussed with GI was able to get a hold of family will be proceeding with PEG placement today. Patient still pending placement. Following my examination discussed with nursing staff blood pressure was significantly elevated this morning not sure why there is no evidence of anxiety she did improve. Will monitor closely may need an additional blood pressure control medication. 07/01: Continue supportive care awaiting bed placement continue evaluation of: Take. Mild decrease in blood pressure today will monitor closely. May need to hold blood pressure medications if continues to worsen. Leukocytosis secondary to steroids per ID. 07/02: Patient seen and examined, she is doing well and stable, tolerating diet with assistance, may not need PEG, still awaiting placement. Continue support ca re. 07/04; patient was seen and examined this morning. Patient was not on oxygen. Patient does not PEG tube. Patient is pending for placement. 07/05; awaiting placement. History Interval history: Patient was seen and evaluated this morning Patient was on room air Patient was weak, does not speak much Hospitalist Physical - Physical exam Narrative exam: Not in cardiopulmonary distress. The patient appeared well nourished and normally developed. Vital signs as documented. Head exam is unremarkable. No scleral icterus . Neck is without jugular venous distension, thyromegaly, or carotid bruits. Lungs are clear to auscultation. Cardiac exam reveals regular rate and Rhythm. Abdominal exam reveals normal bowel sounds, nontender, no organomegaly. Extremities are nonedematous and both femoral and pedal pulses are normal. MANAGING PARTNER: Patient not speak much. No focal weakness. - Constitutional Vitals: Temp Pulse Resp BP Pulse Ox 98.9 F 101 H 17 149/62 96 07/04/21 21:09 07/04/21 22:32 07/05/21 04:00 07/04/21 22:32 07/05/21 04:00 General appearance: Present: no acute distress, well-nourished Results - Labs CBC & Chem 7: 07/01/21 05:09 06/30/21 05:04 Labs: Laboratory Last Values WBC 16.0 K/mm3 (4.5-11.0) H 07/01/21 05:09 RBC 3.78 M/mm3 (3.65-5.03) 07/01/21 05:09 Hgb 10.1 gm/dl (10.1-14.3) 07/01/21 05:09 Hct 31.2 % (30.3-42.9) 07/01/21 05:09 MCV 83 fl (79-97) 07/01/21 05:09 MCH 27 pg (28-32) L 07/01/21 05:09 MCHC 32 % (30-34) 07/01/21 05:09 RDW 15.8 % (13.2-15.2) H 07/01/21 05:09 Plt Count 301 K/mm3 (140-440) 07/01/21 05:09 Lymph % (Auto) 3.5 % (13.4-35.0) L 06/21/21 20:39 Door % (Auto) 6.0 % (0.0-7.3) 06/21/21 20:39 Eos % (Auto) 0.3 % (0.0-4.3) 06/21/21 20:39 Baso % (Auto) 0.2 % (0.0-1.8) 06/21/21 20:39 Lymph # (Auto) 0.6 K/mm3 (1.2-5.4) L 06/21/21 20:39 Door # (Auto) 1.1 K/mm3 (0.0-0.8) H 06/21/21 20:39 Eos # (Auto) 0.1 K/mm3 (0.0-0.4) 06/21/21 20:39 Baso # (Auto) 0.0 K/mm3 (0.0-0.1) 06/21/21 20:39 Add Manual Diff Complete 07/01/21 05:09 Total Counted 100 07/01/21 05:09 Seg Neutrophils % Pharmacy Aide 07/01/21 05:09 Seg Neuts % (Manual) 94.0 % (40.0-70.0) H 07/01/21 05:09 Band Neutrophils % 2.0 % 06/30/21 05:04 Lymphocytes % (Manual) 2.0 % (13.4-35.0) L 07/01/21 05:09 Reactive Lymphs % (Man) 1.0 % 06/26/21 05:48 Monocytes % (Manual) 4.0 % (0.0-7.3) 07/01/21 05:09 Metamyelocytes % 1.0 % 06/28/21 06:24 Myelocytes % 1.0 % 06/27/21 07:23 Nucleated RBC % Not Reportable 07/01/21 05:09 Seg Neutrophils # 15.9 K/mm3 (1.8-7.7) H 06/21/21 20:39 Seg Neutrophils # Man 15.0 K/mm3 (1.8-7.7) H 07/01/21 05:09 Band Neutrophils # 0.0 K/mm3 07/01/21 05:09 Lymphocytes # (Manual) 0.3 K/mm3 (1.2-5.4) L 07/01/21 05:09 Abs React Lymphs (Man) 0.0 K/mm3 07/01/21 05:09 Monocytes # (Manual) 0.6 K/mm3 (0.0-0.8) 07/01/21 05:09 Eosinophils # (Manual) 0.0 K/mm3 (0.0-0.4) 07/01/21 05:09 Basophils # (Manual) 0.0 K/mm3 (0.0-0.1) 07/01/21 05:09 Metamyelocytes # 0.0 K/mm3 07/01/21 05:09 Myelocytes # 0.0 K/mm3 07/01/21 05:09 Promyelocytes # 0.0 K/mm3 07/01/21 05:09 Blast Cells # 0.0 K/mm3 07/01/21 05:09 WBC Morphology Not Reportable 07/01/21 05:09 Hypersegmented Neuts Not Reportable 07/01/21 05:09 Hyposegmented Neuts Not Reportable 07/01/21 05:09 Hypogranular Neuts Not Reportable 07/01/21 05:09 Smudge Cells Not Reportable 07/01/21 05:09 Toxic Granulation Not Reportable 07/01/21 05:09 Toxic Vacuolation Not Reportable 07/01/21 05:09 Dohle Bodies Not Reportable 07/01/21 05:09 Pelger-Huet Anomaly Not Reportable 07/01/21 05:09 Helen Rods Not Reportable 07/01/21 05:09 Platelet Estimate Consistent w auto 07/01/21 05:09 Clumped Platelets Not Reportable 07/01/21 05:09 Plt Clumps, EDTA Not Reportable 07/01/21 05:09 Large Platelets Not Reportable 07/01/21 05:09 Giant Platelets Not Reportable 07/01/21 05:09 Platelet Satelliting Not Reportable 07/01/21 05:09 Plt Morphology Comment Not Reportable 07/01/21 05:09 RBC Morphology Not Reportable 07/01/21 05:09 Dimorphic RBCs Not Reportable 07/01/21 05:09 Polychromasia Not Reportable 07/01/21 05:09 Hypochromasia Not Reportable 07/01/21 05:09 Poikilocytosis Not Reportable 07/01/21 05:09 Anisocytosis Not Reportable 07/01/21 05:09 Microcytosis Not Reportable 07/01/21 05:09 Macrocytosis Not Reportable 07/01/21 05:09 Spherocytes Not Reportable 07/01/21 05:09 Pappenheimer Bodies Not Reportable 07/01/21 05:09 Sickle Cells Not Reportable 07/01/21 05:09 Target Cells Not Reportable 07/01/21 05:09 Tear Drop Cells Not Reportable 07/01/21 05:09 Ovalocytes Not Reportable 07/01/21 05:09 Helmet Cells Not Reportable 07/01/21 05:09 Hart-Brinson Bodies Not Reportable 07/01/21 05:09 [place] Rings Not Reportable 07/01/21 05:09 Ni Cells Few 07/01/21 05:09 Bite Cells Not Reportable 07/01/21 05:09 Crenated Cell Not Reportable 07/01/21 05:09 Elliptocytes Few 07/01/21 05:09 Acanthocytes (Spur) Not Reportable 07/01/21 05:09 Rouleaux Not Reportable 07/01/21 05:09 Hemoglobin C Crystals Not Reportable 07/01/21 05:09 Schistocytes Not Reportable 07/01/21 05:09 Malaria parasites Not Reportable 07/01/21 05:09 Blayne Bodies Not Reportable 07/01/21 05:09 Hem Pathologist Commnt No 07/01/21 05:09 D-Dimer 4489.63 ng/mlDDU (0-234) H 06/26/21 05:48 Heparin Anti-Xa Level < 0.10 U.I./ml (0.3-0.7) L 06/30/21 05:03 Sodium 142 mmol/L (137-145) 06/30/21 05:04 Potassium 4.9 mmol/L (3.6-5.0) 06/30/21 05:04 Chloride 103.2 mmol/L (98-107) 06/30/21 05:04 Carbon Dioxide 31 mmol/L (22-30) H 06/30/21 05:04 Anion Gap 13 mmol/L 06/30/21 05:04 BUN 23 mg/dL (7-17) H 06/30/21 05:04 Creatinine 0.6 mg/dL (0.6-1.2) 06/30/21 05:04 Estimated GFR > 60 ml/min 06/30/21 05:04 BUN/Creatinine Ratio 38 % 06/30/21 05:04 Glucose 117 mg/dL (65-100) H 06/30/21 05:04 POC Glucose 79 mg/dL (70-105) 07/05/21 06:03 Lactic Acid 1.20 mmol/L (0.7-2.0) 06/22/21 05:06 Calcium 10.3 mg/dL (8.4-10.2) H 06/30/21 05:04 Phosphorus 3.00 mg/dL (2.5-4.5) 06/27/21 07:23 Ferritin 281.5 ng/mL (10.0-200.0) H 06/26/21 05:48 Total Bilirubin 0.50 mg/dL (0.1-1.2) 06/27/21 07:23 Direct Bilirubin 0.7 mg/dL (0-0.2) H 06/21/21 20:39 Indirect Bilirubin 0.3 mg/dL 06/21/21 20:39 AST 67 units/L (5-40) H 06/27/21 07:23 ALT 85 units/L (7-56) H 06/27/21 07:23 Alkaline Phosphatase 91 units/L (35-129) 06/27/21 07:23 Total Creatine Kinase 1066 units/L (30-135) H 06/23/21 17:57 C-Reactive Protein 1.40 mg/dL (0.00-1.30) H 06/26/21 05:48 Total Protein 5.1 g/dL (6.3-8.2) L 06/27/21 07:23 Albumin 2.4 g/dL (3.9-5) L 06/27/21 07:23 Albumin/Globulin Ratio 0.9 % 06/27/21 07:23 Procalcitonin 0.60 ng/mL (<0.15) 06/25/21 05:10 Urine Color Yellow (Yellow) 06/22/21 13:45 Urine Turbidity Clear (Clear) 06/22/21 13:45 Urine pH 5.0 (5.0-7.0) 06/22/21 13:45 Ur Specific Jewett 1.013 (1.003-1.030) 06/22/21 13:45 Urine Protein 100 mg/dl mg/dL (Negative) 06/22/21 13:45 Urine Glucose (UA) Neg mg/dL (Negative) 06/22/21 13:45 Urine Ketones Neg mg/dL (Negative) 06/22/21 13:45 Urine Blood Lg (Negative) 06/22/21 13:45 Urine Nitrite Pos (Negative) 06/22/21 13:45 Urine Bilirubin Neg (Negative) 06/22/21 13:45 Urine Urobilinogen < 2.0 mg/dL (<2.0) 06/22/21 13:45 Ur Leukocyte Esterase Neg (Negative) 06/22/21 13:45 Urine WBC (Auto) 1.0 /HPF (0.0-6.0) 06/22/21 13:45 Urine RBC (Auto) 5.0 /HPF (0.0-6.0) 06/22/21 13:45 U Epithel Cells (Auto) < 1.0 /HPF (0-13.0) 06/22/21 13:45 Urine Bacteria (Auto) 3+ /HPF (Negative) 06/22/21 13:45 Urine Mucus Few /HPF 06/22/21 13:45 Urine Creatinine 52.2 mg/dL (0.1-20.0) H 06/22/21 13:45 Urine Creatinine 52.9 mg/dL (0.1-20.0) H 06/22/21 13:45 Protein/Creatinin Ratio 1.15 06/22/21 13:45 Urine Sodium 122 mmol/L 06/22/21 13:45 Urine Total Protein 61 mg/dL (5-11.8) H 06/22/21 13:45 Nasal Screen MRSA (PCR) Negative (Negative) 06/22/21 04:45 Coronavirus (PCR) Positive (Negative) A 07/03/21 08:45 Blood Type O POSITIVE 06/22/21 05:06 Antibody Screen Negative 06/22/21 05:06 Robbins/IV: Voiding Method Incontinent Active Medications - Current Medications Current Medications: Generic Name Dose Route Start Last Admin Trade Name Freq PRN Reason Stop Dose Admin Acetaminophen 650 mg 06/22/21 01:32 Acetaminophen 325 Mg Tab PO Q4H PRN Pain MILD(1-3)/Fever >100.5/MCGRAW Albuterol 2 puff 06/24/21 02:07 Albuterol 8.5 Gm Mdi Inhalation IH Q4HRT PRN Shortness Of Breath Albuterol/Ipratropium 1 ampul 06/27/21 08:00 07/04/21 20:23 Ipratropium/Albuterol Sulfate 3 Ml Ampul.Neb IH 1 ampul TIDRT FEDERICO Administration Lipase/Protease/Amylase 1 each 06/29/21 13:00 Lipase 10,500/Protease 25,000/Amylase 43,750 (Units) Dr Rouse FEEDTUBE PRN PRN For Clogged Feeding Tube Dextrose 50 ml 06/22/21 17:15 06/30/21 08:41 Dextrose 50% In Water (25gm) 50 Ml Syringe IV 50 ml Q30MIN PRN Administration Hypoglycemia Protocol Famotidine 20 mg 06/29/21 10:00 07/04/21 10:44 Famotidine 20 Mg Tab PO 20 mg DAILY FEDERICO Administration Heparin Sodium (Porcine) 5,000 unit 06/22/21 10:00 07/04/21 22:33 Heparin 5,000 Unit/1 Ml Vial SUB-Q 5,000 unit Q12HR FEDERICO Administration Hydralazine HCl 10 mg 06/25/21 02:16 06/30/21 07:08 Hydralazine 20 Mg/1 Ml Inj IV 10 mg Q6HR PRN Administration Hypertension Hydromorphone HCl 0.25 mg 06/22/21 01:32 Hydromorphone 1 Mg/1 Ml Inj IV Q4H PRN Pain, Moderate (4-6) Hydromorphone HCl 0.5 mg 06/22/21 01:32 Hydromorphone 1 Mg/1 Ml Inj IV Q3H PRN Pain , Severe (7-10) Insulin Glargine 20 units 06/28/21 22:00 07/04/21 22:40 Insulin Glargine 100 Units/Ml SUB-Q 20 units QHS FEDERICO Administration Insulin Human Lispro 0 unit 06/22/21 18:00 07/05/21 06:06 Insulin Lispro 100 Unit/Ml SUB-Q Not Given Q6HR [facility] Protocol Metoprolol Tartrate 12.5 mg 06/27/21 22:00 07/04/21 22:32 Metoprolol Tartrate 25 Mg Tab PO 12.5 mg BID FEDERICO Administration Ondansetron HCl 4 mg 06/22/21 01:32 06/29/21 11:10 Ondansetron 4 Mg/2 Ml Inj IV 4 mg Q8H PRN Administration Nausea And Vomiting Oxycodone/Acetaminophen 1 tab 06/22/21 01:32 Oxycodone /Acetaminophen 5-325mg Tab PO Q6H PRN Pain, Moderate (4-6) Simple Syrup 15 ml 06/29/21 13:00 Simple Syrup 15 Ml FEEDTUBE PRN PRN Hypoglycemia Simple Syrup 30 ml 06/29/21 13:00 Simple Syrup 15 Ml FEEDTUBE PRN PRN Hypoglycemia Sodium Bicarbonate 325 mg 06/29/21 13:30 Sodium Bicarbonate 325 Mg Tab FEEDTUBE PRN PRN For Clogged Feeding Tube Sodium Chloride 10 ml 06/22/21 10:00 07/04/21 22:33 Sodium Chloride 0.9% 10 Ml Flush Syringe IV 10 ml BID FEDERICO Administration Sodium Chloride 10 ml 06/22/21 01:32 Sodium Chloride 0.9% 10 Ml Flush Syringe IV PRN PRN LINE FLUSH Nutrition/Malnutrition Assess - Dietary Evaluation Nutrition/Malnutrition Findings: Nutrition Notes Start: 06/22/21 12:10 Freq: Status: Active Protocol: Document 07/03/21 10:15 SUE (Rec: 07/03/21 10:19 SUE [id number]) Nutrition Notes Initial or Follow up Reassessment Current Diagnosis Acute Kidney Injury,COPD, Sepsis Other Pertinent Diagnosis dementia, pneu, COVID-19(+) Current Diet pureed, consistent CHO Labs/Tests POC BG 115-307 Pertinent Medications Decadron Height 5 ft 4 in Weight 57.9 kg Celoron Body Weight (kg) 54.54 BMI 21.9 Weight Status Appropriate Subjective/Other Information Pt eating 65-100% of meals. Percent of energy/protein needs met: 100%/84% Burn Absent Trauma Absent Current % PO Good (75-100%) Minimum of two criteria No physical signs of malnutrition #2 Nutrition Diagnosis Inadequate oral intake As Evidenced by Signs and Symptoms pt eating an average of 80% of meals Diagnosis Progress(for reassessment Improved documentation) #1 Nutrition Diagnosis Increased nutrient needs ( specify in comment below) Diagnosis Progress(for reassessment Continues documentation) Is patient on ventilator? No Is Patient Ambulatory and/or Out of Bed No REE-([facility]-confined to bed) 1241.880 Calculation Used for Recommendations [facility] Additional Notes Protein: (1.25-1.5g/kg) 73-87g Fluid: 1 ml/kcal Nutrition Intervention Change Diet Order: Continue current Nutrition Support: D/c Add Supplement/Snack (indicate name/kcal Glucerna daily /protein ) Provides kCal: 220 Provides Protein (gm) 10 Goal #1 Meet at least 75% of energy and protein needs via PO and ONS Anticipated Discharge Needs: Pureed, consistent CHO Follow-Up By: 07/05/21 Additional Comments F/u: intakes and ONS tolerance
[2021-07-05] MEDS: IPRATROPIUM/ALBUTEROL SULFATE 3 ML AMPUL.NEB IH SCH ×2 (08:15→20:15)
[2021-07-05] MEDS: METOPROLOL TARTRATE 25 MG TAB PO SCH ×2 (09:13→22:59)
[2021-07-05] MEDS: FAMOTIDINE 20 MG TAB PO SCH (09:13)
[2021-07-05] MEDS: HEPARIN 5,000 UNIT/1 ML VIAL SUB-Q SCH ×2 (09:14→22:56)
[2021-07-05] MEDS: INSULIN GLARGINE 100 UNITS/ML SUB-Q SCH (23:16)
[2021-07-06] MEDS: INSULIN LISPRO 100 UNIT/ML SUB-Q SCH ×3 (06:19→17:50)
--- NOTE | 2021-07-06 07:47 | Progress Note ---
Assessment and Plan Assessment and plan: #1 severe sepsis secondary to bilateral [id number] pneumonia. Multiple sick contacts in the home environment. Seems to have improved with IV volume therapy. Patient stable with 3 L of O2. Resting comfortably. No longer tachypneic hypotensive or tachycardic. Will place patient on steroids d examethasone. Questionable remdesivir until renal function has improved. Continue empiric antibiotics. ID consult. Follow inflammatory markers. No remdesivir secondary to renal function. Continue dexamethasone for 10 days. Contact Ana Rosa Arizmendi [phone] #2 acute renal failure. Secondary to prerenal azotemia not eating not drinking dehydration. Improving with follow-up chemistry obtain BMP a.m. #3 acute respiratory failure secondary to sepsis bilateral pneumonia Patient still maintained well with 3 L of oxygen. No change in O2. This is a good sign. Treat underlying etiology with antibiotics, supportive care. Steroids #4 diabetes mellitus will be more difficult control with addition of steroids placed patient sliding scale insulin advance as tolerated. We will add long-acting insulin. Especially since patient on steroids. Will increase long-acting insulin today. #5 rhabdomyolysis should respond to IV volume replacement. Would not be too aggressive since patient has Covid and would like to keep a little on dry side #6 hypertensive urgency. Will need to address patient's hypertension and tachycardia. Overall patient remains dry as evidenced by increased BUN/creatini ne prerenal azotemia increase CPK. Much better since the addition of Lopressor. At present we will not increase fluids above 100 to 125 cc an hour in order not to worsen acute respiratory failure. Will be a very difficult balance but the risk outweigh the benefits of increasing fluids at this time. This can be fixed slowly. We will add Lopressor IV patient remains lethargic. #7 acute metabolic encephalopathy-patient not eating or drinking. Highly suspect Covid encephalopathy. Which would have caused underlying dementia to get worse. Patient should be able to eat today. CT scan head unremarkable. #8 hyponatremia patient started on D5 water. # 9: Failure to thrive #10 Covid pneumonia. ID following. Add dexamethasone. Subjective Date of service: 06/24/21 Principal diagnosis: Sepsis Interval history: Patient 80 years old with a history of dementia COPD presented to the ED with decreased responsiveness decreased p.o. intake x2 days fever 102. Patient also presented with tachycardia, tachypnea, hypoxemia. Patient had contact with family members with COVID-19. Patient presentation on radiograph consistent with bilateral pneumonia. Today subsequently patient positive for COVID-19. Currently stable with only 3 L nasal cannula. Patient encephalopathy has not improved much since baseline. 06/23/2021 patient remains altered today. A little more alert however remains encephalopathic. Patient SVT much improved since yesterday since suggesting gentle IV hydration plus amiodarone in addition to AV j carlos blocking agent. 06/24/2021. This is the first day patient much more responsive today. Will attempt to talk to you we will follow you with gaze. This is better than the previous 2 days.Tachycardia is also resolved. Requiring less oxygen wean as tolerated. 06/25: Patient seen and examined appears to be clinically improving. Discussed with nursing staff will obtain PT OT and home O2 evaluation. Anticipate discharge in a.m. if continues to improve will likely need home O2. Transfer to [facility] downgrade. 06/26: Patient clinically stable anticipate discharge home or to SNF today. Awaiting home O2 evaluation Case management is following. CTA angio and Doppler of lower extremity for VTE work-up done. Will recommend short-term low-dose anticoagulation even if negative of VTE at this time considering patient's elevated D-dimer levels and the Covid diagnosis. PT OT evaluation as fall precaution is imperative considering low-dose anticoagulation. Attempted to reach family unable. 06/27: Patient remains lethargic this morning. We will get a swallow evaluation done. Patient remains on 2 L of oxygen. Discussed with physical therapist she was not able to be participatory in any activity except sitting up at the bedside. Also discussed with her granddaughter today who tells me that the patient's daughter is currently in the ICU at [facility] with Covid and a CVA. And that the patient has rapidly declined in the last 2+ weeks. She is agreeable with the recommendation of physical therapist for SNF at this time. Case management will be working on this. 06/28: Leukocytosis persist ?steroid induced, no new fever. will monitor. Awaiting placement. Discussed with case management today in rounds. 06/29: Patient continues to have poor p.o. intake. Repeated hypoglycemia. Discussed with family they are okay with patient getting a PEG tube to help with nutrition. Consult placed to physics and astronomy professor to assist with this. Patient is still pending placement. 06/30: Discussed with GI was able to get a hold of family will be proceeding with PEG placement today. Patient still pending placement. Following my examination discussed with nursing staff blood pressure was significantly elevated this morning not sure why there is no evidence of anxiety she did improve. Will monitor closely may need an additional blood pressure control medication. 07/01: Continue supportive care awaiting bed placement continue evaluation of: Take. Mild decrease in blood pressure today will monitor closely. May need to hold blood pressure medications if continues to worsen. Leukocytosis secondary to steroids per ID. 07/02: Patient seen and examined, she is doing well and stable, tolerating diet with assistance, may not need PEG, still awaiting placement. Continue support ca re. 07/04; patient was seen and examined this morning. Patient was not on oxygen. Patient does not PEG tube. Patient is pending for placement. 07/05; awaiting placement. 07/06; patient is stable and pending for SNF placement. Could not find a place for her and daughter arrived to take her home with home health. History Interval history: Patient was seen and evaluated this morning Patient was on room air Patient was weak, does not speak much Hospitalist Physical - Physical exam Narrative exam: Not in cardiopulmonary distress. The patient appeared well nourished and normally developed. Vital signs as documented. Head exam is unremarkable. No scleral icterus . Neck is without jugular venous distension, thyromegaly, or carotid bruits. Lungs are clear to auscultation. Cardiac exam reveals regular rate and Rhythm. Abdominal exam reveals normal bowel sounds, nontender, no organomegaly. Extremities are nonedematous and both femoral and pedal pulses are normal. BAR WAITER/WAITRESS: Patient not speak much. No focal weakness. - Constitutional Vitals: Temp Pulse Resp BP Pulse Ox 98.0 F 104 H 18 127/69 98 07/06/21 04:45 07/06/21 04:45 07/06/21 04:45 07/06/21 04:45 07/06/21 04:45 General appearance: Present: no acute distress, well-nourished Results - Labs CBC & Chem 7: 07/01/21 05:09 06/30/21 05:04 Labs: Laboratory Last Values WBC 16.0 K/mm3 (4.5-11.0) H 07/01/21 05:09 RBC 3.78 M/mm3 (3.65-5.03) 07/01/21 05:09 Hgb 10.1 gm/dl (10.1-14.3) 07/01/21 05:09 Hct 31.2 % (30.3-42.9) 07/01/21 05:09 MCV 83 fl (79-97) 07/01/21 05:09 MCH 27 pg (28-32) L 07/01/21 05:09 MCHC 32 % (30-34) 07/01/21 05:09 RDW 15.8 % (13.2-15.2) H 07/01/21 05:09 Plt Count 301 K/mm3 (140-440) 07/01/21 05:09 Lymph % (Auto) 3.5 % (13.4-35.0) L 06/21/21 20:39 Burke % (Auto) 6.0 % (0.0-7.3) 06/21/21 20:39 Eos % (Auto) 0.3 % (0.0-4.3) 06/21/21 20:39 Baso % (Auto) 0.2 % (0.0-1.8) 06/21/21 20:39 Lymph # (Auto) 0.6 K/mm3 (1.2-5.4) L 06/21/21 20:39 Burke # (Auto) 1.1 K/mm3 (0.0-0.8) H 06/21/21 20:39 Eos # (Auto) 0.1 K/mm3 (0.0-0.4) 06/21/21 20:39 Baso # (Auto) 0.0 K/mm3 (0.0-0.1) 06/21/21 20:39 Add Manual Diff Complete 07/01/21 05:09 Total Counted 100 07/01/21 05:09 Seg Neutrophils % Siebel Crm Developer 07/01/21 05:09 Seg Neuts % (Manual) 94.0 % (40.0-70.0) H 07/01/21 05:09 Band Neutrophils % 2.0 % 06/30/21 05:04 Lymphocytes % (Manual) 2.0 % (13.4-35.0) L 07/01/21 05:09 Reactive Lymphs % (Man) 1.0 % 06/26/21 05:48 Monocytes % (Manual) 4.0 % (0.0-7.3) 07/01/21 05:09 Metamyelocytes % 1.0 % 06/28/21 06:24 Myelocytes % 1.0 % 06/27/21 07:23 Nucleated RBC % Not Reportable 07/01/21 05:09 Seg Neutrophils # 15.9 K/mm3 (1.8-7.7) H 06/21/21 20:39 Seg Neutrophils # Man 15.0 K/mm3 (1.8-7.7) H 07/01/21 05:09 Band Neutrophils # 0.0 K/mm3 07/01/21 05:09 Lymphocytes # (Manual) 0.3 K/mm3 (1.2-5.4) L 07/01/21 05:09 Abs React Lymphs (Man) 0.0 K/mm3 07/01/21 05:09 Monocytes # (Manual) 0.6 K/mm3 (0.0-0.8) 07/01/21 05:09 Eosinophils # (Manual) 0.0 K/mm3 (0.0-0.4) 07/01/21 05:09 Basophils # (Manual) 0.0 K/mm3 (0.0-0.1) 07/01/21 05:09 Metamyelocytes # 0.0 K/mm3 07/01/21 05:09 Myelocytes # 0.0 K/mm3 07/01/21 05:09 Promyelocytes # 0.0 K/mm3 07/01/21 05:09 Blast Cells # 0.0 K/mm3 07/01/21 05:09 WBC Morphology Not Reportable 07/01/21 05:09 Hypersegmented Neuts Not Reportable 07/01/21 05:09 Hyposegmented Neuts Not Reportable 07/01/21 05:09 Hypogranular Neuts Not Reportable 07/01/21 05:09 Smudge Cells Not Reportable 07/01/21 05:09 Toxic Granulation Not Reportable 07/01/21 05:09 Toxic Vacuolation Not Reportable 07/01/21 05:09 Dohle Bodies Not Reportable 07/01/21 05:09 Pelger-Huet Anomaly Not Reportable 07/01/21 05:09 Helen Rods Not Reportable 07/01/21 05:09 Platelet Estimate Consistent w auto 07/01/21 05:09 Clumped Platelets Not Reportable 07/01/21 05:09 Plt Clumps, EDTA Not Reportable 07/01/21 05:09 Large Platelets Not Reportable 07/01/21 05:09 Giant Platelets Not Reportable 07/01/21 05:09 Platelet Satelliting Not Reportable 07/01/21 05:09 Plt Morphology Comment Not Reportable 07/01/21 05:09 RBC Morphology Not Reportable 07/01/21 05:09 Dimorphic RBCs Not Reportable 07/01/21 05:09 Polychromasia Not Reportable 07/01/21 05:09 Hypochromasia Not Reportable 07/01/21 05:09 Poikilocytosis Not Reportable 07/01/21 05:09 Anisocytosis Not Reportable 07/01/21 05:09 Microcytosis Not Reportable 07/01/21 05:09 Macrocytosis Not Reportable 07/01/21 05:09 Spherocytes Not Reportable 07/01/21 05:09 Pappenheimer Bodies Not Reportable 07/01/21 05:09 Sickle Cells Not Reportable 07/01/21 05:09 Target Cells Not Reportable 07/01/21 05:09 Tear Drop Cells Not Reportable 07/01/21 05:09 Ovalocytes Not Reportable 07/01/21 05:09 Helmet Cells Not Reportable 07/01/21 05:09 [place] Bodies Not Reportable 07/01/21 05:09 [place] Rings Not Reportable 07/01/21 05:09 [place] Cells Few 07/01/21 05:09 Bite Cells Not Reportable 07/01/21 05:09 Crenated Cell Not Reportable 07/01/21 05:09 Elliptocytes Few 07/01/21 05:09 Acanthocytes (Spur) Not Reportable 07/01/21 05:09 Rouleaux Not Reportable 07/01/21 05:09 Hemoglobin C Crystals Not Reportable 07/01/21 05:09 Schistocytes Not Reportable 07/01/21 05:09 Malaria parasites Not Reportable 07/01/21 05:09 Bl[place]ne Bodies Not Reportable 07/01/21 05:09 Hem Pathologist Commnt No 07/01/21 05:09 D-Dimer 4489.63 ng/mlDDU (0-234) H 06/26/21 05:48 Heparin Anti-Xa Level < 0.10 U.I./ml (0.3-0.7) L 06/30/21 05:03 Sodium 142 mmol/L (137-145) 06/30/21 05:04 Potassium 4.9 mmol/L (3.6-5.0) 06/30/21 05:04 Chloride 103.2 mmol/L (98-107) 06/30/21 05:04 Carbon Dioxide 31 mmol/L (22-30) H 06/30/21 05:04 Anion Gap 13 mmol/L 06/30/21 05:04 BUN 23 mg/dL (7-17) H 06/30/21 05:04 Creatinine 0.6 mg/dL (0.6-1.2) 06/30/21 05:04 Estimated GFR > 60 ml/min 06/30/21 05:04 BUN/Creatinine Ratio 38 % 06/30/21 05:04 Glucose 117 mg/dL (65-100) H 06/30/21 05:04 POC Glucose 163 mg/dL (70-105) H 07/06/21 05:00 Lactic Acid 1.20 mmol/L (0.7-2.0) 06/22/21 05:06 Calcium 10.3 mg/dL (8.4-10.2) H 06/30/21 05:04 Phosphorus 3.00 mg/dL (2.5-4.5) 06/27/21 07:23 Ferritin 281.5 ng/mL (10.0-200.0) H 06/26/21 05:48 Total Bilirubin 0.50 mg/dL (0.1-1.2) 06/27/21 07:23 Direct Bilirubin 0.7 mg/dL (0-0.2) H 06/21/21 20:39 Indirect Bilirubin 0.3 mg/dL 06/21/21 20:39 AST 67 units/L (5-40) H 06/27/21 07:23 ALT 85 units/L (7-56) H 06/27/21 07:23 Alkaline Phosphatase 91 units/L (35-129) 06/27/21 07:23 Total Creatine Kinase 1066 units/L (30-135) H 06/23/21 17:57 C-Reactive Protein 1.40 mg/dL (0.00-1.30) H 06/26/21 05:48 Total Protein 5.1 g/dL (6.3-8.2) L 06/27/21 07:23 Albumin 2.4 g/dL (3.9-5) L 06/27/21 07:23 Albumin/Globulin Ratio 0.9 % 06/27/21 07:23 Procalcitonin 0.60 ng/mL (<0.15) 06/25/21 05:10 Urine Color Yellow (Yellow) 06/22/21 13:45 Urine Turbidity Clear (Clear) 06/22/21 13:45 Urine pH 5.0 (5.0-7.0) 06/22/21 13:45 Ur Specific [place] 1.013 (1.003-1.030) 06/22/21 13:45 Urine Protein 100 mg/dl mg/dL (Negative) 06/22/21 13:45 Urine Glucose (UA) Neg mg/dL (Negative) 06/22/21 13:45 Urine Ketones Neg mg/dL (Negative) 06/22/21 13:45 Urine Blood Lg (Negative) 06/22/21 13:45 Urine Nitrite Pos (Negative) 06/22/21 13:45 Urine Bilirubin Neg (Negative) 06/22/21 13:45 Urine Urobilinogen < 2.0 mg/dL (<2.0) 06/22/21 13:45 Ur Leukocyte Esterase Neg (Negative) 06/22/21 13:45 Urine WBC (Auto) 1.0 /HPF (0.0-6.0) 06/22/21 13:45 Urine RBC (Auto) 5.0 /HPF (0.0-6.0) 06/22/21 13:45 U Epithel Cells (Auto) < 1.0 /HPF (0-13.0) 06/22/21 13:45 Urine Bacteria (Auto) 3+ /HPF (Negative) 06/22/21 13:45 Urine Mucus Few /HPF 06/22/21 13:45 Urine Creatinine 52.2 mg/dL (0.1-20.0) H 06/22/21 13:45 Urine Creatinine 52.9 mg/dL (0.1-20.0) H 06/22/21 13:45 Protein/Creatinin Ratio 1.15 06/22/21 13:45 Urine Sodium 122 mmol/L 06/22/21 13:45 Urine Total Protein 61 mg/dL (5-11.8) H 06/22/21 13:45 Nasal Screen MRSA (PCR) Negative (Negative) 06/22/21 04:45 Coronavirus (PCR) Positive (Negative) A 07/03/21 08:45 Blood Type O POSITIVE 06/22/21 05:06 Antibody Screen Negative 06/22/21 05:06 Robbins/IV: Voiding Method Incontinent Active Medications - Current Medications Current Medications: Generic Name Dose Route Start Last Admin Trade Name Freq PRN Reason Stop Dose Admin Acetaminophen 650 mg 06/22/21 01:32 Acetaminophen 325 Mg Tab PO Q4H PRN Pain MILD(1-3)/Fever >100.5/MCGRAW Albuterol 2 puff 06/24/21 02:07 Albuterol 8.5 Gm Mdi Inhalation IH Q4HRT PRN Shortness Of Breath Albuterol/Ipratropium 1 ampul 07/05/21 20:00 07/05/21 20:15 Ipratropium/Albuterol Sulfate 3 Ml Ampul.Neb IH Not Given BIDRT FEDERICO Lipase/Protease/Amylase 1 each 06/29/21 13:00 Lipase 10,500/Protease 25,000/Amylase 43,750 (Units) Dr Rouse FEEDTUBE PRN PRN For Clogged Feeding Tube Dextrose 50 ml 06/22/21 17:15 06/30/21 08:41 Dextrose 50% In Water (25gm) 50 Ml Syringe IV 50 ml Q30MIN PRN Administration Hypoglycemia Protocol Famotidine 20 mg 06/29/21 10:00 07/05/21 09:13 Famotidine 20 Mg Tab PO 20 mg DAILY FEDERICO Administration Heparin Sodium (Porcine) 5,000 unit 06/22/21 10:00 07/05/21 22:56 Heparin 5,000 Unit/1 Ml Vial SUB-Q 5,000 unit Q12HR FEDERICO Administration Hydralazine HCl 10 mg 06/25/21 02:16 06/30/21 07:08 Hydralazine 20 Mg/1 Ml Inj IV 10 mg Q6HR PRN Administration Hypertension Hydromorphone HCl 0.25 mg 06/22/21 01:32 Hydromorphone 1 Mg/1 Ml Inj IV Q4H PRN Pain, Moderate (4-6) Hydromorphone HCl 0.5 mg 06/22/21 01:32 Hydromorphone 1 Mg/1 Ml Inj IV Q3H PRN Pain , Severe (7-10) Insulin Glargine 20 units 06/28/21 22:00 07/05/21 23:16 Insulin Glargine 100 Units/Ml SUB-Q 20 units QHS FEDERICO Administration Insulin Human Lispro 0 unit 06/22/21 18:00 07/06/21 06:19 Insulin Lispro 100 Unit/Ml SUB-Q 1 unit Q6HR FEDERICO Administration Protocol Metoprolol Tartrate 12.5 mg 06/27/21 22:00 07/05/21 22:59 Metoprolol Tartrate 25 Mg Tab PO 12.5 mg BID FEDERICO Administration Ondansetron HCl 4 mg 06/22/21 01:32 06/29/21 11:10 Ondansetron 4 Mg/2 Ml Inj IV 4 mg Q8H PRN Administration Nausea And Vomiting Oxycodone/Acetaminophen 1 tab 06/22/21 01:32 Oxycodone /Acetaminophen 5-325mg Tab PO Q6H PRN Pain, Moderate (4-6) Simple Syrup 15 ml 06/29/21 13:00 Simple Syrup 15 Ml FEEDTUBE PRN PRN Hypoglycemia Simple Syrup 30 ml 06/29/21 13:00 Simple Syrup 15 Ml FEEDTUBE PRN PRN Hypoglycemia Sodium Bicarbonate 325 mg 06/29/21 13:30 Sodium Bicarbonate 325 Mg Tab FEEDTUBE PRN PRN For Clogged Feeding Tube Sodium Chloride 10 ml 06/22/21 10:00 07/05/21 22:57 Sodium Chloride 0.9% 10 Ml Flush Syringe IV 10 ml BID FEDERICO Administration Sodium Chloride 10 ml 06/22/21 01:32 Sodium Chloride 0.9% 10 Ml Flush Syringe IV PRN PRN LINE FLUSH Nutrition/Malnutrition Assess - Dietary Evaluation Nutrition/Malnutrition Findings: Nutrition Notes Start: 06/22/21 12:10 Freq: Status: Active Protocol: Document 07/05/21 11:44 MK (Rec: 07/05/21 11:47 [id number]) Nutrition Notes Initial or Follow up Reassessment Current Diagnosis Acute Kidney Injury,COPD, Sepsis Other Pertinent Diagnosis dementia, pneu, COVID-19(+) Current Diet pureed, consistent CHO Labs/Tests Reviewed Pertinent Medications Reviewed Height 5 ft 4 in Weight 57.9 kg [place] Body Weight (kg) 54.54 BMI 21.9 Weight Status Appropriate Subjective/Other Information Pt is eating an average of 75% of meals since last assessment. Percent of energy/protein needs met: 100%/79% Burn Absent Trauma Absent Current % PO Good (75-100%) Minimum of two criteria No physical signs of malnutrition #2 Nutrition Diagnosis Inadequate oral intake Diagnosis Progress(for reassessment Continues documentation) #1 Nutrition Diagnosis Increased nutrient needs ( specify in comment below) Diagnosis Progress(for reassessment Continues documentation) Is patient on ventilator? No Is Patient Ambulatory and/or Out of Bed No REE-([facility]-confined to bed) [phone] Calculation Used for Recommendations [facility] Additional Notes Protein: (1.25-1.5g/kg) 73-87g Fluid: 1 ml/kcal Nutrition Intervention Change Diet Order: Continue current Add Supplement/Snack (indicate name/kcal Glucerna daily /protein ) Provides kCal: 220 Provides Protein (gm) 10 Goal #1 Meet at least 75% of energy and protein needs via PO and ONS Anticipated Discharge Needs: Pureed, consistent CHO Follow-Up By: 07/11/21 Additional Comments F/u: stable intakes
[2021-07-06] MEDS: FAMOTIDINE 20 MG TAB PO SCH (09:12)
[2021-07-06] MEDS: METOPROLOL TARTRATE 25 MG TAB PO SCH ×2 (09:12→18:36)
[2021-07-06] MEDS: HEPARIN 5,000 UNIT/1 ML VIAL SUB-Q SCH ×2 (09:13→23:15)
[2021-07-06] MEDS: IPRATROPIUM/ALBUTEROL SULFATE 3 ML AMPUL.NEB IH SCH ×2 (12:15→22:39)
--- NOTE | 2021-07-06 13:01 | Discharge Summary ---
Providers - Providers Date of Admission: 06/22/21 00:05 Date of discharge: 07/06/21 Attending physician: YENNY AYALA MD 06/22/21 00:21 Consult to Physician [CONS] Stat Comment: dr. amato has seen the patient/ cade Consulting Provider: OLAMIDE AMATO Physician Instructions: Reason For Exam: Acute renal failure 06/22/21 01:38 Consult to Physician [CONS] Routine Comment: Consulting Provider: ROLY ARGUELLO Physician Instructions: Reason For Exam: pui 06/22/21 01:49 Consult to Dietitian/Nutrition [CONS] Routine Physician Instructions: Reason For Exam: Reason for Consult: Diet education 06/26/21 13:24 Physical Therapy Evaluation and Treat [CONS] Urgent Comment: Reason For Exam: To determine baseline ambulatory status 06/26/21 13:27 Occupational Therapy Evaluate and Treat [CONS] Urgent Comment: Reason For Exam: to determine baseline ADL status 06/29/21 02:58 Consult to Wound/ET Nurse [CONS] Routine Reason For Exam: wound eval 06/29/21 11:11 Consult to Physician [CONS] Routine Comment: Consulting Provider: ELENO BAZAN Physician Instructions: Reason For Exam: PEG PLACEMENT 06/29/21 11:17 Consult to Dietitian/Nutrition [CONS] Routine Physician Instructions: Reason For Exam: Reason for Consult: Write/Manage Tube Feeding Primary care physician: CARTOGRAPHY TECHNICIAN Hospitalization Reason for admission: COVID-19 pneumonia, acute hypoxic respiratory failure Condition: Stable Hospital course: Patient 80 years old with a history of dementia COPD presented to the ED with decreased responsiveness decreased p.o. intake x2 days fever 102. Patient also presented with tachycardia, tachypnea, hypoxemia. Patient had contact with family members with COVID-19. Patient presentation on radiograph consistent with bilateral pneumonia. Today subsequently patient positive for COVID-19. Currently stable with only 3 L nasal cannula. Patient encephalopathy has not improved much since baseline. 06/23/2021 patient remains altered today. A little more alert however remains encephalopathic. Patient SVT much improved since yesterday since suggesting gentle IV hydration plus amiodarone in addition to AV j carlos blocking agent. 06/24/2021. This is the first day patient much more responsive today. Will attempt to talk to you we will follow you with gaze. This is better than the previous 2 days.Tachycardia is also resolved. Requiring less oxygen wean as tolerated. 06/25: Patient seen and examined appears to be clinically improving. Discussed with nursing staff will obtain PT OT and home O2 evaluation. Anticipate discharge in a.m. if continues to improve will likely need home O2. Transfer to [facility] downgrade. 06/26: Patient clinically stable anticipate discharge home or to SNF today. Awaiting home O2 evaluation Case management is following. CTA angio and Doppler of lower extremity for VTE work-up done. Will recommend short-term low-dose anticoagulation even if negative of VTE at this time considering patient's elevated D-dimer levels and the Covid diagnosis. PT OT evaluation as fall precaution is imperative considering low-dose anticoagulation. Attempted to reach family unable. 06/27: Patient remains lethargic this morning. We will get a swallow evaluation done. Patient remains on 2 L of oxygen. Discussed with physical therapist she was not able to be participatory in any activity except sitting up at the bedside. Also discussed with her granddaughter today who tells me that the patient's daughter is currently in the ICU at [facility] with Covid and a CVA. And that the patient has rapidly declined in the last 2+ weeks. She is agreeable with the recommendation of physical therapist for SNF at this time. Case management will be working on this. 06/28: Leukocytosis persist ?steroid induced, no new fever. will monitor. Awaiting placement. Discussed with case management today in rounds. 06/29: Patient continues to have poor p.o. intake. Repeated hypoglycemia. Discussed with family they are okay with patient getting a PEG tube to help with nutrition. Consult placed to waitress to assist with this. Patient is still pending placement. 06/30: Discussed with GI was able to get a hold of family will be proceeding with PEG placement today. Patient still pending placement. Following my examination discussed with nursing staff blood pressure was significantly elevated this morning not sure why there is no evidence of anxiety she did improve. Will monitor closely may need an additional blood pressure control medication. 07/01: Continue supportive care awaiting bed placement continue evaluation of: Take. Mild decrease in blood pressure today will monitor closely. May need to hold blood pressure medications if continues to worsen. Leukocytosis secondary to steroids per ID. 07/02: Patient seen and examined, she is doing well and stable, tolerating diet with assistance, may not need PEG, still awaiting placement. Continue support care. 07/03: Patient seen and examined today doing very well nurse assisted with meal again demonstrated ability to eat 75% of her meal. She is clinically improved from the COVID-19 with complications of acute hypoxic respiratory failure. She is down to 2 L of oxygen. She has completed her dexamethasone and remdesivir treatment. Stable for rehab at this time #1 severe sepsis secondary to bilateral [id number] pneumonia. Multiple sick contacts in the home environment. Seems to have improved with IV volume therapy. Patient stable with 3 L of O2. Resting comfortably. No longer tachypneic hypotensive or tachycardic. Will place patient on steroids dexamethasone. Questionable remdesivir until renal function has improved. Continue empiric antibiotics. ID consult. Follow inflammatory markers. No remdesivir secondary to renal function. Continue. For 10 days. Contact Ana Rosa Arizmendi [phone] #2 acute renal failure. Secondary to prerenal azotemia not eating not drinking dehydration. Improving with follow-up chemistry obtain BMP a.m. #3 acute respiratory failure secondary to sepsis bilateral pneumonia Patient still maintained well with 3 L of oxygen. No change in O2. This is a good sign. Treat underlying etiology with antibiotics, supportive care. Steroids #4 diabetes mellitus will be more difficult control with addition of steroids placed patient sliding scale insulin advance as tolerated. We will add long-acting insulin. Especially since patient on steroids. Will increase long-acting insulin today. #5 rhabdomyolysis should respond to IV volume replacement. Would not be too aggressive since patient has Covid and would like to keep a little on dry side #6 hypertensive urgency. Will need to address patient's hypertension and tachycardia. Overall patient remains dry as evidenced by increased BUN/creatinine prerenal azotemia increase CPK. Much better since the addition of Lopressor. At present we will not increase fluids above 100 to 125 cc an hour in order not to worsen acute respiratory failure. Will be a very difficult balance but the risk outweigh the benefits of increasing fluids at this time. This can be fixed slowly. We will add Lopressor IV patient remains lethargic. #7 acute metabolic encephalopathy-patient not eating or drinking. Highly suspect Covid encephalopathy. Which would have caused underlying dementia to get worse. Patient should be able to eat today. CT scan head unremarkable. #8 hyponatremia patient started on D5 water. # 9: Failure to thrive #10 Covid pneumonia. ID following. Add dexamethasone. The plan was to discharge the patient to SNF but patient was Covid positive and could not get an accepting place. Case management discussed with the daughter and she preferred to take her home. Disposition: 06 HOME HEALTH CARE SERVICE Final Discharge Diagnosis (Prints w/discharge instructions): Acute hypoxic respiratory failure. COVID-19 pneumonia Time spent for discharge: 35 minutes - Discharge Diagnoses (1) Pneumonia due to COVID-19 virus Status: Acute (2) Acute metabolic encephalopathy Status: Acute (3) Acute renal failure Status: Acute (4) COPD (chronic obstructive pulmonary disease) Status: Acute (5) Diabetes Status: Acute (6) Failure to thrive Status: Acute Core Measure Documentation - Palliative Care Palliative Care/ Comfort Measures: Not Applicable - Core Measures Any of the following diagnoses?: none Exam - Physical Exam Narrative exam: Not in cardiopulmonary distress. The patient appeared well nourished and normally developed. Vital signs as documented. Head exam is unremarkable. No scleral icterus . Neck is without jugular venous distension, thyromegaly, or carotid bruits. Lungs are clear to auscultation. Cardiac exam reveals regular rate and Rhythm. Abdominal exam reveals normal bowel sounds, nontender, no organomegaly. Extremities are nonedematous and both femoral and pedal pulses are normal. SKIVER HAND: Patient not speak much. No focal weakness. - Constitutional Vitals: Temp Pulse Resp BP Pulse Ox 98.0 F 80 18 127/69 96 07/06/21 04:45 07/06/21 09:12 07/06/21 04:45 07/06/21 04:45 07/06/21 12:06 Plan Activity: advance as tolerated Weight Bearing Status: Weight Bear as Tolerated Diet: diabetic Plan of Treatment: continue mask and social isolation Follow up with: ROLY ARGUELLO MD [Staff Physician] - 7 Days PRIMARY CARE, [Primary Care Provider] - 3-5 Days Prescriptions: Ipratropium/Albuterol Sulfate [DUONEB *Not for PRN Use*] 1 ampul IH Q6HRT #90 ampul.neb Apixaban [Eliquis] 2.5 mg PO BID #20 tablet Ascorbic Acid [Vitamin C] 1,000 mg PO DAILY #30 tablet Cholecalciferol (Vitamin D3) [Vitamin D3] 5,000 unit PO DAILY #30 tablet Zinc Sulfate 220 mg PO DAILY #30 capsule
[2021-07-07] MEDS: INSULIN GLARGINE 100 UNITS/ML SUB-Q SCH (00:02)
[2021-07-07] MEDS: INSULIN LISPRO 100 UNIT/ML SUB-Q SCH ×3 (00:04→12:44)
[2021-07-07 04:14] VITALS: BP 131/62
[2021-07-07] MEDS: IPRATROPIUM/ALBUTEROL SULFATE 3 ML AMPUL.NEB IH SCH (08:31)
[2021-07-07] MEDS: FAMOTIDINE 20 MG TAB PO SCH (10:35)
[2021-07-07] MEDS: HEPARIN 5,000 UNIT/1 ML VIAL SUB-Q SCH (10:35)
[2021-07-07] MEDS: METOPROLOL TARTRATE 25 MG TAB PO SCH (10:36)
== END 2021-07-07 17:30 | disposition home health service (06) | DRG 871 ==
LOC: ED 19:49 → 4A 06-22 00:05 → IMCU 06-22 00:27 → 3A 06-26 22:43
PROVIDERS: ADMIT Hospitalist; ATTEND Internal Medicine
PROC: XW033E5 Introduction of Remdesivir Anti-infective into Peripheral Vein, Percutaneous Approach, New Technology Group 5 (ICD-10-PCS; principal; 2021-06-24)
DX: A41.89 Other specified sepsis (principal); G93.41 Metabolic encephalopathy; U07.1 COVID-19; J12.82 Pneumonia due to coronavirus disease 2019; J96.01 Acute respiratory failure with hypoxia; N17.0 Acute kidney failure with tubular necrosis; M62.82 Rhabdomyolysis; E87.1 Hypo-osmolality and hyponatremia; N17.9 Acute kidney failure, unspecified; R65.20 Severe sepsis without septic shock; J44.9 Chronic obstructive pulmonary disease, unspecified; I16.0 Hypertensive urgency; R79.89 Other specified abnormal findings of blood chemistry; R62.7 Adult failure to thrive; E11.65 Type 2 diabetes mellitus with hyperglycemia; E11.9 Type 2 diabetes mellitus without complications; F17.200 Nicotine dependence, unspecified, uncomplicated; F03.90 Unspecified dementia, unspecified severity, without behavioral disturbance, psychotic disturbance, mood disturbance, and anxiety; R74.01 Elevation of levels of liver transaminase levels; Z79.4 Long term (current) use of insulin
CPT/HCPCS: 36415; 70450; 71045; 71275; 74176; 80048; 80053; 80076; 81001; 82140; 82550; 82570; 82728; 82962; 84100; 84145; 84156; 84300; 85007; 85025; 85379; 85520; 86140; 86850; 86900; 86901; 87040; 87086; 87641; 93005; 93970; 94640; 94760; 96361; 96365; G0378; J0153; J0360; J0456; J0696; J1100; J1644; J1815; J2405; J2543; J7030; J7040; J7050; J7070; Q9967; U0003